=== PATIENT | female | born 1990 | race Caucasian/White ===

== ENCOUNTER 2017-05-08 10:42 | Emergency (ER) | payer BC, SELFPAY ==
[2017-05-08 10:50] VITALS: BP 108/73; PULSE 77; RESP 18; TEMP 36.6; O2SAT 99; BMI 35.3
[2017-05-08 10:58] VITALS: BP 108/73; PULSE 77; RESP 18; TEMP 36.6; O2SAT 99; BMI 35.3
--- NOTE | 2017-05-08 10:59 | XR_ITS ---
XR elbow LT min 3V HISTORY: Posttraumatic pain ITS.REASON: FELL AT HOME ORDERING PHYSICIAN: Jd Mart MD PATIENT AGE: 26 years COMPARISON: None FINDINGS: BONY STRUCTURES: No fracture or dislocation. No lytic or blastic change. Normal mineralization. SOFT TISSUES: Unremarkable. No radio opaque foreign bodies. No displaced fat pad. JOINT SPACE: Well-preserved. No significant arthritic changes evident. IMPRESSION: Negative elbow.
--- NOTE | 2017-05-08 11:06 | HMH.EDUTC ---
[place] Disposition Clinical Impression: Elbow pain Qualifiers: Laterality: left Qualified Code(s): M25.522 - Pain in left elbow Disposition: Home, Self-Care Condition on Discharge: Good Instructions: DI for Chronic Pain -- Adult, DI for Elbow Pain, How To Perform RICE (Rest, Ice, Compress, Elevate) Additional Instructions: *RICE, Rest the extremity, Ice 15-20 minutes 3-4 times daily, Compress- wear the ranjit wrap as discussed as much as possible to help reduce swelling and pain, Elevate the extremity when at rest *Ranjit wrap is for support and help control swelling, use it except in the shower. Be sure that is not to tight but not to loose either *Elevate when resting *Ibuprofen 600-800mg every 6-8 hours as needed for pain an inflammation. If need something more can take Tylenol in between doses of Ibuprofen to help Immediately follow up for new or worsening of symptoms, or no noticeable improvement over the next 3-5 days Prescriptions: Ibuprofen [Ibuprofen 600mg Tab] 600 mg PO Q6H PRN #20 tab PRN Reason: Moderate Pain Referrals: Carmine Richards MD [Staff Physician] - Gustavo Cardenas MD [Staff Physician] - Forms: Work/School Release Time of Disposition: 11:29 Medical Decision Making - Medical Records Medical records reviewed: Yes: I reviewed the patient's medical records. Vital Signs: 05/08/17 10:50 05/08/17 10:58 Temperature 97.8 F 97.8 F Temperature Source Oral Temporal Artery Scan Pulse Rate [Left Radial] 77 77 Respiratory Rate 18 18 Blood Pressure [Right Arm] 108/73 108/73 Blood Pressure Mean [Right Arm] 84 84 Blood Pressure Source [Right Arm] Automatic Cuff Automatic Cuff Blood Pressure Position [Right Arm] Sitting Sitting 02 Sat by Pulse Oximetry 99 99 Oxygen Delivery Method Room Air Room Air Orders (Tests/Meds): ORDERS Category Date Time Status XR elbow LT min 3V Stat Exams 05/08/17 10:59 Taken - Bruce Inquiry Pt receiving controlled substance: No Bruce was queried for this patient: No [place] HPI - General Stated complaint: [id number] left elbow pain/home Mode of Arrival: Ambulatory Source of Information: Patient Limitations: No Limitations Description of Symptoms (Recalled from Triage Doc. by RN): FELL [place], LEFT ELBOW PAIN HEENT Symptoms (Recalled from RN notes): No Resp Symptoms (Recalled from RN notes): No Skin Symptoms (Recalled from RN notes): No MS Symptoms (Recalled from RN notes): Yes Functional Status (Recalled from RN notes): N - History of Present Illness Provider Complaint: Patient fell a couple of days ago and as she tried to catch herself she tightened up her arms and put them straight out States that she feels like she bend her elbow area backwards. State that she has been having pain and swelling in the left elbow ever since - Related Data Previous Rx's Medication Instructions Recorded Ibuprofen [Ibuprofen 600mg Tab] 600 mg PO Q6H PRN #20 tab 05/08/17 Allergies Allergy/AdvReac Type Severity Reaction Status Date / Time No Known Allergies Allergy Verified 05/08/17 11:01 - Worker's Comp Is this a Worker's Comp case?: No [facility] History I have reviewed the patient's past medical history: Yes - *Social History Alcohol Intake: never - Psychiatric History Expresses thoughts of harming self/others: None Suicide Plan Description: No Plan ROS Obtained: Yes All systems reviewed & no additional complaints - Allergic/Immunologic Comments: Left elbow pain Physical Exam - General General appearance: alert, in no apparent distress - ENT ENT exam: Present: normal exam, normal oropharynx, mucous membranes moist, TM's normal bilaterally, normal external ear exam - Respiratory Respiratory exam: Present: normal lung sounds bilaterally. Absent: respiratory distress - Cardiovascular Cardiovascular exam: Present: regular rate, normal rhythm. Absent: JVD - Expanded Upper Extremity Exam Left Elbow exam: Present: tenderness, swel
[2017-05-08 11:45] VITALS: BP 110/82; PULSE 78; RESP 18; TEMP 36.6
== END 2017-05-08 11:48 | disposition home or self-care (01) ==
LOC: ER 10:52 → UTC 10:55
PROVIDERS: Emergency Provider Emergency Medicine; Family Provider Family Medicine
DX: M25.522 Pain in left elbow (principal); W01.0XXA Fall on same level from slipping, tripping and stumbling without subsequent striking against object, initial encounter
CPT/HCPCS: 73080; 99202

== ENCOUNTER 2017-06-13 14:55 | Emergency (ER) | payer BC, SELFPAY ==
[2017-06-13 15:32] VITALS: BP 127/70; PULSE 81; RESP 20; TEMP 36.6; O2SAT 97; BMI 35.3
[2017-06-13 15:57] LABS: UTC Influenza A Antigen Negative (Negative); UTC Influenza B Antigen Negative (Negative); UTC Strep Screen (Rapid) Negative (Negative)
--- NOTE | 2017-06-13 16:07 | HMH.EDUTC ---
[facility] [place] Disposition Clinical Impression: Nasal congestion with rhinorrhea Disposition: Home, Self-Care Condition on Discharge: Good Instructions: DI for Nasal Congestion Additional Instructions: * No sign of bacterial infection. Could be a mild virus/cold, could be allergies. Both are treated the same way * Nasal Saline to remove nasal drainage and help with nasal congestion. Hard to eat, drink, sleep with nasal congestion so important to keep nose cleaned out * Monitor Temp. Follow up if fever develops * Encourage fluids, water, gatorade, powerade, pedialyte if infant/toddler/child * warm salt water gargles * warm fluids * sore throat lozenges * sleep elevated * humidifier/vaporizer * flonase 2 sprays each nostril daily but may take 2-3 days to notice improvement with it. * Claritin 10mg daily * * Per hospital policy, Your throat swab was sent for culture. Those results are typically sent to your primary care. Be sure to follow up in 2-3 days if no improvement so they can review those results and treat if necessary. If you don't have primary care, I recommend you get one but in the mean time, you will have to return to a walk in clinic. Follow up: IMMEDIATELY for new or worsening symptoms OR no noticeable improvement over the next 48-72 hours. 911 for difficulty breathing or swallowing Time of Disposition: 16:15 Medical Decision Making - Bruce Inquiry Pt receiving controlled substance: No Vital Signs: 06/13/17 15:32 Temperature 97.9 F Temperature Source Temporal Artery Scan Pulse Rate [Brachial] 81 Respiratory Rate 20 Blood Pressure [Right Arm] 127/70 Blood Pressure Mean [Right Arm] 89 Blood Pressure Position [Right Arm] Sitting 02 Sat by Pulse Oximetry 97 - Lab Data Lab results reviewed: Yes: I reviewed the patient's lab results. Lab Results 06/13/17 15:38: Influenza Type A Ag Negative, Influenza Type B Ag Negative, Strep Scn Rapid Clinic Negative Orders (Tests/Meds): ORDERS Category Date Time Status Strep Screen Confirmation Stat Micro 06/13/17 15:38 Received [facility] [place] HPI - General Stated complaint: head congestion sore throat Time Seen by Provider: 06/13/17 16:07 Mode of Arrival: Ambulatory Source of Information: Patient Limitations: No Limitations Description of Symptoms (Recalled from Triage Doc. by RN): SORE THROAT AND SINUS CONGESTION SINCE THIS AM HEENT Symptoms (Recalled from RN notes): Yes Resp Symptoms (Recalled from RN notes): No Skin Symptoms (Recalled from RN notes): No MS Symptoms (Recalled from RN notes): No Functional Status (Recalled from RN notes): NA - History of Present Illness Provider Complaint: c/o sore throat and nasal congestion. Started w/ rhinorrhea 2-3 days ago. Sore throat and nasal congestion new today. Dayquil hasn't helped. No fever, aches, chills. No known sick contacts. - Related Data Allergies Allergy/AdvReac Type Severity Reaction Status Date / Time No Known Allergies Allergy Verified 06/12/17 10:12 - Worker's Comp Is this a Worker's Comp case?: No [facility] History I have reviewed the patient's past medical history: Yes (denies PMHx) Medical History: Denies:: Diabetes Mellitus Type 1, Diabetes Mellitus Type 2, Hypertension Laterality Cases: Bilateral: Tonsillectomy (w/ adnoids) Other Surgeries: Yes: Other (ankle (wire/screws)) - Social History Smoking Status: Never smoker Alcohol Intake: never Substance Use Type: denies use - Psychiatric History Expresses thoughts of harming self/others: None Suicide Plan Description: No Plan Family Hx:: No significant family history ROS Obtained: Yes Systems reviewed as appropriate & no additional complaints - Constitutional Constitutional: Reports as per HPI, Denies body ache, Denies chills, Denies fatigue, Denies poor appetite - Eyes Eyes: Reports eye discharge (watery), Denies itchy eyes, Denies eye pain, Denies other (eye redness) - ENT Ears, Nose, Mouth, and Throat: Reports as per HPI, De
--- NOTE | 2017-06-13 16:13 | ED_ITS ---
[facility] [place] Impression: Nasal congestion with rhinorrhea Disposition: Home, Self-Care Condition on Discharge: Good Instructions: DI for Nasal Congestion Additional Instructions: * No sign of bacterial infection. Could be a mild virus/cold, could be allergies. Both are treated the same way * Nasal Saline to remove nasal drainage and help with nasal congestion. Hard to eat, drink, sleep with nasal congestion so important to keep nose cleaned out * Monitor Temp. Follow up if fever develops * Encourage fluids, water, gatorade, powerade, pedialyte if infant/toddler/ child * warm salt water gargles * warm fluids * sore throat lozenges * sleep elevated * humidifier/vaporizer * flonase 2 sprays each nostril daily but may take 2-3 days to notice improvement with it. * Claritin 10mg daily * * Per hospital policy, Your throat swab was sent for culture. Those results are typically sent to your primary care. Be sure to follow up in 2-3 days if no improvement so they can review those results and treat if necessary. If you don' t have primary care, I recommend you get one but in the mean time, you will have to return to a walk in clinic. Follow up: IMMEDIATELY for new or worsening symptoms OR no noticeable improvement over the next 48-72 hours. 911 for difficulty breathing or swallowing Time of Disposition: 16:15 Medical Decision Making - Bruce Inquiry Pt receiving controlled substance: No Vital Signs: 06/13/17 15:32 Temperature 97.9 F Temperature Source Temporal Artery Scan Pulse Rate [Brachial] 81 Respiratory Rate 20 Blood Pressure [Right Arm] 127/70 Blood Pressure Mean [Right Arm] 89 Blood Pressure Position [Right Arm] Sitting 02 Sat by Pulse Oximetry 97 - Lab Data Lab results reviewed: Yes: I reviewed the patient's lab results. Lab Results 06/13/17 15:38: Influenza Type A Ag Negative, Influenza Type B Ag Negative, Strep Scn Rapid Clinic Negative Orders (Tests/Meds): ORDERS Category Date Time Status Strep Screen Confirmation Stat Micro 06/13/17 15:38 Received [facility] [place] - General Stated complaint: head congestion sore throat Time Seen by Provider: 06/13/17 16:07 Mode of Arrival: Ambulatory Source of Information: Patient Limitations: No Limitations Description of Symptoms (Recalled from Triage Doc. by RN): SORE THROAT AND SINUS CONGESTION SINCE THIS AM HEENT Symptoms (Recalled from RN notes): Yes Resp Symptoms (Recalled from RN notes): No Skin Symptoms (Recalled from RN notes): No MS Symptoms (Recalled from RN notes): No Functional Status (Recalled from RN notes): NA - History of Present Illness Provider Complaint: c/o sore throat and nasal congestion. Started w/ rhinorrhea 2-3 days ago. Sore throat and nasal congestion new today. Dayquil hasn't helped. No fever, aches, chills. No known sick contacts. - Related Data Allergies Allergy/AdvReac Type Severity Reaction Status Date / Time No Known Allergies Allergy Verified 06/12/17 10:12 - Worker's Comp Is this a Worker's Comp case?: No [facility] History I have reviewed the patient's past medical history: Yes (denies PMHx) Medical History: Denies:: Diabetes Mellitus Type 1, Diabetes Mellitus Type 2, Hypertension Laterality Cases: Bilateral: Tonsillectomy (w/ adnoids) Other Surgeries: Yes: Other (ankle (wire/screws)) - Social History Smoking Status: Never smoker Alcoho
[2017-06-13 16:20] VITALS: BP 127/70; PULSE 81; RESP 20; TEMP 36.6; O2SAT 97
== END 2017-06-13 16:22 | disposition home or self-care (01) ==
PROVIDERS: Emergency Provider Nurse Practitioner Family; Family Provider Family Medicine
DX: J34.89 Other specified disorders of nose and nasal sinuses (principal); I10 Essential (primary) hypertension
CPT/HCPCS: 87804; 87880; 99202

== ENCOUNTER → 2017-06-20 13:26 | Outpatient (CLI) | payer BC, SELFPAY ==
[2017-06-20 17:46] LABS: Basophils # 0.1 K/mm3 (0-0.2); Basophils % 0.5 % (0.1-2.0); Eosinophils # 0.3 K/mm3 (0.0-0.4); Eosinophils % 2.7 % (0.1-12.0); Hematocrit 46.3 % (37.0-47.0); Hemoglobin 14.6 g/dL (12.2-16.2); Lymphocytes # 2.1 K/mm3 (0.7-4.5); Lymphocytes % 19.3 K/mm3 (10-50); Mean Corpuscular HGB Conc 31.5 g/dL (31.8-35.4); Mean Corpuscular Hemoglobin 27.8 pg (27.0-31.2); Mean Corpuscular Volume 88.2 fl (81-99); Mean Platelet Volume 9.2 fl (7.4-10.4); Monocytes # 0.5 K/mm3 (0.1-1.0); Monocytes % 4.5 % (1.7-9.3); Neutrophils # 8.1 K/mm3 (1.8-7.8); Neutrophils % 73.2 % (37.0-80.0); Platelet Count 308 K/mm3 (142-424); Red Blood Count 5.25 M/mm3 (4.20-5.40); Red Cell Distribution Width 12.9 % (11.5-17.5); White Blood Count 11.1 K/mm3 (4.8-10.8)
[2017-06-20 18:18] LABS: Hemoglobin A1C 4.9 % (0.0-7.0)
[2017-06-20 18:31] LABS: Alanine Aminotransferase 22 U/L (12-78); Albumin Level 3.7 gm/dL (3.4-5.0); Albumin/Globulin Ratio 1.1 (1.1-1.8); Alkaline Phosphatase 104 U/L (46-116); Aspartate Amino Transferase 15 U/L (15-37); Bilirubin,Total 0.4 mg/dL (0.2-1.0); Blood Urea Nitrogen 8 mg/dL (7-18); Calcium 8.7 mg/dL (8.5-10.1); Carbon Dioxide 29 mmol/L (21.0-32.0); Chloride 106 mmol/L (98-107); Chol/HDL Ratio 5.1 (1-3.5); Cholesterol 182 mg/dL (140-200); Creatinine,Serum 0.66 mg/dL (0.55-1.02); Estimated Glomerular Filt Rate 108 ml/min (>60); Free T4 (Free Thyroxine) 0.95 ng/dl (0.76-1.46); GFR (African American) 131 ML/MIN (>60); Globulin 3.5 gm/dl (1.3-3.2); Glucose 73 mg/dL (74-106); HDL Cholesterol 36 mg/dL (29-89); LDL Cholesterol 125 mg/dL (0-130); Sodium 141 mmol/L (136-145); Thyroid Stimulating Hormone 1.31 uIU/ml (0.358-3.740); Total Protein,Serum 7.2 gm/dL (6.4-8.2); Triglycerides 106 mg/dL (30-200); VLDL Cholesterol 21 mg/dL (0-40)
[2017-06-22 18:39] LABS: Vitamin D 25 Hydroxy 15.4 ng/mL (30.0-100.0)
== END ==
PROVIDERS: Visit Provider Nurse Practitioner Family
DX: R53.83 Other fatigue (principal)
CPT/HCPCS: 80053; 80061; 82652; 83036; 84439; 84443; 85025

== ENCOUNTER 2018-08-18 14:44 | Emergency (ER) | payer BC, SELFPAY ==
[2018-08-18 14:55] VITALS: BP 127/82; PULSE 89; RESP 18; TEMP 36.5; O2SAT 100; BMI 37.9
--- NOTE | 2018-08-18 14:55 | XR_ITS ---
XR ankle LT min 3V HISTORY: Previous ankle surgery ITS.REASON: PAIN AND SWELLING ORDERING PHYSICIAN: PATIENT AGE: 27 years Comparison: (03/14/2011 FINDINGS: Again noted are the 2 horizontal threaded screws in the distal tibia which are unchanged in appearance from the previous study with no evidence of loosening. There is obliquely oriented threaded screw entering the talus laterally and extending up to the superior medial border. There is mild diffuse soft tissue swelling both medially and laterally. IMPRESSION: Stable postsurgical changes of a mild diffuse soft tissue swelling lower leg and ankle although another consideration is interval weight gain of the patient since the previous exam
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
[2018-08-18 15:29] VITALS: BP 126/66; PULSE 65; RESP 18; TEMP 36.6; O2SAT 100
== END 2018-08-18 15:39 | disposition home or self-care (01) ==
LOC: UTC 15:34
PROVIDERS: Emergency Provider Nurse Practitioner; PCP Emergency Medicine
DX: M25.572 Pain in left ankle and joints of left foot (principal)
CPT/HCPCS: 73610; 99201

== ENCOUNTER → 2018-11-20 16:56 | Outpatient (CLI) | payer BC, SELFPAY ==
[2018-11-20 17:35] LABS: Basophils # 0.1 K/mm3 (0-0.2); Basophils % 0.5 % (0.1-2.0); Eosinophils # 0.2 K/mm3 (0.0-0.4); Eosinophils % 1.6 % (0.1-12.0); Hematocrit 44.9 % (37.0-47.0); Hemoglobin 14.5 g/dL (12.2-16.2); Lymphocytes # 2.8 K/mm3 (0.7-4.5); Lymphocytes % 28.2 % (10-50); Mean Corpuscular HGB Conc 32.3 g/dL (31.8-35.4); Mean Corpuscular Hemoglobin 28.2 pg (27.0-31.2); Mean Corpuscular Volume 87.3 fl (81-99); Mean Platelet Volume 8.7 fl (7.4-10.4); Monocytes # 0.4 K/mm3 (0.1-1.0); Monocytes % 4.4 % (1.7-9.3); Neutrophils # 6.3 K/mm3 (1.8-7.8); Neutrophils % 65.2 % (37.0-80.0); Platelet Count 341 K/mm3 (142-424); Red Blood Count 5.14 M/mm3 (4.20-5.40); Red Cell Distribution Width 13.5 % (11.5-17.5); White Blood Count 9.7 K/mm3 (4.8-10.8)
[2018-11-20 17:37] LABS: Alanine Aminotransferase 32 U/L (12-78); Albumin Level 3.9 gm/dL (3.4-5.0); Albumin/Globulin Ratio 1.2 (1.1-1.8); Alkaline Phosphatase 90 U/L (46-116); Anion Gap 10.7 mEq/L (5-15); Aspartate Amino Transferase 14 U/L (15-37); Bilirubin,Total 0.6 mg/dL (0.2-1.0); Blood Urea Nitrogen 10 mg/dL (7-18); Calcium 8.9 mg/dL (8.5-10.1); Carbon Dioxide 27 mmol/L (21.0-32.0); Chloride 106 mmol/L (98-107); Chol/HDL Ratio 3.7 (1-3.5); Cholesterol 163 mg/dL (140-200); Creatinine,Serum 0.69 mg/dL (0.55-1.02); Estimated Glomerular Filt Rate 101 ml/min (>60); GFR (African American) 123 ML/MIN (>60); Globulin 3.2 gm/dl (1.3-3.2); Glucose 112 mg/dL (74-106); HDL Cholesterol 44 mg/dL (29-89); LDL Cholesterol 99 mg/dL (0-130); Potassium 3.7 mmoL/L (3.5-5.1); Sodium 140 mmol/L (136-145); Thyroid Stimulating Hormone 3.12 uIU/ml (0.358-3.740); Total Protein,Serum 7.1 gm/dL (6.4-8.2); Triglycerides 100 mg/dL (30-200); VLDL Cholesterol 20 mg/dL (0-40)
[2018-11-21 15:32] LABS: Hemoglobin A1C 5.1 % (0.0-7.0)
[2018-11-22 22:27] LABS: Vitamin B12 477 pg/mL (232-1245); Vitamin D 25 Hydroxy 25.4 ng/mL (30.0-100.0)
== END ==
PROVIDERS: Visit Provider Nurse Practitioner Family
DX: R53.83 Other fatigue (principal); R73.9 Hyperglycemia, unspecified; E55.9 Vitamin D deficiency, unspecified
CPT/HCPCS: 80053; 80061; 82607; 82652; 83036; 84439; 84443; 85025

== ENCOUNTER → 2019-07-07 16:52 | Outpatient (CLI) | payer BC, SELFPAY ==
[2019-07-07 17:26] LABS: Basophils # 0.1 K/mm3 (0-0.2); Basophils % 0.4 % (0.1-2.0); Eosinophils # 0.2 K/mm3 (0.0-0.4); Eosinophils % 1.3 % (0.1-12.0); Hemoglobin 13.6 g/dL (12.2-16.2); Lymphocytes # 3.1 K/mm3 (0.7-4.5); Lymphocytes % 22.4 % (10-50); Mean Corpuscular HGB Conc 32.5 g/dL (31.8-35.4); Mean Corpuscular Hemoglobin 27.7 pg (27.0-31.2); Mean Corpuscular Volume 85.1 fl (81-99); Mean Platelet Volume 8.1 fl (7.4-10.4); Monocytes # 0.5 K/mm3 (0.1-1.0); Monocytes % 3.3 % (1.7-9.3); Neutrophils # 9.9 K/mm3 (1.8-7.8); Neutrophils % 72.6 % (37.0-80.0); Platelet Count 295 K/mm3 (142-424); Red Blood Count 4.93 M/mm3 (4.20-5.40); Red Cell Distribution Width 13.3 % (11.5-17.5); White Blood Count 13.7 K/mm3 (4.8-10.8)
[2019-07-07 19:09] LABS: Chloride 106 mmol/L (98-107); Sodium 136 mmol/L (136-145)
[2019-07-07 19:12] LABS: Alanine Aminotransferase 24 U/L (12-78); Albumin/Globulin Ratio 1.5 (1.1-1.8); Alkaline Phosphatase 69 U/L (38-126); Aspartate Amino Transferase 20 U/L (14-36); Bilirubin,Total 0.3 mg/dl (0.2-1.3); Blood Urea Nitrogen 15 mg/dl (7-17); Calcium 9.2 mg/dl (8.4-10.2); Carbon Dioxide 23 mmol/L (22.0-30.0); Estimated Glomerular Filt Rate 85 ml/min (>60); GFR (African American) 103 ML/MIN (>60); Globulin 2.7 g/dL (1.3-3.2); Glucose 73 mg/dl (74-100); Total Protein,Serum 6.7 g/dl (6.3-8.2)
[2019-07-07 19:44] LABS: Thyroid Stimulating Hormone 2.52 uIU/mL (0.465-4.68)
[2019-07-09 04:44] LABS: Iron 86 ug/dL (27-159); UIBC 245 ug/dL (131-425)
[2019-07-09 07:17] LABS: Vitamin B12 404 pg/mL (232-1245); Vitamin D 25 Hydroxy 22.8 ng/mL (30.0-100.0)
[2019-07-09 07:18] LABS: Iron Saturation 26 % (15-55)
== END ==
PROVIDERS: Visit Provider Nurse Practitioner Psychiatric/Mental Health
DX: Z00.00 Encounter for general adult medical examination without abnormal findings (principal)
CPT/HCPCS: 36415; 80053; 82607; 82652; 83540; 83550; 84443; 85025

== ENCOUNTER → 2019-07-30 12:51 | Outpatient (CLI) | payer BC, SELFPAY ==
--- NOTE | 2019-07-30 12:58 | XR_ITS ---
PROCEDURE: XR FOOT WT BEARING RT 3V CLINICAL INDICATION: pain Right heel pain COMPARISON: No exams were available for comparison FINDINGS: No fracture or dislocation. No lytic or blastic change. There is normal mineralization. The joint spaces are well-preserved. No significant degenerative/arthritic changes. No erosive changes evident. There is a type 2 os navicularis with some osteosclerosis of the ununited ossicle. IMPRESSION: Type 2 os navicularis otherwise negative Dictated by: Brandno Crawley MD 07/30/2019 14:32 Electronically signed by Brandon Crawley MD in [place] 07/30/2019 14:32
--- NOTE | 2019-07-30 12:58 | XR_ITS ---
PROCEDURE: XR FOOT WT BEARING LT 3V CLINICAL INDICATION: foot pain COMPARISON: No exams were available for comparison FINDINGS: No fracture or dislocation. No lytic or blastic change. There is normal mineralization. The joint spaces are well-preserved. No significant degenerative/arthritic changes. No erosive changes evident. There is a type 2 os navicularis Other findings:There are 2 screws within the distal tibia and 1 screw within the talus IMPRESSION: Postsurgical changes of the ankle, no acute finding of the foot Type 2 os navicularis Dictated by: Brandon Crawley MD 07/30/2019 14:31 Electronically signed by Brandon Crawley MD in [place] 07/30/2019 14:31
== END ==
PROVIDERS: PCP Emergency Medicine; Visit Provider Podiatrist
DX: M79.672 Pain in left foot (principal); M79.671 Pain in right foot
CPT/HCPCS: 73630

== ENCOUNTER 2019-10-11 13:51 | Emergency (ER) | payer BC, SELFPAY ==
[2019-10-11 13:52] VITALS: BP 114/79; PULSE 90; RESP 18; TEMP 36.7; O2SAT 98; BMI 44.9
--- NOTE | 2019-10-11 14:08 | HMH.EDGENADL ---
ED Disposition Clinical Impression: Conjunctivitis Qualifiers: Conjunctivitis type: acute Acute conjunctivitis type: unspecified Laterality: left Qualified Code(s): H10.32 - Unspecified acute conjunctivitis, left eye Disposition: Home, Self-Care Condition on Discharge: Good Additional Instructions: use eyedrops as dispensed and f/u optometry for re-eval Referrals: Pio Hutton MD [Primary Care Provider] - - Critical Care Critical Care Time: No Attestation: On 10/11/19, the high probability of a clinically significant, sudden or life threatening deterioration of the following system(s) required my full and direct attention, intervention and personal management. The time I documented below is in addition to time spent performing reported procedures but includes the following listed in this critical care notation. Medical Decision Making - Bruce Inquiry Pt receiving controlled substance: No Orders (Tests/Meds): ED MEDICATIONS Generic Name Dose Route Start Last Admin Trade Name Freq PRN Reason Stop Dose Admin Neomycin/Polymyxin/Dexamethasone 2 ml 10/11/19 14:05 Maxitrol Ophth Susp 5ml Bottle OP 10/11/19 14:06 ONCE ONE Tetracaine HCl 2 ml 10/11/19 14:05 Tetracaine 0.5% Ophth Solution 15ml OP 10/11/19 14:06 ONCE ONE General Adult HPI - General Stated complaint: Inner Layer Scrubber Tender in eye; WC 1350 Time Seen by Provider: 10/11/19 14:00 Mode of Arrival: Ambulatory Source of Information: Patient Limitations: No Limitations - History of Present Illness HPI narrative: This a 28-year-old female that presents from dietary department. 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 Patient reports constant burning to the left eye in its entirety. She denies getting any hot grease in her eye just the school operations manager while she was cleaning. No change in her visual acuity. No other injury or complaint. Onset (ago): minute(s) (20m) Severity scale (1-10): 6 - Related Data Home Medications Medication Instructions Recorded Confirmed etonogestrel 68 mg subdermal SUBDERMAL each 11/17/18 08/04/19 implant Previous Rx's Medication Instructions Recorded diclofenac sodium 1 % topical gel 4 g TOPICAL QID PRN 30 Days #100 g 08/04/19 methylprednisolone 4 mg tablets in See Rx Instructions PO PER PKG DIR 05/12/20 a dose pack #21 tab aripiprazole 10 mg tablet 10 mg PO QHS #30 tab 08/27/19 doxepin 25 mg capsule 25 mg PO .COMPLEX #60 cap 08/27/19 fluoxetine 40 mg capsule 40 mg PO DAILY #30 cap 08/27/19 hydroxyzine pamoate 25 mg capsule 25 mg PO .COMPLEX PRN #60 cap 08/27/19 Allergies Allergy/AdvReac Type Severity Reaction Status Date / Time meloxicam Allergy Severe Rash Verified 08/04/19 13:15 [facility] History - Hepatitis A Screen Attestation statement:: This patient has been screened for Hepatitis A risk factors. I have reviewed the patient's past medical history: Yes Medical History: Reports:: Anxiety, Depression Denies:: Diabetes Mellitus Type 1, Diabetes Mellitus Type 2, Hypertension Laterality Cases: Left: Other, Bilateral: Tonsillectomy Other Surgeries: Yes: , Other Amputation: No Fractures: Yes (LEFT ANKLE, WIRE AND SCREWS) Comment: Left Ankle 2011 3 screws - Social History Smoking Status: Never smoker Alcohol Intake: never Substance Use Type: denies use Occupational Status: employed Housing: house Household Members: family - Psychiatric History Pschychiatric History:: Reports:: Anxiety, Depression Family Hx:: Mental illness, Other Comment: ROS Obtained: Yes All systems reviewed & no additional complaints Physical Exam - General General appearance: alert, in no apparent distress - Head Head exam: atraumatic - Eye Eye exam: Present: normal appearance, PERRL, EOMI, conjunctival redness - Expanded Eye Exam Eyelids: bilateral: normal inspection Pupils: Bilateral: regular, round Sclera/Conjunctival: le
[2019-10-11 14:49] VITALS: BP 114/79; PULSE 90; RESP 18; TEMP 36.7; O2SAT 98
== END 2019-10-11 14:50 | disposition home or self-care (01) ==
PROVIDERS: Emergency Provider Emergency Medicine; PCP Emergency Medicine
DX: H10.212 Acute toxic conjunctivitis, left eye (principal); F41.8 Other specified anxiety disorders; Y99.0 Civilian activity done for income or pay
CPT/HCPCS: 99281

== ENCOUNTER 2019-11-09 15:15 | Emergency (ER) | payer BC, SELFPAY ==
[2019-11-09 15:46] VITALS: BP 132/86; PULSE 94; RESP 16; TEMP 36.7; O2SAT 99; BMI 44.9
--- NOTE | 2019-11-09 15:59 | HMH.EDUTC ---
[facility] [place] Impression: Upper respiratory infection Qualifiers: URI type: unspecified URI Qualified Code(s): J06.9 - Acute upper respiratory infection, unspecified Disposition: Home, Self-Care Condition on Discharge: Good Instructions: DI for Sinusitis, Sinusitis, Sore Throat Additional Instructions: *Monitor Temp, Over the counter Motrin or Tylenol as directed/as needed Tylenol every 4 hours and Motrin every 6 hours (as long as your family doctor has told you that you can take it) for fever or pain. and straight to ER if unable to lower temp less than 101.0 after medication given *Warm salt water gargles may help to soothe the throat *Throat Lozenges *Warm fluids like tea with honey may help to soothe the throat *Sleep elevated *Humidifier/Vaporizer *Flonase 2 sprays in each nostril daily but be aware that it may take 2-3 days before you notice improvement Call back to the [facility] tomorrow to see if your COVID test results are back and the result Your throat swab was sent for culture. Those results are typically sent to your primary care. Be sure to follow up in 2-3 days with your family doctor/primary care physician if no improvement so they can review those result and treat if necessary. If you don?t have a primary care doctor, I recommend you get one but in the mean time, you will have to return to a walk in clinic Follow up IMMEDIATELY for new or worsening symptoms or no Noticeable improvement over the next 48-72 hours. 911 for difficulty breathing or swallowing Prescriptions: Fluticasone Propionate [Flonase 50mcg nasal spray 16gm] 1 - 2 spr NS DAILY #1 bottle Transmission Status: Pending to [facility] methylPREDNISolone [Medrol 4mg tab] 4 mg PO DIRECTED #21 tab Transmission Status: Pending to [facility] Azithromycin [Z-Foreign 250mg Tab] 250 mg PO DIRECTED #6 tab Transmission Status: Pending to [facility] Referrals: Pio Hutton MD [Primary Care Provider] - As needed Time of Disposition: 16:08 Medical Decision Making - Bruce Inquiry Pt receiving controlled substance: No Bruce was queried for this patient: No Vital Signs: 11/09/19 15:46 Temperature 98.1 F Temperature Source Oral Pulse Rate [Right Brachial] 94 H Respiratory Rate 16 Blood Pressure [Right Arm] 132/86 Blood Pressure Mean [Right Arm] 101 Blood Pressure Source [Right Arm] Automatic Cuff Blood Pressure Position [Right Arm] Sitting 02 Sat by Pulse Oximetry 99 Oxygen Delivery Method Room Air - Lab Data Lab results reviewed: Yes: I reviewed the patient's lab results. Orders (Tests/Meds): ORDERS Category Date Time Status Coronavirus 19 Swab (OUTPT) Routine Lab 11/09/19 15:51 Received [facility] [place] - General Stated complaint: Congestion, cough, sob Time Seen by Provider: 11/09/19 15:59 Mode of Arrival: Ambulatory Source of Information: Patient Limitations: No Limitations Description of Symptoms (Recalled from Triage Doc. by RN): PATIENT C/O COUGH, RUNNY NOSE, AND SOB X 3 WEEKS HEENT Symptoms (Recalled from RN notes): Yes Resp Symptoms (Recalled from RN notes): Yes Skin Symptoms (Recalled from RN notes): No MS Symptoms (Recalled from RN notes): No Functional Status (Recalled from RN notes): WNL - History of Present Illness Provider Complaint: Patient states that she has been having sinus congestion, sore irritated throat and cough on and off for about 3 weeks States that when she has a coughing eppisode it makes her feel short of breath States that earlier she started having drainage again and coughing so she come down to get checked - Related Data Home Medications Medication Instructions Recorded Confirmed etonogestrel 68 mg subdermal SUBDERMAL each 11/17/18 11/03/19 implant aripiprazole 5 mg tablet 5 mg PO DAILY 10/13/19 11/03/19 Previous Rx's Medication Instructions Recorded diclofenac sodium 1 % topical gel 4 g TOPICAL QID PRN 30 Days #100 g
[2019-11-09 16:11] VITALS: BP 132/86; PULSE 94; RESP 16; TEMP 36.7; O2SAT 99
== END 2019-11-09 16:16 | disposition home or self-care (01) ==
PROVIDERS: Emergency Provider Nurse Practitioner; PCP Emergency Medicine
DX: J06.9 Acute upper respiratory infection, unspecified (principal); Z20.828 Contact with and (suspected) exposure to other viral communicable diseases; Z79.899 Other long term (current) drug therapy; F41.8 Other specified anxiety disorders
CPT/HCPCS: 99201; U0003

== ENCOUNTER 2020-03-11 14:40 | Emergency (ER) | payer BC, SELFPAY ==
[2020-03-11 14:40] VITALS: BP 147/78; PULSE 105; RESP 20; TEMP 36.4; O2SAT 96; BMI 45.6
--- NOTE | 2020-03-11 14:51 | HMH.EDUTC ---
[facility] [place]: [place]ausea Disposition: Home, Self-Care Condition on Discharge: Good Instructions: DI for Nausea -- Adult Prescriptions: Ondansetron [Zofran 4mg ODT] 4 mg PO TIDP PRN 10 Days #20 tab PRN Reason: Nausea Transmission Status: Pending to [facility] Referrals: Pio Hutton MD [Primary Care Provider] - Time of Disposition: 15:09 Medical Decision Making - Bruce Inquiry Pt receiving controlled substance: No Vital Signs: 03/11/20 14:40 Temperature 97.5 F L Temperature Source Oral Pulse Rate [Right Brachial] 105 H Respiratory Rate 20 Blood Pressure [Right Arm] 147/78 H Blood Pressure Mean [Right Arm] 101 Blood Pressure Source [Right Arm] Automatic Cuff Blood Pressure Position [Right Arm] Sitting 02 Sat by Pulse Oximetry 96 Oxygen Delivery Method Room Air - Lab Data Lab results reviewed: Yes: I reviewed the patient's lab results. Orders (Tests/Meds): ED MEDICATIONS Discontinued Medications Generic Name Dose Route Start Last Admin Trade Name Freq PRN Reason Stop Dose Admin Ondansetron HCl 4 mg 03/11/20 15:07 Ondansetron 4mg Odt SL 03/11/20 15:08 ONCE ONE [facility] [place] - General Stated complaint: Nausea, jittery Time Seen by Provider: 03/11/20 14:51 - History of Present Illness Provider Complaint: Headache, nausea since this am. Seems to be getting a little worse. No fever. No vomiting or diarrhea. Denies ear pain, sore throat, cough. Has eaten and it didnt really seem to make it any better or any worse. Onset (ago): hour(s) (8) Location: head, abdomen Relieving factors: none Exacerbating factors: none Treatments prior to arrival: none - Related Data Home Medications Medication Instructions Recorded Confirmed ARIPiprazole [Aripiprazole 10mg 10 mg PO DAILY 03/11/20 03/11/20 Tablet] Etonogestrel [Nexplanon] 68 mg SQ ONCE 03/11/20 03/11/20 Fluoxetine HCl 40 mg PO DAILY 03/11/20 03/11/20 Mirtazapine [Remeron 15mg tablet] 15 mg PO DAILY 03/11/20 03/11/20 Phentermine HCl 37.5 mg PO DAILY 03/11/20 03/11/20 Previous Rx's Medication Instructions Recorded Ondansetron [Zofran 4mg ODT] 4 mg PO TIDP PRN 10 Days #20 tab 03/11/20 Allergies Allergy/AdvReac Type Severity Reaction Status Date / Time meloxicam Allergy Severe Rash Verified 01/04/20 09:44 [facility] History - Hepatitis A Screen Attestation statement:: This patient has been screened for Hepatitis A risk factors. Medical History: Reports:: Anxiety, Depression Denies:: Diabetes Mellitus Type 1, Diabetes Mellitus Type 2, Hypertension Laterality Cases: Left: Other, Bilateral: Tonsillectomy Other Surgeries: Yes: , Other Amputation: No Fractures: Yes (LEFT ANKLE, WIRE AND SCREWS) Comment: Left Ankle 2011 3 screws - Social History Smoking Status: Never smoker Alcohol Intake: never Substance Use Type: denies use Occupational Status: other Housing: house Household Members: family - Psychiatric History Pschychiatric History:: Reports:: Anxiety, Depression Family Hx:: Mental illness, Other Comment: ROS Obtained: Yes All systems reviewed & no additional complaints - Constitutional Constitutional: Reports headache(s) - Gastrointestinal Gastrointestingal: Reports: nausea Physical Exam - General General appearance: alert, in no apparent distress - Head Head exam: atraumatic, normocephalic, normal inspection - Eye Eye exam: Present: normal appearance, PERRL, EOMI - ENT ENT exam: Present: normal exam, normal oropharynx, mucous membranes moist, TM's normal bilaterally, normal external ear exam - Neck Neck exam: Present: normal inspection, full ROM, trachea midline. Absent: meningismus, lymphadenopathy - Chest Chest inspection: Present: normal inspection, symmetric chest wall rise. Absent: tenderness - Respiratory Respiratory exam: Present: normal lung sounds bilaterally. Absent: respiratory distress - Cardiovasc
[2020-03-11 15:10] VITALS: BP 147/78; PULSE 105; RESP 20; TEMP 36.4; O2SAT 96
[2020-03-11 15:27] LABS: UTC Strep Screen (Rapid) Negative (Negative)
== END 2020-03-11 15:12 | disposition home or self-care (01) ==
PROVIDERS: Emergency Provider Physician Assistant; PCP Emergency Medicine
DX: R11.0 Nausea (principal); F41.8 Other specified anxiety disorders; Z79.899 Other long term (current) drug therapy
CPT/HCPCS: 87880; 99201

== ENCOUNTER 2020-04-22 14:49 | Emergency (ER) | payer BC, SELFPAY ==
[2020-04-22 14:55] VITALS: BP 129/82; PULSE 97; RESP 14; TEMP 36.8; O2SAT 96; BMI 44.9
--- NOTE | 2020-04-22 15:40 | PC.NURSE ---
PATIENT SENT TO ER PER KIRK FULLER APRN FOR FURTHER EVALUATION. REPORT GIVEN TO Yogesh POON RN
--- NOTE | 2020-04-22 15:51 | HMH.EDUTC ---
[facility] [place] Impression: Abdominal pain Qualifiers: Abdominal location: right lower quadrant Qualified Code(s): R10.31 - Right lower quadrant pain Disposition: Still a Patient Condition on Discharge: Fair Referrals: Pio Hutton MD [Primary Care Provider] - Time of Disposition: 15:53 Medical Decision Making - Medical Records Medical records reviewed: No: I reviewed the patient's medical records. - Bruce Inquiry Pt receiving controlled substance: No Vital Signs: 04/22/20 14:55 Temperature 98.3 F Temperature Source Oral Pulse Rate [Right Brachial] 97 H Respiratory Rate 14 Blood Pressure [Right Arm] 129/82 Blood Pressure Mean [Right Arm] 97 Blood Pressure Source [Right Arm] Automatic Cuff Blood Pressure Position [Right Arm] Sitting 02 Sat by Pulse Oximetry 96 Oxygen Delivery Method Room Air - Lab Data Lab results reviewed: Yes: I reviewed the patient's lab results. Orders (Tests/Meds): ORDERS Category Date Time Status Covid-19 Nasal PCR ([facility]) Routine Lab 04/22/20 15:05 Received Medical Decision Narrative: She was transferred to the ER due to her abdominal pain and her right lower quadrant tenderness. [facility] [place] - General Stated complaint: vomiting, diarrhea Time Seen by Provider: 04/22/20 15:25 Mode of Arrival: Ambulatory Source of Information: Patient Limitations: No Limitations Description of Symptoms (Recalled from Triage Doc. by RN): PATIENT C/O VOMITING AND DIARRHEA SINCE THIS MORNING HEENT Symptoms (Recalled from RN notes): No Resp Symptoms (Recalled from RN notes): No Skin Symptoms (Recalled from RN notes): No MS Symptoms (Recalled from RN notes): No Functional Status (Recalled from RN notes): WNL - History of Present Illness Provider Complaint: She c/o n/v since this morning. She last vomited about 2 hours ago. She is not having diarrhea. She denies any fever or chills. - Related Data Home Medications Medication Instructions Recorded Confirmed ARIPiprazole [Aripiprazole 10mg 10 mg PO DAILY 03/11/20 03/11/20 Tablet] Etonogestrel [Nexplanon] 68 mg SQ ONCE 03/11/20 03/11/20 Fluoxetine HCl 40 mg PO DAILY 03/11/20 03/11/20 Mirtazapine [Remeron 15mg tablet] 15 mg PO DAILY 03/11/20 03/11/20 Phentermine HCl 37.5 mg PO DAILY 03/11/20 03/11/20 Previous Rx's Medication Instructions Recorded Ondansetron [Zofran 4mg ODT] 4 mg PO TIDP PRN 10 Days #20 tab 03/11/20 Allergies Allergy/AdvReac Type Severity Reaction Status Date / Time meloxicam Allergy Severe Rash Verified 01/04/20 09:44 - Worker's Comp Is this a Worker's Comp case?: No [facility] History - Hepatitis A Screen Drug use history?: No High risk sexual behaviors?: No History of sexually transmitted infection?: No Currently employed?: No Childcare worker?: No Do you have indoor plumbing?: Yes Do you have electricity?: Yes Attestation statement:: This patient has been screened for Hepatitis A risk factors. I have reviewed the patient's past medical history: Yes Medical History: Reports:: Anxiety, Depression Denies:: Diabetes Mellitus Type 1, Diabetes Mellitus Type 2, Hypertension Laterality Cases: Left: Other, Bilateral: Tonsillectomy Other Surgeries: Yes: , Other Amputation: No Fractures: Yes (LEFT ANKLE, WIRE AND SCREWS) Comment: Left Ankle 2011 3 screws - Social History Smoking Status: Never smoker Alcohol Intake: never Substance Use Type: denies use Occupational Status: other Housing: house Household Members: family - Psychiatric History Pschychiatric History:: Reports:: Anxiety, Depression Family Hx:: Mental illness, Other Comment: ROS Obtained: Yes All systems reviewed & no additional complaints - Constitutional Constitutional: Denies chills, Denies fever(s) - Musculoskeletal Musculoskeletal: Denies back pain - Integumentary/Breasts Skin/Breast: Denies redness, Denies rash, Denies wounds Physical Exam - General General appearance: marianne
[2020-04-22 16:02] LABS: Apearance,Urine Clear (Clear); Bilirubin,Urine Negative (Negative); Blood, Urine Negative (Negative); Color,Urine Yellow (Yellow); Glucose,Urine (UA) Negative (Negative); Ketones,Urine Negative (Negative); PH,Urine 5.5 (5.0-8.5); Protein,Urine Trace (Negative); Specific Gravity, Urine >= 1.030 (1.005-1.030); UTC Leukocyte Esterase,Urine Negative (Negative); UTC Nitrate,Urine Negative (Negative); UTC Pregnancy Test, Urine Negative (Negative); Urobilinogen,Urine 0.2 EU/dl (0.2)
[2020-04-22 16:11] VITALS: BP 123/89; PULSE 89; RESP 19; TEMP 37; O2SAT 100; BMI 45.7
--- NOTE | 2020-04-22 16:21 | HMH.EDGENADL ---
ED Disposition Clinical Impression: Viral syndrome Disposition: Home, Self-Care Condition on Discharge: Good Instructions: DI for Viral Gastroenteritis -- Adult Prescriptions: Ondansetron [Zofran 4mg ODT] 4 mg PO Q6 PRN #10 tab.rapdis PRN Reason: Nausea Transmission Status: Pending to [facility] Referrals: Pio Hutton MD [Primary Care Provider] - 3 days - Critical Care Critical Care Time: No Attestation: On 04/22/20, the high probability of a clinically significant, sudden or life threatening deterioration of the following system(s) required my full and direct attention, intervention and personal management. The time I documented below is in addition to time spent performing reported procedures but includes the following listed in this critical care notation. Medical Decision Making - Medical Records Medical records reviewed: Yes: I reviewed the patient's medical records. - Bruce Inquiry Pt receiving controlled substance: No Vital Signs: 04/22/20 14:55 04/22/20 16:11 Temperature 98.3 F 98.6 F Temperature Source Oral Oral Pulse Rate [Right Brachial] 97 H 89 Respiratory Rate 14 19 Blood Pressure [Right Arm] 129/82 123/89 Blood Pressure Mean [Right Arm] 97 100 Blood Pressure Source [Right Arm] Automatic Cuff Automatic Cuff Blood Pressure Position [Right Arm] Sitting Sitting 02 Sat by Pulse Oximetry 96 100 Oxygen Delivery Method Room Air Room Air - Lab Data Lab results reviewed: Yes: I reviewed the patient's lab results. Lab Results 04/22/20 15:40: Urine Color Yellow, Urine Appearance Clear, Urine pH 6.0, Ur Specific [place] >= 1.030, Urine Protein Negative, Urine Glucose (UA) Negative, Urine Ketones Negative, Urine Blood Negative, Urine Nitrate Negative, Urine Bilirubin Negative, Urine Urobilinogen 0.2, Ur Leukocyte Esterase Negative, Urine RBC None, Urine WBC None, Ur Squamous Epith Cells 20-50, Urine Bacteria 2+ 04/22/20 15:58: Urine Color Yellow, Urine Appearance Clear, Urine pH 5.5, Ur Specific [place] >= 1.030, Urine Protein Trace, Urine Glucose (UA) Negative, Urine Ketones Negative, Urine Blood Negative, Urine Nitrate Negative, Urine Bilirubin Negative, Urine Urobilinogen 0.2, Ur Leukocyte Esterase Negative, Tst Clinic Negative 04/22/20 17:20: WBC 15.3 H, RBC 5.00, Hgb 14.3, Hct 43.6, MCV 87.2, MCH 28.6, MCHC 32.8, RDW 13.9, Plt Count 268, MPV 8.0, Neut % (Auto) 76.6, Lymph % (Auto) 18.3, [place] % (Auto) 3.0, Eos % (Auto) 1.7, Baso % (Auto) 0.4, Neut # (Auto) 11.7 H, Lymph # (Auto) 2.8, [place] # (Auto) 0.5, Eos # (Auto) 0.3, Baso # (Auto) 0.1, Total Counted 100, Neutrophils % (Manual) 85 H, Lymphocytes % (Manual) 13, Monocytes % (Manual) 2, Platelet Estimate Normal, RBC Morphology Normal 04/22/20 17:20: Sodium 139, Potassium 3.7, Chloride 104, Carbon Dioxide 30, Anion Gap 8.7, BUN 13, Creatinine 0.90, Estimated Creat Clear 83, Estimated GFR 74, Est GFR ( Amer) 90, Glucose 109 H, Calcium 9.1, Total Bilirubin 0.3, AST 31, ALT 44, Alkaline Phosphatase 97, Total Protein 7.4, Albumin 4.1, Globulin 3.3 H, Albumin/Globulin Ratio 1.2, Lipase 104 Result diagrams: 04/22/20 17:20 04/22/20 17:20 Orders (Tests/Meds): ED MEDICATIONS Discontinued Medications Generic Name Dose Route Start Last Admin Trade Name Freq PRN Reason Stop Dose Admin Sodium Chloride 1,000 mls @ 999 mls/hr 04/22/20 16:30 04/22/20 16:42 Sod Chlor 0.9% 1000ml Bag IV 04/22/20 17:30 999 mls/hr .Q1H1M FLYNN Administration Ondansetron HCl 4 mg 04/22/20 16:20 04/22/20 16:42 Ondansetron 4mg/2ml Vial IV 04/22/20 16:21 4 mg ONCE ONE Administration ORDERS Category Date Time Status Covid-19 Nasal PCR ([facility]) Routine Lab 04/22/20 15:05 Received Lipase Stat Lab 04/22/20 17:20 Received Urine Culture Stat Micro 04/22/20 15:40 Received Medical Decision Narrative: Patient's labs are reassuring with no signs of biliary obstruction or pancreatitis. She has a nontender abdomen, low s
[2020-04-22 16:43] LABS: Microscopic, Urine URINE MICROSCOPIC (MICROSCOPIC)
[2020-04-22 16:46] LABS: Appearance,Urine CLEAR (Clear); Bilirubin,Urine Negative (Negative); Blood, Urine Negative (Negative); Color,Urine YELLOW (Yellow); Glucose,Urine (UA) Negative (Negative); Ketones,Urine Negative (Negative); Leukocyte Esterase,Urine Negative (Negative); Nitrate,Urine Negative (Negative); Protein,Urine Negative (Negative); Specific Gravity, Urine >= 1.030 (1.005-1.030); Urobilinogen,Urine 0.2 EU/dl (0.2)
[2020-04-22 17:04] LABS: Bacteria,Urine 2+ /lpf; Squamous Epithelial Cell,Urine 20-50 #/hpf (0-5)
[2020-04-22 17:30] LABS: Basophils # 0.1 K/mm3 (0-0.2); Basophils % 0.4 % (0.1-2.0); Eosinophils # 0.3 K/mm3 (0.0-0.4); Eosinophils % 1.7 % (0.1-12.0); Hematocrit 43.6 % (37.0-47.0); Hemoglobin 14.3 g/dL (12.2-16.2); Lymphocytes # 2.8 K/mm3 (0.7-4.5); Lymphocytes % 18.3 % (10-50); Mean Corpuscular HGB Conc 32.8 g/dL (31.8-35.4); Mean Corpuscular Hemoglobin 28.6 pg (27.0-31.2); Mean Corpuscular Volume 87.2 fl (81-99); Monocytes # 0.5 K/mm3 (0.1-1.0); Neutrophils # 11.7 K/mm3 (1.8-7.8); Neutrophils % 76.6 % (37.0-80.0); Platelet Count 268 K/mm3 (142-424); Red Cell Distribution Width 13.9 % (11.5-17.5); White Blood Count 15.3 K/mm3 (4.8-10.8)
[2020-04-22 17:32] LABS: MANUAL DIFFERENTIAL MANUAL DIFFERENTIAL (MANUAL DIFF)
[2020-04-22 17:36] LABS: Chloride 104 mmol/L (98-107); Potassium 3.7 mmoL/L (3.5-5.1); Sodium 139 mmol/L (136-145)
[2020-04-22 17:38] LABS: Alanine Aminotransferase 44 U/L (12-78); Alkaline Phosphatase 97 U/L (38-126); Anion Gap 8.7 mEq/L (5-15); Aspartate Amino Transferase 31 U/L (14-36); Bilirubin,Total 0.3 mg/dl (0.2-1.3); Blood Urea Nitrogen 13 mg/dl (7-17); Carbon Dioxide 30 mmol/L (22.0-30.0); Creatinine Clearance Estimated 83 mL/min (50-200); Estimated Glomerular Filt Rate 74 ml/min (>60); GFR (African American) 90 ML/MIN (>60)
[2020-04-22 17:39] LABS: Albumin Level 4.1 g/dl (3.5-5.0); Albumin/Globulin Ratio 1.2 (1.1-1.8); Calcium 9.1 mg/dl (8.4-10.2); Globulin 3.3 g/dL (1.3-3.2); Glucose 109 mg/dl (74-100); Lipase 104 U/L (23-300); Total Protein,Serum 7.4 g/dl (6.3-8.2)
[2020-04-22 17:44] LABS: Lymphocytes % 13 % (10-50); Monocytes % 2 % (2-9); Neutrophils % 85 % (42-76); Platelet Estimate Normal; RBC Morphology Normal; Total Cells Counted 100
[2020-04-22 17:59] LABS: Lipase 105 U/L (23-300)
[2020-04-22 18:16] VITALS: BP 122/79; PULSE 78; RESP 20; TEMP 37; O2SAT 100
== END 2020-04-22 18:17 | disposition home or self-care (01) ==
LOC: UTC 15:53 → ER 16:01
PROVIDERS: Nurse Practitioner Family; Emergency Provider Emergency Medicine; PCP Emergency Medicine
DX: Z20.822 Contact with and (suspected) exposure to COVID-19 (principal); R10.31 Right lower quadrant pain; R19.7 Diarrhea, unspecified; F41.8 Other specified anxiety disorders; Z79.899 Other long term (current) drug therapy
CPT/HCPCS: 80053; 81001; 81003; 81025; 83690; 85007; 85025; 87086; 96365; 96375; 99282; J2405; U0003

== ENCOUNTER 2020-09-20 15:04 | Emergency (ER) | payer BC, SELFPAY ==
[2020-09-20 15:05] VITALS: BP 120/76; PULSE 103; RESP 20; TEMP 36.9; O2SAT 96; BMI 48.2
--- NOTE | 2020-09-20 15:54 | HMH.EDUTC ---
[facility] [place] Clinical Impression: Sinusitis Qualifiers: Sinusitis location: unspecified location Chronicity: acute Recurrence: non-recurrent Qualified Code(s): J01.90 - Acute sinusitis, unspecified Acute bronchitis Qualifiers: Bronchitis organism: unspecified organism Qualified Code(s): J20.9 - Acute bronchitis, unspecified Disposition: Home, Self-Care Condition on Discharge: Good Instructions: DI for Sinusitis Additional Instructions: Drink plenty of fluids. Take tylenol or ibuprofen for pain or fever. Take the medications as directed. Follow up with your regular doctor. GO TO THE ER FOR ANY WORSENING SYMPTOMS Prescriptions: methylPREDNISolone [Medrol] 4 mg PO DIRECTED 6 Days #21 tab.ds.pk Transmission Status: Received by [facility] Benzonatate [Tessalon Perle 100mg Cap] 100 mg PO TIDP PRN #30 cap PRN Reason: Cough Transmission Status: Received by [facility] Azithromycin [Z-Foreign 250mg Tab*] 250 mg PO UD DOSE PK #6 tab Transmission Status: Received by [facility] Referrals: Pio Hutton MD [Primary Care Provider] - Forms: Work/School Release Time of Disposition: 16:00 Medical Decision Making - Medical Records Medical records reviewed: No: I reviewed the patient's medical records. - Bruce Inquiry Pt receiving controlled substance: No Vital Signs: 09/20/20 15:05 09/20/20 16:10 Temperature 98.5 F 98.5 F Temperature Source Oral Pulse Rate 103 H Pulse Rate [Left Brachial] 103 H Respiratory Rate 20 20 Blood Pressure 120/76 Blood Pressure [Left Arm] 120/76 Blood Pressure Mean [Left Arm] 90 Blood Pressure Source [Left Arm] Automatic Cuff Blood Pressure Position [Left Arm] Sitting 02 Sat by Pulse Oximetry 96 Oxygen Delivery Method Room Air - Lab Data Lab results reviewed: Yes: I reviewed the patient's lab results. Orders (Tests/Meds): ED MEDICATIONS Discontinued Medications Generic Name Dose Route Start Last Admin Trade Name Freq PRN Reason Stop Dose Admin Ceftriaxone Sodium 1 gm 09/20/20 15:58 09/20/20 16:08 Ceftriaxone 1gm Vial IM 09/20/20 15:59 1 gm ONCE ONE Administration Protocol Lidocaine HCl 0 ml 09/20/20 15:58 09/20/20 16:08 Lidocaine 1% 5ml Pf Vial IM 09/20/20 15:59 2.1 ml ONCE ONE Administration Methylprednisolone Sodium Succinate 125 mg 09/20/20 15:58 09/20/20 16:08 Methylprednisolone Sod Succ 125mg Vial IM 09/20/20 15:59 125 mg ONCE ONE Administration [facility] [place] HPI - General Stated complaint: chest congestion,cough Time Seen by Provider: 09/20/20 15:54 Mode of Arrival: Ambulatory Source of Information: Patient Limitations: No Limitations Description of Symptoms (Recalled from Triage Doc. by RN): PATIENT C/O CONGESTION, HEADACHE, DIZZINESS, AND FATIGUE SINCE YESTERDAY HEENT Symptoms (Recalled from RN notes): Yes Resp Symptoms (Recalled from RN notes): No Skin Symptoms (Recalled from RN notes): No MS Symptoms (Recalled from RN notes): No Functional Status (Recalled from RN notes): WNL - History of Present Illness Provider Complaint: She c/o chest and sinus congestion for the past 2 days. She has been vaccinated for covid-19. - Related Data Previous Rx's Medication Instructions Recorded Azithromycin [Z-Foreign 250mg Tab*] 250 mg PO UD DOSE PK #6 tab 09/20/20 Benzonatate [Tessalon Perle 100mg 100 mg PO TIDP PRN #30 cap 09/20/20 Cap] methylPREDNISolone [Medrol] 4 mg PO DIRECTED 6 Days #21 09/20/20 tab.ds.pk Allergies Allergy/AdvReac Type Severity Reaction Status Date / Time meloxicam Allergy Severe Rash Verified 06/15/20 16:44 - Worker's Comp Is this a Worker's Comp case?: No [facility] History - Hepatitis A Screen Drug use history?: No High risk sexual behaviors?: No History of sexually transmitted infection?: No Currently employed?: No Childcare worker?: No Do you have indoor plumbing?: Yes Do you have electricity?: Yes Attestation statem
[2020-09-20 16:10] VITALS: BP 120/76; PULSE 103; RESP 20; TEMP 36.9; O2SAT 96
== END 2020-09-20 16:20 | disposition home or self-care (01) ==
PROVIDERS: Emergency Provider Nurse Practitioner Family; PCP Emergency Medicine
DX: J01.90 Acute sinusitis, unspecified (principal); J20.9 Acute bronchitis, unspecified; F41.8 Other specified anxiety disorders
CPT/HCPCS: 96372; 99202; G0463

== ENCOUNTER 2020-10-04 16:39 | Emergency (ER) | payer BC, SELFPAY ==
[2020-10-04 17:57] VITALS: BP 112/72; PULSE 76; RESP 18; TEMP 36.7; O2SAT 96; BMI 46.5
--- NOTE | 2020-10-04 18:36 | HMH.EDUTC ---
[facility] [place]ression: Cellulitis of left thigh, Abscess of left thigh Disposition: Home, Self-Care Condition on Discharge: Good Instructions: Cellulitis, Boil Additional Instructions: Keep the affected area clean and dry. Follow up with your regular doctor within 72 hours for a wound recheck. Take the antibiotics as directed and apply the topical antibiotics as directed. Apply warm wet compresses to the affected area three or four times per day. GO TO THE ER FOR ANY WORSENING SYMPTOMS Prescriptions: Sulfamethoxazole/Trimethoprim [Bactrim DS tablet] 1 each PO BID 10 Days #20 tab Transmission Status: Received by [id number] Mupirocin [Bactroban 2% Ointment 22gm tube] 1 applicatio TP TID 7 Days #1 tube Transmission Status: Received by [facility] cephALEXin [cephALEXin 500mg capsule] 500 mg PO Q6H 10 Days #40 cap Transmission Status: Received by [id number] Referrals: Pio Hutton MD [Primary Care Provider] - Time of Disposition: 18:41 Medical Decision Making - Medical Records Medical records reviewed: No: I reviewed the patient's medical records. - Bruce Inquiry Pt receiving controlled substance: No Vital Signs: 10/04/20 17:57 10/04/20 18:45 Temperature 98.1 F 98 F Temperature Source Oral Pulse Rate 76 Pulse Rate [Left] 76 Respiratory Rate 18 99 H Blood Pressure 112/72 Blood Pressure [Right Arm] 112/72 Blood Pressure Mean [Right Arm] 85 02 Sat by Pulse Oximetry 96 Medical Decision Narrative: there was no open wound and no drainage to obtain a culture from. The wound was not ready to be I&D'd. [facility] [place] General Stated complaint: possible spider bite Time Seen by Provider: 10/04/20 18:15 Mode of Arrival: Ambulatory Source of Information: Patient Limitations: No Limitations Description of Symptoms (Recalled from Triage Doc. by RN): pt states she thinks she may have a spider bite on her upper thigh. pt states this has been ongoing for three days, she also states she been picking at it causing it to bleed. HEENT Symptoms (Recalled from RN notes): No Resp Symptoms (Recalled from RN notes): No Skin Symptoms (Recalled from RN notes): Yes MS Symptoms (Recalled from RN notes): No Functional Status (Recalled from RN notes): na - History of Present Illness Provider Complaint: She states that she has a sore area on her left upper posterior thigh. It has been present for the past 3 days. She states that it is getting more swollen and painful. Sitting makes her pain worse and walking also makes the pain worse. She has never had an issue like this before. She is not diabetic. - Related Data Previous Rx's Medication Instructions Recorded Azithromycin [Z-Foreign 250mg Tab*] 250 mg PO UD DOSE PK #6 tab 09/20/20 Benzonatate [Tessalon Perle 100mg 100 mg PO TIDP PRN #30 cap 09/20/20 Cap] methylPREDNISolone [Medrol] 4 mg PO DIRECTED 6 Days #21 09/20/20 tab.ds.pk Mupirocin [Bactroban 2% Ointment 1 applicatio TP TID 7 Days #1 tube 10/04/20 22gm tube] Sulfamethoxazole/Trimethoprim 1 each PO BID 10 Days #20 tab 10/04/20 [Bactrim DS tablet] cephALEXin [cephALEXin 500mg 500 mg PO Q6H 10 Days #40 cap 10/04/20 capsule] Allergies Allergy/AdvReac Type Severity Reaction Status Date / Time meloxicam Allergy Severe Rash Verified 10/04/20 18:19 - Worker's Comp Is this a Worker's Comp case?: No [facility] History - Hepatitis A Screen Drug use history?: No High risk sexual behaviors?: No History of sexually transmitted infection?: No Currently employed?: No Childcare worker?: No Do you have indoor plumbing?: Yes Do you have electricity?: Yes Attestation statement:: This patient has been screened for Hepatitis A risk factors. I have reviewed the patient's past medical history: Yes Medical History: Reports:: Anxiety, Depression Denies:: Diabetes Mellitus Type 1, Diabetes Mellitus Type 2, Hypertension Laterality Paramjit
[2020-10-04 18:45] VITALS: BP 112/72; PULSE 76; RESP 99; TEMP 36.6
== END 2020-10-04 18:46 | disposition home or self-care (01) ==
PROVIDERS: Emergency Provider Nurse Practitioner Family; PCP Emergency Medicine
DX: L03.116 Cellulitis of left lower limb (principal); F41.8 Other specified anxiety disorders

== ENCOUNTER 2020-12-16 18:49 | Emergency (ER) | payer BC, SELFPAY ==
[2020-12-16 18:50] VITALS: BP 119/80; PULSE 77; RESP 18; TEMP 36.6; O2SAT 100; BMI 46.6
[2020-12-16 19:21] VITALS: BP 119/80; PULSE 77; RESP 18; TEMP 36.6; O2SAT 100
[2020-12-16 19:26] LABS: UTC Strep Screen (Rapid) Negative (Negative)
--- NOTE | 2020-12-16 19:46 | HMH.EDUTC ---
[facility] [place] Disposition Clinical Impression: Otitis media Qualifiers: Otitis media type: suppurative Chronicity: acute Laterality: bilateral Recurrence: non-recurrent Spontaneous tympanic membrane rupture: without spontaneous rupture Qualified Code(s): H66.003 - Acute suppurative otitis media without spontaneous rupture of ear drum, bilateral Disposition: Home, Self-Care Condition on Discharge: Good Instructions: Middle Ear Infection Additional Instructions: Drink plenty of fluids. Take tylenol or ibuprofen for pain or fever. Take the medications as directed. Follow up with your regular doctor. GO TO THE ER FOR ANY WORSENING SYMPTOMS Don't start the oral steroids until tomorrow, since you had the shot here today. Prescriptions: methylPREDNISolone [Medrol] 4 mg PO DIRECTED 6 Days #21 packet Transmission Status: Received by [id number] Referrals: Pio Hutton MD [Primary Care Provider] - Time of Disposition: 19:57 Medical Decision Making - Medical Records Medical records reviewed: No: I reviewed the patient's medical records. - Bruce Inquiry Pt receiving controlled substance: No Vital Signs: 12/16/20 18:50 12/16/20 19:21 Temperature 97.8 F 97.8 F Temperature Source Oral Pulse Rate 77 Pulse Rate [Right Brachial] 77 Respiratory Rate 18 18 Blood Pressure 119/80 Blood Pressure [Right Arm] 119/80 Blood Pressure Mean [Right Arm] 93 Blood Pressure Source [Right Arm] Automatic Cuff Blood Pressure Position [Right Arm] Sitting 02 Sat by Pulse Oximetry 100 Oxygen Delivery Method Room Air - Lab Data Lab results reviewed: Yes: I reviewed the patient's lab results. Lab Results 12/16/20 19:16: Strep Scn Rapid Clinic Negative Orders (Tests/Meds): ED MEDICATIONS Discontinued Medications Generic Name Dose Route Start Last Admin Trade Name Freq PRN Reason Stop Dose Admin Ceftriaxone Sodium 1 gm 12/16/20 19:16 12/16/20 19:20 Ceftriaxone 1gm Vial IM 12/16/20 19:17 1 gm ONCE ONE Administration Lidocaine HCl 0 ml 12/16/20 19:16 12/16/20 19:20 Lidocaine 1% 5ml Pf Vial IM 12/16/20 19:17 2.1 ml ONCE ONE Administration Methylprednisolone Sodium Succinate 125 mg 12/16/20 19:16 12/16/20 19:20 Methylprednisolone Sod Succ 125mg Vial IM 12/16/20 19:17 125 mg ONCE ONE Administration ORDERS Category Date Time Status Strep Screen Confirmation Routine Micro 12/16/20 19:[address] [facility] [place] HPI - General Stated complaint: swollen/painful in L side of throat Time Seen by Provider: 12/16/20 19:46 Mode of Arrival: Ambulatory Source of Information: Patient Limitations: No Limitations Description of Symptoms (Recalled from Triage Doc. by RN): PATIENT C/O HEADACHE, SORE THROAT AND NECK THAT STARTED YESTERDAY HEENT Symptoms (Recalled from RN notes): Yes Resp Symptoms (Recalled from RN notes): No Skin Symptoms (Recalled from RN notes): No MS Symptoms (Recalled from RN notes): No Functional Status (Recalled from RN notes): WNL - History of Present Illness Provider Complaint: She has been diagnosed with an ear infection. She has not started the antibiotics yet. Today her left ear pain worsened. She is here to have it rechecked. - Related Data Previous Rx's Medication Instructions Recorded Azithromycin [Z-Foreign 250mg Tab*] 250 mg PO UD DOSE PK #6 tab 09/20/20 Benzonatate [Tessalon Perle 100mg 100 mg PO TIDP PRN #30 cap 09/20/20 Cap] methylPREDNISolone [Medrol] 4 mg PO DIRECTED 6 Days #21 09/20/20 tab.ds.pk Mupirocin [Bactroban 2% Ointment 1 applicatio TP TID 7 Days #1 tube 10/04/20 22gm tube] Sulfamethoxazole/Trimethoprim 1 each PO BID 10 Days #20 tab 10/04/20 [Bactrim DS tablet] cephALEXin [cephALEXin 500mg 500 mg PO Q6H 10 Days #40 cap 10/04/20 capsule] methylPREDNISolone [Medrol] 4 mg PO DIRECTED 6 Days #21 12/16/20 packet Allergies Allergy/AdvReac Type Severity Reaction Status Date / Time meloxi
== END 2020-12-16 20:01 | disposition home or self-care (01) ==
PROVIDERS: Emergency Provider Nurse Practitioner Family; PCP Emergency Medicine
DX: H66.003 Acute suppurative otitis media without spontaneous rupture of ear drum, bilateral (principal); J02.9 Acute pharyngitis, unspecified; F41.8 Other specified anxiety disorders
CPT/HCPCS: 87880; 96372; 99202; G0463

== ENCOUNTER → 2020-12-22 08:09 | Outpatient (CLI) | payer BC, SELFPAY ==
[2020-12-22 09:40] LABS: Basophils # 0.1 K/mm3 (0-0.2); Basophils % 0.8 % (0.1-2.0); Eosinophils # 0.2 K/mm3 (0.0-0.4); Eosinophils % 1.5 % (0.1-12.0); Hematocrit 46.6 % (37.0-47.0); Hemoglobin 14.9 g/dL (12.2-16.2); Lymphocytes # 3.3 K/mm3 (0.7-4.5); Lymphocytes % 26.7 % (10-50); Mean Corpuscular HGB Conc 31.9 g/dL (31.8-35.4); Mean Corpuscular Hemoglobin 27.9 pg (27.0-31.2); Mean Corpuscular Volume 87.3 fl (81-99); Mean Platelet Volume 8.9 fl (7.4-10.4); Monocytes # 0.5 K/mm3 (0.1-1.0); Monocytes % 4.4 % (1.7-9.3); Neutrophils # 8.2 K/mm3 (1.8-7.8); Neutrophils % 66.6 % (37.0-80.0); Platelet Count 322 K/mm3 (142-424); Red Blood Count 5.34 M/mm3 (4.20-5.40); Red Cell Distribution Width 13.7 % (11.5-17.5); White Blood Count 12.3 K/mm3 (4.8-10.8)
[2020-12-22 10:16] LABS: Chloride 106 mmol/L (98-107); Potassium 4.2 mmoL/L (3.5-5.1); Sodium 140 mmol/L (136-145)
[2020-12-22 10:18] LABS: Alanine Aminotransferase 38 U/L (12-78); Albumin/Globulin Ratio 1.3 (1.1-1.8); Alkaline Phosphatase 98 U/L (38-126); Anion Gap 12.2 mEq/L (5-15); Aspartate Amino Transferase 28 U/L (14-36); Bilirubin,Total 0.5 mg/dl (0.2-1.3); Blood Urea Nitrogen 6 mg/dl (7-17); Carbon Dioxide 26 mmol/L (22.0-30.0); Estimated Glomerular Filt Rate 117 ml/min (>60); GFR (African American) 142 ML/MIN (>60)
[2020-12-22 10:19] LABS: Cholesterol 215 mg/dl (140-200); Glucose 94 mg/dl (74-100); HDL Cholesterol 36 mg/dl (40-60); Triglycerides 194 mg/dl (30-150); VLDL Cholesterol 39 mg/dL (0-40)
[2020-12-22 10:31] LABS: Direct LDL Cholesterol 136.56 mg/dL (100-129)
[2020-12-22 10:36] LABS: Free T4 (Free Thyroxine) 1.03 ng/dl (0.78-2.19)
[2020-12-22 10:37] LABS: 25-OH Vitamin D, Total 32.9 ng/mL (30-100)
[2020-12-22 10:50] LABS: Thyroid Stimulating Hormone 2.26 uIU/mL (0.465-4.68)
[2020-12-22 11:03] LABS: Hemoglobin A1C 5.3 % (4.0-6.0)
== END ==
PROVIDERS: Visit Provider Emergency Medicine
DX: E66.01 Morbid (severe) obesity due to excess calories (principal); Z68.41 Body mass index [BMI] 40.0-44.9, adult; E55.9 Vitamin D deficiency, unspecified
CPT/HCPCS: 36415; 80053; 80061; 82306; 83036; 84439; 84443; 85025

== ENCOUNTER → 2021-01-17 15:09 | Outpatient (CLI) | payer BC, SELFPAY ==
[2021-01-17 15:24] LABS: Coronavirus 19, PCR Not Detected (NotDetected); Influenza A, PCR Not Detected (NotDetected); Influenza B, PCR Not Detected (NotDetected)
== END ==
PROVIDERS: PCP Emergency Medicine; Visit Provider Nurse Practitioner
DX: Z20.822 Contact with and (suspected) exposure to COVID-19 (principal)
CPT/HCPCS: C9803; U0003; U0005

== ENCOUNTER 2021-01-19 13:09 | Emergency (ER) | payer BC, SELFPAY ==
[2021-01-19 14:07] VITALS: BP 130/86; PULSE 100; RESP 16; TEMP 36.9; O2SAT 96; BMI 46.0
[2021-01-19 14:20] LABS: Coronavirus 19, PCR Not Detected (NotDetected); Influenza A, PCR Not Detected (NotDetected); Influenza B, PCR Not Detected (NotDetected)
--- NOTE | 2021-01-19 14:27 | HMH.EDUTC ---
[facility] [place] Clinical Impression: Sinusitis Qualifiers: Sinusitis location: unspecified location Chronicity: unspecified Qualified Code(s): J32.9 - Chronic sinusitis, unspecified Otitis media Qualifiers: Otitis media type: unspecified Laterality: bilateral Qualified Code(s): H66.93 - Otitis media, unspecified, bilateral Disposition: Home, Self-Care Condition on Discharge: Good Instructions: Sinusitis, DI for Sinusitis, DI for Muscle Spasm Additional Instructions: ? Start antibiotic today. Be sure to complete entire prescription even if feeling better ? Monitor temp. Tylenol every 4 hours as needed and / or ibuprofen every 6 hours as needed ( As long as your primary care physician has told you that it ok to take both. For fever/aches/pains ER if no less than 101 despite Tylenol or Motrin ? Humidifier/vaporizer or hot steamy shower *Ibuprofen florinda 6 hours with meal as needed for pain/inflammation if you can take may help with pain *Not additional anti-inflammatory like motrin, aleve, advil with the above amount of ibuprofen. You can still take Tylenol every 4 hours as needed if you need something else for pain *Ice 20 minutes every 2 hours for the first 48 hours after the initial injury followed by moist heat every 20 minutes 3-4 times a day to affected area *Muscle relaxer as prescribed as needed for muscle spasms but remember, it WILL cause drowsiness You cannot take it and drive, operate machinery or care for small children. *Keep this area active, no movement leads to more stiffness, However take it easy and avoid heavy lifting pushing or pulling *Follow up with you family doctor if no improvement for further treatment *Start steroid today. Helps with inflammation therefore, cough and wheezing. Follow directions on the package. Reviewed side effects. Patient reports taking them before. Follow up IMMEDIATELY for new or worsening of symptoms OR no noticeable improvement over the next 48-72 hours. 911 immediately for any life threatening symptoms such as chest pain or difficulty breathing May return to work after negative COVID test Prescriptions: Amoxicillin/Potassium Clav [Augmentin 875-125 Tablet] 1 tab PO Q12H 10 Days #20 tab Transmission Status: Received by [facility] predniSONE [Deltasone 20mg tablet] 20 mg PO BID 5 Days #10 tab Transmission Status: Received by [facility] methocarbamoL [Methocarbamol] 750 mg PO BID PRN #15 tab PRN Reason: Muscle Spasm Transmission Status: Received by [facility] Referrals: Pio Hutton MD [Primary Care Provider] - As needed Forms: Work/School Release Time of Disposition: 14:41 Medical Decision Making - Bruce Inquiry Pt receiving controlled substance: No Bruce was queried for this patient: No Vital Signs: 01/19/21 14:07 01/19/21 14:52 Temperature 98.4 F 98.4 F Temperature Source Oral Pulse Rate 100 H Pulse Rate [Left] 100 H Respiratory Rate 16 16 Blood Pressure 130/86 Blood Pressure [Right Arm] 130/86 Blood Pressure Mean [Right Arm] 100 02 Sat by Pulse Oximetry 96 - Lab Data Lab Results 01/19/21 14:04: SARS-CoV-2 (PCR) Not detected, Influenza A Untype (PCR) Not detected, Influenza Type B (PCR) Not detected [facility] [place] - General Stated complaint: muscle pain, H/A Time Seen by Provider: 01/19/21 14:10 Mode of Arrival: Ambulatory Source of Information: Patient Limitations: No Limitations HEENT Symptoms (Recalled from RN notes): Yes ([place]) Resp Symptoms (Recalled from RN notes): No Skin Symptoms (Recalled from RN notes): No MS Symptoms (Recalled from RN notes): No Functional Status (Recalled from RN notes): muscle aches - History of Present Illness Provider Complaint: Patient states that she was recently exposed to COVID States that she was tested a couple days ago and was negative for COVID states that she has been having spasm like pain in between shoulder blade area that is worse with movement, sinus pain and
[2021-01-19 14:52] VITALS: BP 130/86; PULSE 100; RESP 16; TEMP 36.9
== END 2021-01-19 14:53 | disposition home or self-care (01) ==
PROVIDERS: Emergency Provider Nurse Practitioner; PCP Emergency Medicine
DX: H66.93 Otitis media, unspecified, bilateral (principal); J32.9 Chronic sinusitis, unspecified; Z20.822 Contact with and (suspected) exposure to COVID-19; E11.9 Type 2 diabetes mellitus without complications; F41.8 Other specified anxiety disorders
CPT/HCPCS: 99202; C9803; G0463; U0003; U0005

== ENCOUNTER 2021-02-26 23:18 | Emergency (ER) | payer BC, SELFPAY ==
[2021-02-26 23:20] VITALS: BP 134/87; PULSE 104; RESP 17; TEMP 36.7; O2SAT 100; BMI 46.2
--- NOTE | 2021-02-26 23:34 | CT_ITS ---
PROCEDURE INFORMATION: Exam: CT Head Without Contrast Exam date and time: 02/26/2021 11:34 PM Age: 30 years old Clinical indication: Pain; Headache not specified; Additional info: Head ache TECHNIQUE: Imaging protocol: Computed tomography of the head without contrast. Radiation optimization: All CT scans at this facility use at least one of these dose optimization techniques: automated exposure control; mA and/or kV adjustment per patient size (includes targeted exams where dose is matched to clinical indication); or iterative reconstruction. COMPARISON: No relevant prior studies available. FINDINGS: Brain: Normal. No hemorrhage. Unremarkable white matter. No mass effect. Cerebral ventricles: No ventriculomegaly. Paranasal sinuses: Visualized sinuses are unremarkable. No fluid levels. Mastoid air cells: Visualized mastoid air cells are well aerated. Bones/joints: Unremarkable. No acute fracture. Soft tissues: Unremarkable. IMPRESSION: No acute intracranial abnormality.
[2021-02-26 23:41] LABS: Basophils # 0.2 K/mm3 (0-0.2); Eosinophils # 0.4 K/mm3 (0.0-0.4); Eosinophils % 2.8 % (0.1-12.0); Hematocrit 43.9 % (37.0-47.0); Hemoglobin 14.7 g/dL (12.2-16.2); Lymphocytes # 3.7 K/mm3 (0.7-4.5); Lymphocytes % 25.8 % (10-50); Mean Corpuscular HGB Conc 33.4 g/dL (31.8-35.4); Mean Corpuscular Hemoglobin 28.1 pg (27.0-31.2); Mean Corpuscular Volume 83.9 fl (81-99); Mean Platelet Volume 9.1 fl (7.4-10.4); Monocytes # 0.6 K/mm3 (0.1-1.0); Neutrophils # 9.5 K/mm3 (1.8-7.8); Neutrophils % 66.3 % (37.0-80.0); Platelet Count 341 K/mm3 (142-424); Red Blood Count 5.23 M/mm3 (4.20-5.40); Red Cell Distribution Width 13.7 % (11.5-17.5); White Blood Count 14.4 K/mm3 (4.8-10.8)
[2021-02-26 23:51] LABS: HCG Qualitative, Serum Negative (Negative)
[2021-02-26 23:53] LABS: Alanine Aminotransferase 33 U/L (12-78); Albumin Level 4.5 g/dl (3.5-5.0); Albumin/Globulin Ratio 1.4 (1.1-1.8); Alkaline Phosphatase 99 U/L (38-126); Anion Gap 10.2 mEq/L (5-15); Aspartate Amino Transferase 28 U/L (14-36); Bilirubin,Total 0.4 mg/dl (0.2-1.3); Blood Urea Nitrogen 13 mg/dl (7-17); Calcium 9.4 mg/dl (8.4-10.2); Carbon Dioxide 29 mmol/L (22.0-30.0); Chloride 104 mmol/L (98-107); Creatinine Clearance Estimated 106 mL/min (50-200); Estimated Glomerular Filt Rate 98 ml/min (>60); GFR (African American) 119 ML/MIN (>60); Globulin 3.3 g/dL (1.3-3.2); Glucose 78 mg/dl (74-100); Magnesium 1.7 mg/dl (1.6-2.3); Potassium 3.2 mmoL/L (3.5-5.1); Sodium 140 mmol/L (136-145); Total Protein,Serum 7.8 g/dl (6.3-8.2)
[2021-02-26 23:59] LABS: C-Reactive Protein 22.4 mg/L (0-4)
[2021-02-27 00:09] LABS: Erythrocyte Sedimentation Rate 15 mm/hr (0-20)
[2021-02-27 00:10] LABS: T4 (Thyroxine) 10.4 ug/dl (5.53-11.0)
[2021-02-27 00:13] LABS: Procalcitonin 0.049 ng/mL (0.0-2.0)
--- NOTE | 2021-02-27 00:13 | HMH.EDWEAK ---
ED Disposition Clinical Impression: Tingling in extremities Headache Qualifiers: Headache type: unspecified Headache chronicity pattern: acute headache Intractability: not intractable Qualified Code(s): R51.9 - Headache, unspecified Disposition: Home, Self-Care Condition on Discharge: Good Instructions: DI for Muscle Weakness Additional Instructions: call pcp for follow up in am Referrals: Pio Hutton MD [Primary Care Provider] - - Critical Care Critical Care Time: No Attestation: On 02/26/21, the high probability of a clinically significant, sudden or life threatening deterioration of the following system(s) required my full and direct attention, intervention and personal management. The time I documented below is in addition to time spent performing reported procedures but includes the following listed in this critical care notation. Medical Decision Making - Medical Records Medical records reviewed: Yes: I reviewed the patient's medical records. - Bruce Inquiry Pt receiving controlled substance: No Vital Signs: 02/26/21 23:20 Temperature 98.0 F Temperature Source Oral Pulse Rate [Right Radial] 104 H Respiratory Rate 17 Blood Pressure [Right Arm] 134/87 Blood Pressure Mean [Right Arm] 102 Blood Pressure Source [Right Arm] Automatic Cuff Blood Pressure Position [Right Arm] Sitting 02 Sat by Pulse Oximetry 100 Oxygen Delivery Method Room Air - Lab Data Lab results reviewed: Yes: I reviewed the patient's lab results. Lab Results 02/26/21 23:38: WBC 14.4 H, RBC 5.23, Hgb 14.7, Hct 43.9, MCV 83.9, MCH 28.1, MCHC 33.4, RDW 13.7, Plt Count 341, MPV 9.1, Neut % (Auto) 66.3, Lymph % (Auto) 25.8, Brantley % (Auto) 4.0, Eos % (Auto) 2.8, Baso % (Auto) 1.0, Neut # (Auto) 9.5 H, Lymph # (Auto) 3.7, Br[place]ley # (Auto) 0.6, Eos # (Auto) 0.4, Baso # (Auto) 0.2 02/26/21 23:38: Sodium 140, Potassium 3.2 L, Chloride 104, Carbon Dioxide 29, Anion Gap 10.2, BUN 13, Creatinine 0.70, Estimated Creat Clear 106, Estimated GFR 98, Est GFR ( Amer) 119, Glucose 78, Calcium 9.4, Total Bilirubin 0.4, AST 28, ALT 33, Alkaline Phosphatase 99, Total Protein 7.8, Albumin 4.5, Globulin 3.3 H, Albumin/Globulin Ratio 1.4, TSH 2.26, Thyroxine (T4) 10.4 02/26/21 23:38: Serum HCG, Qual Negative 02/26/21 23:38: Magnesium 1.7 02/26/21 23:38: ESR 15 02/26/21 23:38: C-Reactive Protein 22.4 H, Procalcitonin 0.049 02/27/21 00:08: Urine Color Yellow, Urine Appearance Slightly cloudy, Urine pH 6.0, Ur Specific [place] 1.025, Urine Protein Negative, Urine Glucose (UA) Negative, Urine Ketones Negative, Urine Blood Negative, Urine Nitrate Negative, Urine Bilirubin Negative, Urine Urobilinogen 0.2, Ur Leukocyte Esterase 1+ A, Urine WBC 3-5, Ur Squamous Epith Cells 3-5, Amorphous Sediment Trace, Urine Mucus 1+ Result diagrams: 02/26/21 23:38 02/26/21 23:38 Orders (Tests/Meds): ED MEDICATIONS Generic Name Dose Route Start Last Admin Trade Name Freq PRN Reason Stop Dose Admin Lactated Ringer's 1,000 mls @ 999 mls/hr 02/26/21 23:45 Lactated Ringer's 1000 Ml Bag IV 02/27/21 00:45 .[id number] [facility] ORD[facility] Category Date Time Status UDS [Drug Screen,Urine] Stat Lab 02/26/21 23:44 Received Urine Culture Stat Micro 02/27/21 00:08 Received - CT Data CT Scan: Head Time Received: 00:[address] Reviewed: Yes: I have viewed the radiologist's interpretation Preliminary Findings: Normal/NAD Medical Decision Narrative: stable exam but has neg ct - head and labs ok - pseudo tumor cerbri and multiple sclerosis are possible doubt inf or cva - sent lyme Weakness HPI - General Chief complaint: Weakness Stated complaint: Weakness,tingling in both hands Time Seen by Provider: 02/27/21 00:13 Mode of Arrival: Ambulatory Source of Information: Patient, Medical Record Limitations: No Limitations Description of Symptoms (Recalled from ER Triage Doc. by RN): Pt reports hand tingling that started early yesterday. She then went to a concer
[2021-02-27 00:22] LABS: Microscopic, Urine URINE MICROSCOPIC (MICROSCOPIC)
[2021-02-27 00:24] LABS: Thyroid Stimulating Hormone 2.26 uIU/mL (0.465-4.68)
[2021-02-27 00:26] LABS: Bilirubin,Urine Negative (Negative); Blood, Urine Negative (Negative); Color,Urine YELLOW (Yellow); Glucose,Urine (UA) Negative (Negative); Ketones,Urine Negative (Negative); Leukocyte Esterase,Urine 1+ (Negative); Nitrate,Urine Negative (Negative); Protein,Urine Negative (Negative); Specific Gravity, Urine 1.025 (1.005-1.030); Urobilinogen,Urine 0.2 EU/dl (0.2)
[2021-02-27 00:27] LABS: Appearance,Urine Slightly Cloudy (Clear)
[2021-02-27 00:31] LABS: Amorphous Sediment,Urine Trace /lpf; Mucus,Urine 1+ /lpf
[2021-02-27 01:08] VITALS: BP 116/77; PULSE 98; RESP 16; TEMP 36.7; O2SAT 99
[2021-02-27 01:22] LABS: Barbiturates Screen,Urine Negative ng/ml (<200); Benzodiazepines Screen,Urine Negative ng/ml (<200)
[2021-02-27 01:23] LABS: Cannabinoid Screen,Urine Negative ng/ml (<50); Cocaine Screen,Urine Negative ng/ml (<300)
[2021-02-27 01:24] LABS: Methadone Screen,Urine Negative ng/ml (<300)
[2021-02-27 01:25] LABS: Opiate Screen,Urine Negative ng/ml (<300); Phencyclidine Screen,Urine Negative ng/ml (<25)
[2021-02-27 01:39] LABS: Amphetamine/Metha Screen,Urine Negative ng/ml (<1000)
== END 2021-02-27 01:11 | disposition home or self-care (01) ==
PROVIDERS: Emergency Provider Emergency Medicine; PCP Emergency Medicine
DX: R20.2 Paresthesia of skin (principal); R51.9 Headache, unspecified; F41.8 Other specified anxiety disorders
CPT/HCPCS: 70450; 80053; 80305; 81001; 83735; 84145; 84436; 84443; 84703; 85025; 85651; 86140; 86618; 87086; 96365; 99283

== ENCOUNTER → 2021-03-04 08:57 | Outpatient (CLI) | payer BC, SELFPAY ==
--- NOTE | 2021-03-04 08:58 | MR_ITS ---
PROCEDURE INFORMATION: Exam: MR Head Without and With Contrast Exam date and time: 03/04/2021 8:58 AM Age: 30 years old Clinical indication: Pain; Weakness, extremity; Bilateral; Headache; Patient HX: Tingling in extremities/singh TECHNIQUE: Imaging protocol: MR of the head without and with intravenous contrast. Contrast material: PROHANCE; Contrast volume: 25 ml; Contrast route: IV; COMPARISON: CT HEAD/BRAIN WO CON 02/27/2021 12:03 AM FINDINGS: Ventricles demonstrate normal size and configuration. Major vascular flow voids at the skull base are preserved. No extra-axial fluid collection. No hydrocephalus. No midline shift or intracranial mass effect. No cerebral edema. No diffusion restriction. No pathologic intracranial enhancement. Visualized paranasal sinuses and mastoid air cells are clear. IMPRESSION: No acute intracranial abnormality.
== END ==
PROVIDERS: PCP Emergency Medicine; Visit Provider Emergency Medicine
DX: R51.9 Headache, unspecified (principal); R20.2 Paresthesia of skin; R53.1 Weakness
CPT/HCPCS: 70553; A9576

== ENCOUNTER → 2021-03-13 19:17 | Outpatient (CLI) | payer BC, SELFPAY ==
[2021-03-13 19:24] LABS: Coronavirus 19, PCR Not Detected (NotDetected); Influenza A, PCR Not Detected (NotDetected); Influenza B, PCR Not Detected (NotDetected)
== END ==
PROVIDERS: PCP Emergency Medicine; Visit Provider Nurse Practitioner
DX: Z20.822 Contact with and (suspected) exposure to COVID-19 (principal)
CPT/HCPCS: C9803; U0003; U0005

== ENCOUNTER → 2021-03-16 11:21 | Outpatient (CLI) | payer BC, SELFPAY ==
[2021-03-16 11:42] LABS: Basophils # 0.2 K/mm3 (0-0.2); Basophils % 1.3 % (0.1-2.0); Eosinophils # 0.2 K/mm3 (0.0-0.4); Eosinophils % 2.1 % (0.1-12.0); Hematocrit 45.2 % (37.0-47.0); Hemoglobin 14.4 g/dL (12.2-16.2); Lymphocytes # 3.3 K/mm3 (0.7-4.5); Lymphocytes % 28.5 % (10-50); Mean Corpuscular HGB Conc 31.9 g/dL (31.8-35.4); Mean Corpuscular Hemoglobin 27.3 pg (27.0-31.2); Mean Corpuscular Volume 85.4 fl (81-99); Mean Platelet Volume 8.8 fl (7.4-10.4); Monocytes # 0.4 K/mm3 (0.1-1.0); Monocytes % 3.4 % (1.7-9.3); Neutrophils # 7.4 K/mm3 (1.8-7.8); Neutrophils % 64.7 % (37.0-80.0); Platelet Count 342 K/mm3 (142-424); Red Blood Count 5.29 M/mm3 (4.20-5.40); Red Cell Distribution Width 13.8 % (11.5-17.5); White Blood Count 11.4 K/mm3 (4.8-10.8)
[2021-03-16 13:44] LABS: Ferritin 23.9 ng/ml (6.24-137)
[2021-03-16 15:45] LABS: Vitamin B12 469 pg/mL (239-931)
[2021-03-16 16:45] LABS: Folate 5.64 ng/mL
== END ==
PROVIDERS: Visit Provider Specialist
DX: R20.2 Paresthesia of skin (principal); R29.898 Other symptoms and signs involving the musculoskeletal system; D72.829 Elevated white blood cell count, unspecified; E83.10 Disorder of iron metabolism, unspecified
CPT/HCPCS: 36415; 82607; 82728; 82746; 85025

== ENCOUNTER → 2021-03-21 16:35 | Outpatient (CLI) | payer BC, SELFPAY ==
--- NOTE | 2021-03-21 16:35 | MR_ITS ---
PROCEDURE INFORMATION: Exam: MR Cervical Spine Without Contrast Exam date and time: 03/21/2021 4:35 PM Age: 30 years old Clinical indication: Neck pain; Patient HX: Tingling in extremities, numbness in legs, muscle weakness. Symptoms x1 month; Additional info: Tingling, weakness in extremities TECHNIQUE: Imaging protocol: Multiplanar magnetic resonance images of the cervical spine without contrast. COMPARISON: MR HEAD/BRAIN WO/W CON 03/04/2021 9:47 AM FINDINGS: Alignment grossly normal. Signal intensity within the bone marrow normal. Spinal cord normal. Visualized portions of the brain in the posterior fossa is also normal. No marrow edema C2-C3: Central canal and neural foramina are widely patent. C3-C4: Central canal and neural foramina are widely patent. C4-C5: Central canal and neural foramina are widely patent. C5-C6: Central canal and neural foramina are widely patent. C6-C7: Central canal and neural foramina are widely patent. C7-T1: Central canal and neural foramina are widely patent. IMPRESSION: Unremarkable MRI of the cervical spine.
== END ==
PROVIDERS: PCP Emergency Medicine; Visit Provider Specialist
DX: R20.2 Paresthesia of skin (principal); R29.898 Other symptoms and signs involving the musculoskeletal system
CPT/HCPCS: 72141; 76376

== ENCOUNTER → 2021-03-22 09:44 | Outpatient (CLI) | payer BC, SELFPAY ==
[2021-03-22 09:48] LABS: Coronavirus 19, PCR Not Detected (NotDetected); Influenza B, PCR Not Detected (NotDetected)
[2021-03-22 10:46] LABS: Influenza A, PCR Detected (NotDetected)
== END ==
PROVIDERS: Visit Provider Nurse Practitioner
DX: Z20.822 Contact with and (suspected) exposure to COVID-19 (principal); J10.1 Influenza due to other identified influenza virus with other respiratory manifestations
CPT/HCPCS: C9803; U0003; U0005

== ENCOUNTER 2021-03-27 10:27 | Emergency (ER) | payer BC, SELFPAY ==
[2021-03-27 11:55] VITALS: BP 133/87; PULSE 79; RESP 18; TEMP 36.6; O2SAT 95; BMI 45.9
--- NOTE | 2021-03-27 12:38 | HMH.EDUTC ---
[facility] [place] Disposition Clinical Impression: Nausea & vomiting Qualifiers: Vomiting type: unspecified Qualified Code(s): R11.2 - Nausea with vomiting, unspecified Disposition: Home, Self-Care Condition on Discharge: Good Instructions: Nausea and Vomiting-Adult, Oseltamivir Additional Instructions: Tamiflu may cause Nausea and vomiting make sure to eat something before taking it and let your Family Doctor if you continue to have symptoms Return if needed Straight to ER If any life threatening symptoms Make sure to be drinking plenty of fluids Follow up with your Family Doctor if no improvement or any worsening of symptoms Prescriptions: Ondansetron [Zofran 4mg ODT] 4 mg PO TIDP PRN #12 tab PRN Reason: Nausea Transmission Status: Received by [id number] Referrals: Pio Hutton MD [Primary Care Provider] - As needed Forms: Work/School Release Time of Disposition: 13:08 Medical Decision Making - Bruce Inquiry Pt receiving controlled substance: No Bruce was queried for this patient: No Vital Signs: 03/27/21 11:55 Temperature 97.9 F Temperature Source Temporal Artery Scan Pulse Rate [Right Brachial] 79 Respiratory Rate 18 Blood Pressure [Right Arm] 133/87 Blood Pressure Mean [Right Arm] 102 Blood Pressure Source [Right Arm] Automatic Cuff Blood Pressure Position [Right Arm] Sitting 02 Sat by Pulse Oximetry 95 Oxygen Delivery Method Room Air - Lab Data Lab results reviewed: Yes: I reviewed the patient's lab results. Orders (Tests/Meds): ED MEDICATIONS Discontinued Medications Generic Name Dose Route Start Last Admin Trade Name Freq PRN Reason Stop Dose Admin Ondansetron HCl 4 mg 03/27/21 12:44 03/27/21 12:48 Ondansetron 4mg Odt SL 03/27/21 12:45 4 mg ONCE ONE Administration [facility] [place] HPI - General Stated complaint: light headed, vomiting Time Seen by Provider: 03/27/21 12:39 Mode of Arrival: Ambulatory Source of Information: Patient Limitations: No Limitations Description of Symptoms (Recalled from Triage Doc. by RN): nausea, vomiting, lightheaded HEENT Symptoms (Recalled from RN notes): No Resp Symptoms (Recalled from RN notes): No Skin Symptoms (Recalled from RN notes): No MS Symptoms (Recalled from RN notes): No Functional Status (Recalled from RN notes): yes - History of Present Illness Provider Complaint: Patient states that she tested positive for flu last week then she tested positive for Strep throat States that she has been taking her antibiotics and tamiflu and not sure what may be agrivating her stomach but she has been having nausea and vomiting today States that she was working and she vomited x 2 so they sent her down to get her to be seen - Related Data Home Medications Medication Instructions Recorded Confirmed levonorgestrel 20 mcg/24 hours (7 INTRAUTERI 02/21/21 03/16/21 yrs) 52 mg intrauterine device Previous Rx's Medication Instructions Recorded metformin 500 mg tablet 500 mg PO BID #60 tab 12/21/20 diethylpropion 75 mg 75 mg PO DAILY #30 tab 02/22/21 tablet,extended release diazepam 5 mg tablet 5 mg PO ONCE PRN #2 tab 03/16/21 amoxicillin 875 mg-potassium 1 tab PO BID #20 tab 03/23/21 clavulanate 125 mg tablet Ondansetron [Zofran 4mg ODT] 4 mg PO TIDP PRN #12 tab 03/27/21 Allergies Allergy/AdvReac Type Severity Reaction Status Date / Time meloxicam Allergy Severe Rash Verified 03/16/21 09:47 - Worker's Comp Is this a Worker's Comp case?: No Is this an [facility] Worker's Comp?: No Is this a [facility] Worker's Comp?: No [facility] History - Hepatitis A Screen Drug use history?: No High risk sexual behaviors?: No History of sexually transmitted infection?: No Currently employed?: No Childcare worker?: No Do you have indoor plumbing?: Yes Do you have electricity?: Yes Attestation statement:: This patient has been screened for Hepatitis A risk factors. I have reviewed the patient's past medical history: Yes M
[2021-03-27 13:11] VITALS: BP 133/87; PULSE 79; RESP 18; TEMP 36.6; O2SAT 95
== END 2021-03-27 13:22 | disposition home or self-care (01) ==
PROVIDERS: Emergency Provider Nurse Practitioner; PCP Emergency Medicine
DX: R42 Dizziness and giddiness (principal); R11.2 Nausea with vomiting, unspecified; F41.8 Other specified anxiety disorders
CPT/HCPCS: 99202; G0463

== ENCOUNTER 2021-03-28 09:02 | Emergency (ER) | payer BC, SELFPAY ==
[2021-03-28 09:05] VITALS: BP 127/82; PULSE 71; RESP 18; TEMP 36.3; O2SAT 96; BMI 45.9
[2021-03-28 09:32] LABS: Adenovirus,PCR Not Detected (NotDetected); Bordetella Pertussis Not Detected (NotDetected); Chlamydophila Pneumoniae, PCR Not Detected (NotDetected); Coronavirus 19, PCR Not Detected (NotDetected); Coronavirus 229E Not Detected (NotDetected); Coronavirus NL63 Not Detected (NotDetected); Coronavirus OC43 Not Detected (NotDetected); Coronovirus HKU1,PCR Not Detected (NotDetected); Human Metapneumovirus Not Detected (NotDetected); Influenza A, PCR Not Detected (NotDetected); Influenza AH1, 2009 Not Detected (NotDetected); Influenza AH1, PCR Not Detected (NotDetected); Influenza AH3,PCR Not Detected (NotDetected); Influenza B, PCR Not Detected (NotDetected); Mycoplasma Pneumoniae, PCR Not Detected (NotDetected); Parainfluenza 1, PCR Not Detected (NotDetected); Parainfluenza 2, PCR Not Detected (NotDetected); Parainfluenza 3, PCR Not Detected (NotDetected); Parainfluenza 4, PCR Not Detected (NotDetected); Respiratory Syncytial Virus Not Detected (NotDetected); Rhinovirus/Enterovirus Not Detected (NotDetected)
--- NOTE | 2021-03-28 09:43 | HMH.EDUTC ---
[facility] – [place] Disposition Clinical Impression: Viral syndrome Disposition: Home, Self-Care Condition on Discharge: Good Instructions: DI for Vomiting -- Adult, Ondansetron Additional Instructions: Drink extra fluids with and between meals. If you have difficulty drinking, try very small amounts of water or suck on ice chips. ? Avoid fruit juices, as these do not replace minerals and can actually increase diarrhea. ? Children and adults can use sports drinks to replenish electrolytes. Younger children and infants should use products formulated for children, like oral rehydration solutions. ? Eat food in small amounts and let your stomach recover. ? Get lots of rest. You may feel tired or weak. ? No greasy or fried foods for the next 24-48 hours BRAT diet Bananas Rice Apples and Blanding ? Make sure to drink plenty of liquids ? Return if needed ? Straight to ER if any life threatening symptoms ? Zofran as prescribed ? Follow up with family doctor in the next 48-72 hours if no improvement or any worsening of symptoms Referrals: Pio Hutton MD [Primary Care Provider] - As needed Forms: Work/School Release Time of Disposition: 10:04 Medical Decision Making - Bruce Inquiry Pt receiving controlled substance: No Bruce was queried for this patient: No Vital Signs: 03/28/21 09:05 03/28/21 10:06 Temperature 97.3 F L 97.3 F L Temperature Source Oral Pulse Rate 71 Pulse Rate [Right Brachial] 71 Respiratory Rate 18 18 Blood Pressure 127/82 Blood Pressure [Right Arm] 127/82 Blood Pressure Mean [Right Arm] 97 Blood Pressure Source [Right Arm] Automatic Cuff Blood Pressure Position [Right Arm] Sitting 02 Sat by Pulse Oximetry 96 Oxygen Delivery Method Room Air - Lab Data Lab results reviewed: Yes: I reviewed the patient's lab results. Lab Results 03/28/21 09:27: Chlamy pneumoniae PCR Not detected, Adenovirus (PCR) Not detected, B. pertussis DNA (PCR) Not detected, Coronavirus OC43 (PCR) Not detected, Coronavirus HKU1 (PCR) Not detected, Coronavirus 229E (PCR) Not detected, SARS-CoV-2 (PCR) Not detected, Coronavirus NL63 (PCR) Not detected, Human Metapneumovir PCR Not detected, Influenza A (H1) PCR Not detected, Influ A (H1N1/09) PCR Not detected, Influenza A (H3) PCR Not detected, Influenza Type A (PCR) Not detected, Influenza Type B (PCR) Not detected, M. pneumoniae (PCR) Not detected, Parainfluenza 1 (PCR) Not detected, Parainfluenza 2 (PCR) Not detected, Parainfluenza 3 (PCR) Not detected, Parainfluenza 4 (PCR) Not detected, RSV (PCR) Not detected, Entero/Rhino (PCR) Not detected [facility] [place] HPI - General Stated complaint: vomiting Time Seen by Provider: 03/28/21 09:43 Mode of Arrival: Ambulatory Source of Information: Patient Limitations: No Limitations Description of Symptoms (Recalled from Triage Doc. by RN): PATIENT C/O NAUSEA AND VOMITING HEENT Symptoms (Recalled from RN notes): No Resp Symptoms (Recalled from RN notes): No Skin Symptoms (Recalled from RN notes): No MS Symptoms (Recalled from RN notes): No Functional Status (Recalled from RN notes): WNL - History of Present Illness Provider Complaint: Patient state that she was dx with flu last week and this week she started vomiting States that she is not sure if it is another virus or if it was the tamiflu making her vomit States that work wouldnt let her return where she is still vomiting and wanted her to get tested for URP - Related Data Home Medications Medication Instructions Recorded Confirmed levonorgestrel 20 mcg/24 hours (7 INTRAUTERI 02/21/21 03/16/21 yrs) 52 mg intrauterine device Previous Rx's Medication Instructions Recorded metformin 500 mg tablet 500 mg PO BID #60 tab 12/21/20 diethylpropion 75 mg 75 mg PO DAILY #30 tab 02/22/21 tablet,extended release diazepam 5 mg tablet 5 mg PO ONCE PRN #2 tab 03/16/21 amoxicillin 875 mg-potassium 1 tab PO BID #20 tab 03/23/21 clavulanate 125 mg tablet Ondansetron [Zofran 4mg ODT
[2021-03-28 10:06] VITALS: BP 127/82; PULSE 71; RESP 18; TEMP 36.3; O2SAT 96
== END 2021-03-28 10:09 | disposition home or self-care (01) ==
PROVIDERS: Emergency Provider Nurse Practitioner; PCP Emergency Medicine
DX: B34.9 Viral infection, unspecified (principal); F41.8 Other specified anxiety disorders; Z20.822 Contact with and (suspected) exposure to COVID-19
CPT/HCPCS: 87581; 87632; 87798; 99203; C9803; G0463; U0003; U0005

== ENCOUNTER → 2021-04-18 15:06 | Outpatient (CLI) | payer BC, SELFPAY | PROVIDERS: Visit Provider Nurse Practitioner | DX: Z20.822 Contact with and (suspected) exposure to COVID-19 (principal) | CPT/HCPCS: C9803; U0003; U0005 ==

== ENCOUNTER → 2021-05-05 11:45 | Outpatient (CLI) | payer BC, SELFPAY ==
[2021-05-05 12:18] LABS: Basophils # 0.2 K/mm3 (0-0.2); Basophils % 1.1 % (0.1-2.0); Eosinophils # 0.2 K/mm3 (0.0-0.4); Eosinophils % 1.2 % (0.1-12.0); Hematocrit 44.6 % (37.0-47.0); Hemoglobin 14.5 g/dL (12.2-16.2); Lymphocytes # 2.9 K/mm3 (0.7-4.5); Lymphocytes % 20.2 % (10-50); Mean Corpuscular HGB Conc 32.4 g/dL (31.8-35.4); Mean Corpuscular Hemoglobin 27.6 pg (27.0-31.2); Mean Corpuscular Volume 85.3 fl (81-99); Mean Platelet Volume 8.6 fl (7.4-10.4); Monocytes # 0.5 K/mm3 (0.1-1.0); Monocytes % 3.5 % (1.7-9.3); Neutrophils # 10.5 K/mm3 (1.8-7.8); Platelet Count 336 K/mm3 (142-424); Red Blood Count 5.23 M/mm3 (4.20-5.40); Red Cell Distribution Width 13.9 % (11.5-17.5); White Blood Count 14.2 K/mm3 (4.8-10.8)
[2021-05-05 12:55] LABS: Alanine Aminotransferase 21 U/L (12-78); Albumin Level 4.3 g/dl (3.5-5.0); Albumin/Globulin Ratio 1.5 (1.1-1.8); Alkaline Phosphatase 96 U/L (38-126); Anion Gap 11.3 mEq/L (5-15); Aspartate Amino Transferase 25 U/L (14-36); Bilirubin,Total 0.7 mg/dl (0.2-1.3); Blood Urea Nitrogen 13 mg/dl (7-17); Calcium 9.1 mg/dl (8.4-10.2); Carbon Dioxide 25 mmol/L (22.0-30.0); Chloride 105 mmol/L (98-107); Estimated Glomerular Filt Rate 98 ml/min (>60); GFR (African American) 119 ML/MIN (>60); Globulin 2.8 g/dL (1.3-3.2); Glucose 98 mg/dl (74-100); Potassium 4.3 mmoL/L (3.5-5.1); Sodium 137 mmol/L (136-145); Total Protein,Serum 7.1 g/dl (6.3-8.2)
== END ==
PROVIDERS: PCP Emergency Medicine; Visit Provider Emergency Medicine
DX: R53.1 Weakness (principal)
CPT/HCPCS: 36415; 80053; 85025

== ENCOUNTER → 2021-05-31 08:32 | Outpatient (CLI) | payer BC, SELFPAY ==
[2021-05-31 09:59] LABS: Thyroid Stimulating Hormone 2.41 uIU/mL (0.465-4.68)
[2021-05-31 11:03] LABS: Ferritin 28.3 ng/ml (6.24-137)
== END ==
PROVIDERS: Visit Provider Family Medicine
DX: R42 Dizziness and giddiness (principal)
CPT/HCPCS: 36415; 82728; 84443

== ENCOUNTER 2021-06-26 16:30 | Outpatient (RCR) | payer BC, SELFPAY ==
--- NOTE | 2021-06-07 09:15 | HMH.PTOPEV ---
PT Outpatient Evaluation Rehab PT Outpatient Evaluation Start: 06/07/21 08:18 Freq: Status: Active Protocol: Document 06/07/21 08:21 ELIFCHEYANNE (Rec: 06/07/21 09:15 KRISTALNATALIO [id number]) Electronically Signed By Elvis Ruiz PT 06/07/21 08:21 Outpatient Therapy Subjective History Subjective History This is the intial Physical Therapy evaluation for Lola Garza. Pt is a 30 y/o female referred to PT for c/o dizziness and motion sensitivity. Pt reports she has always been sensitive to motion in cars and other vehicles, but reports in January she had a spell where she got dizzy, light headed and weak. Pt states she felt like she couldn't move and had to sit down. Pt now states that simple things like looking up and then back to her computer takes a second for her to se like the room isn't moving . Pt c/o fullness in ears and feeling and hearing fluid in her ears when she turns her head or lies down. Chief Complaint Other Symptom Type Other Symptoms Relieved By Nothing Symptoms Aggravated By Bending/Stooping,Physical Activity Prior Functional Limitations Balance Current Functional Limitations Balance Symptom Description Intermittent Balance Eval Chief Complaint vertigo No Did you feel dizzy, unsteady or faint? Yes Activity at onset movement Prior Functional Limitations Prior Functional Watts Level Fully I Hx of Falls Hx Falls No Gait/Posture Asssessment General Gait Observation Wide Based Gait Assistive Devices None / NA Level of Transfer Assist Independent Nystagmus Nystagmus Presence None Oculomotor Gaze Oculomotor Gaze Nml: Vergence Smooth Pursuit Saccades VOR Cancellation Cover/Uncover Cross Cover Outpatient Therapy Assessment Impairments Problems/Impairmments Impaired Recreational
== END 2021-06-26 16:35 | disposition home or self-care (01) ==
LOC: PT 16:30
PROVIDERS: PCP Emergency Medicine; Visit Provider Family Medicine
DX: R42 Dizziness and giddiness (principal)
CPT/HCPCS: 97110; 97112; 97140; 97163

== ENCOUNTER → 2021-07-12 11:11 | Outpatient (CLI) | payer BC, SELFPAY ==
[2021-07-16 21:07] LABS: 1,25 Dihydroxy Vitamin D 39 pg/mL (.); 1,25-Dihydroxy, Vitamin D-2 <10 pg/mL (.); 1,25-Dihydroxy, Vitamin D-3 39 pg/mL (.)
== END ==
PROVIDERS: Visit Provider Otolaryngology
DX: R42 Dizziness and giddiness (principal)
CPT/HCPCS: 36415; 82652

== ENCOUNTER → 2021-08-15 14:50 | Outpatient (CLI) | payer BC, SELFPAY ==
--- NOTE | 2021-08-15 14:51 | US_ITS ---
FINAL REPORT CLINICAL HISTORY: L Neck/Jaw pain LAST WEEK X 5 DAYS-- BETTER THIS WEEK FINDINGS: Sonographic images of the bilateral neck were obtained. There are several benign-appearing but mildly prominent left cervical lymph nodes. Largest node measures up to 1.4 cm. Imaging of the contralateral side shows similar mildly prominent but benign-appearing lymph nodes. No fluid collection is identified. IMPRESSION: Benign appearing but mildly prominent bilateral cervical lymph nodes, favor reactive. Reviewed, Interpreted and Dictated by Glo Lucas MD Transcribed by Lilliana Che Authenticated by Glo Lucas MD on 08/15/2021 04:33:26 PM [facility]
== END ==
PROVIDERS: PCP Family Medicine; Visit Provider Nurse Practitioner Family
DX: M54.2 Cervicalgia (principal)
CPT/HCPCS: 76536

== ENCOUNTER → 2021-08-18 11:09 | Outpatient (CLI) | payer BC, SELFPAY ==
[2021-08-18 11:25] LABS: Basophils # 0.2 K/mm3 (0-0.2); Basophils % 1.4 % (0.1-2.0); Eosinophils # 0.2 K/mm3 (0.0-0.4); Eosinophils % 1.4 % (0.1-12.0); Hematocrit 45.6 % (37.0-47.0); Hemoglobin 15.1 g/dL (12.2-16.2); Lymphocytes # 2.8 K/mm3 (0.7-4.5); Mean Corpuscular Hemoglobin 28.4 pg (27.0-31.2); Mean Corpuscular Volume 86.2 fl (81-99); Mean Platelet Volume 8.5 fl (7.4-10.4); Monocytes # 0.4 K/mm3 (0.1-1.0); Monocytes % 3.6 % (1.7-9.3); Neutrophils # 8.6 K/mm3 (1.8-7.8); Neutrophils % 70.6 % (37.0-80.0); Platelet Count 333 K/mm3 (142-424); White Blood Count 12.2 K/mm3 (4.8-10.8)
[2021-08-18 11:31] LABS: Chloride 104 mmol/L (98-107); Sodium 140 mmol/L (136-145)
[2021-08-18 11:34] LABS: Alanine Aminotransferase 24 U/L (12-78); Albumin Level 4.5 g/dl (3.5-5.0); Albumin/Globulin Ratio 1.3 (1.1-1.8); Alkaline Phosphatase 97 U/L (38-126); Aspartate Amino Transferase 24 U/L (14-36); Bilirubin,Total 0.7 mg/dl (0.2-1.3); Blood Urea Nitrogen 12 mg/dl (7-17); Calcium 9.4 mg/dl (8.4-10.2); Carbon Dioxide 29 mmol/L (22.0-30.0); Estimated Glomerular Filt Rate 84 ml/min (>60); GFR (African American) 102 ML/MIN (>60); Globulin 3.4 g/dL (1.3-3.2); Glucose 78 mg/dl (74-100); Total Protein,Serum 7.9 g/dl (6.3-8.2)
== END ==
PROVIDERS: Visit Provider Nurse Practitioner Family
DX: R53.83 Other fatigue (principal)
CPT/HCPCS: 36415; 80053; 85025

== ENCOUNTER → 2021-09-01 11:28 | Outpatient (CLI) | payer BC, SELFPAY ==
--- NOTE | 2021-09-01 13:26 | CT_ITS ---
FINAL REPORT TECHNIQUE: Thin section axial CT images with coronal and sagittal reformats were performed through the neck. This study was performed with techniques to keep radiation doses as low as reasonably achievable (ALARA). Individualized dose reduction techniques using automated exposure control or adjustment of mA and/or kV according to the patient''s size were employed. CLINICAL HISTORY: Enlarged Lymphnodes lt side FINDINGS: There are multiple mildly enlarged left internal jugular nodes, largest measuring 13 mm. These are nonspecific but favor reactive. There is no other mass or fluid collection seen. Salivary glands are normal. Larynx is unremarkable. Thyroid gland is unremarkable. IMPRESSION: Multiple mildly enlarged left internal jugular nodes, favor reactive. Reviewed, Interpreted and Dictated by Dio Klein III, MD Transcribed by Michelle Strauss Authenticated and [facility]
== END ==
PROVIDERS: PCP Family Medicine; Visit Provider Nurse Practitioner Family
DX: M54.2 Cervicalgia (principal); R59.0 Localized enlarged lymph nodes
CPT/HCPCS: 70490

== ENCOUNTER 2021-09-08 09:51 | Emergency (ER) | payer BC, SELFPAY ==
[2021-09-08 10:16] VITALS: BP 135/87; PULSE 68; RESP 18; TEMP 36.5; O2SAT 97; BMI 45.9
[2021-09-08 10:31] LABS: Strep Scrn Group A (Rapid) Negative (Negative)
[2021-09-08 10:44] LABS: UTC Influenza A Antigen Negative (Negative); UTC Influenza B Antigen Negative (Negative)
--- NOTE | 2021-09-08 10:45 | HMH.EDUTC ---
[facility] – [place] Disposition Clinical Impression: Vertigo Otitis media Qualifiers: Otitis media type: suppurative Chronicity: acute Laterality: bilateral Recurrence: non-recurrent Spontaneous tympanic membrane rupture: without spontaneous rupture Qualified Code(s): H66.003 - Acute suppurative otitis media without spontaneous rupture of ear drum, bilateral Disposition: Home, Self-Care Condition on Discharge: Good Instructions: Middle Ear Infection Additional Instructions: Drink plenty of fluids. Take tylenol or ibuprofen for pain or fever. Take the medications as directed. Follow up with your regular doctor. GO TO THE ER FOR ANY WORSENING SYMPTOMS Prescriptions: Amoxicillin [Amoxicillin 500mg Tab] 500 mg PO TID 10 Days #30 tab Transmission Status: Received by [id number] methylPREDNISolone [Medrol] 4 mg PO DIRECTED 6 Days #21 packet Transmission Status: Received by [id number] Referrals: Hal Marcus MD [Primary Care Provider] - Forms: Work/School Release Time of Disposition: 10:46 Medical Decision Making - Medical Records Medical records reviewed: No: I reviewed the patient's medical records. - Bruce Inquiry Pt receiving controlled substance: No Vital Signs: 09/08/21 10:16 09/08/21 11:00 Temperature 97.7 F 97.7 F Temperature Source Oral Pulse Rate 68 Pulse Rate [Left Radial] 68 Respiratory Rate 18 18 Blood Pressure 135/87 Blood Pressure [Right Arm] 135/87 Blood Pressure Mean [Right Arm] 103 02 Sat by Pulse Oximetry 97 - Lab Data Lab results reviewed: Yes: I reviewed the patient's lab results. Lab Results 09/08/21 10:15: Group A Strep Rapid Negative 09/08/21 10:15: Influenza Type A Ag Negative, Influenza Type B Ag Negative 09/08/21 10:48: Chlamy pneumoniae PCR Not detected, Adenovirus (PCR) Not detected, B. pertussis DNA (PCR) Not detected, Coronavirus OC43 (PCR) Not detected, Coronavirus HKU1 (PCR) Not detected, Coronavirus 229E (PCR) Not detected, SARS-CoV-2 (PCR) Not detected, Coronavirus NL63 (PCR) Not detected, Human Metapneumovir PCR Not detected, Influenza A (H1) PCR Not detected, Influ A (H1N1/09) PCR Not detected, Influenza A (H3) PCR Not detected, Influenza Type A (PCR) Not detected, Influenza Type B (PCR) Not detected, M. pneumoniae (PCR) Not detected, Parainfluenza 1 (PCR) Not detected, Parainfluenza 2 (PCR) Not detected, Parainfluenza 3 (PCR) Not detected, Parainfluenza 4 (PCR) Not detected, RSV (PCR) Not detected, Entero/Rhino (PCR) Not detected [facility] [place] HPI - General Stated complaint: dizzyness, headache Time Seen by Provider: 09/08/21 10:20 Description of Symptoms (Recalled from Triage Doc. by RN): patient comes in today with complaints of dizziness, headaches, fatigue. patient states that she has been having these symptoms since january of last year. patient has been to PCP and has not had any relief. symptoms began to get worse 3 days ago HEENT Symptoms (Recalled from RN notes): Yes Resp Symptoms (Recalled from RN notes): No Skin Symptoms (Recalled from RN notes): No MS Symptoms (Recalled from RN notes): No Functional Status (Recalled from RN notes): wnl - History of Present Illness Provider Complaint: she has been having periods of vertigo intermittently for the past 2 to 3 months. Her dizziness returned and has been worse than normal over the past 2 days is why she came in today. - Related Data Home Medications Medication Instructions Recorded Confirmed levonorgestrel 20 mcg/24 hours (7 INTRAUTERI 02/21/21 08/08/21 yrs) 52 mg intrauterine device rimegepant 75 mg disintegrating 75 mg PO Q OTHER DAY PRN 04/18/21 08/08/21 tablet ferrous sulfate 142 mg (45 mg 142 mg PO DAILY 05/30/21 08/08/21 iron) tablet,extended release meclizine 25 mg tablet 25 mg PO DAILY tab 07/06/21 08/08/21 Previous Rx's Medication Instructions Recorded Amoxicillin [Amoxicillin 500mg Tab] 500 mg PO TID 10 Days #30 tab 09/08/21 methylPREDNISol
[2021-09-08 10:56] LABS: Adenovirus,PCR Not Detected (NotDetected); Bordetella Pertussis Not Detected (NotDetected); Chlamydophila Pneumoniae, PCR Not Detected (NotDetected); Coronavirus 19, PCR Not Detected (NotDetected); Coronavirus 229E Not Detected (NotDetected); Coronavirus NL63 Not Detected (NotDetected); Coronavirus OC43 Not Detected (NotDetected); Coronovirus HKU1,PCR Not Detected (NotDetected); Human Metapneumovirus Not Detected (NotDetected); Influenza A, PCR Not Detected (NotDetected); Influenza AH1, 2009 Not Detected (NotDetected); Influenza AH1, PCR Not Detected (NotDetected); Influenza AH3,PCR Not Detected (NotDetected); Influenza B, PCR Not Detected (NotDetected); Mycoplasma Pneumoniae, PCR Not Detected (NotDetected); Parainfluenza 1, PCR Not Detected (NotDetected); Parainfluenza 2, PCR Not Detected (NotDetected); Parainfluenza 3, PCR Not Detected (NotDetected); Parainfluenza 4, PCR Not Detected (NotDetected); Respiratory Syncytial Virus Not Detected (NotDetected); Rhinovirus/Enterovirus Not Detected (NotDetected)
[2021-09-08 11:00] VITALS: BP 135/87; PULSE 68; RESP 18; TEMP 36.5
== END 2021-09-08 11:10 | disposition home or self-care (01) ==
PROVIDERS: Emergency Provider Nurse Practitioner Family; PCP Family Medicine
DX: H66.003 Acute suppurative otitis media without spontaneous rupture of ear drum, bilateral (principal); R07.9 Chest pain, unspecified; R42 Dizziness and giddiness; R51.9 Headache, unspecified; R53.82 Chronic fatigue, unspecified; Z20.822 Contact with and (suspected) exposure to COVID-19; F32.A Depression, unspecified; F41.9 Anxiety disorder, unspecified; Z79.52 Long term (current) use of systemic steroids; Z79.899 Other long term (current) drug therapy; Z88.8 Allergy status to other drugs, medicaments and biological substances; Z80.9 Family history of malignant neoplasm, unspecified; Z81.8 Family history of other mental and behavioral disorders
CPT/HCPCS: 87430; 87581; 87632; 87798; 87804; 99213; C9803; G0463; U0003; U0005

== ENCOUNTER → 2021-09-29 10:56 | Outpatient (CLI) | payer BC, SELFPAY ==
[2021-09-29 11:50] LABS: Chloride 103 mmol/L (98-107); Potassium 3.7 mmoL/L (3.5-5.1); Sodium 138 mmol/L (136-145)
[2021-09-29 11:53] LABS: Anion Gap 11.7 mEq/L (5-15); Blood Urea Nitrogen 10 mg/dl (7-17); Carbon Dioxide 27 mmol/L (22.0-30.0); Estimated Glomerular Filt Rate 84 ml/min (>60); GFR (African American) 102 ML/MIN (>60)
[2021-09-29 11:54] LABS: Calcium 9.4 mg/dl (8.4-10.2); Glucose 116 mg/dl (74-100)
== END ==
PROVIDERS: PCP Family Medicine; Visit Provider Family Medicine
DX: E87.6 Hypokalemia (principal)
CPT/HCPCS: 36415; 80048

== ENCOUNTER 2021-10-02 12:45 | Emergency (ER) | payer BC, SELFPAY ==
[2021-10-02 12:58] VITALS: BP 121/82; PULSE 78; RESP 17; TEMP 36.7; O2SAT 98; BMI 33.3
--- NOTE | 2021-10-02 13:13 | HMH.EDUTC ---
[facility] [place] Disposition Clinical Impression: Otitis media Qualifiers: Otitis media type: unspecified Laterality: bilateral Qualified Code(s): H66.93 - Otitis media, unspecified, bilateral Disposition: Home, Self-Care Condition on Discharge: Good Instructions: Nausea and Vomiting-Adult, Cefdinir, DI for COVID-19 (Suspected or Confirmed ) Additional Instructions: *Monitor Temp, Over the counter Motrin or Tylenol as directed/as needed Tylenol every 4 hours and Motrin every 6 hours (as long as your family doctor has told you that you can take it) for fever or pain. and straight to ER if unable to lower temp less than 101.0 after medication given *Warm salt water gargles may help to soothe the throat *Throat Lozenges *Warm fluids like tea with honey may help to soothe the throat *Sleep elevated *Humidifier/Vaporizer *Flonase 2 sprays in each nostril daily but be aware that it may take 2-3 days before you notice improvement *Bromfed may cause drowsiness. Know how it effects you (your child) before driving, caring for small child, or sending your child to school. Not other antihistamines/allergy medications while taking bromfed Your throat swab was sent for culture. Those results are typically sent to your primary care. Be sure to follow up in 2-3 days with your family doctor/primary care physician if no improvement so they can review those result and treat if necessary. If you don?t have a primary care doctor, I recommend you get one but in the mean time, you will have to return to a walk in clinic Follow up IMMEDIATELY for new or worsening symptoms or no Noticeable improvement over the next 48-72 hours. 911 for difficulty breathing or swallowing You were tested for today for COVID19 your test result should be back in the next 24-48 hours, you may check your results on the [facility] My Health Portal for your results Make sure to take your Vitamins Vit. C Vit D and Zinc if you can take them Prescriptions: Cefdinir [Omnicef 300mg Capsule] 300 mg PO BID 7 Days #14 cap Transmission Status: Received by [id number] Ondansetron [Zofran 4mg ODT] 4 mg PO TIDP PRN #12 tab PRN Reason: Vomiting Transmission Status: Received by [id number] Referrals: Hal Marcus MD [Primary Care Provider] - As needed Forms: Work/School Release Medical Decision Making - Bruce Inquiry Pt receiving controlled substance: No Bruce was queried for this patient: No Vital Signs: 10/02/21 12:58 10/02/21 13:47 Temperature 98.0 F 98.0 F Temperature Source Oral Pulse Rate 78 Pulse Rate [Left] 78 Respiratory Rate 17 17 Blood Pressure 121/82 Blood Pressure [Right Arm] 121/82 Blood Pressure Mean [Right Arm] 95 02 Sat by Pulse Oximetry 98 - Lab Data Lab results reviewed: Yes: I reviewed the patient's lab results. Lab Results 10/02/21 13:36: Urine Color Yellow, Urine Appearance Clear, Urine pH 7.5, Ur Specific [place] 1.025, Urine Protein Trace, Urine Glucose (UA) Negative, Urine Ketones Negative, Urine Blood Trace, Urine Nitrate Negative, Urine Bilirubin Negative, Urine Urobilinogen 0.2, Ur Leukocyte Esterase Negative [facility] [place] HPI - General Stated complaint: KAPLAN, fever, cough Time Seen by Provider: 10/02/21 13:13 Description of Symptoms (Recalled from Triage Doc. by RN): patient comes in for covid test and HEENT Symptoms (Recalled from RN notes): Yes Resp Symptoms (Recalled from RN notes): Yes Skin Symptoms (Recalled from RN notes): No MS Symptoms (Recalled from RN notes): No Functional Status (Recalled from RN notes): n/a - History of Present Illness Provider Complaint: Patient states that she was around someone about a week ago that is positive for COVID States that she has been having bodyaches, chills, headache low back pain and pain in both ears States that earlier today she started with Vomiting and feeling like she may be getting diarrhea but no loose stool - Related Data Home Medications Medication Instructions
[2021-10-02 13:47] VITALS: BP 121/82; PULSE 78; RESP 17; TEMP 36.7
[2021-10-02 14:10] LABS: Apearance,Urine Clear (Clear); Bilirubin,Urine Negative (Negative); Blood, Urine Trace (Negative); Color,Urine Yellow (Yellow); Glucose,Urine (UA) Negative (Negative); Ketones,Urine Negative (Negative); PH,Urine 7.5 (5.0-8.5); Protein,Urine Trace (Negative); Specific Gravity, Urine 1.025 (1.005-1.030); UTC Leukocyte Esterase,Urine Negative (Negative); UTC Nitrate,Urine Negative (Negative); Urobilinogen,Urine 0.2 EU/dl (0.2)
== END 2021-10-02 13:49 | disposition home or self-care (01) ==
PROVIDERS: Emergency Provider Nurse Practitioner; PCP Family Medicine
DX: H66.93 Otitis media, unspecified, bilateral (principal); U07.1 COVID-19
CPT/HCPCS: 81003; 99212; C9803; G0463; U0003; U0005

== ENCOUNTER → 2021-10-02 12:47 | Outpatient (CLI) | payer BC, SELFPAY | PROVIDERS: PCP Family Medicine; Visit Provider Emergency Medicine | DX: U07.1 COVID-19 (principal) ==

== ENCOUNTER → 2021-10-25 10:30 | Outpatient (CLI) | payer BC, SELFPAY ==
[2021-10-25 18:11] LABS: Ferritin 36.7 ng/ml (6.24-137)
== END ==
PROVIDERS: PCP Family Medicine; Visit Provider Specialist
DX: E83.10 Disorder of iron metabolism, unspecified (principal)
CPT/HCPCS: 82728

== ENCOUNTER 2021-11-28 14:30 | Outpatient (RCR) | payer BC, SELFPAY ==
--- NOTE | 2021-11-28 15:33 | HMH.PTOPEV ---
PT Outpatient Evaluation Rehab PT Outpatient Evaluation Start: 11/28/21 14:35 Freq: Status: Active Protocol: Document 11/28/21 15:13 PHORNE (Rec: 11/28/21 15:33 PHORNE [id number]) E-signed By Juan F Bruno, PT Outpatient Therapy Subjective History Subjective History Pt is 31 yowf who presents with c/o atypical vertigo which is nonpositional and lasts for 1-2 mins ea episode. She reports, I don't really feel like the room is spinning , but I feel like things are coming at me, its not like how they usually describe vertigo . These symptoms have been happening for ~ 1 ry now. Pt currently reports increased pressure in her sinuses today, which she feels increases her symptoms. She also reports chronic neck pain for > 5 yrs. She reports he symptoms are non-positional, but do happen more when she is walking. She had CT of neck performed ~ 3 mos ago which showed mildly enlarged L side lymph nodes. She also had COVID infection ~ 2 mos ago which she reports significantly increased her symptoms while she recuperated . She reports hx of tonsilectomy x 1 and adenoidectomy x 2 and she had 1 severe ear infection as a child. She reports significant mold growth in her apartment which is worsiome for allergic reaction causing her sinus symptoms. This date she has no nystagmus with tomas-halpike testing or horizontal roll testing. Chief Complaint Other Symptoms Relieved By Nothing Prior Functional Limitations None Current Functional Limitations Walking Symptom Description Intermittent Level of pain today (0-10) 0 Pain scale - at its worst (0-10) 0 Balance Eval Nystagmus Nystagmus Presence None Oculomotor Gaze Oculomotor Gaze Nml: Vergence
== END 2021-11-28 14:35 | disposition home or self-care (01) ==
LOC: PT 14:30
PROVIDERS: PCP Family Medicine; Visit Provider Otolaryngology
DX: R42 Dizziness and giddiness (principal)
CPT/HCPCS: 97163

== ENCOUNTER → 2022-01-24 11:47 | Outpatient (CLI) | payer BC, SELFPAY ==
[2022-01-24 12:03] LABS: Coronavirus 19, PCR Not Detected (NotDetected); Influenza A, PCR Not Detected (NotDetected); Influenza B, PCR Not Detected (NotDetected)
== END ==
PROVIDERS: PCP Family Medicine; Visit Provider Family Medicine
DX: Z20.822 Contact with and (suspected) exposure to COVID-19 (principal); R52 Pain, unspecified
CPT/HCPCS: C9803; U0003; U0005

== ENCOUNTER → 2022-02-09 09:43 | Outpatient (CLI) | payer BC, SELFPAY ==
[2022-02-09 14:38] LABS: Basophils # 0.1 K/mm3 (0-0.2); Eosinophils # 0.1 K/mm3 (0.0-0.4); Eosinophils % 1.4 % (0.1-12.0); Hemoglobin 14.1 g/dL (12.2-16.2); Lymphocytes # 3.2 K/mm3 (0.7-4.5); Lymphocytes % 31.4 % (10-50); Mean Corpuscular HGB Conc 32.8 g/dL (31.8-35.4); Mean Corpuscular Hemoglobin 27.9 pg (27.0-31.2); Mean Corpuscular Volume 85.2 fl (81-99); Mean Platelet Volume 9.8 fl (7.4-10.4); Monocytes # 0.4 K/mm3 (0.1-1.0); Monocytes % 3.5 % (1.7-9.3); Neutrophils # 6.4 K/mm3 (1.8-7.8); Neutrophils % 62.8 % (37.0-80.0); Platelet Count 330 K/mm3 (142-424); Red Blood Count 5.04 M/mm3 (4.20-5.40); Red Cell Distribution Width 13.7 % (11.5-17.5); White Blood Count 10.2 K/mm3 (4.8-10.8)
== END ==
LOC: LAB 16:11 → LAB.DROPOF 02-13 08:41
PROVIDERS: PCP Family Medicine; Visit Provider Student in an Organized Health Care Education/Training Program
DX: R51.9 Headache, unspecified (principal); J02.9 Acute pharyngitis, unspecified
CPT/HCPCS: 36415; 85025; 87070

== ENCOUNTER 2022-08-21 09:51 | Emergency (ER) | payer BC, SELFPAY ==
[2022-08-21] VITALS (7 sets, daily range): BP systolic 109–146; BP diastolic 72–101; PULSE 65–101; RESP 16–18; TEMP 36.3–36.8; O2SAT 96–100; BMI 42.0
--- NOTE | 2022-08-21 10:08 | EXP.UTC ---
Discharge Plan Disposition Patient Disposition: Still a Patient Condition: Fair Prescriptions Prescriptions: No Action Mirena 20 mcg/24 hours (7 yrs) 52 mg intrauterine device INTRAUTERI Nurtec ODT 75 mg tablet,disintegrating 75 mg PO Q OTHER DAY PRN fluoxetine [Prozac] 40 mg capsule 40 mg PO DAILY Qty: 30 1RF Slow Fe 142 mg (45 mg iron) tablet extended release 142 mg PO DAILY meclizine 25 mg tablet 25 mg PO DAILY triamterene-hydrochlorothiazid 37.5-25 mg capsule 1 cap PO DAILY Qty: 30 2RF ondansetron 4 MG tablet,disintegrating 4 mg PO TIDP PRN (Reason: Vomiting) Qty: 12 0RF Referrals Follow up/Referrals: Hal Marcus MD [Primary Care Provider] - See instructions Clinical Impressions Clinical Impression: Abdominal pain Discharge ED Provider: Matti Troy [facility] [place] General Stated complaint: stomache pain, diarrhea, vomiting Mode of Arrival: Ambulatory Source of Information: Patient Limitations: No Limitations Time Seen by Provider: 08/21/22 10:03 Description of Symptoms (Recalled from Triage Doc. by RN): pt presents to [facility] c/o stomach ache and diarrhea. pt states initially symptoms started on Saturday and on that date she did vomit. pt denies cough, congestion or fever. HEENT Symptoms (Recalled from RN notes): No Resp Symptoms (Recalled from RN notes): No Skin Symptoms (Recalled from RN notes): No MS Symptoms (Recalled from RN notes): No Functional Status (Recalled from RN notes): na History of Present Illness Provider Complaint: She states that she has had abdominal pain for the past 2 days. The last time she had similar symptoms was caused by pancreatitis and she is concerned that may have returned. She denies any fever/chills. She has had diarrhea and n/v also. Related Data Home Medications Medication Instructions Recorded Confirmed levonorgestrel 21 mcg/24 hours (8 intrauterine 02/21/21 08/20/22 yrs) 52 mg intrauterine device (Mirena) rimegepant 75 mg disintegrating 75 mg PO Q OTHER DAY PRN 04/18/21 08/20/22 tablet (Nurtec ODT) ferrous sulfate 142 mg (45 mg 142 mg PO DAILY 05/30/21 08/20/22 iron) tablet,extended release (Slow Fe) meclizine 25 mg tablet 25 mg PO DAILY 07/06/21 08/20/22 Previous Rx's Medication Instructions Recorded triamterene 37.5 1 cap PO DAILY #30 caps 09/12/21 mg-hydrochlorothiazide 25 mg capsule ondansetron 4 mg disintegrating 4 mg PO TIDP PRN Vomiting #12 tabs 10/02/21 tablet fluoxetine 40 mg capsule (Prozac) 40 mg PO DAILY #30 caps 08/02/22 Allergies Allergy/AdvReac Type Severity Reaction Status Date / Time meloxicam Allergy Severe Rash Verified 06/12/22 09:27 Worker's Comp Is this a Worker's Comp case?: No Is this an [facility] Worker's Comp?: No Is this a [facility] Worker's Comp?: No [facility] Disclaimer: The information contained in this section may have been updated after the patient was seen, as this information can be updated by other users. Medical History (Updated 08/21/22 @ 10:20 by Gustavo Villarreal APRN) Anxiety Depression Generalized anxiety disorder History of fracture of left ankle Major depressive disorder Surgical History History of ankle surgery History of delivery History of tonsillectomy Family History Other Cancer FHx: mental illness Social History Smoking Status: Never smoker second hand exposure: No alcohol intake: never substance use type: denies use current occupational status: employed Travel in the last 8 weeks: None household members: children housing: apartment number of children: 2 ROS Obtained: Yes All systems reviewed & no additional complaints except as documented Constitutional Constitutional: Denies chills, Denies fever(s) and Reports poor appetite ENT Ears, Nose, Mouth, a
--- NOTE | 2022-08-21 10:21 | CT_ITS ---
FINAL REPORT TECHNIQUE: Postcontrast axial images through the abdomen and pelvis were performed. This study was performed with techniques to keep radiation doses as low as reasonably achievable, (ALARA). Individualized dose reduction techniques using automated exposure control or adjustment of mA and/or kV according to the patient's size were employed. CLINICAL HISTORY: abd pain FINDINGS: Abdomen: The lung bases are clear. The liver is normal in size and attenuation. The gallbladder is present. The spleen is unremarkable. The adrenals are normal. The pancreas is unremarkable. The kidneys enhance appropriately. The aorta is normal in caliber. No free fluid or adenopathy is identified. No findings for mechanical bowel obstruction are identified. There is a minimal fat containing umbilical hernia. Pelvis: There are fluid-filled nondilated small bowel loops. The appendix is normal. The urinary bladder is unremarkable. No free fluid, free air, abscess or adenopathy is identified. The uterus is anteverted. An IUD is seen within the endometrium. IMPRESSION: No acute process identified. Reviewed, Interpreted and Dictated by Francisco Davey MD Transcribed by Markus Velazquez Authenticated and [facility]
--- NOTE | 2022-08-21 10:24 | HMH.EDGENADL ---
Discharge Plan Disposition Patient Disposition: Home, Self-Care Condition: Good Prescriptions Prescriptions: New promethazine 25 mg tablet 25 mg PO Q6H PRN (Reason: nausea and vomiting) Qty: 10 0RF dicyclomine 20 mg tablet 20 mg PO QID PRN (Reason: abdominal pain) Qty: 20 0RF No Action Mirena 20 mcg/24 hours (7 yrs) 52 mg intrauterine device INTRAUTERI Nurtec ODT 75 mg tablet,disintegrating 75 mg PO Q OTHER DAY PRN fluoxetine [Prozac] 40 mg capsule 40 mg PO DAILY Qty: 30 1RF Slow Fe 142 mg (45 mg iron) tablet extended release 142 mg PO DAILY meclizine 25 mg tablet 25 mg PO DAILY triamterene-hydrochlorothiazid 37.5-25 mg capsule 1 cap PO DAILY Qty: 30 2RF ondansetron 4 MG tablet,disintegrating 4 mg PO TIDP PRN (Reason: Vomiting) Qty: 12 0RF Referrals Follow up/Referrals: Hal Marcus MD [Primary Care Provider] - See instructions Activity Restrictions/Add. Instructions Additional Instructions/Restrictions: Return for worsening persistent abdominal pain or other concerns. Take a stool specimen to primary care provider or return to the hospital lab for analysis and consideration of Clostridium colitis. Clear liquid diet to include an oral rehydration solution and advance to a bland diet. Avoid fried greasy spicy foods, avoid dairy products, avoid caffeine. Clinical Impressions Clinical Impression: Abdominal pain, Gastroenteritis Stand Alone Forms Stand Alone Forms: Work/School Release Instructions Patient Instructions: DI for Diarrhea and Traveler's Diarrhea -- Adult, DI for Diarrhea and Traveler's Diarrhea -- Child, DI for Nausea -- Adult, DI for Nausea -- Child Discharge ED Provider: Matti Troy General Adult HPI General Chief complaint: Nausea/Vomiting/Diarrhea Stated complaint: stomache pain, diarrhea, vomiting Time Seen by Provider: 08/21/22 10:03 Mode of Arrival: Ambulatory Source of Information: Patient Limitations: No Limitations Description of Symptoms (Recalled from ER Triage Doc. by RN): pt presents to [facility] c/o stomach ache and diarrhea. pt states initially symptoms started on Saturday and on that date she did vomit. pt denies cough, congestion or fever. History of Present Illness HPI narrative: Patient presents complaint of abdominal pain nausea vomiting and diarrhea that began Saturday. She denies fever. 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 Related Data Home Medications Medication Instructions Recorded Confirmed levonorgestrel 21 mcg/24 hours (8 intrauterine 02/21/21 08/20/22 yrs) 52 mg intrauterine device (Mirena) rimegepant 75 mg disintegrating 75 mg PO Q OTHER DAY PRN 04/18/21 08/20/22 tablet (Nurtec ODT) ferrous sulfate 142 mg (45 mg 142 mg PO DAILY 05/30/21 08/20/22 iron) tablet,extended release (Slow Fe) meclizine 25 mg tablet 25 mg PO DAILY 07/06/21 08/20/22 Previous Rx's Medication Instructions Recorded triamterene 37.5 1 cap PO DAILY #30 caps 09/12/21 mg-hydrochlorothiazide 25 mg capsule ondansetron 4 mg disintegrating 4 mg PO TIDP PRN Vomiting #12 tabs 10/02/21 tablet fluoxetine 40 mg capsule (Prozac) 40 mg PO DAILY #30 caps 08/02/22 dicyclomine 20 mg tablet 20 mg PO QID PRN abdominal pain 08/21/22 #20 tabs promethazine 25 mg tablet 25 mg PO Q6H PRN nausea and 08/21/22 vomiting #10 tabs Allergies Allergy/AdvReac Type Severity Reaction Status Date / Time meloxicam Allergy Severe Rash Verified 06/12/22 09:27 [facility] Disclaimer: The information contained in this section may have been updated after the patient was seen, as this information can be updated by other users. Medical History (Updated 08/21/22 @ 12:33 by Matti Troy MD) Anxiety Depression Generalized anxiety disorder History of fracture of left ankle Major depressive disorder Surgical History History of
--- NOTE | 2022-08-21 10:36 | PC.NURSE ---
After speaking with pt ER stated not to give Ketorlac
[2022-08-21 10:41] LABS: Basophils % 0.2 % (0.1-2.0); Eosinophils # 0.2 K/mm3 (0.0-0.4); Eosinophils % 1.6 % (0.1-12.0); Hematocrit 48.5 % (37.0-47.0); Hemoglobin 15.8 g/dL (12.2-16.2); Lymphocytes # 1.9 K/mm3 (0.7-4.5); Lymphocytes % 17.4 % (10-50); Mean Corpuscular HGB Conc 32.6 g/dL (31.8-35.4); Mean Corpuscular Hemoglobin 27.6 pg (27.0-31.2); Mean Corpuscular Volume 84.8 fl (81-99); Mean Platelet Volume 8.6 fl (7.4-10.4); Monocytes # 0.7 K/mm3 (0.1-1.0); Monocytes % 6.5 % (1.7-9.3); Neutrophils % 74.3 % (37.0-80.0); Platelet Count 296 K/mm3 (142-424); Red Blood Count 5.71 M/mm3 (4.20-5.40); Red Cell Distribution Width 13.7 % (11.5-17.5); White Blood Count 10.8 K/mm3 (4.8-10.8)
[2022-08-21 10:47] LABS: Alanine Aminotransferase 28 U/L (12-78); Albumin Level 4.3 g/dl (3.5-5.0); Albumin/Globulin Ratio 1.3 (1.1-1.8); Alkaline Phosphatase 108 U/L (38-126); Aspartate Amino Transferase 30 U/L (14-36); Bilirubin,Total 0.8 mg/dl (0.2-1.3); Blood Urea Nitrogen 12 mg/dl (7-17); Calcium 8.8 mg/dl (8.4-10.2); Carbon Dioxide 19 mmol/L (22.0-30.0); Chloride 106 mmol/L (98-107); Creatinine Clearance Estimated 105 mL/min (50-200); Estimated Glomerular Filt Rate 98 ml/min (>60); GFR (African American) 118 ML/MIN (>60); Globulin 3.2 g/dL (1.3-3.2); Glucose 97 mg/dl (74-100); Lipase 97 U/L (23-300); Sodium 138 mmol/L (136-145); Total Protein,Serum 7.5 g/dl (6.3-8.2)
--- NOTE | 2022-08-21 10:47 | PC.NURSE ---
CHECKED IN NOTHING NEEDED AT THIS TIME
[2022-08-21 10:51] LABS: HCG Qualitative, Serum Negative (Negative)
--- NOTE | 2022-08-21 11:05 | PC.NURSE ---
patient assisted to bathroom
--- NOTE | 2022-08-21 11:09 | PC.NURSE ---
UA collected and sent to lab, patient to CT
[2022-08-21 11:12] LABS: Microscopic, Urine URINE MICROSCOPIC (MICROSCOPIC)
[2022-08-21 11:32] LABS: Appearance,Urine CLEAR (Clear); Blood, Urine Negative (Negative); Color,Urine YELLOW (Yellow); Glucose,Urine (UA) Negative (Negative); Ketones,Urine TRACE (Negative); Leukocyte Esterase,Urine TRACE (Negative); Nitrate,Urine Negative (Negative); PH,Urine 5.5 (5.0-8.5); Protein,Urine Negative (Negative); Specific Gravity, Urine >= 1.030 (1.005-1.030); Urobilinogen,Urine 0.2 EU/dl (0.2)
[2022-08-21 11:33] LABS: Bilirubin,Urine Negative (Negative); RBC,Urine Occasional #/hpf (0-3)
== END 2022-08-21 13:26 | disposition home or self-care (01) ==
LOC: UTC 09:53 → ER 10:08
PROVIDERS: Emergency Provider Emergency Medicine; PCP Family Medicine
DX: K52.9 Noninfective gastroenteritis and colitis, unspecified (principal)
CPT/HCPCS: 74177; 80053; 81001; 83690; 84703; 85025; 96361; 96374; 96375; 96376; 99284; 99285; J2405; Q9967

== ENCOUNTER → 2022-08-23 16:54 | Outpatient (CLI) | payer BC, SELFPAY ==
[2022-08-26 16:10] LABS: H. pylori Breath Test Negative (Negative)
== END ==
PROVIDERS: PCP Nurse Practitioner Family; Visit Provider Nurse Practitioner Family
DX: R10.9 Unspecified abdominal pain (principal); R11.2 Nausea with vomiting, unspecified; R14.2 Eructation
CPT/HCPCS: 83013

== ENCOUNTER → 2022-09-20 13:54 | Outpatient (CLI) | payer BC, SELFPAY ==
[2022-09-20 14:58] VITALS: BMI 43.7
== END ==
PROVIDERS: PCP Nurse Practitioner Family; Visit Provider Nurse Practitioner Family
DX: Z71.3 Dietary counseling and surveillance (principal); E66.01 Morbid (severe) obesity due to excess calories; Z68.41 Body mass index [BMI] 40.0-44.9, adult
CPT/HCPCS: 97802

== ENCOUNTER → 2022-10-17 12:04 | Outpatient (CLI) | payer BC, SELFPAY ==
[2022-10-17 11:28] LABS: Adenovirus,PCR Not Detected (NotDetected); Bordetella Pertussis Not Detected (NotDetected); Chlamydophila Pneumoniae, PCR Not Detected (NotDetected); Coronavirus 19, PCR Not Detected (NotDetected); Coronavirus 229E Not Detected (NotDetected); Coronavirus NL63 Not Detected (NotDetected); Coronavirus OC43 Not Detected (NotDetected); Coronovirus HKU1,PCR Not Detected (NotDetected); Human Metapneumovirus Not Detected (NotDetected); Influenza A, PCR Not Detected (NotDetected); Influenza AH1, 2009 Not Detected (NotDetected); Influenza AH1, PCR Not Detected (NotDetected); Influenza AH3,PCR Not Detected (NotDetected); Influenza B, PCR Not Detected (NotDetected); Mycoplasma Pneumoniae, PCR Not Detected (NotDetected); Parainfluenza 1, PCR Not Detected (NotDetected); Parainfluenza 2, PCR Not Detected (NotDetected); Parainfluenza 3, PCR Not Detected (NotDetected); Parainfluenza 4, PCR Not Detected (NotDetected); Respiratory Syncytial Virus Not Detected (NotDetected)
[2022-10-17 14:52] LABS: Rhinovirus/Enterovirus Detected (NotDetected)
== END ==
PROVIDERS: PCP Nurse Practitioner Family; Visit Provider Nurse Practitioner Family
DX: J02.9 Acute pharyngitis, unspecified (principal); J98.8 Other specified respiratory disorders; B97.89 Other viral agents as the cause of diseases classified elsewhere
CPT/HCPCS: 87070; 87581; 87632; 87798

== ENCOUNTER 2022-10-24 21:45 | Emergency (ER) | payer BC, SELFPAY ==
[2022-10-24 21:47] VITALS: BP 117/77; PULSE 96; RESP 18; TEMP 36.5; O2SAT 99; BMI 45.3
--- NOTE | 2022-10-24 22:02 | HMH.EDGENADL ---
Discharge Plan Disposition Patient Disposition: Still a Patient Condition: Good Prescriptions Prescriptions: New methocarbamol 750 mg tablet 750 mg PO Q8H PRN (Reason: pain) Qty: 20 0RF naproxen 500 mg tablet 500 mg PO BID PRN (Reason: pain) Qty: 20 0RF lidocaine [Lidoderm] 5 % adhesive patch,medicated 1 patch topical DAILY Qty: 15 0RF Rx Instructions: leave on most painful area for up to 12 hrs diazepam [Valium] 10 mg tablet 10 mg PO ONCE Qty: 1 0RF Rx Instructions: Do not drive or operate heavy machinery after taking this, as it is sedating. No Action semaglutide 0.25 mg or 0.5 mg (2 mg/3 mL) pen injector 0.25 mg SQ WEEKLY Qty: 3 0RF Rx Instructions: for 4 weeks meclizine 25 mg tablet 25 mg PO DAILY PRN fluoxetine [Prozac] 40 mg capsule 40 mg PO DAILY Qty: 30 1RF snnpfsuheynkezx-gdknzwycp-NW [Bromfed DM] 2-30-10 mg/5 mL syrup 2.5 ml PO Q4-6H PRN (Reason: cold symptoms) Qty: 200 0RF norgestimate-ethinyl estradiol [Sprintec (28)] 0.25-35 mg-mcg tablet 1 tab PO DAILY Qty: 28 11RF dicyclomine 20 mg tablet 20 mg PO QID PRN (Reason: abdominal pain) Qty: 20 0RF Referrals Follow up/Referrals: Jazmyn Weeks APRN [Primary Care Provider] - See instructions Activity Restrictions/Add. Instructions Additional Instructions/Restrictions: You were evaluated in the emergency department today for neck pain. At this time, we feel that this is musculoskeletal. Please follow-up closely with your primary care provider. 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 You may also take Tylenol in addition to these. I provided you with a one-time dose of Valium, which is a very strong musule relaxer. It will make you very sleepy, so do not drive or operate heavy machinery while taking this medication. Return to the emergency department for any new or worsening symptoms. Clinical Impressions Clinical Impression: TMJ (temporomandibular joint disorder), Musculoskeletal neck pain Instructions Patient Instructions: DI for Neck Pain Discharge ED Provider: Alma Brown General Adult HPI General Chief complaint: Neck Pain/Injury Stated complaint: neck pain 4 days Time Seen by Provider: 10/24/22 21:57 History of Present Illness HPI narrative: This patient is a 31-year-old female with a history of anxiety presenting to the emergency department for evaluation with concern for right-sided neck pain radiating into her right shoulder. She reports that she was diagnosed with TMJ issues several days ago because she was having issues with moving her jaw and feeling like her jaw was locking. She has been able to close her jaw on Saturday, but now she is having pain radiating down her neck and into her right shoulder. No numbness, tingling, or other concerns. No recent fevers, chills, rashes, redness, or swelling. She has taken Tylenol at home without good improvement. She also tried a hot shower. She denies any known traumatic injuries. She denies any new medications to suggest any potential dystonic reaction. Related Data Home Medications Medication Instructions Recorded Confirmed meclizine 25 mg tablet 25 mg PO DAILY PRN 09/13/22 10/17/22 Previous Rx's Medication Instructions Recorded dicyclomine 20 mg tablet 20 mg PO QID PRN abdominal pain 08/21/22 #20 tabs semaglutide 0.25 mg or 0.5 mg (2 0.25 mg (0.368 mL) SQ WEEKLY #3 mL 09/13/22 mg/3 mL) subcutaneous pen injector fluoxetine 40 mg capsule (Prozac) 40 mg PO DAILY #30 caps 09/18/22 norgestimate 0.25 mg-ethinyl 1 tab PO DAILY #28 tabs 10/03/22 estradiol 35 mcg tablet (Sprintec (28)) nibhobiyjzonagi-bzfjxvpqveksowh-IY 2.5 ml PO Q4-6H PRN cold symptoms 10/17/22 2 mg-30 mg-10 mg/5 mL oral syrup #200 mL (Bromfed DM) diazepam 10 mg tablet (Valium) 10 mg PO ONCE muscle spasm #1 tab 10/24/22 lidocaine 5 % topical patch 1 patch topical DAILY #15 ea 10/24/22 (Lidoderm)
[2022-10-24 22:31] VITALS: BP 100/62; PULSE 69; O2SAT 98
[2022-10-24 23:00] VITALS: BP 105/63; PULSE 76; O2SAT 95
[2022-10-24 23:30] VITALS: BP 102/48; PULSE 64; RESP 20; O2SAT 98
[2022-10-24 23:46] VITALS: BP 107/58; PULSE 68; RESP 18; TEMP 36.5; O2SAT 98
== END 2022-10-24 23:47 | disposition home or self-care (01) ==
PROVIDERS: Emergency Provider Emergency Medicine; PCP Nurse Practitioner Family
DX: M54.2 Cervicalgia (principal); M26.609 Unspecified temporomandibular joint disorder, unspecified side; M25.511 Pain in right shoulder; F41.1 Generalized anxiety disorder; F32.9 Major depressive disorder, single episode, unspecified
CPT/HCPCS: 96372; 99283

== ENCOUNTER → 2022-11-15 13:49 | Outpatient (CLI) | payer BC, SELFPAY ==
[2022-11-15 14:30] LABS: HCG,Quantitative < 2 mIU/ml (0-5.42)
== END ==
PROVIDERS: PCP Nurse Practitioner Family; Visit Provider Nurse Practitioner Obstetrics & Gynecology
DX: N92.6 Irregular menstruation, unspecified (principal)
CPT/HCPCS: 36415; 84702

== ENCOUNTER → 2022-11-30 10:14 | Outpatient (CLI) | payer BC, SELFPAY ==
--- NOTE | 2022-11-30 10:19 | XR_ITS ---
FINAL REPORT CLINICAL HISTORY: left ankle pain COMPARISON: 08/18/2018 FINDINGS: LEFT ANKLE: Three views of the left ankle were obtained. There is no acute fracture or dislocation. Postoperative changes in the distal tibia and the talus are again noted, stable since the prior films of 2019. The joint spaces and mortise are intact. There is no soft tissue abnormality. IMPRESSION: No acute bony abnormality. Reviewed, Interpreted and Dictated by Dio Klein III, MD Transcribed by Madhuri Barnes Authenticated and [facility]
== END ==
PROVIDERS: PCP Nurse Practitioner Family; Visit Provider Orthopaedic Surgery
DX: M25.572 Pain in left ankle and joints of left foot (principal)
CPT/HCPCS: 73610

== ENCOUNTER → 2022-12-28 11:09 | Outpatient (CLI) | payer BC, SELFPAY ==
--- NOTE | 2022-12-28 11:09 | MR_ITS ---
FINAL REPORT CLINICAL HISTORY: left ankle pain prior sx lateral ankle pain and swelling COMPARISON: None FINDINGS: Multiplanar MR imaging of the left ankle was performed without contrast. There are postoperative changes in the distal tibia and talus causing artifact obscuring detail in these regions. There is motion artifact on many of the images decreasing sensitivity of this exam. The bony structures are intact without evidence of fracture, bone bruise or marrow edema. No osteochondral lesion is identified. The anterior talofibular and calcaneofibular ligaments are obscured and can not be accurately evaluated. The flexor and extensor tendons are intact. The posterior plantar aponeurosis is intact. No significant joint effusion is seen. The musculature is intact. There is no evidence of soft tissue mass or cyst. IMPRESSION: Postoperative changes without acute process. Reviewed, Interpreted and Dictated by Dio Klein III, MD Transcribed by Michelle Strauss Authenticated and [facility]
[2023-01-01 08:59] LABS: Antinuclear Antibodies (ANA) Negative
== END ==
PROVIDERS: Internal Medicine; PCP Nurse Practitioner Family; Visit Provider Orthopaedic Surgery
DX: M25.572 Pain in left ankle and joints of left foot (principal); L98.9 Disorder of the skin and subcutaneous tissue, unspecified
CPT/HCPCS: 36415; 73721; 86038

== ENCOUNTER → 2022-12-28 16:21 | Outpatient (CLI) | payer BC, SELFPAY | PROVIDERS: PCP Internal Medicine; Visit Provider Internal Medicine | DX: L98.9 Disorder of the skin and subcutaneous tissue, unspecified (principal) ==

== ENCOUNTER → 2023-02-21 09:42 | Outpatient (CLI) | payer BC, SELFPAY ==
--- NOTE | 2023-02-21 09:43 | ECG_ITS ---
APPROVED REPORT Exam: Resting ECG HR:79 bpm ECG Measurements Heart Rate 79 AXES WV 110 P 66 QRSd 89 QRS 95 QT 374 T 17 QTc 408 Conclusion SINUS RHYTHM WITH SHORT WV INTERVAL BORDERLINE RIGHT AXIS DEVIATION [QRS AXIS > 90] BORDERLINE ECG UNCONFIRMED REPORT Electronically signed by : Justin Fung MD 02/22/2023 16:31:30
[2023-02-21 11:02] LABS: Basophils # 0.1 K/mm3 (0-0.2); Basophils % 0.6 % (0.1-2.0); Eosinophils # 0.3 K/mm3 (0.0-0.4); Eosinophils % 2.7 % (0.1-12.0); Hemoglobin 14.1 g/dL (12.2-16.2); Lymphocytes # 2.7 K/mm3 (0.7-4.5); Lymphocytes % 24.5 % (10-50); Mean Corpuscular HGB Conc 32.7 g/dL (31.8-35.4); Mean Corpuscular Hemoglobin 28.6 pg (27.0-31.2); Mean Corpuscular Volume 87.3 fl (81-99); Mean Platelet Volume 8.5 fl (7.4-10.4); Monocytes # 0.5 K/mm3 (0.1-1.0); Monocytes % 4.1 % (1.7-9.3); Neutrophils # 7.6 K/mm3 (1.8-7.8); Neutrophils % 68.1 % (37.0-80.0); Platelet Count 289 K/mm3 (142-424); Red Blood Count 4.92 M/mm3 (4.20-5.40); Red Cell Distribution Width 13.7 % (11.5-17.5); White Blood Count 11.1 K/mm3 (4.8-10.8)
[2023-02-21 12:08] LABS: Alanine Aminotransferase 25 U/L (12-78); Albumin Level 4.1 g/dl (3.5-5.0); Albumin/Globulin Ratio 1.4 (1.1-1.8); Alkaline Phosphatase 78 U/L (38-126); Anion Gap 12.1 mEq/L (5-15); Aspartate Amino Transferase 25 U/L (14-36); Bilirubin,Total 0.5 mg/dl (0.2-1.3); Blood Urea Nitrogen 13 mg/dl (7-17); Calcium 8.7 mg/dl (8.4-10.2); Carbon Dioxide 25 mmol/L (22.0-30.0); Chloride 103 mmol/L (98-107); Estimated Glomerular Filt Rate 97 ml/min (>60); GFR (African American) 117 ML/MIN (>60); Glucose 89 mg/dl (74-100); Potassium 4.1 mmoL/L (3.5-5.1); Sodium 136 mmol/L (136-145); Total Protein,Serum 7.1 g/dl (6.3-8.2)
[2023-02-21 15:20] LABS: HCG Qualitative, Serum Negative (Negative)
[2023-02-21 15:56] LABS: Erythrocyte Sedimentation Rate 14 mm/hr (0-20)
== END ==
PROVIDERS: PCP Internal Medicine; Visit Provider Podiatrist
DX: Z01.818 Encounter for other preprocedural examination (principal); M79.672 Pain in left foot; M19.172 Post-traumatic osteoarthritis, left ankle and foot; D72.829 Elevated white blood cell count, unspecified; Z96.9 Presence of functional implant, unspecified
CPT/HCPCS: 36415; 80053; 84703; 85025; 85651; 86140; 93005

== ENCOUNTER → 2023-02-22 15:29 | Outpatient (CLI) | payer BC, SELFPAY ==
[2023-02-22 16:59] LABS: Uric Acid 5.7 mg/dl (2.5-6.2)
[2023-02-22 17:58] LABS: Erythrocyte Sedimentation Rate 14 mm/hr (0-20)
[2023-02-22 19:35] LABS: Coronavirus 19, PCR Not Detected (NotDetected); Influenza A, PCR Not Detected (NotDetected); Influenza B, PCR Not Detected (NotDetected)
[2023-02-25 09:20] LABS: Insulin Level Total 60.5 uIU/mL (2.6-24.9)
[2023-02-25 16:18] LABS: Antinuclear Antibodies, IFA Negative (.)
== END ==
PROVIDERS: PCP Nurse Practitioner Family; Visit Provider Nurse Practitioner Family
DX: R05.1 Acute cough (principal); R53.83 Other fatigue; M25.60 Stiffness of unspecified joint, not elsewhere classified; R22.0 Localized swelling, mass and lump, head
CPT/HCPCS: 36415; 83525; 84550; 85651; 86038; 86431; 87636

== ENCOUNTER → 2023-02-25 09:43 | Outpatient (CLI) | payer BC, SELFPAY | PROVIDERS: PCP Internal Medicine; Visit Provider Nurse Practitioner Family | DX: D72.829 Elevated white blood cell count, unspecified (principal); R53.83 Other fatigue | CPT/HCPCS: 36415; 82533 ==

== ENCOUNTER 2023-02-25 17:00 | Outpatient (RCR) | payer BC, SELFPAY ==
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
== END 2023-02-25 18:20 | disposition home or self-care (01) ==
LOC: PT 17:00
PROVIDERS: PCP Internal Medicine; Visit Provider Orthopaedic Surgery
DX: M25.572 Pain in left ankle and joints of left foot (principal)
CPT/HCPCS: 97014; 97016; 97035; 97110; 97112; 97163; G0283

== ENCOUNTER → 2023-02-26 07:56 | Outpatient (CLI) | payer BC, SELFPAY ==
[2023-02-27 12:27] LABS: Insulin Level Total 13.2 uIU/mL (2.6-24.9)
== END ==
PROVIDERS: PCP Internal Medicine; Visit Provider Nurse Practitioner Family
DX: R22.0 Localized swelling, mass and lump, head (principal); R53.83 Other fatigue
CPT/HCPCS: 83525

== ENCOUNTER 2023-02-28 10:35 | Day surgery (SDC) | payer BC, SELFPAY ==
[2023-02-28] VITALS (13 sets, daily range): BP systolic 119–136; BP diastolic 55–90; PULSE 73–101; RESP 15–18; TEMP 36.3–43; O2SAT 93–98; BMI 45.3
--- NOTE | 2023-02-28 | XR_ITS ---
FINAL REPORT CLINICAL HISTORY: .Post op left ankle hardware removal. Exam done portable in PACU. COMPARISON: None FINDINGS: LEFT ANKLE: Three views of the left ankle were obtained. Postoperative changes are noted. There is no acute fracture or dislocation. The joint spaces and mortise are intact. There are soft tissue calcifications medially and laterally. Soft tissue swelling is noted. There is soft tissue air. IMPRESSION: Postoperative changes without acute bony abnormality. Reviewed, Interpreted and Dictated by Dio Klein III, MD Transcribed by Michelle Strauss Authenticated and [facility]
[2023-02-28] MEDS: LACTATED RINGERS 1000ML 1,000 ML 25 ML IV (10:55)
--- NOTE | 2023-02-28 11:35 | EXP.ANES.CKL ---
[facility] Disclaimer: The information contained in this section may have been updated after the patient was seen, as this information can be updated by other users. Medical History Abdominal pain Abscess of left thigh Acute bronchitis Anxiety Cellulitis of left thigh Depression Diarrhea Gastroenteritis Generalized anxiety disorder Headache History of fracture of left ankle Left otitis media Major depressive disorder Nausea Nausea & vomiting Otitis media Plantar fasciitis Plantar fasciitis of right foot Sinusitis Upper respiratory infection Vertigo Viral syndrome Surgical History History of ankle surgery History of delivery History of tonsillectomy and adenoidectomy Family History Other Cancer FHx: mental illness Social History Smoking Status: Never smoker second hand exposure: No alcohol intake: current substance use type: denies use current occupational status: employed Travel in the last 8 weeks: None household members: children housing: apartment number of children: 2 [facility] Anesthesia Checklist Patient Identification Patient Identification: Arm Band Structural Data Admitted From: Home Planned Operative Procedure/s: Left Foot Hardware Removal,Nerve Decompression, Peroneal Tendon Debridement Consent for Planned Operative Procedure(s) Verified: Yes Verified Documents: Surgical Consent and History and Physical NPO Status Verified Time NPO: 00:00 Additional verifications Anesthesia Reactions: No Hx Blood Transfusions: No Blood Transfusion Reaction: No Airway Assessment Mallampati Score:: Class II C-Spine Mobility Assessed: Yes TMJ Mobility Assessed: Yes Dentition: Good Dentition Neurological Assessment Level of Consciousness: Awake and Alert Anesthesia Plan Anesthesia Risk discussed: Yes Anesthesia Plan: Verified ASA Class: III Anesthesia Type: General w/block (Popliteal/Adductor Canal. Risks/benefits explained. Pt verbalized understanding)
[2023-02-28] MEDS: CEFAZOLIN SODIUM 2 GM in 0.9 % SODIUM CHLORIDE 100 ML IV (12:37)
--- NOTE | 2023-02-28 13:51 | SUR.OPER ---
pt family updated by pre-op nurse Michelle @ [phone]
--- NOTE | 2023-02-28 14:53 | XR_ITS ---
FINAL REPORT CLINICAL HISTORY: HARDWARE REMOVAL fluoro time 1.1 min 3.07 mGy FINDINGS: Fluoroscopy Fluoroscopy was provided for hardware removal. One spot image was obtained. Fluoroscopy time was 1.1 minutes. 3.07 mGy IMPRESSION: Fluoroscopy as above. Reviewed, Interpreted and Dictated by Dio Klein III, MD Transcribed by Lilliana Che Authenticated and [facility][1]
--- NOTE | 2023-02-28 15:19 | EXP.ANES.I ---
[facility] Anesthesia Record Part I Anesthesia Record I Intake, IV Amount: 1,100 Hydration: Adequate Estimated blood loss (mL): 5 Urine output (mL): 0 Blood Products used (#): none Blood Pressure: 120/77 SaO2: 93 Pulse Rate: 89 Airway Patency: Patent Respiratory Rate: 16 Temperature: 99.5 F Patient is:: Drowsy and Stable Stable to PACU at:: 15:15
--- NOTE | 2023-02-28 15:34 | P.OP_ITS ---
Date of procedure: 02/28/23 Pre-op Diagnosis:: Left painful ankle hardware Left ankle synovitis Left peroneal tendinitis Left neuritis Post-op Diagnosis:: Same Procedure performed:: Left ankle peroneal tenosynovectomy and ankle synovectomy Left ankle deep hardware removal x3 Nerve decompression Left ankle tibia bone biopsy Allograft application Surgeon:: Asha Mckoy DPM SAFETY DIRECTOR:: Albino Feemaciej Anesthesia: GETA and regional (Left regional nerve block) Estimated blood loss (mL): 20 Clinical Note:: 32-year-old female who sustained a left ankle injury in 2010 with ORIF tibia and talus. She has had continued bone and nerve pain since the injury. Conservative care failed as above. Patient was referred as another opinion. We discussed surgery for nerve decompression/release of suspected nerve entrapment, hardware removal, peroneal tendon exploration with possible debridement and repair. All risks and benefits were discussed including but not limited to: damage to blood vessels and nerves, bleeding, infection, wound complications, delayed or non- union of bone, post-traumatic arthritis, need for further surgery, retained implant, prolonged swelling of the extremity, prolonged pain, recurrent pain, fractured hardware, worsening arthritis, talus AVN, collapse of talus, RSD/CRPS, DVT/PE, and anesthetic complications. No guarantees were given. All questions fully answered. The patient verbalized understanding and agreed to proceed with surgery. Consent was obtained. Operative findings:: Left ankle talus screw was stripped. Screw did fracture upon removal but entire screw was removed. The screw did not extend into the ankle joint from the dorsal aspect of the talus. No signs of infection. 2 screws noted to the medial tibia removed in total. No signs of infection. Prodense bone graft was used to backfill screw sites as there is a significant defect, especially in the talus where the 2 screws were next to each other. Fibrotic scar tissue noted to the nerve communicating branches as well as around the peroneal tendons. Peroneal tenosynovitis noted. No peroneal tear appreciated. Ankle synovitis noted. On intraoperative fluoroscopy, graft noted to the tibia and talus screw sites. No graft noted to be intruding in the ankle joint. Operative note:: On this date and time patient was deemed an appropriate surgical candidate. With informed consent signed, the patient was taken to the operating theater after anesthesia did regional nerve block. The patient was positioned supine. LMA anesthesia was induced. Tourniquet was applied to the left mid-calf. IV Ancef infused. Left lower extremity was prepped and draped in normal sterile fashion. Left Ankle Hardware Removal: Limb exsanguinated and tourniquet inflated. Attention was directed to the left distal fibula and talus, where a incision was mapped out over the previous incision site. Dissection was carried thru skin and sub q tissue, with care to maintain surgical hemostasis. Full-thickness dissection then performed to the bone. Bony overgrowth over the talar screw head. The hardware was visualized. Screw head stripped. Instrumentation utilized to remove the screw. Upon removal, the screw did fracture. The fracture piece was then recovered and confirmed with intraoperative fluoroscopy. Attention directed to the medial ankle with previous incision was noted. Full-thickness incision made over the tibial screws. Bony overgrowth noted to the 2 tibial screws. Bone resected to expose the screw heads which were also stripped. Instrumentation utilized to remove the screws in total. No hardware was left within the ankle. Left ankle nerve decompression: Attention was directed to the lateral foot where scar tissue was identified obscuring the nerve. The connecting branch of the sural and intermediate dorsal cutaneous nerve was not well visualized due to the scar tissue. 15 blade forceps used to debride scar tissue decompressing the nerve. Wound was flushed with saline. Left ankle synovectomy, peroneal tenosynovectomy: The soft tissue appeared mostly healthy with no najera and no necrotic tissue noted. The synovitic tissue was sharply debrided. The ankle joint was visualized and synovitic fluid was removed. Peroneal tendons were identified and explored. No peroneal tear is noted. There is some scar tissue around the brevis tendon, it was sharply debrided with a 15 blade. The wound was flushed with copious amounts of normal sterile saline. Left Ankle Bone Biopsy, Allograft application: A piece of the medial tibia was sent as a bone biopsy to path. Bone was hard, color and texture was within normal limits. The was flushed with copious amounts of normal sterile saline. Due to the size of defect left from the screw removal, decision made to pack the defect and screw removal sites with Prodense allograft. It was prepared in accordance with manufacture guidelines and inserted in standard technique. Intraoperative fluoroscopy utilized to check position of the graft within the screw hole and no graft was inserted into the ankle joint. The deep and subcutaneous tissue layer was repaired with Vicryl. Nylon used to remove repair the skin in an interrupted fashion. Skin jenn used to reinforce the skin incision. Tourniquet was deflated and immediate hyperemic response was noted to the digits. The wounds were cleansed. Xeroform, dry sterile dressing was then applied to the left foot. The patient was awoken from anesthesia and transferred to recovery with vital signs stable and neurovascular status intact. She tolerated procedure anesthesia well without complication. Materials: Triptrotting x1 (15cc) Discharge/Plan: D/C home today when ready and vital signs stable. Patient is to maintain dressing clean dry and intact. Ice to the top of the ankle and elevate on two pillows. Non weight bearing to the left lower extremity with crutches. Obtain post op films, left ankle, 3 views. Follow up in one week. Tourniquet time (min): 120 Condition: stable Disposition: same day Specimens:: Left ankle hardware culture Left tibia bone pathology Complications:: None
--- NOTE | 2023-02-28 15:38 | SUR.OPER ---
Spoke to Fabian in lab. Pt's miscellaneous order for left foot hardware culture is in on their side, just not visible on intraop RN's side.
[2023-02-28] MEDS: ONDANSETRON 4MG/2ML VIAL 4 MG IV (15:42)
[2023-02-28] MEDS: ACETAMINOPHEN 325MG TAB 650 MG PO (16:00)
--- NOTE | 2023-02-28 16:30 | SUR.PHASEII ---
L foot with operative dresing C/D/I. Toes p/w/d. Able to feel touch and able to wiggle toes.
--- NOTE | 2023-03-01 13:59 | P.PNANES_ITS ---
[facility] Anesthesia Record Part II Anesthesia Record Part II Discharge Time: 15:55 Destination: Surgical Day Care (OP Surgery) PACU nurse assessment reviewed?: Yes Patient Condition:: Good Anesthesia Complications:: None Swallowing reflex intact?: Yes Airway Patency: Patent Cyanosis?: No Blood Pressure: 126/90 SaO2: 94 Respiratory Rate: 16 Pulse Rate: 93 Temperature: 99 F Mental Status: Alert & Oriented Pain level:: 0 Nausea and/or vomitting:: Nauseated Intake, IV Amount: 0 Hydration: Adequate
[2023-03-01 14:00] VITALS: BP 126/90; PULSE 93; RESP 16; TEMP 37.2; O2SAT 94
== END 2023-02-28 16:31 | disposition home or self-care (01) ==
PROVIDERS: PCP Internal Medicine; Visit Provider Podiatrist
PROC: (CPT 27626; principal; 2023-02-28 12:15)
DX: T84.84XA Pain due to internal orthopedic prosthetic devices, implants and grafts, initial encounter (principal); M19.172 Post-traumatic osteoarthritis, left ankle and foot; M76.72 Peroneal tendinitis, left leg; M25.572 Pain in left ankle and joints of left foot; G57.92 Unspecified mononeuropathy of left lower limb; Z79.899 Other long term (current) drug therapy
CPT/HCPCS: 27626; 64722; 20680; 73600; 73610; 76000; 96374; C1776; J2405

== ENCOUNTER 2023-03-03 08:51 | Emergency (ER) | payer BC, SELFPAY ==
[2023-03-03 09:01] VITALS: BP 123/86; PULSE 91; RESP 20; TEMP 36.8; O2SAT 98; BMI 45.3
--- NOTE | 2023-03-03 09:06 | HMH.EDGENADL ---
Discharge Plan Disposition Patient Disposition: Home, Self-Care Prescriptions Prescriptions: No Action cefdinir 300 mg capsule 300 mg PO BID 7 Days Qty: 14 0RF meclizine 25 mg tablet 25 mg PO DAILY PRN (Reason: Pain) Vraylar 1.5 mg capsule 1.5 mg PO DAILY Qty: 30 2RF fluoxetine [Prozac] 40 mg capsule 40 mg PO DAILY Qty: 30 1RF gabapentin 100 mg capsule 100 mg PO TID PRN (Reason: nerve pain) 7 Days Qty: 21 0RF ondansetron 4 mg tablet,disintegrating 4 mg PO Q6H PRN (Reason: nausea and vomiting) Qty: 20 0RF hydrocodone-acetaminophen 7.5-325 mg tablet 1 tab PO Q6H PRN (Reason: pain) 7 Days Qty: 28 0RF dicyclomine 20 mg tablet 20 mg PO QID PRN (Reason: abdominal pain) Qty: 20 0RF Referrals Follow up/Referrals: Ernie Slaughter DO [Primary Care Provider] - See instructions Activity Restrictions/Add. Instructions Additional Instructions/Restrictions: At this time it was felt you are safe to be discharged home. If new or worsening symptoms please do not hesitate to return the emergency department. Please follow-up with foot surgery tomorrow as discussed. Clinical Impressions Clinical Impression: Ankle swelling, Change of dressing Discharge ED Provider: David Wu General Adult HPI General Stated complaint: left ankle swelling and bandage wet, post surgery Time Seen by Provider: 03/03/23 08:55 History of Present Illness HPI narrative: Patient is a 32-year-old female with past medical history of previous traumatic left ankle injury status post surgery who had hardware removed this who presents the emergency department for medical evaluation. Patient's dressing became wet last night while she was showering and wishes to have it redressed as well as evaluated for swelling. Patient is toe-touch weightbearing, no other acute complaints at this time. Related Data Home Medications Medication Instructions Recorded Confirmed meclizine 25 mg tablet 25 mg PO DAILY PRN Pain 09/13/22 02/22/23 Previous Rx's Medication Instructions Recorded dicyclomine 20 mg tablet 20 mg PO QID PRN abdominal pain 08/21/22 #20 tabs fluoxetine 40 mg capsule (Prozac) 40 mg PO DAILY #30 caps 01/22/23 cariprazine 1.5 mg capsule 1.5 mg PO DAILY #30 caps 01/30/23 (Vraylar) cefdinir 300 mg capsule 300 mg PO BID 7 days #14 caps 02/22/23 gabapentin 100 mg capsule 100 mg PO TID PRN nerve pain 7 02/27/23 days #21 caps ondansetron 4 mg disintegrating 4 mg PO Q6H PRN nausea and 02/27/23 tablet vomiting #20 tabs hydrocodone 7.5 mg-acetaminophen 1 tab PO Q6H PRN pain 7 days #28 03/01/23 325 mg tablet tabs Allergies Allergy/AdvReac Type Severity Reaction Status Date / Time meloxicam Allergy Severe Rash Verified 02/28/23 10:56 NSAIDS (Non-Steroidal Allergy Mild Hives Verified 02/28/23 10:56 [facility] Disclaimer: The information contained in this section may have been updated after the patient was seen, as this information can be updated by other users. Medical History (Updated 03/03/23 @ 09:09 by David Wu MD) Abdominal pain Abscess of left thigh Acute bronchitis Anxiety Cellulitis of left thigh Depression Diarrhea Gastroenteritis Generalized anxiety disorder Headache History of fracture of left ankle Left otitis media Major depressive disorder Nausea Nausea & vomiting Otitis media Plantar fasciitis Plantar fasciitis of right foot Sinusitis Upper respiratory infection Vertigo Viral syndrome Surgical History History of ankle surgery History of delivery History of tonsillectomy and adenoidectomy Family History Other Cancer FHx: mental illness Social History Smoking Status: Never smoker second hand exposure: No alcohol intake: current substance use type: d
[2023-03-03 09:22] VITALS: BP 128/85; PULSE 84; RESP 20; TEMP 36.8; O2SAT 98
--- NOTE | 2023-03-04 07:42 | PC.NURSE ---
Access pt chart to complete ortho paper
== END 2023-03-03 09:23 | disposition home or self-care (01) ==
PROVIDERS: Emergency Provider Emergency Medicine; PCP Internal Medicine
DX: R22.42 Localized swelling, mass and lump, left lower limb (principal)
CPT/HCPCS: 99282

== ENCOUNTER → 2023-03-19 12:56 | Outpatient (CLI) | payer BC, SELFPAY ==
--- NOTE | 2023-03-19 13:01 | XR_ITS ---
FINAL REPORT CLINICAL HISTORY: post-op left ankle COMPARISON: 02/28/2023 FINDINGS: LEFT ANKLE Three views demonstrate extensive soft tissue swelling about the ankle. There is medial distal tibial osteotomy with methylmethacrylate. Hardware defect in the talus with apparent methylmethacrylate is noted. IMPRESSION: Postop changes of the distal tibia and talus with surrounding soft tissue edema. Reviewed, Interpreted and Dictated by Francisco Davey MD Transcribed by Michelle Strauss Authenticated and [facility]
== END ==
PROVIDERS: PCP Internal Medicine; Visit Provider Podiatrist
DX: Z98.890 Other specified postprocedural states (principal)
CPT/HCPCS: 73610

== ENCOUNTER 2023-03-30 13:32 | Emergency (ER) | payer BC, SELFPAY ==
[2023-03-30] VITALS (7 sets, daily range): BP systolic 105–135; BP diastolic 55–88; PULSE 65–90; RESP 15–18; TEMP 36.7; O2SAT 95–99; BMI 45.8
--- NOTE | 2023-03-30 13:50 | XR_ITS ---
PROCEDURE INFORMATION: Exam: XR Left Ankle Exam date and time: 03/30/2023 1:51 PM Age: 32 years old Clinical indication: Swelling, leg or foot and other: Oozing from incision site; Prior surgery; Surgery date: 6+ months; Surgery type: Hardware removal now swelling and oozing. ; Additional info: Pain, draining from incision site TECHNIQUE: Imaging protocol: Radiologic exam of the left ankle. Views: 3 or more views. COMPARISON: CR XR ANKLE WT BEARING LT MIN 3V 03/19/2023 1:05 PM FINDINGS: Bones/joints: Changes from prior medial distal tibial osteotomy with methylmethacrylate, similar to comparison study. Pin tract within the talus with methylmethacrylate, similar to comparison study. No acute fracture or dislocation. Soft tissues: Diffuse ankle soft tissue swelling, likely edema/cellulitis. Vasculature: Atherosclerotic vascular disease. IMPRESSION: 1. No acute fracture or dislocation. 2. Diffuse ankle soft tissue swelling, likely edema/cellulitis. 3. Surgical changes as described above, similar to comparison study.
--- NOTE | 2023-03-30 13:54 | ED_ITS ---
Discharge Plan Disposition Patient Disposition: Home, Self-Care Condition: Good Prescriptions Prescriptions: New cephalexin 500 mg capsule 500 mg PO BID 10 Days Qty: 20 0RF No Action mupirocin 2 % ointment 1 applic topical BID 21 Days Qty: 22 1RF Rx Instructions: Apply to affected area up to twice daily meclizine 25 mg tablet 25 mg PO DAILY PRN (Reason: Pain) Vraylar 1.5 mg capsule 1.5 mg PO DAILY Qty: 30 2RF hydrocortisone 2.5 % ointment topical gabapentin 100 mg capsule 100 mg PO TID PRN (Reason: nerve pain) 7 Days Qty: 21 0RF hydrocodone-acetaminophen 7.5-325 mg tablet 1 tab PO Q6H PRN (Reason: pain) 7 Days Qty: 28 0RF fluoxetine [Prozac] 40 mg capsule 40 mg PO DAILY Qty: 30 1RF Referrals Follow up/Referrals: Ernie Slaughter, [Primary Care Provider] - See instructions Activity Restrictions/Add. Instructions Additional Instructions/Restrictions: You have been evaluated in the ED for your complaints. You may follow-up with your PCP in the next 3 to 5 days. Please return to ED for any new or worsening symptoms. I have written for prescription for Keflex to treat your infection. Please take this prescribed. Please keep your appointment with podiatry on 04/04/2023. Please continue taking your hydrocodone at home as needed for pain. Clinical Impressions Clinical Impression: Cellulitis of left ankle, Unspecified open wound, left ankle, initial encounter Discharge ED Provider: Marty Brannon Adult HPI General Chief complaint: PAIN Stated complaint: left ankle pain Time Seen by Provider: 03/30/23 13:42 Mode of Arrival: Ambulatory Source of Information: Patient Limitations: No Limitations Description of Symptoms (Recalled from ER Triage Doc. by RN): pt presents to ED with c/o left ankle pain. pt had hardware removal on mar 01. pt reports since then she has had drainage from incisions. small amount of swelling noted, but no redness. no fevers noted. History of Present Illness HPI narrative: 32-year-old female with past medical history significant for ankle injury in the past requiring hardware that was removed on 03/01/2023, presents today for evaluation concerning possible infection over her left ankle where hardware was removed. Patient states that over the past few days she has noticed puslike drainage from her incision site on the lateral aspect of her ankle. Also notes that she is been having mild clear drainage from her incision site medially. Has also had tenderness to palpation and notes swelling. She states that the area has been erythematous since her surgery however the erythema has not i ncreased. Denies having any fevers, chills, chest pain, shortness of breath, nausea, vomiting or any other associated symptoms. States that she has been taking hydrocodone and Tylenol at home with some relief. No other complaints. Related Data Home Medications Medication Instructions Recorded Confirmed meclizine 25 mg tablet 25 mg PO DAILY PRN Pain 09/13/22 03/28/23 hydrocortisone 2.5 % topical topical 03/28/23 03/28/23 ointment Previous Rx's Medication Instructions Recorded fluoxetine 40 mg capsule (Prozac) 40 mg PO DAILY #30 caps 01/22/23 cariprazine 1.5 mg capsule 1.5 mg PO DAILY #30 caps 01/30/23 (Vraylar) mupirocin 2 % topical ointment 1 applic topical BID cellulitis 3 03/21/23 weeks #22 grams gabapentin 100 mg capsule 100 mg PO TID PRN nerve pain 7 03/28/23 days #21 caps hydrocodone 7.5 mg-acetaminophen 1 tab PO Q6H PRN pain 7 days #28 03/28/23 325 mg tablet tabs cephalexin 500 mg capsule 500 mg PO BID 10 days #20 caps 03/30/23 Allergies Allergy/AdvReac Type Severity Reaction Status Date / Time meloxicam Allergy Severe Rash Verified 03/28/23 08:21 NSAIDS (Non-Steroidal Allergy Mild Hives Verified 03/28/23 08:21 Anti-Inflamma [facility] Disclaimer: The information contained in this section may have been updated after the patient was seen, as this information can be updated by other users. Medical History Abdominal pain Abscess of left thigh Acute bronchitis Anxiety Cellulitis of left thigh Depression Diarrhea Gastroenteritis Generalized anxiety disorder Headache History of fracture of left ankle Left otitis media Major depressive disorder Nausea Nausea & vomiting Otitis media Plantar fasciitis Plantar fasciitis of right foot Sinusitis Upper respiratory infection Vertigo Viral syndrome Surgical History History of ankle surgery History of delivery History of tonsillectomy and adenoidectomy Family History Other Cancer FHx: mental illness Social History Smoking Status: Never smoker second hand exposure: No alcohol intake: current substance use type: denies use current occupational status: employed Travel in the last 8 weeks: None household members: children housing: apartment number of children: 2 ROS Obtained: Yes All systems reviewed & no additional complaints except as documented Physical Exam General General appearance: alert and in no apparent distress Head Head exam: atraumatic and normocephalic Eye Eye exam: Present normal appearance, PERRL and EOMI ENT ENT exam: Present normal oropharynx and mucous membranes moist Neck Neck exam: Present full ROM; Absent meningismus Respiratory Respiratory exam: Absent respiratory distress, wheezes, stridor or accessory muscle use Cardiovascular Cardiovascular exam: Present normal rhythm Abdominal Exam Abdominal exam: Present soft; Absent distention, tenderness, guarding, rebound or rigidity Extremities Exam Extremities exam: Present tenderness (Surgical incision sites over the left ankle medially and laterally. I was able to express small amount of purulent discharge from lateral incision site. I was not able to express any drainage from medial incision site. Mild erythema. Mild tenderness to palpation. No significant warmth. Palpabl) Neurological Exam Neurological exam: Present alert, oriented X3 and CN II-XII intact; Absent motor sensory deficit Psychiatric Psychiatric exam: Present normal affect and normal mood Skin Skin exam: Present warm and dry Medical Decision Making Medical Records Medical records reviewed: Yes I reviewed the patient's medical records. Bruce Inquiry Pt receiving controlled substance: No Bruce was queried for this patient: No Vital Signs: 03/30/23 13:33 03/30/23 13:37 03/30/23 14:11 Temperature 98.0 F Temperature Source Oral Pulse Rate 80 90 Pulse Rate [Left Radial] 80 Respiratory Rate 16 18 18 Blood Pressure 135/88 108/78 L Blood Pressure [Right Arm] 135/88 Blood Pressure Mean 95 88 Blood Pressure Mean [Right Arm] 103 02 Sat by Pulse Oximetry 95 96 98 Oxygen Delivery Method Room Air Room Air Room Air 03/30/23 14:31 03/30/23 15:00 Temperature Temperature Source Pulse Rate 83 71 Pulse Rate [Left Radial] Respiratory Rate Blood Pressure 107/55 L 112/73 Blood Pressure [Right Arm] Blood Pressure Mean Blood Pressure Mean [Right Arm] 02 Sat by Pulse Oximetry 97 99 Oxygen Delivery Method Lab Data Lab Results 03/30/23 14:02: WBC 11.6 H, RBC 4.75, Hgb 13.9, Hct 40.9, MCV 86.1, MCH 29.2, MCHC 34.0, RDW 13.5, Plt Count 282, MPV 7.7, Neut % (Auto) 66.6, Lymph % (Auto) 26.3, [place] % (Auto) 4.4, Eos % (Auto) 2.3, Baso % (Auto) 0.4, Neut # (Auto) 7.7, Lymph # (Auto) 3.1, [place] # (Auto) 0.5, Eos # (Auto) 0.3, Baso # (Auto) 0.0, ESR 14, Sodium 140, Potassium 3.7, Chloride 105, Carbon Dioxide 29, Anion Gap 9.7, BUN 12, Creatinine 0.80, Estimated Creat Clear 87, Estimated GFR 83, Est GFR ( Amer) 101, Glucose 82, Calcium 8.6, C-Reactive Protein 5.9 H 03/30/23 14:02 03/30/23 14:02 Orders (Tests/Meds): ED MEDICATIONS Discontinued Medications Generic Name Dose Route Start Last Admin Trade Name Freq PRN Reason Stop Dose Admin Morphine Sulfate 4 mg 03/30/23 13:50 03/30/23 14:06 Morphine 4mg/Ml Syringe IV 03/30/23 13:51 4 mg ONCE ONE Administration Ondansetron HCl 4 mg 03/30/23 13:50 03/30/23 14:06 Ondansetron 4mg/2ml Vial IV 03/30/23 13:51 4 mg ONCE ONE Administration ORDERS Category Date Time Status Ankle XR - Left minimum 3 Views [XR ankle LT min 3V] Exams 03/30/23 13:50 Completed Stat Basic Metabolic Panel Stat Lab 03/30/23 14:02 Completed C-Reactive Protein Stat Lab 03/30/23 14:02 Completed Complete Blood Count Auto Diff Stat Lab 03/30/23 14:02 Completed Erythrocyte Sedimentation Rate Stat Lab 03/30/23 14:02 Completed Medical Decision Narrative: 32-year-old female with past medical history significant for ankle injury in the past requiring hardware that was removed on 03/01/2023, presents today for evaluation concerning possible infection over her left ankle where hardware was removed. Patient states that over the past few days she has noticed puslike drainage from her incision site on the lateral aspect of her ankle. Also notes that she is been having mild clear drainage from her incision site medially. On assessment, the patient is medically stable and in no acute distress. Surgical incision sites over the left ankle medially and laterally. I was able to express small amount of purulent discharge from lateral incision site. I was not able to express any drainage from medial incision site. Mild erythema. Mild tenderness to palpation. No significant warmth. Palpable pulses. Afebrile. Vital signs stable. Other physical exam findings unremarkable. Diff erential diagnoses include not limited to wound infection, osteomyelitis, among others. Patient's lab work today is remarkable for a WBC of 11.6. CRP elevated at 5.9. She was given IV morphine to assist with her discomfort. X-ray imaging with no findings consistent with osteomyelitis. She did have soft tissue edema and cellulitis noted. On reassessment patient remains medically stable and in no acute distress. I discussed ED workup, results and current plan to discharge home with prescription for Keflex to treat infection. She has an appointment with her chemical processor on 04/04/2023 which she will keep. I provided patient with strict return precautions. She verbalized understanding and agreed with plan. She was subsequently discharged home in medically stable and in no acute distress. Critical Care Critical Care Time Critical Care Time: No
[2023-03-30] MEDS: ONDANSETRON 4MG/2ML VIAL 4 MG IV (14:06)
[2023-03-30] MEDS: MORPHINE 4MG/ML SYRINGE 4 MG IV (14:06)
[2023-03-30 14:11] LABS: Basophils % 0.4 % (0.1-2.0); Eosinophils # 0.3 K/mm3 (0.0-0.4); Eosinophils % 2.3 % (0.1-12.0); Hematocrit 40.9 % (37.0-47.0); Hemoglobin 13.9 g/dL (12.2-16.2); Lymphocytes # 3.1 K/mm3 (0.7-4.5); Lymphocytes % 26.3 % (10-50); Mean Corpuscular Hemoglobin 29.2 pg (27.0-31.2); Mean Corpuscular Volume 86.1 fl (81-99); Mean Platelet Volume 7.7 fl (7.4-10.4); Monocytes # 0.5 K/mm3 (0.1-1.0); Monocytes % 4.4 % (1.7-9.3); Neutrophils # 7.7 K/mm3 (1.8-7.8); Neutrophils % 66.6 % (37.0-80.0); Platelet Count 282 K/mm3 (142-424); Red Blood Count 4.75 M/mm3 (4.20-5.40); Red Cell Distribution Width 13.5 % (11.5-17.5); White Blood Count 11.6 K/mm3 (4.8-10.8)
[2023-03-30 14:29] LABS: Chloride 105 mmol/L (98-107); Potassium 3.7 mmoL/L (3.5-5.1); Sodium 140 mmol/L (136-145)
[2023-03-30 14:31] LABS: Blood Urea Nitrogen 12 mg/dl (7-17); Creatinine Clearance Estimated 87 mL/min (50-200); Estimated Glomerular Filt Rate 83 ml/min (>60); GFR (African American) 101 ML/MIN (>60)
[2023-03-30 14:32] LABS: Anion Gap 9.7 mEq/L (5-15); Calcium 8.6 mg/dl (8.4-10.2); Carbon Dioxide 29 mmol/L (22.0-30.0); Glucose 82 mg/dl (74-100)
[2023-03-30 14:37] LABS: C-Reactive Protein 5.9 mg/L (0-4)
[2023-03-30 15:17] LABS: Erythrocyte Sedimentation Rate 14 mm/hr (0-20)
== END 2023-03-30 15:46 | disposition home or self-care (01) ==
PROVIDERS: Emergency Provider Emergency Medicine; PCP Internal Medicine
DX: L03.116 Cellulitis of left lower limb (principal); T81.49XA Infection following a procedure, other surgical site, initial encounter; Y83.8 Other surgical procedures as the cause of abnormal reaction of the patient, or of later complication, without mention of misadventure at the time of the procedure
CPT/HCPCS: 73610; 80048; 85025; 85651; 86140; 96374; 96375; 99285; J2405

== ENCOUNTER 2023-04-04 09:25 | Outpatient (CLI) | payer BC, SELFPAY | END 2023-04-04 23:59 | LOC: LAB.DROPOF 09:26 | PROVIDERS: PCP Podiatrist; Visit Provider Podiatrist | DX: M25.572 Pain in left ankle and joints of left foot (principal); T81.31XA Disruption of external operation (surgical) wound, not elsewhere classified, initial encounter; B95.0 Streptococcus, group A, as the cause of diseases classified elsewhere | CPT/HCPCS: 87070; 87205 ==

== ENCOUNTER 2023-04-15 17:42 | Emergency (ER) | payer BC, SELFPAY ==
[2023-04-15 17:44] VITALS: BP 131/88; PULSE 83; RESP 18; TEMP 36.8; O2SAT 95; BMI 45.3
[2023-04-15 18:26] LABS: Potassium 3.6 mmoL/L (3.5-5.1)
[2023-04-15 18:27] LABS: Basophils # 0.1 K/mm3 (0-0.2); Basophils % 0.7 % (0.1-2.0); Eosinophils # 0.1 K/mm3 (0.0-0.4); Eosinophils % 1.3 % (0.1-12.0); Hematocrit 42.4 % (37.0-47.0); Hemoglobin 14.2 g/dL (12.2-16.2); Lymphocytes # 3.4 K/mm3 (0.7-4.5); Lymphocytes % 31.6 % (10-50); Mean Corpuscular HGB Conc 33.4 g/dL (31.8-35.4); Mean Corpuscular Hemoglobin 28.9 pg (27.0-31.2); Mean Corpuscular Volume 86.3 fl (81-99); Mean Platelet Volume 8.3 fl (7.4-10.4); Monocytes # 0.5 K/mm3 (0.1-1.0); Monocytes % 4.4 % (1.7-9.3); Neutrophils # 6.6 K/mm3 (1.8-7.8); Platelet Count 295 K/mm3 (142-424); Red Blood Count 4.92 M/mm3 (4.20-5.40); Red Cell Distribution Width 13.8 % (11.5-17.5); White Blood Count 10.7 K/mm3 (4.8-10.8)
[2023-04-15 18:29] LABS: Alanine Aminotransferase 20 U/L (12-78); Albumin Level 3.9 g/dl (3.5-5.0); Albumin/Globulin Ratio 1.3 (1.1-1.8); Alkaline Phosphatase 94 U/L (38-126); Anion Gap 8.6 mEq/L (5-15); Aspartate Amino Transferase 23 U/L (14-36); Bilirubin,Total 0.4 mg/dl (0.2-1.3); Blood Urea Nitrogen 10 mg/dl (7-17); Calcium 8.4 mg/dl (8.4-10.2); Carbon Dioxide 29 mmol/L (22.0-30.0); Chloride 106 mmol/L (98-107); Creatinine Clearance Estimated 100 mL/min (50-200); Estimated Glomerular Filt Rate 97 ml/min (>60); GFR (African American) 117 ML/MIN (>60); Globulin 3.1 g/dL (1.3-3.2); Glucose 89 mg/dl (74-100); Sodium 140 mmol/L (136-145)
--- NOTE | 2023-04-15 19:48 | ED_ITS ---
Discharge Plan Disposition Patient Disposition: Home, Self-Care Prescriptions Prescriptions: No Action mupirocin 2 % ointment 1 applic topical BID 21 Days Qty: 22 1RF Rx Instructions: Apply to affected area up to twice daily meclizine 25 mg tablet 25 mg PO DAILY PRN (Reason: Pain) Vraylar 1.5 mg capsule 1.5 mg PO DAILY Qty: 30 2RF hydrocortisone 2.5 % ointment topical gabapentin 100 mg capsule 100 mg PO TID PRN (Reason: nerve pain) 7 Days Qty: 21 0RF fluoxetine [Prozac] 40 mg capsule 40 mg PO DAILY Qty: 30 1RF doxycycline hyclate 100 mg tablet 100 mg PO BID Qty: 20 0RF levofloxacin 750 mg tablet 750 mg PO DAILY 10 Days Qty: 10 0RF Referrals Follow up/Referrals: Ernie Slaughter DO [Primary Care Provider] - See instructions Activity Restrictions/Add. Instructions Additional Instructions/Restrictions: At this time it was felt you are safe to be discharged home. If new or worsening symptoms please do not hesitate to return the emergency department. If symptoms persist please follow-up with your family doctor as you are able. Clinical Impressions Clinical Impression: Dehiscence of operative wound, Cellulitis Discharge ED Provider: David Wu General Adult HPI General Chief complaint: Extremity Problem,Nontraumatic Stated complaint: left ankle staph infection surgery 02/28 Time Seen by Provider: 04/15/23 19:00 Mode of Arrival: Ambulatory Source of Information: Patient Limitations: No Limitations Description of Symptoms (Recalled from ER Triage Doc. by RN): pt presents to ED c/o left ankle pain. per report pt had sx in February per Dr. Mckoy on her ankle. pt states she is currently having drainage to the incision area. pt reports she saw Dr. Mckoy and was prescribed Levaquin and Doxycycline. pt s tates she has a f/u appt on . pt states the drainage is worse. denies any fever. History of Present Illness HPI narrative: Patient is a 32-year-old female with past medical history of traumatic ankle fracture status post surgical fixation, she subsequently had hardware removed over the first week of February and has had delayed wound healing with dehiscence of her medial lateral incisional sites. She was prescribed Levaquin and doxycycline over the last few days for which symptoms have been refractory, and she has noted some oozing from the wound which caused her to present here for continued evaluation. Patient is supposed to wear an ankle boot however it rubs on her wounds and contributes to their opening. No other acute complaints at this time. Related Data Home Medications Medication Instructions Recorded Confirmed meclizine 25 mg tablet 25 mg PO DAILY PRN Pain 09/13/22 04/11/23 hydrocortisone 2.5 % topical topical 03/28/23 04/11/23 ointment Previous Rx's Medication Instructions Recorded fluoxetine 40 mg capsule (Prozac) 40 mg PO DAILY #30 caps 01/22/23 cariprazine 1.5 mg capsule 1.5 mg PO DAILY #30 caps 01/30/23 (Vraylar) mupirocin 2 % topical ointment 1 applic topical BID cellulitis 3 03/21/23 weeks #22 grams gabapentin 100 mg capsule 100 mg PO TID PRN nerve pain 7 03/28/23 days #21 caps doxycycline hyclate 100 mg tablet 100 mg PO BID #20 tabs 04/10/23 levofloxacin 750 mg tablet 750 mg PO DAILY 10 days #10 tabs 04/10/23 Allergies Allergy/AdvReac Type Severity Reaction Status Date / Time meloxicam Allergy Severe Rash Verified 04/04/23 08:10 NSAIDS (Non-Steroidal Allergy Mild Hives Verified 04/04/23 08:10 Anti-Inflamma [facility] Disclaimer: The information contained in this section may have been updated after the patient was seen, as this information can be updated by other users. Medical History Abdominal pain Abscess of left thigh Acute bronchitis Anxiety Cellulitis of left thigh Depression Diarrhea Gastroenteritis Generalized anxiety disorder Headache History of fracture of left ankle Left otitis media Major depressive disorder Nausea Nausea & vomiting Otitis media Plantar fasciitis Plantar fasciitis of right foot Sinusitis Upper respiratory infection Vertigo Viral syndrome Surgical History History of ankle surgery History of delivery History of tonsillectomy and adenoidectomy Family History Other Cancer FHx: mental illness Social History Smoking Status: Never smoker second hand exposure: No alcohol intake: current substance use type: denies use current occupational status: employed Travel in the last 8 weeks: None household members: children housing: apartment number of children: 2 ROS Obtained: Yes Systems reviewed as appropriate & no additional complaints except as documented Physical Exam General General appearance: alert and in no apparent distress Head Head exam: atraumatic and normocephalic Eye Eye exam: Present PERRL and EOMI ENT ENT exam: Present mucous membranes moist Neck Neck exam: Present normal inspection Chest Chest inspection: Present normal inspection and symmetric chest wall rise Respiratory Respiratory exam: Absent respiratory distress Cardiovascular Cardiovascular exam: Present regular rate and normal rhythm Abdominal Exam Abdominal exam: Present soft Extremities Exam Extremities exam: Present other (Dehisced wounds over the lateral medial malleolus that are oozing, no hemorrhage, mild overlying erythema, no tracking erythema. Palpable dorsal pedal pulse on the left) Neurological Exam Neurological exam: Present alert Psychiatric Psychiatric exam: Present normal affect Skin Skin exam: Present warm and dry Medical Decision Making Bruce Inquiry Pt receiving controlled substance: No Vital Signs: 04/15/23 17:44 Temperature 98.2 F Temperature Source Oral Pulse Rate [Right Radial] 83 Respiratory Rate 18 Blood Pressure [Right Arm] 131/88 Blood Pressure Mean [Right Arm] 102 Blood Pressure Source [Right Arm] Automatic Cuff Blood Pressure Position [Right Arm] Sitting 02 Sat by Pulse Oximetry 95 Oxygen Delivery Method Room Air Lab Data Lab Results 04/15/23 18:10: WBC 10.7, RBC 4.92, Hgb 14.2, Hct 42.4, MCV 86.3, MCH 28.9, MCHC 33.4, RDW 13.8, Plt Count 295, MPV 8.3, Neut % (Auto) 62.0, Lymph % (Auto) 31.6, Blaine % (Auto) 4.4, Eos % (Auto) 1.3, Baso % (Auto) 0.7, Neut # (Auto) 6.6, Lymph # (Auto) 3.4, Blaine # (Auto) 0.5, Eos # (Auto) 0.1, Baso # (Auto) 0.1, Sodium 140, Potassium 3.6, Chloride 106, Carbon Dioxide 29, Anion Gap 8.6, BUN 10, Creatinine 0.70, Estimated Creat Clear 100, Estimated GFR 97, Est GFR ( Amer) 117, Glucose 89, Calcium 8.4, Total Bilirubin 0.4, AST 23, ALT 20, Alkaline Phosphatase 94, Total Protein 7.0, Albumin 3.9, Globulin 3.1, Albumin/Globulin Ratio 1.3 04/15/23 18:10 04/15/23 18:10 Orders (Tests/Meds): ED MEDICATIONS Discontinued Medications Generic Name Dose Route Start Last Admin Trade Name Freq PRN Reason Stop Dose Admin Dalbavancin 1,500 mg/ Dextrose 250 mls @ 500 mls/hr 04/15/23 19:47 04/15/23 19:55 IV 04/15/23 19:48 500 mls/hr ONCE ONE Administration ORDERS Category Date Time Status CMP [Comprehensive Metabolic Panel] Stat Lab 04/15/23 18:10 Completed Complete Blood Count Auto Diff Stat Lab 04/15/23 18:10 Completed Medical Decision Narrative: In summary patient is a 32-year-old female with past medical history described above who presents emergency department for evaluation of delayed wound healing and oozing in the setting of previous hardware status post removal 1 month ago. Patient is hemodynamically stable nontoxic-appearing upon arrival, afebrile. Screening for sepsis will be conducted with basic hematologic labs. Patient has no overt fluctuance on exam, mild erythema. Given this workup with imaging was considered but will be deferred at this time. Workup reviewed by me, hematologic labs are nonactionable. 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 Patient was given return precautions. Critical Care Critical Care Time Critical Care Time: No
[2023-04-15] MEDS: DALBAVANCIN HCL 1,500 MG in DEXTROSE 5 % IN WATER 250 ML 500 MG IV (19:55)
[2023-04-15 21:15] VITALS: BP 128/80; PULSE 91; RESP 20; TEMP 36.8
--- NOTE | 2023-04-15 21:18 | PC.NURSE ---
Pt educated to continue her doses of Doxy and Levaquin at home. No other questions at discharge
== END 2023-04-15 21:16 | disposition home or self-care (01) ==
PROVIDERS: Emergency Provider Emergency Medicine; PCP Internal Medicine
DX: T81.31XA Disruption of external operation (surgical) wound, not elsewhere classified, initial encounter (principal); L03.116 Cellulitis of left lower limb; M25.572 Pain in left ankle and joints of left foot; Y83.8 Other surgical procedures as the cause of abnormal reaction of the patient, or of later complication, without mention of misadventure at the time of the procedure
CPT/HCPCS: 80053; 85025; 96374; 99284; J0875

== ENCOUNTER 2023-04-16 12:06 | Outpatient (CLI) | payer BC, SELFPAY ==
--- NOTE | 2023-04-16 12:07 | ECG_ITS ---
APPROVED REPORT Exam: Resting ECG HR:66 bpm ECG Measurements Heart Rate 66 AXES IN 132 P 54 QRSd 86 QRS 42 QT 391 T 41 QTc 404 Conclusion SINUS RHYTHM NORMAL ECG UNCONFIRMED REPORT Electronically signed by : Justin Fung MD 04/19/2023 14:47:42
== END 2023-04-16 23:59 ==
LOC: RT 12:07
PROVIDERS: PCP Internal Medicine; Visit Provider Podiatrist
DX: Z01.810 Encounter for preprocedural cardiovascular examination (principal); T81.31XA Disruption of external operation (surgical) wound, not elsewhere classified, initial encounter; L03.116 Cellulitis of left lower limb
CPT/HCPCS: 93005

== ENCOUNTER 2023-04-18 11:53 | Day surgery (SDC) | payer BC, SELFPAY ==
[2023-04-17 12:44] VITALS: BMI 47.0
[2023-04-18] VITALS (10 sets, daily range): BP systolic 110–141; BP diastolic 60–87; PULSE 71–96; RESP 16–18; TEMP 36.2–43; O2SAT 93–100
[2023-04-18] MEDS: LACTATED RINGERS 1000ML 1,000 ML 25 ML IV (12:09)
[2023-04-18 12:14] LABS: Urine Pregnancy, HCG Qual. Negative (Negative)
--- NOTE | 2023-04-18 12:56 | EXP.ANES.CKL ---
[facility] Disclaimer: The information contained in this section may have been updated after the patient was seen, as this information can be updated by other users. Medical History Abdominal pain Abscess of left thigh Acute bronchitis Anxiety Cellulitis of left thigh Depression Diarrhea Gastroenteritis Generalized anxiety disorder Headache History of fracture of left ankle Left otitis media Major depressive disorder Nausea Nausea & vomiting Otitis media Plantar fasciitis Plantar fasciitis of right foot Sinusitis Upper respiratory infection Vertigo Viral syndrome Surgical History History of ankle surgery History of delivery History of tonsillectomy and adenoidectomy Family History Other Cancer FHx: mental illness Family history of COPD (chronic obstructive pulmonary disease) Social History Smoking Status: Never smoker second hand exposure: No alcohol intake: current substance use type: denies use current occupational status: employed Travel in the last 8 weeks: None household members: children housing: apartment number of children: 2 [facility] Anesthesia Checklist Patient Identification Patient Identification: Arm Band Structural Data Admitted From: Home Planned Operative Procedure/s: I&D Left Foot/Ankle Consent for Planned Operative Procedure(s) Verified: Yes Verified Documents: Surgical Consent and History and Physical NPO Status Verified Time NPO: 00:00 Additional verifications Anesthesia Reactions: No Hx Blood Transfusions: No Blood Transfusion Reaction: No Airway Assessment Mallampati Score:: Class II C-Spine Mobility Assessed: Yes TMJ Mobility Assessed: Yes Dentition: Good Dentition Neurological Assessment Level of Consciousness: Awake and Alert Anesthesia Plan Anesthesia Risk discussed: Yes Anesthesia Plan: Verified ASA Class: III Anesthesia Type: General w/block (Left Popliteal/Adductor Canal. Risks/benefits explained. Pt verbalized understanding)
[2023-04-18] MEDS: CEFEPIME HCL 1 GM in 0.9 % SODIUM CHLORIDE 50 ML IV (13:00)
[2023-04-18] MEDS: VANCOMYCIN HCL 2,000 MG in 0.9 % SODIUM CHLORIDE 250 ML 125 MG IV (13:00)
[2023-04-18] MEDS: GENTAMICIN 80 MG/2 ML VIAL ×2 (13:49→13:50)
--- NOTE | 2023-04-18 14:16 | P.OP_ITS ---
Date of procedure: 04/18/23 Pre-op Diagnosis:: Left ankle cellulitis Left ankle open wound Postop wound dehiscence x3 Post-op Diagnosis:: Same Procedure performed:: Left ankle wound I&D (incision and drainage below fascia) Left foot/ankle wound irrigation and debridement (44419) Delayed primary closure of surgical wound Surgeon:: Asha Mckoy DPM SPECIAL PROCEDURES TECHNOLOGIST:: Albino Smith and Other (John Poe) Anesthesia: GETA and regional (L pop block) Estimated blood loss (mL): 20 Clinical Note:: 32-year-old female who underwent surgery 02/28/2023 for hardware removal. She subsequently developed postop wound dehiscence secondary to suture abscesses and suture reaction. She has had multiple rounds of antibiotics including Keflex, doxycycline, Levaquin, IV Dalvance. Patient still has some redness and tenderness to the incision sites. We discussed conservative versus surgical treatment options. We discussed conservative care including continued oral vs IV antibiotics and local wound care versus surgical incision and drainage. Patient understands that they could have wound healing complications including delayed healing and infection. We discussed that if the wound does not heal, it is possible that they may need further debridement. Patient understands if infec tion spreads into the bone, it may warrant proximal amputation and could result in further loss of digits, loss of partial foot or loss of leg. We discussed the risks and benefits in great detail. Other surgical risks include: prolonged pain and swelling, further infection requiring oral or IV antibiotics, delay in healing of soft tissue or bone, nerve or blood vessel damage, CRPS/RSD, DVT, anesthesia complications, and even . All questions answered. Patient verbalized understanding. Consent obtained. Operative findings:: Left ankle has some lana-incisional edema and erythema. Open wound with some yellowish drainage noted to the medial incision, wound culture taken. 15 blade used to perform I&D through the previous incision about 0.8 cm deep full- thickness from skin into subcutaneous to deep fascia. Incision did not extend to the level of the bone. Next 15 blade and forceps were used to debride skin and excise the medial ulcer full-thickness through skin into subcutaneous tissue. Postdebridement medial ankle was 100% granular and measured 3.1 x 0.4 x 0.8. I&D also performed through the lateral ankle wounds x 2 full-thickness through skin and subcuq, 0.5 cm deep. Post debridement full-thickness sharply excisionally with 15 blade and forceps there were 2 wounds noted to the lateral ankle. The lateral proximal ankle was 100% granular and measured 0.4 x 0.2 x 0.5cm. The left lateral distal ankle wound was 100% granular and measured 2.1 x 0.4 x 0.5 cm. No purulence or drainage noted from the lateral ankle. Operative note:: On this date and time the patient was deemed an appropriate surgical candidate. With informed consent time patient was transferred from the preoperative holding area after regional nerve block by anesthesia to the operating theater placed on table in a normal supine position. Left lower extremity was prepped and draped in normal sterile fashion. No tourniquet utilized. IV vancomycin, cefepime infused. Left ankle incision and drainage: Attention was first directed to the lateral ankle where 2 wounds were noted. 15 blade used to make an incision over the wounds 0.5 cm deep full-thickness. Next 15 blade was used to make an incision over the medial ankle wound full-thickness 0.6 cm deep. A total of 3 separate incisions were made for the incision and drainage. One drop of purulence from medial incision, wound culture taken. Left foot/ankle wound debridement x3: Next 15 blade and forceps used to debride ulcers full-thickness through skin and into subcutaneous tissue. Bleeding noted. Postdebridement wounds x 3 were 100% granular. See operative findings for measurements. Next hemostat used to explore the area. There was no deep tracking or tunneling noted. The area did not probe to the level of the bone medially or laterally. No bone culture or biopsy of the bone was performed. Next gentamicin irrigation was used to flush all incisions. The wound was explored and no drainage or purulence was noted. Delayed primary closure surgical wound x 3: All wounds look healthy, decision made to close the wounds. All of the skin edges were able to be reapproximated. Monocryl used to reinforce deep/subcutaneous tissue in a running fashion. Prolene was used to reinforce the skin on the lateral ankle wound x 2. A suture guard Shant guard was applied over the medial incision centrally at the highest area of tension and secured with 2-0 nylon to prevent wound dehiscence. Prolene used to reapproximate remaining skin incisions. Skin was cleansed. Betadine soaked gauze and a dry sterile dressing was then applied over the left ankle. Patient appeared to tolerate procedure and anesthesia well and was transferred to recovery with vital signs stable neurovascular status intact. Plan: Maintain dressing clean dry and intact to left foot, reinforce as necessary. PWB in fracture boot, walker/crutches. Antibiotics: holding Doxy, Levo for now. Will possible resume them after POV #1. Follow up in 1 week for dressing change, WCx review and skin check. Condition: stable Disposition: same day Specimens:: Left medial ankle wound culture Complications:: None
--- NOTE | 2023-04-18 14:17 | P.PNANES_ITS ---
[facility] Anesthesia Record Part I Anesthesia Record I Intake, IV Amount: 900 Hydration: Adequate Estimated blood loss (mL): 2 Urine output (mL): 0 Blood Products used (#): none Blood Pressure: 124/65 SaO2: 93 Pulse Rate: 84 Airway Patency: Patent Respiratory Rate: 16 Temperature: 97.2 F Patient is:: Drowsy and Stable Stable to PACU at:: 14:08
--- NOTE | 2023-04-19 11:45 | EXP.ANES.II ---
[facility] Anesthesia Record Part II Anesthesia Record Part II Discharge Time: 14:38 Destination: Surgical Day Care (OP Surgery) PACU nurse assessment reviewed?: Yes Patient Condition:: Good Anesthesia Complications:: None Swallowing reflex intact?: Yes Airway Patency: Patent Cyanosis?: No Blood Pressure: 141/87 SaO2: 96 Respiratory Rate: 16 Pulse Rate: 74 Temperature: 98 F Mental Status: Alert & Oriented Pain level:: 0 Nausea and/or vomitting:: None Intake, IV Amount: 0 Hydration: Adequate
[2023-04-19 11:46] VITALS: BP 141/87; PULSE 74; RESP 16; TEMP 36.6; O2SAT 96
== END 2023-04-18 15:10 | disposition home or self-care (01) ==
PROVIDERS: PCP Internal Medicine; Visit Provider Podiatrist
PROC: (CPT 11043; principal; 2023-04-18 13:00)
DX: T81.31XA Disruption of external operation (surgical) wound, not elsewhere classified, initial encounter (principal); T81.41XA Infection following a procedure, superficial incisional surgical site, initial encounter; M19.172 Post-traumatic osteoarthritis, left ankle and foot; E66.01 Morbid (severe) obesity due to excess calories; Z68.42 Body mass index [BMI] 45.0-49.9, adult; Z79.899 Other long term (current) drug therapy
CPT/HCPCS: 11043; 13160; 81025; 87070; 87075; 87205; 96374; J0692; J2405; J3370

== ENCOUNTER 2023-04-24 10:19 | Outpatient (CLI) | payer BC, SELFPAY ==
[2023-04-24 10:34] LABS: Microscopic, Urine URINE MICROSCOPIC (MICROSCOPIC)
[2023-04-24 11:21] LABS: Appearance,Urine CLEAR (Clear); Bilirubin,Urine Negative (Negative); Blood, Urine Negative (Negative); Color,Urine YELLOW (Yellow); Glucose,Urine (UA) Negative (Negative); Ketones,Urine Negative (Negative); Leukocyte Esterase,Urine Negative (Negative); Nitrate,Urine Negative (Negative); PH,Urine 5.5 (5.0-8.5); Protein,Urine Negative (Negative); Specific Gravity, Urine >= 1.030 (1.005-1.030); Urobilinogen,Urine 0.2 EU/dl (0.2)
[2023-04-24 11:37] LABS: Bacteria,Urine 1+ /lpf; Basophils # 0.1 K/mm3 (0-0.2); Eosinophils # 0.2 K/mm3 (0.0-0.4); Eosinophils % 1.4 % (0.1-12.0); Hematocrit 44.5 % (37.0-47.0); Hemoglobin 14.9 g/dL (12.2-16.2); Lymphocytes # 2.9 K/mm3 (0.7-4.5); Lymphocytes % 27.1 % (10-50); Mean Corpuscular HGB Conc 33.5 g/dL (31.8-35.4); Mean Corpuscular Hemoglobin 29.1 pg (27.0-31.2); Mean Corpuscular Volume 86.9 fl (81-99); Mean Platelet Volume 8.5 fl (7.4-10.4); Monocytes # 0.4 K/mm3 (0.1-1.0); Monocytes % 3.9 % (1.7-9.3); Mucus,Urine 1+ /lpf; Neutrophils # 7.1 K/mm3 (1.8-7.8); Neutrophils % 66.6 % (37.0-80.0); Platelet Count 292 K/mm3 (142-424); RBC,Urine Occasional #/hpf (0-3); Red Blood Count 5.13 M/mm3 (4.20-5.40); Red Cell Distribution Width 13.7 % (11.5-17.5); WBC,Urine Occasional #/hpf (0-3); White Blood Count 10.7 K/mm3 (4.8-10.8)
[2023-04-24 12:40] LABS: Chloride 104 mmol/L (98-107); Potassium 4.4 mmoL/L (3.5-5.1); Sodium 137 mmol/L (136-145)
[2023-04-24 12:42] LABS: Alanine Aminotransferase 23 U/L (12-78); Amylase 44 U/L (30-110); Aspartate Amino Transferase 30 U/L (14-36); Blood Urea Nitrogen 13 mg/dl (7-17); Estimated Glomerular Filt Rate 97 ml/min (>60); GFR (African American) 117 ML/MIN (>60)
[2023-04-24 12:43] LABS: Albumin Level 4.6 g/dl (3.5-5.0); Albumin/Globulin Ratio 1.4 (1.1-1.8); Alkaline Phosphatase 108 U/L (38-126); Anion Gap 11.4 mEq/L (5-15); Bilirubin,Total 0.9 mg/dl (0.2-1.3); Calcium 9.4 mg/dl (8.4-10.2); Carbon Dioxide 26 mmol/L (22.0-30.0); Globulin 3.3 g/dL (1.3-3.2); Glucose 93 mg/dl (74-100); Lipase 104 U/L (23-300); Magnesium 1.9 mg/dl (1.6-2.3); Total Protein,Serum 7.9 g/dl (6.3-8.2)
[2023-04-24 13:00] LABS: HCG Qualitative, Serum Negative (Negative)
[2023-04-24 13:13] LABS: Thyroid Stimulating Hormone 1.57 uIU/mL (0.465-4.68)
== END 2023-04-24 23:59 ==
PROVIDERS: PCP Internal Medicine; Visit Provider Nurse Practitioner Family
DX: R11.2 Nausea with vomiting, unspecified (principal); R42 Dizziness and giddiness; Z79.899 Other long term (current) drug therapy
CPT/HCPCS: 36415; 80053; 81001; 82150; 83690; 83735; 84443; 84703; 85025

== ENCOUNTER 2023-04-30 13:53 | Outpatient (CLI) | payer BC, SELFPAY | END 2023-04-30 23:59 | LOC: LAB 13:53 | PROVIDERS: PCP Internal Medicine; Visit Provider Internal Medicine | DX: N39.0 Urinary tract infection, site not specified (principal); B96.29 Other Escherichia coli [E. coli] as the cause of diseases classified elsewhere | CPT/HCPCS: 87086 ==

== ENCOUNTER 2023-05-01 14:22 | Outpatient (CLI) | payer BC, SELFPAY ==
[2023-05-01 14:25] LABS: Microscopic, Urine URINE MICROSCOPIC (MICROSCOPIC)
[2023-05-01 14:46] LABS: Appearance,Urine CLEAR (Clear); Bilirubin,Urine Negative (Negative); Blood, Urine 1+ (Negative); Color,Urine YELLOW (Yellow); Glucose,Urine (UA) Negative (Negative); Ketones,Urine Negative (Negative); Leukocyte Esterase,Urine TRACE (Negative); Nitrate,Urine Negative (Negative); Protein,Urine 1+ (Negative); Specific Gravity, Urine 1.025 (1.005-1.030); Urobilinogen,Urine 0.2 EU/dl (0.2)
[2023-05-01 15:08] LABS: Bacteria,Urine 2+ /lpf; RBC,Urine Occasional #/hpf (0-3)
== END 2023-05-01 23:59 ==
LOC: LAB 14:23
PROVIDERS: PCP Internal Medicine; Visit Provider Internal Medicine
DX: N39.0 Urinary tract infection, site not specified (principal); B96.29 Other Escherichia coli [E. coli] as the cause of diseases classified elsewhere; B96.1 Klebsiella pneumoniae [K. pneumoniae] as the cause of diseases classified elsewhere
CPT/HCPCS: 81001; 87086

== ENCOUNTER 2023-05-03 10:28 | Outpatient (CLI) | payer BC, SELFPAY ==
[2023-05-03 10:44] LABS: Basophils # 0.1 K/mm3 (0-0.2); Basophils % 0.5 % (0.1-2.0); Eosinophils # 0.2 K/mm3 (0.0-0.4); Eosinophils % 1.9 % (0.1-12.0); Hematocrit 43.7 % (37.0-47.0); Hemoglobin 14.6 g/dL (12.2-16.2); Lymphocytes # 2.8 K/mm3 (0.7-4.5); Lymphocytes % 23.8 % (10-50); Mean Corpuscular HGB Conc 33.3 g/dL (31.8-35.4); Mean Corpuscular Hemoglobin 28.8 pg (27.0-31.2); Mean Corpuscular Volume 86.3 fl (81-99); Mean Platelet Volume 8.5 fl (7.4-10.4); Monocytes # 0.5 K/mm3 (0.1-1.0); Monocytes % 4.2 % (1.7-9.3); Neutrophils # 8.2 K/mm3 (1.8-7.8); Neutrophils % 69.5 % (37.0-80.0); Platelet Count 284 K/mm3 (142-424); Red Blood Count 5.06 M/mm3 (4.20-5.40); Red Cell Distribution Width 13.7 % (11.5-17.5); White Blood Count 11.8 K/mm3 (4.8-10.8)
[2023-05-03 10:54] LABS: Chloride 106 mmol/L (98-107); Potassium 4.1 mmoL/L (3.5-5.1); Sodium 138 mmol/L (136-145)
[2023-05-03 10:57] LABS: Blood Urea Nitrogen 12 mg/dl (7-17); Estimated Glomerular Filt Rate 83 ml/min (>60); GFR (African American) 101 ML/MIN (>60)
[2023-05-03 10:58] LABS: Anion Gap 7.1 mEq/L (5-15); Carbon Dioxide 29 mmol/L (22.0-30.0); Glucose 73 mg/dl (74-100)
== END 2023-05-03 23:59 ==
LOC: LAB 10:29
PROVIDERS: PCP Internal Medicine; Visit Provider Internal Medicine
DX: M54.9 Dorsalgia, unspecified (principal)
CPT/HCPCS: 36415; 80048; 85025

== ENCOUNTER 2023-05-03 13:44 | Emergency (ER) | payer BC, SELFPAY ==
[2023-05-03 13:46] VITALS: BP 117/83; PULSE 86; RESP 16; TEMP 36.6; O2SAT 100; BMI 46.3
[2023-05-03 14:14] VITALS: BP 125/79; PULSE 78; RESP 14; O2SAT 97
[2023-05-03 14:25] LABS: Microscopic, Urine URINE MICROSCOPIC (MICROSCOPIC)
[2023-05-03 14:34] LABS: Bilirubin,Urine Negative (Negative); Blood, Urine 2+ (Negative); Glucose,Urine (UA) Negative (Negative); Ketones,Urine Negative (Negative); Leukocyte Esterase,Urine 2+ (Negative); Nitrate,Urine Negative (Negative); Protein,Urine TRACE (Negative); Urobilinogen,Urine 0.2 EU/dl (0.2)
[2023-05-03 14:54] LABS: Appearance,Urine Cloudy (Clear); Color,Urine Straw (Yellow)
[2023-05-03 14:55] LABS: Bacteria,Urine 1+ /lpf; Squamous Epithelial Cell,Urine Occasional #/hpf (0-5)
--- NOTE | 2023-05-03 15:15 | HMH.EDGENADL ---
Discharge Plan Disposition Patient Disposition: Home, Self-Care Prescriptions Prescriptions: New cefdinir 300 mg capsule 300 mg PO BID 10 Days Qty: 20 0RF No Action ondansetron 4 mg tablet,disintegrating 4 mg PO Q8H PRN (Reason: nausea and vomiting) Qty: 30 0RF Vraylar 1.5 mg capsule 1.5 mg PO DAILY Qty: 30 2RF gabapentin 100 mg capsule 100 mg PO TID PRN (Reason: nerve pain) 7 Days Qty: 21 0RF ampicillin 500 mg capsule 500 mg PO Q6H 7 Days Qty: 28 0RF sulfamethoxazole-trimethoprim [Bactrim DS] 800-160 mg tablet 1 tab PO BID 7 Days Qty: 14 0RF fluoxetine [Prozac] 40 mg capsule 40 mg PO DAILY Qty: 30 1RF hydrocodone-acetaminophen 7.5-325 mg tablet 1 tab PO Q4H PRN (Reason: Pain) 7 Days Qty: 42 0RF Referrals Follow up/Referrals: Ernie Slaughter DO [Primary Care Provider] - See instructions Activity Restrictions/Add. Instructions Additional Instructions/Restrictions: Call your family doctor to establish care for this visit to the emergency department and schedule follow-up within 48 hours to ensure improvement. If you have any worsening of your condition or any other concerning signs or symptoms, return to the emergency department or your primary care doctor for further evaluation. Take your cefdinir twice daily for 10 days Clinical Impressions Clinical Impression: Pyelonephritis Discharge ED Provider: Matti Solorzano General Adult HPI General Chief complaint: PAIN Stated complaint: Pain and pressure R side ABD and Pelvic Time Seen by Provider: 05/03/23 14:58 Mode of Arrival: Ambulatory Source of Information: Patient Limitations: No Limitations Description of Symptoms (Recalled from ER Triage Doc. by RN): patient ambulatory to ED with c/o of right lower quad pain. pain 4/10 sharp stabbing, with frequent urination, and passing blood clots in urine. Recent labs and UA obatined within hospital. see results. History of Present Illness HPI narrative: 32-year-old female recent history of left ankle surgery for removal of hardware, this was complicated by infection which required washout and drainage on 04/18/2023, recent UTI diagnosis currently on oral Bactrim presenting with urinary symptoms. Patient states that she has suprapubic and right lower quadrant burning/throbbing pain. Has been going on since about a week prior to this visit. Cramping, burning, associated with frequent urination and hematuria. Was seen by family doctor, started on Bactrim. Patient states that since that time, symptoms of gotten worse. Absent when she is not urinating, present when urinating. Associated with frequency urgency and hematuria. No fevers or chills, nausea or vomiting, flank pain. Last menstrual period was 3 weeks prior to this visit and was totally normal for her. No abnormal vaginal discharge or bleeding. Related Data Previous Rx's Medication Instructions Recorded fluoxetine 40 mg capsule (Prozac) 40 mg PO DAILY #30 caps 01/22/23 cariprazine 1.5 mg capsule 1.5 mg PO DAILY #30 caps 01/30/23 (Vraylar) gabapentin 100 mg capsule 100 mg PO TID PRN nerve pain 7 03/28/23 days #21 caps hydrocodone 7.5 mg-acetaminophen 1 tab PO Q4H PRN Pain 7 days #42 04/18/23 325 mg tablet tabs ondansetron 4 mg disintegrating 4 mg PO Q8H PRN nausea and 04/24/23 tablet vomiting #30 tabs ampicillin 500 mg capsule 500 mg PO Q6H Infection 7 days #28 04/29/23 caps sulfamethoxazole 800 1 tab PO BID 7 days #14 tabs 04/29/23 mg-trimethoprim 160 mg tablet (Bactrim DS) cefdinir 300 mg capsule 300 mg PO BID 10 days #20 caps 05/03/23 Allergies Allergy/AdvReac Type Severity Reaction Status Date / Time meloxicam Allergy Severe Rash Verified 04/29/23 08:48 NSAIDS (Non-Steroidal Allergy Mild Hives Verified 04/29/23 08:48 Anti-Inflamma [facility] Disclaimer: The information contained in this section may have been updated after the patient was seen, as this information can be updated by other users. Medical History Abdominal pain Abscess of left thigh Acute bronchitis Anxiety Cellulitis of left thigh Depression Diarrhea Gastroenteritis Generalized anxiety disorder Headache History of fracture of left ankle Left otitis media Major depressive disorder Nausea Nausea & vomiting Otitis media Plantar fasciitis Plantar fasciitis of right foot Sinusitis Upper respiratory infection Vertigo Viral syndrome Surgical History History of ankle surgery History of delivery History of tonsillectomy and adenoidectomy Family History Other Cancer FHx: mental illness Family history of COPD (chronic obstructive pulmonary disease) Social History Smoking Status: Never smoker second hand exposure: No alcohol intake: current substance use type: denies use current occupational status: employed Travel in the last 8 weeks: None household members: children housing: apartment number of children: 2 ROS Obtained: Yes All systems reviewed & no additional complaints except as documented Physical Exam General General appearance: alert, in distress (Secondary to comfort) and obese Head Head exam: atraumatic and normocephalic Eye Eye exam: Present normal appearance, PERRL and EOMI ENT ENT exam: Present mucous membranes moist Neck Neck exam: Present normal inspection, full ROM and trachea midline Respiratory Respiratory exam: Absent respiratory distress, wheezes, stridor, accessory muscle use or prolonged expiratory phase Cardiovascular Cardiovascular exam: Present normal rhythm Abdominal Exam Abdominal exam: Present soft and tenderness; Absent distention, guarding, rebound or rigidity Abdominal tenderness: Present RLQ, suprapubic and mild Extremities Exam Extremities exam: Absent edema Neurological Exam Neurological exam: Present alert, oriented X3, CN II-XII intact and normal gait; Absent motor sensory deficit Skin Skin exam: Present warm and dry; Absent diaphoresis or erythema Medical Decision Making Medical Records Medical records reviewed: Yes I reviewed the patient's medical records. Bruce Inquiry Pt receiving controlled substance: No Bruce was queried for this patient: No Vital Signs: 05/03/23 13:46 05/03/23 14:14 05/03/23 16:01 Temperature 97.9 F 98.1 F Temperature Source Oral Oral Pulse Rate 78 96 H Pulse Rate [Right] 86 Respiratory Rate 16 14 16 Blood Pressure 125/79 121/86 Blood Pressure [Right Arm] 117/83 Blood Pressure Mean [Right Arm] 94 Blood Pressure Source Automatic Cuff Automatic Cuff Blood Pressure Source [Right Arm] Automatic Cuff Blood Pressure Position Sitting Sitting Blood Pressure Position [Right Arm] Sitting 02 Sat by Pulse Oximetry 100 97 Oxygen Delivery Method Room Air Room Air Room Air Lab Data Lab Results 05/03/23 14:20: Urine Color Straw, Urine Appearance Cloudy, Urine pH 6.0, Ur Specific [place] 1.020, Urine Protein Trace, Urine Glucose (UA) Negative, Urine Ketones Negative, Urine Blood 2+, Urine Nitrate Negative, Urine Bilirubin Negative, Urine Urobilinogen 0.2, Ur Leukocyte Esterase 2+ A, Urine RBC 5-10, Urine WBC 10-20, Ur Squamous Epith Cells Occasional, Urine Bacteria 1+, Urine HCG, Qual Negative Orders (Tests/Meds): ED MEDICATIONS Discontinued Medications Generic Name Dose Route Start Last Admin Trade Name Freq PRN Reason Stop Dose Admin Cefdinir 300 mg 05/03/23 15:16 05/03/23 15:23 Cefdinir 300mg Capsule PO 05/03/23 15:17 300 mg ONCE ONE Administration ORDERS Category Date Time Status UA [Urinalysis and Microscopic] Stat Lab 05/03/23 14:20 Completed Urine , HCG Qual. Stat Lab 05/03/23 14:20 Completed Urine Culture Stat Micro 05/03/23 14:20 Received Medical Decision Narrative: 32-year-old female recent history of left ankle surgery for removal of hardware, this was complicated by infection which required washout and drainage on 04/18/2023, recent UTI diagnosis currently on oral Bactrim presenting with urinary symptoms. Patient states that she has suprapubic and right lower quadrant burning/throbbing pain. Has been going on since about a week prior to this visit. Cramping, burning, associated with frequent urination and hematuria. Was seen by family doctor, started on Bactrim. Patient states that since that time, symptoms of gotten worse. Absent when she is not urinating, present when urinating. Associated with frequency urgency and hematuria. No fevers or chills, nausea or vomiting, flank pain. Last menstrual period was 3 weeks prior to this visit and was totally normal for her. No abnormal vaginal discharge or bleeding. History was obtained via conversation with patient. On arrival, patient hemodynamically stable, alert, oriented x4, appropriate, GCS 15, moving all extremities spontaneously, pupils equal and reactive to light. Full physical exam performed and significant for well-appearing woman who is in mild distress secondary to pain. Trying to get comfortable in bed. Abdomen is soft, mildly tender right lower quadrant and suprapubic areas. No overlying skin changes. No evidence of peritonitis. No flank tenderness. Patient afebrile, normotensive and nontachycardic. Differential includes UTI, pyelonephritis, PUD, gastritis, enteritis, gastroenteritis, pancreatitis, SBO, colitis, diverticulitis, nephrolithiasis, , cholecystitis, appendicitis, hepatitis, among others. Patient was given cefdinir p.o. for symptomatic management and correction of underlying abnormalities, she took oral pain medications just prior to this visit including ibuprofen and narcotic prescribed for left ankle surgery. Workup independently interpreted and significant for UTI with concern for developing pyelonephritis on UA, urine negative. See radiology read for full review of final results. On reevaluation, patient still resting at baseline. Given patient presentation, workup, history, this most likely represents urinary tract infection, likely insensitive to current Bactrim regimen. Because patient also on Bactrim regarding left lower extremity complaints and recent infection, was instructed to continue taking this medication. Patient was also started on cefdinir out of concern for possible lack of strep coverage versus and sensitivity to Bactrim and outpatient regimen. She is agreeable to this plan. Because patient at baseline without signs or symptoms of clinical decompensation, deemed appropriate for discharge. Results were relayed to patient who voiced understanding and were agreeable to outpatient management and follow up. At the time of discharge the patient was hemodynamically stable, tolerating PO, and mobilizing appropriately. Critical Care Critical Care Time Critical Care Time: No
[2023-05-03] MEDS: CEFDINIR 300MG CAPSULE 300 MG PO (15:23)
[2023-05-03 15:55] LABS: Urine Pregnancy, HCG Qual. Negative (Negative)
[2023-05-03 16:01] VITALS: BP 121/86; PULSE 96; RESP 16; TEMP 36.7; O2SAT 100
--- NOTE | 2023-05-06 16:50 | PC.NURSE ---
urine culture discussed with , pt DC with cefdinir, NTD at this time
--- NOTE | 2023-05-08 13:36 | PC.NURSE ---
URINE CULTURE RESULTS DISCUSSED WITH DR SOLER. PT ON APPROPRIATE ABX. NO CHANGES NEEDED
== END 2023-05-03 16:02 | disposition home or self-care (01) ==
PROVIDERS: Emergency Medicine; Emergency Provider Emergency Medicine; PCP Internal Medicine
DX: N12 Tubulo-interstitial nephritis, not specified as acute or chronic (principal); R10.31 Right lower quadrant pain; R35.0 Frequency of micturition; R31.9 Hematuria, unspecified
CPT/HCPCS: 81001; 81025; 87086; 99284

== ENCOUNTER 2023-05-20 10:49 | Outpatient (CLI) | payer BC, SELFPAY ==
[2023-05-20 11:05] LABS: Basophils # 0.1 K/mm3 (0-0.2); Basophils % 0.5 % (0.1-2.0); Eosinophils # 0.1 K/mm3 (0.0-0.4); Eosinophils % 1.3 % (0.1-12.0); Hematocrit 46.6 % (37.0-47.0); Hemoglobin 14.7 g/dL (12.2-16.2); Lymphocytes # 2.4 K/mm3 (0.7-4.5); Lymphocytes % 24.6 % (10-50); Mean Corpuscular HGB Conc 31.5 g/dL (31.8-35.4); Mean Corpuscular Hemoglobin 28.6 pg (27.0-31.2); Mean Corpuscular Volume 90.8 fl (81-99); Mean Platelet Volume 8.5 fl (7.4-10.4); Monocytes # 0.4 K/mm3 (0.1-1.0); Monocytes % 3.9 % (1.7-9.3); Neutrophils # 6.9 K/mm3 (1.8-7.8); Neutrophils % 69.6 % (37.0-80.0); Platelet Count 306 K/mm3 (142-424); Red Blood Count 5.12 M/mm3 (4.20-5.40); Red Cell Distribution Width 13.6 % (11.5-17.5); White Blood Count 9.9 K/mm3 (4.8-10.8)
[2023-05-20 11:24] LABS: Erythrocyte Sedimentation Rate 13 mm/hr (0-20)
[2023-05-20 11:25] LABS: Alanine Aminotransferase 25 U/L (12-78); Albumin Level 4.4 g/dl (3.5-5.0); Albumin/Globulin Ratio 1.3 (1.1-1.8); Alkaline Phosphatase 90 U/L (38-126); Anion Gap 8.1 mEq/L (5-15); Aspartate Amino Transferase 24 U/L (14-36); Bilirubin,Total 0.9 mg/dl (0.2-1.3); Blood Urea Nitrogen 13 mg/dl (7-17); Calcium 9.5 mg/dl (8.4-10.2); Carbon Dioxide 30 mmol/L (22.0-30.0); Chloride 106 mmol/L (98-107); Estimated Glomerular Filt Rate 83 ml/min (>60); GFR (African American) 101 ML/MIN (>60); Globulin 3.3 g/dL (1.3-3.2); Glucose 86 mg/dl (74-100); Potassium 4.1 mmoL/L (3.5-5.1); Sodium 140 mmol/L (136-145); Total Protein,Serum 7.7 g/dl (6.3-8.2)
[2023-05-20 11:31] LABS: C-Reactive Protein 7.4 mg/L (0-4)
== END 2023-05-20 23:59 ==
LOC: LAB 10:50
PROVIDERS: PCP Internal Medicine; Visit Provider Podiatrist
DX: L03.116 Cellulitis of left lower limb (principal); S91.002A Unspecified open wound, left ankle, initial encounter; T81.31XA Disruption of external operation (surgical) wound, not elsewhere classified, initial encounter
CPT/HCPCS: 36415; 80053; 85025; 85651; 86140; 87070; 87205

== ENCOUNTER 2023-05-20 16:59 | Outpatient (CLI) | payer BC, SELFPAY | END 2023-05-20 23:59 | LOC: LAB.DROPOF 16:59 | PROVIDERS: PCP Podiatrist; Visit Provider Podiatrist | DX: L03.116 Cellulitis of left lower limb (principal) ==

== ENCOUNTER 2023-06-27 09:00 | Outpatient (RCR) | payer BC, SELFPAY ==
--- NOTE | 2023-06-05 16:01 | HMH.PTOPWND ---
Rehab Outpt Wound Evaluation Rehab OP Wound Evaluation Start: 06/05/23 15:41 Freq: Status: Active Protocol: Document 06/05/23 15:43 PARDEEP (Rec: 06/05/23 16:00 PARDEEP [id number]) E-signed By Juan F Bruno, PT Subjective/History History History This is the initial PT eval for Lola Garza, 32 yowf who presents with c/o L LE edema after surgery. She had a prior ankle ORIF ~ 12 yrs ago with swelling since that time . However, her edema has been worse since her more recent revision surgery ~3-4 mos. She also has delayed wound healing on her medial L ankle due to post-op infection. She has less edema after propping at night and worse edema with prolonged dependent positioning. Subjective Subjective Pt reports pain 3/10 at this time, 5/10 at worst. No pitting edema currently, but palpable edema throughout L ankle. Minimal blanchable erythema noted. New diagnosis of cancer in past 12 No months? Lymphedema Eval Classification of Lymphedema Secondary Lymphedema Yes Post-Surgical Lymphedema Yes Stemmer's sign Stemmer's Sign no Stage of Lymphedema Lymphedema stages Stage I (Pitting edema, reduces w/ elevation, no fibrosis) Skin Changes Dry Skin Yes Redness Yes Discoloration of Skin Yes Other Changes Yes Pain Scale Pain Scale (0-10) 5 Affected Extremities Areas Affected by Lymphedema/Edema Left Lower Extremity Lower Extremity Measurements Left MTP Measurement (cm) 23.2 Heel Measurement (cm) 33.3 10 cm Proximal to Lateral Malleoli 31.5 Measurement (cm) 20 cm Proximal to Lateral Malleoli 46.5 Measurement (cm) 30 cm Proximal to Lateral Malleoli 50.6 Measurement (cm) 40 cm Proximal to Lateral Malleoli 0 Measurement (cm) 50 cm Proximal to Lateral Malleoli 0 Measurement (cm) 60 cm Proximal to Lateral Malleoli 0 Measurement (cm) Lower Extremity Measurement Total (cm) 185.1 Manual Lymphatic Drainage Treatment Area MLD Treatment Area Left Lower Extremity Wound Problems/Impairments Impairments Problems/Impairmments Impaired Range of Motion, Impaired Walking,Increased Edema,Lymphedema Present,Wound Care Needs,Subjective C/O Pain,Impaired Self Care/Self Management Prognosis Rehab Potential Good Clinical Impression Consistent with Diagnosis Yes Short Term Goals Number of Weeks 2 Decrease Edema Yes: No pitting edema in L LE Decrease Subjective C/O Pain Yes: 3.10 at worst L LE Patient to Understand Lymphedema Yes Treatment and Exercises Decrease Girth Measurments by (cm) Yes: L LE total by 5 cm Corporate Scheduler Goals Number of Weeks 4 Decrease Lymphedema Yes: No fibrotic edema Decrease Subjective C/O Pain Yes: 1/10 at worst L LE Patient to be Ind w/ HEP Yes Patient to be Ind w/ [place] Yes Compression Garments Patient to Adhere Lymphedema Precautions Yes Decrease Girth Measurments by (cm) Yes: L LE total by 15 cm Outpatient Therapy Plan of Care Treatment Plan May Include Therapeutic Exercise Including Home Yes Exercise Program Manual Therapy Techniques Yes Therapeutic Activities to Return to Yes Previous Functional/Work Level ADL/Self Care Education Yes Orthotics/Bracing/Splinting Yes Manual Lymphatic Drainage Yes Wound Care Yes Eval/Re-Eval Yes Frequency Times per week 2 Duration Number of Weeks 4 Addendums This patient is a candidate for social No or vocational rehab? Patient/Guardian verbally acknowledges Yes understanding of treatment program and consents to further treatment? Patient/Guardian verbally acknowledges Yes understanding of diagnosis, prognosis and goals for treatment? Eval Complexity PT Charges 06350 - High Complexity PHYSICIAN CERTIFICATION: I certify the specified therapy services for Lola Garza are required, authorized, and reviewed every 30 days.
== END 2023-06-27 10:05 | disposition home or self-care (01) ==
LOC: PT 09:00
PROVIDERS: Visit Provider Podiatrist
DX: M79.661 Pain in right lower leg (principal); R60.0 Localized edema
CPT/HCPCS: 97110; 97140; 97163

== ENCOUNTER 2023-08-07 17:02 | Outpatient (RCR) | payer BC, SELFPAY ==
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
== END 2023-08-07 17:05 | disposition home or self-care (01) ==
LOC: PT 17:02
PROVIDERS: Visit Provider Podiatrist
DX: R60.0 Localized edema (principal); M25.472 Effusion, left ankle; M19.172 Post-traumatic osteoarthritis, left ankle and foot; Z98.890 Other specified postprocedural states
CPT/HCPCS: 97163

== ENCOUNTER 2023-08-21 13:53 | Outpatient (CLI) | payer BC, SELFPAY ==
[2023-08-21 15:24] LABS: Basophils # 0.1 K/mm3 (0-0.2); Basophils % 0.8 % (0.1-2.0); Eosinophils # 0.2 K/mm3 (0.0-0.4); Eosinophils % 1.3 % (0.1-12.0); Hematocrit 43.8 % (37.0-47.0); Hemoglobin 14.1 g/dL (12.2-16.2); Lymphocytes # 3.1 K/mm3 (0.7-4.5); Lymphocytes % 25.6 % (10-50); Mean Corpuscular HGB Conc 32.3 g/dL (31.8-35.4); Mean Corpuscular Volume 86.8 fl (81-99); Mean Platelet Volume 9.4 fl (7.4-10.4); Monocytes # 0.4 K/mm3 (0.1-1.0); Monocytes % 3.6 % (1.7-9.3); Neutrophils # 8.4 K/mm3 (1.8-7.8); Neutrophils % 68.7 % (37.0-80.0); Platelet Count 278 K/mm3 (142-424); Red Blood Count 5.04 M/mm3 (4.20-5.40); White Blood Count 12.3 K/mm3 (4.8-10.8)
[2023-08-21 15:49] LABS: T4 (Thyroxine) 9.4 ug/dl (5.53-11.0)
[2023-08-21 16:03] LABS: Thyroid Stimulating Hormone 1.42 uIU/mL (0.465-4.68)
[2023-08-21 16:22] LABS: Vitamin B12 568 pg/mL (239-931)
[2023-08-21 16:52] LABS: Alanine Aminotransferase 23 U/L (12-78); Albumin Level 4.2 g/dl (3.5-5.0); Albumin/Globulin Ratio 1.4 (1.1-1.8); Alkaline Phosphatase 114 U/L (38-126); Anion Gap 12.6 mEq/L (5-15); Aspartate Amino Transferase 24 U/L (14-36); Bilirubin,Total 0.6 mg/dl (0.2-1.3); Blood Urea Nitrogen 12 mg/dl (7-17); Calcium 9.1 mg/dl (8.4-10.2); Carbon Dioxide 27 mmol/L (22.0-30.0); Chloride 103 mmol/L (98-107); Estimated Glomerular Filt Rate 97 ml/min (>60); GFR (African American) 117 ML/MIN (>60); Globulin 3.1 g/dL (1.3-3.2); Glucose 87 mg/dl (74-100); Magnesium 1.8 mg/dl (1.6-2.3); Potassium 3.6 mmoL/L (3.5-5.1); Sodium 139 mmol/L (136-145); Total Protein,Serum 7.3 g/dl (6.3-8.2)
[2023-08-21 18:13] LABS: Ferritin 50.4 ng/ml (6.24-137)
[2023-08-21 18:43] LABS: HCG,Quantitative < 2 mIU/ml (0-5.42)
[2023-08-22 08:32] LABS: Testosterone,Total 38 ng/dL (8-60)
[2023-08-22 08:32] LABS: Progesterone 1.1 ng/mL (.); Triiodothyronine (T3) Free 2.9 pg/mL (2.0-4.4)
[2023-08-26 03:10] LABS: Magnesium,RBC 5.4 mg/dL (3.7-7.0)
[2023-08-27 14:22] LABS: Testosterone,Free 1.8 pg/mL (0.0-4.2)
[2023-09-04 08:16] LABS: Triiodothyronine (T3) Reverse 23.3
== END 2023-08-21 23:59 | disposition home or self-care (01) ==
PROVIDERS: PCP Nurse Practitioner Family; Visit Provider Nurse Practitioner Family
DX: R25.2 Cramp and spasm (principal); R63.5 Abnormal weight gain; R42 Dizziness and giddiness; F41.0 Panic disorder [episodic paroxysmal anxiety]; N92.6 Irregular menstruation, unspecified; R39.9 Unspecified symptoms and signs involving the genitourinary system; B96.29 Other Escherichia coli [E. coli] as the cause of diseases classified elsewhere; Z79.899 Other long term (current) drug therapy
CPT/HCPCS: 36415; 80053; 82607; 82670; 82728; 83735; 84144; 84402; 84403; 84436; 84443; 84481; 84482; 84702; 85025; 87086; 87088; 87186

== ENCOUNTER 2023-08-22 21:08 | Emergency (ER) | payer BC, SELFPAY ==
[2023-08-22] VITALS (8 sets, daily range): BP systolic 123–130; BP diastolic 78–92; PULSE 65–89; RESP 16–23; TEMP 36.6; O2SAT 96–100; BMI 48.0
--- NOTE | 2023-08-22 21:10 | ECG_ITS ---
APPROVED REPORT Exam: Resting ECG HR:71 bpm ECG Measurements Heart Rate 71 AXES [place] 122 P 67 QRSd 82 QRS 79 QT 390 T 63 QTc 412 Conclusion SINUS RHYTHM Electronically signed by : KARLIE BAIRD, 08/22/2023 22:47:08
--- NOTE | 2023-08-22 21:13 | ED_ITS ---
Discharge Plan Disposition Patient Disposition: Home, Self-Care Prescriptions Prescriptions: No Action Vraylar 1.5 mg capsule 1.5 mg PO DAILY Qty: 30 2RF fluoxetine [Prozac] 40 mg capsule 40 mg PO DAILY Qty: 30 2RF cyclobenzaprine 10 mg tablet 10 mg PO HS PRN (Reason: muscle spasm) Qty: 30 0RF hydroxyzine HCl 25 mg tablet 25 mg PO Q8H PRN (Reason: anxiety) Qty: 60 0RF Referrals Follow up/Referrals: Ernie Barriga MD [Staff Physician] - See instructions Provider,ReferralMD [Primary Care Provider] - See instructions Activity Restrictions/Add. Instructions Additional Instructions/Restrictions: Please follow-up with your primary care provider. Please return to the emergency department if you develop any new or worsening symptoms or become concerned for your health. Clinical Impressions Clinical Impression: Acute dyspnea, Anxiety Chest pain Qualifiers: Chest pain type: unspecified Qualified Code(s): R07.9 - Chest pain, unspecified Discharge ED Provider: Yousuf Villegas General Adult HPI <CRISTIANE Jordan - Last Filed: 08/22/23 22:51> General Chief complaint: Anxiety Stated complaint: Chest pain Time Seen by Provider: 08/22/23 21:12 History of Present Illness HPI narrative: Patient presents for evaluation of chest pain. Patient presents with intermittent 1 week history of chest tightness and discomfort. Patient does have a history of panic disorder and is following with behavioral health currently. She actually saw them today and her medication regimen was increased however patient has reported no improvement. Patient has tried Vistaril with no relief of her symptoms. Patient states that it feels like it is hard to breathe however her oxygen saturation is 100% on room air and she denies fever chills hemoptysis hematochezia melena nausea vomiting diarrhea. Related Data Previous Rx's Medication Instructions Recorded cariprazine 1.5 mg capsule 1.5 mg PO DAILY #30 caps 07/09/23 (Vraylar) cyclobenzaprine 10 mg tablet 10 mg PO HS PRN muscle spasm #30 08/21/23 tabs hydroxyzine HCl 25 mg tablet 25 mg PO Q8H PRN anxiety #60 tabs 08/21/23 fluoxetine 40 mg capsule (Prozac) 40 mg PO DAILY #30 caps 08/22/23 Allergies Allergy/AdvReac Type Severity Reaction Status Date / Time meloxicam Allergy Severe Rash Verified 08/21/23 13:10 NSAIDS (Non-Steroidal Allergy Mild Hives Verified 08/21/23 13:10 Anti-Inflamma [facility] <CRISTIANE Jordan - Last Filed: 08/22/23 22:51> [facility] Disclaimer: The information contained in this section may have been updated after the patient was seen, as this information can be updated by other users. Medical History Pyelonephritis Hematuria Costovertebral angle pain Lightheadedness Postoperative pain Cellulitis Cellulitis of left ankle Preoperative clearance Acute cough Viral respiratory illness Left otitis media Diarrhea Gastroenteritis Abdominal pain Generalized anxiety disorder Major depressive disorder History of fracture of left ankle Depression Vertigo Nausea & vomiting Headache Otitis media Abscess of left thigh Cellulitis of left thigh Acute bronchitis Sinusitis Viral syndrome Nausea Upper respiratory infection Plantar fasciitis of right foot Plantar fasciitis Anxiety Surgical History History of tonsillectomy and adenoidectomy History of ankle surgery History of delivery Family History Other Cancer FHx: mental illness Family history of COPD (chronic obstructive pulmonary disease) Social History Smoking Status: Never smoker second hand exposure: No alcohol intake: current alcohol intake frequency: holidays/special occasions only substance use type: denies use current occupational status: employed Travel in the last 8 weeks: None household members: children housing: apartment number of children: 2 <CRISTIANE Jordan - Last Filed: 08/22/23 22:51> ROS Obtained: Yes Systems reviewed as appropriate & no additional complaints except as documented Physical Exam <CRISTIANE Jordan - Last Filed: 08/22/23 22:51> General General appearance: alert and anxious Head Head exam: atraumatic and normal inspection Eye Eye exam: Present normal appearance, PERRL and EOMI ENT ENT exam: Present normal exam, normal oropharynx and mucous membranes moist Neck Neck exam: Present normal inspection, full ROM and trachea midline Chest Chest inspection: Present normal inspection and symmetric chest wall rise Respiratory Respiratory exam: Present normal lung sounds bilaterally; Absent respiratory distress, wheezes, stridor or accessory muscle use Cardiovascular Cardiovascular exam: Present regular rate, normal rhythm, normal heart sounds, +S1 and +S2 Abdominal Exam Abdominal exam: Present soft (Obese) and normal bowel sounds; Absent tenderness, guarding or rebound Extremities Exam Extremities exam: Present normal inspection and full ROM Back Exam Back exam: Present normal inspection and full ROM; Absent tenderness Neurological Exam Neurological exam: Present alert, oriented X3 and CN II-XII intact Psychiatric Psychiatric exam: Present anxious Skin Skin exam: Present warm and dry; Absent normal color (Flushed face) Medical Decision Making <CRISTIANE Jordan - Last Filed: 08/22/23 22:51> Medical Records Medical records reviewed: Yes I reviewed the patient's medical records. Bruce Inquiry Pt receiving controlled substance: No Vital Signs: 08/22/23 21:08 08/22/23 21:13 08/22/23 21:31 Temperature 97.8 F Temperature Source Oral Pulse Rate 71 65 Pulse Rate [Left] 88 Respiratory Rate 18 18 23 Blood Pressure 125/86 123/78 Blood Pressure [Right Arm] 125/86 Blood Pressure Mean Blood Pressure Mean [Right Arm] 99 Blood Pressure Source [Right Arm] Automatic Cuff Blood Pressure Position [Right Arm] Sitting 02 Sat by Pulse Oximetry 99 99 100 Oxygen Delivery Method Room Air 08/22/23 21:45 08/22/23 22:01 08/22/23 22:30 Temperature Temperature Source Pulse Rate 89 76 Pulse Rate [Left] Respiratory Rate 16 Blood Pressure 125/79 125/83 125/79 Blood Pressure [Right Arm] Blood Pressure Mean 104 100 Blood Pressure Mean [Right Arm] Blood Pressure Source [Right Arm] Blood Pressure Position [Right Arm] 02 Sat by Pulse Oximetry 100 100 Oxygen Delivery Method 08/22/23 23:01 08/22/23 23:30 08/23/23 00:00 Temperature Temperature Source Pulse Rate 82 65 68 Pulse Rate [Left] Respiratory Rate 17 22 21 Blood Pressure 130/89 128/92 H 127/91 H Blood Pressure [Right Arm] Blood Pressure Mean 97 Blood Pressure Mean [Right Arm] Blood Pressure Source [Right Arm] Blood Pressure Position [Right Arm] 02 Sat by Pulse Oximetry 97 96 95 Oxygen Delivery Method Room Air Room Air 08/23/23 00:30 08/23/23 00:56 Temperature 98.1 F Temperature Source Oral Pulse Rate 65 58 L Pulse Rate [Left] Respiratory Rate 22 19 Blood Pressure 140/92 H 145/95 H Blood Pressure [Right Arm] Blood Pressure Mean Blood Pressure Mean [Right Arm] Blood Pressure Source [Right Arm] Blood Pressure Position [Right Arm] 02 Sat by Pulse Oximetry 95 Oxygen Delivery Method Room Air Lab Data Lab results reviewed: Yes I reviewed the patient's lab results. Lab Results 08/22/23 21:10: WBC 14.7 H, RBC 5.03, Hgb 14.1, Hct 43.9, MCV 87.4, MCH 28.1, MCHC 32.2, RDW 14.1, Plt Count 287, MPV 9.0, Neut % (Auto) 69.5, Lymph % (Auto) 24.7, Trinity % (Auto) 3.4, Eos % (Auto) 1.6, Baso % (Auto) 0.9, Neut # (Auto) 10.2 H, Lymph # (Auto) 3.6, Trinity # (Auto) 0.5, Eos # (Auto) 0.2, Baso # (Auto) 0.1, Sodium 140, Potassium 3.7, Chloride 108 H, Carbon Dioxide 24, Anion Gap 11.7, BUN 11, Creatinine 0.70, Estimated GFR 97, Est GFR ( Amer) 117, Glucose 97, Calcium 9.4, Magnesium 1.8, Troponin I < 0.01, Lipase 138, Serum HCG, Qual Negative 08/23/23 00:25: Troponin I < 0.01 08/22/23 21:10 08/22/23 21:10 Orders (Tests/Meds): ED MEDICATIONS Discontinued Medications Generic Name Dose Route Start Last Admin Trade Name Freq PRN Reason Stop Dose Admin Acetaminophen 1,000 mg 08/22/23 21:22 08/22/23 21:52 Acetaminophen 1,000mg/100ml Vial IV 08/22/23 21:23 1,000 mg ONCE ONE Administration Lorazepam 0.5 mg 08/22/23 21:22 08/22/23 21:48 Lorazepam 2mg/Ml Vial IV 08/22/23 21:23 0.5 mg ONCE ONE Administration Sodium Chloride 10 ml 08/22/23 21:22 08/22/23 21:52 Sodium Chloride 0.9% 10ml Vial IV 09/21/23 21:21 10 ml NEEDED PRN Administration to Dilute Lorazepam inj ORDERS Category Date Time Status Chest XR -- portable [XR chest portable] Stat Exams 08/22/23 22:11 Completed BMP [Basic Metabolic Panel] Stat Lab 08/22/23 21:10 Completed CBC w/Auto Diff [Complete Blood Count Auto Diff] Stat Lab 08/22/23 21:10 Completed HCG Qualitative, Serum Stat Lab 08/22/23 21:10 Completed Lipase Stat Lab 08/22/23 21:10 Completed Magnesium Stat Lab 08/22/23 21:10 Completed Trop I [Troponin I] Stat Lab 08/22/23 21:10 Completed Troponin I Q3H Lab 08/23/23 00:25 Completed Troponin I Q3H Lab 08/23/23 03:30 Ordered Medical Decision Narrative: In summary patient is a 32-year-old female who presents to the emergency department for evaluation of chest pain/dyspnea. Patient is hemodynamically stable upon arrival, afebrile. Physical exam shows that the patient has normal breath sounds normal heart sounds no pain on palpation. EKG shows normal sinus rhythm on the bedside monitor. Patient had lab work done on the that shows an elevated white count and the remainder of her laboratory investigations are normal. Patient has had fairly extensive workup including cortisol level and TSH which have all been normal.. Differential diagnosis includes PE versus ACS versus anxiety disorder versus pneumonia. Initial workup will be conducted with twelve-lead EKG, hematologic labs, chest x-ray, CT PE protocol. Initial interventions include Ativan Tylenol. Initial workup reviewed by me noted that she has a white count with a left shift but her remaining labs are nonactionable and her chest x-ray is still pending at the time of handoff at [address] Bakari Solorzano: EKG independently interpreted and sinus rhythm 71 beats a minute no ST or T wave changes concern for acute ischemia. MT, QRS, QT intervals within normal limits with normal axis. <Matti Solorzano MD - Last Filed: 08/22/23 22:59> Vital Signs: 08/22/23 21:08 08/22/23 21:13 08/22/23 21:31 Temperature 97.8 F Temperature Source Oral Pulse Rate 71 65 Pulse Rate [Left] 88 Respiratory Rate 18 18 23 Blood Pressure 125/86 123/78 Blood Pressure [Right Arm] 125/86 Blood Pressure Mean Blood Pressure Mean [Right Arm] 99 Blood Pressure Source [Right Arm] Automatic Cuff Blood Pressure Position [Right Arm] Sitting 02 Sat by Pulse Oximetry 99 99 100 Oxygen Delivery Method Room Air 08/22/23 21:45 08/22/23 22:01 08/22/23 22:30 Temperature Temperature Source Pulse Rate 89 76 Pulse Rate [Left] Respiratory Rate 16 Blood Pressure 125/79 125/83 125/79 Blood Pressure [Right Arm] Blood Pressure Mean 104 100 Blood Pressure Mean [Right Arm] Blood Pressure Source [Right Arm] Blood Pressure Position [Right Arm] 02 Sat by Pulse Oximetry 100 100 Oxygen Delivery Method 08/22/23 23:01 08/22/23 23:30 08/23/23 00:00 Temperature Temperature Source Pulse Rate 82 65 68 Pulse Rate [Left] Respiratory Rate 17 22 21 Blood Pressure 130/89 128/92 H 127/91 H Blood Pressure [Right Arm] Blood Pressure Mean 97 Blood Pressure Mean [Right Arm] Blood Pressure Source [Right Arm] Blood Pressure Position [Right Arm] 02 Sat by Pulse Oximetry 97 96 95 Oxygen Delivery Method Room Air Room Air 08/23/23 00:30 08/23/23 00:56 Temperature 98.1 F Temperature Source Oral Pulse Rate 65 58 L Pulse Rate [Left] Respiratory Rate 22 19 Blood Pressure 140/92 H 145/95 H Blood Pressure [Right Arm] Blood Pressure Mean Blood Pressure Mean [Right Arm] Blood Pressure Source [Right Arm] Blood Pressure Position [Right Arm] 02 Sat by Pulse Oximetry 95 Oxygen Delivery Method Room Air Lab Data Lab Results 08/22/23 21:10: WBC 14.7 H, RBC 5.03, Hgb 14.1, Hct 43.9, MCV 87.4, MCH 28.1, MCHC 32.2, RDW 14.1, Plt Count 287, MPV 9.0, Neut % (Auto) 69.5, Lymph % (Auto) 24.7, Trinity % (Auto) 3.4, Eos % (Auto) 1.6, Baso % (Auto) 0.9, Neut # (Auto) 10.2 H, Lymph # (Auto) 3.6, Trinity # (Auto) 0.5, Eos # (Auto) 0.2, Baso # (Auto) 0.1, Sodium 140, Potassium 3.7, Chloride 108 H, Carbon Dioxide 24, Anion Gap 11.7, BUN 11, Creatinine 0.70, Estimated GFR 97, Est GFR ( Amer) 117, Glucose 97, Calcium 9.4, Magnesium 1.8, Troponin I < 0.01, Lipase 138, Serum HCG, Qual Negative 08/23/23 00:25: Troponin I < 0.01 Orders (Tests/Meds): ED MEDICATIONS Discontinued Medications Generic Name Dose Route Start Last Admin Trade Name Freq PRN Reason Stop Dose Admin Acetaminophen 1,000 mg 08/22/23 21:22 08/22/23 21:52 Acetaminophen 1,000mg/100ml Vial IV 08/22/23 21:23 1,000 mg ONCE ONE Administration Lorazepam 0.5 mg 08/22/23 21:22 08/22/23 21:48 Lorazepam 2mg/Ml Vial IV 08/22/23 21:23 0.5 mg ONCE ONE Administration Sodium Chloride 10 ml 08/22/23 21:22 08/22/23 21:52 Sodium Chloride 0.9% 10ml Vial IV 09/21/23 21:21 10 ml NEEDED PRN Administration to Dilute Lorazepam inj ORDERS Category Date Time Status Chest XR -- portable [XR chest portable] Stat Exams 08/22/23 22:11 Completed BMP [Basic Metabolic Panel] Stat Lab 08/22/23 21:10 Completed CBC w/Auto Diff [Complete Blood Count Auto Diff] Stat Lab 08/22/23 21:10 Completed HCG Qualitative, Serum Stat Lab 08/22/23 21:10 Completed Lipase Stat Lab 08/22/23 21:10 Completed Magnesium Stat Lab 08/22/23 21:10 Completed Trop I [Troponin I] Stat Lab 08/22/23 21:10 Completed Troponin I Q3H Lab 08/23/23 00:25 Completed Troponin I Q3H Lab 08/23/23 03:30 Ordered Medical Decision Narrative: In summary patient is a 32-year-old female who presents to the emergency department for evaluation of chest pain/dyspnea. Patient is hemodynamically stable upon arrival, afebrile. Physical exam shows that the patient has normal breath sounds normal heart sounds no pain on palpation. EKG shows normal sinus rhythm on the bedside monitor. Patient had lab work done on the that shows an elevated white count and the remainder of her laboratory investigations are normal. Patient has had fairly extensive workup including cortisol level and TSH which have all been normal.. Differential diagnosis includes PE versus ACS versus anxiety disorder versus pneumonia. Initial workup will be conducted with twelve-lead EKG, hematologic labs, chest x-ray, CT PE protocol. Initial interventions include Ativan Tylenol. Initial workup reviewed by me noted that she has a white count with a left shift but her remaining labs are nonactionable and her chest x-ray is still pending at the time of handoff at [address] Bakari Solorzano: EKG independently interpreted and sinus rhythm 71 beats a minute no ST or T wave changes concern for acute ischemia. MT, QRS, QT intervals within normal limits with normal axis. I was consulted by the ZI, and we discussed the complexity of the problems being addressed. I approved the treatment and management plan for this patient?s care in the Emergency Department, thus performing a substantive portion of the medical decision making. Prior to radiology and final disposition, care handed off to Dr. Villegas. Matti Solorzano MD <Yousuf Villegas MD - Last Filed: 08/23/23 01:17> Vital Signs: 08/22/23 21:08 08/22/23 21:13 08/22/23 21:31 Temperature 97.8 F Temperature Source Oral Pulse Rate 71 65 Pulse Rate [Left] 88 Respiratory Rate 18 18 23 Blood Pressure 125/86 123/78 Blood Pressure [Right Arm] 125/86 Blood Pressure Mean Blood Pressure Mean [Right Arm] 99 Blood Pressure Source [Right Arm] Automatic Cuff Blood Pressure Position [Right Arm] Sitting 02 Sat by Pulse Oximetry 99 99 100 Oxygen Delivery Method Room Air 08/22/23 21:45 08/22/23 22:01 08/22/23 22:30 Temperature Temperature Source Pulse Rate 89 76 Pulse Rate [Left] Respiratory Rate 16 Blood Pressure 125/79 125/83 125/79 Blood Pressure [Right Arm] Blood Pressure Mean 104 100 Blood Pressure Mean [Right Arm] Blood Pressure Source [Right Arm] Blood Pressure Position [Right Arm] 02 Sat by Pulse Oximetry 100 100 Oxygen Delivery Method 08/22/23 23:01 08/22/23 23:30 08/23/23 00:00 Temperature Temperature Source Pulse Rate 82 65 68 Pulse Rate [Left] Respiratory Rate 17 22 21 Blood Pressure 130/89 128/92 H 127/91 H Blood Pressure [Right Arm] Blood Pressure Mean 97 Blood Pressure Mean [Right Arm] Blood Pressure Source [Right Arm] Blood Pressure Position [Right Arm] 02 Sat by Pulse Oximetry 97 96 95 Oxygen Delivery Method Room Air Room Air 08/23/23 00:30 08/23/23 00:56 Temperature 98.1 F Temperature Source Oral Pulse Rate 65 58 L Pulse Rate [Left] Respiratory Rate 22 19 Blood Pressure 140/92 H 145/95 H Blood Pressure [Right Arm] Blood Pressure Mean Blood Pressure Mean [Right Arm] Blood Pressure Source [Right Arm] Blood Pressure Position [Right Arm] 02 Sat by Pulse Oximetry 95 Oxygen Delivery Method Room Air Lab Data Lab Results 08/22/23 21:10: WBC 14.7 H, RBC 5.03, Hgb 14.1, Hct 43.9, MCV 87.4, MCH 28.1, MCHC 32.2, RDW 14.1, Plt Count 287, MPV 9.0, Neut % (Auto) 69.5, Lymph % (Auto) 24.7, Trinity % (Auto) 3.4, Eos % (Auto) 1.6, Baso % (Auto) 0.9, Neut # (Auto) 10.2 H, Lymph # (Auto) 3.6, Trinity # (Auto) 0.5, Eos # (Auto) 0.2, Baso # (Auto) 0.1, Sodium 140, Potassium 3.7, Chloride 108 H, Carbon Dioxide 24, Anion Gap 11.7, BUN 11, Creatinine 0.70, Estimated GFR 97, Est GFR ( Amer) 117, Glucose 97, Calcium 9.4, Magnesium 1.8, Troponin I < 0.01, Lipase 138, Serum HCG, Qual Negative 08/23/23 00:25: Troponin I < 0.01 Orders (Tests/Meds): ED MEDICATIONS Discontinued Medications Generic Name Dose Route Start Last Admin Trade Name Freq PRN Reason Stop Dose Admin Acetaminophen 1,000 mg 08/22/23 21:22 08/22/23 21:52 Acetaminophen 1,000mg/100ml Vial IV 08/22/23 21:23 1,000 mg ONCE ONE Administration Lorazepam 0.5 mg 08/22/23 21:22 08/22/23 21:48 Lorazepam 2mg/Ml Vial IV 05/30/24 21:23 0.5 mg ONCE ONE Administration Sodium Chloride 10 ml 08/22/23 21:22 08/22/23 21:52 Sodium Chloride 0.9% 10ml Vial IV 09/21/23 21:21 10 ml NEEDED PRN Administration to Dilute Lorazepam inj ORDERS Category Date Time Status Chest XR -- portable [XR chest portable] Stat Exams 08/22/23 22:11 Completed BMP [Basic Metabolic Panel] Stat Lab 08/22/23 21:10 Completed CBC w/Auto Diff [Complete Blood Count Auto Diff] Stat Lab 08/22/23 21:10 Completed HCG Qualitative, Serum Stat Lab 08/22/23 21:10 Completed Lipase Stat Lab 08/22/23 21:10 Completed Magnesium Stat Lab 08/22/23 21:10 Completed Trop I [Troponin I] Stat Lab 08/22/23 21:10 Completed Troponin I Q3H Lab 08/23/23 00:25 Completed Troponin I Q3H Lab 08/23/23 03:30 Ordered Medical Decision Narrative: In summary patient is a 32-year-old female who presents to the emergency department for evaluation of chest pain/dyspnea. Patient is hemodynamically stable upon arrival, afebrile. Physical exam shows that the patient has normal breath sounds normal heart sounds no pain on palpation. EKG shows normal sinus rhythm on the bedside monitor. Patient had lab work done on the that shows an elevated white count and the remainder of her laboratory investigations are normal. Patient has had fairly extensive workup including cortisol level and TSH which have all been normal.. Differential diagnosis includes PE versus ACS versus anxiety disorder versus pneumonia. Initial workup will be conducted with twelve-lead EKG, hematologic labs, chest x-ray, CT PE protocol. Initial interventions include Ativan Tylenol. Initial workup reviewed by me noted that she has a white count with a left shift but her remaining labs are nonactionable and her chest x-ray is still pending at the time of handoff at [address] Bakari Solorzano: EKG independently interpreted and sinus rhythm 71 beats a minute no ST or T wave changes concern for acute ischemia. MT, QRS, QT intervals within normal limits with normal axis. I was consulted by the ZI, and we discussed the complexity of the problems being addressed. I approved the treatment and management plan for this patient?s care in the Emergency Department, thus performing a substantive portion of the medical decision making. Prior to radiology and final disposition, care handed off to Dr. Villegas. MD Bakari Hare MD: I assumed care of the patient at the time of handoff from the prior provider. On my interpretation of visual supervisor, patient nate in normal sinus rhythm with regular rate. On reassessment, patient reports symptomatic stability. X- ray was independently interpreted by me and shows no evidence of focal opacity rib fracture or pneumothorax etc. Interactive discussion was had with patient regarding presentation. Low concern for emergent pathology at this time. She was discharged in stable condition. Return precautions given. Critical Care <CRISTIANE Jordan - Last Filed: 08/22/23 22:51> Critical Care Time Critical Care Time: No
[2023-08-22 21:29] LABS: Basophils # 0.1 K/mm3 (0-0.2); Basophils % 0.9 % (0.1-2.0); Eosinophils # 0.2 K/mm3 (0.0-0.4); Eosinophils % 1.6 % (0.1-12.0); Hematocrit 43.9 % (37.0-47.0); Hemoglobin 14.1 g/dL (12.2-16.2); Lymphocytes # 3.6 K/mm3 (0.7-4.5); Lymphocytes % 24.7 % (10-50); Mean Corpuscular HGB Conc 32.2 g/dL (31.8-35.4); Mean Corpuscular Hemoglobin 28.1 pg (27.0-31.2); Mean Corpuscular Volume 87.4 fl (81-99); Monocytes # 0.5 K/mm3 (0.1-1.0); Monocytes % 3.4 % (1.7-9.3); Neutrophils # 10.2 K/mm3 (1.8-7.8); Neutrophils % 69.5 % (37.0-80.0); Platelet Count 287 K/mm3 (142-424); Red Blood Count 5.03 M/mm3 (4.20-5.40); Red Cell Distribution Width 14.1 % (11.5-17.5); White Blood Count 14.7 K/mm3 (4.8-10.8)
[2023-08-22 21:30] LABS: Chloride 108 mmol/L (98-107); Potassium 3.7 mmoL/L (3.5-5.1); Sodium 140 mmol/L (136-145)
[2023-08-22 21:33] LABS: Anion Gap 11.7 mEq/L (5-15); Blood Urea Nitrogen 11 mg/dl (7-17); Carbon Dioxide 24 mmol/L (22.0-30.0); Estimated Glomerular Filt Rate 97 ml/min (>60); GFR (African American) 117 ML/MIN (>60); Lipase 138 U/L (23-300)
[2023-08-22 21:34] LABS: Calcium 9.4 mg/dl (8.4-10.2); Glucose 97 mg/dl (74-100); Magnesium 1.8 mg/dl (1.6-2.3)
[2023-08-22 21:46] LABS: Troponin I < 0.01 ng/ml (0.00-0.034)
[2023-08-22] MEDS: LORazepam 2MG/ML VIAL 0.5 MG IV (21:48)
[2023-08-22] MEDS: ACETAMINOPHEN 1,000MG/100ML VIAL 1000 MG IV (21:52)
[2023-08-22] MEDS: SODIUM CHLORIDE 0.9% 10ML VIAL 10 ML IV (21:52)
[2023-08-22 21:54] LABS: HCG Qualitative, Serum Negative (Negative)
--- NOTE | 2023-08-22 22:11 | XR_ITS ---
PROCEDURE INFORMATION: Exam: XR Chest Exam date and time: 08/22/2023 10:57 PM Age: 32 years old Clinical indication: Pain; Chest pressure; Additional info: Dyspnea/chest pain TECHNIQUE: Imaging protocol: Radiologic exam of the chest. Views: 1 view. COMPARISON: CT ABDOMEN PELVIS W CON 08/21/2022 11:11 AM FINDINGS: Lungs: No evidence of acute pulmonary disease or infiltrates Pleural spaces: No large effusion or pneumothorax. Heart/Mediastinum: No evidence of mediastinal widening or cardiac silhouette enlargement; the mediastinum and heart appear within normal limits for contour and size. Bones/joints: No evidence of acute osseous abnormalities within the visualized portions of the thoracic spine and ribs. Osseous structures appear appropriate for patient age. IMPRESSION: No dense parenchymal consolidation, pleural effusion, or pneumothorax.
--- NOTE | 2023-08-22 23:36 | PC.NURSE ---
Patient has been updated on wait time for cxr. No concerns voiced
[2023-08-23] VITALS: BP 127/91; PULSE 68; RESP 21; O2SAT 95
[2023-08-23 00:30] VITALS: BP 140/92; PULSE 65; RESP 22; O2SAT 95
[2023-08-23 00:50] LABS: Troponin I < 0.01 ng/ml (0.00-0.034)
[2023-08-23 00:56] VITALS: BP 145/95; PULSE 58; RESP 19; TEMP 36.7; O2SAT 94
== END 2023-08-23 01:03 | disposition home or self-care (01) ==
PROVIDERS: Physician Assistant; Emergency Provider Emergency Medicine
DX: R07.9 Chest pain, unspecified (principal); R06.02 Shortness of breath; F41.1 Generalized anxiety disorder; F33.9 Major depressive disorder, recurrent, unspecified
CPT/HCPCS: 71045; 80048; 83690; 83735; 84484; 84703; 85025; 93005; 96374; 96375; 99285; J0131

== ENCOUNTER 2023-10-07 12:27 | Emergency (ER) | payer BC, SELFPAY ==
[2023-10-07 12:35] VITALS: BP 126/81; PULSE 89; RESP 19; TEMP 36.8; O2SAT 97; BMI 47.3
--- NOTE | 2023-10-07 12:49 | EXP.UTC ---
Discharge Plan Disposition Patient Disposition: Home, Self-Care Condition: Good Prescriptions Prescriptions: New methylprednisolone [Medrol (Foreign)] 4 mg tablets,dose pack See Rx Instructions .Route .COMPLEX 6 Days Qty: 21 0RF Rx Instructions: taper pack; cefdinir 300 mg capsule 300 mg PO BID Qty: 20 0RF guaifenesin [Mucinex] 600 mg tablet extended release 12hr 1,200 mg PO BID PRN (Reason: cough) Qty: 20 0RF No Action Vraylar 3 mg capsule 3 mg PO DAILY Qty: 30 1RF fluoxetine [Prozac] 40 mg capsule 40 mg PO DAILY Qty: 30 2RF Referrals Follow up/Referrals: Ramila Christensen APRN [Primary Care Provider] - See instructions Activity Restrictions/Add. Instructions Additional Instructions/Restrictions: *Monitor Temp, Over the counter Motrin or Tylenol as directed/as needed Tylenol every 4 hours and Motrin every 6 hours (as long as your family doctor has told you that you can take it) for fever or pain. and straight to ER if unable to lower temp less than 101.0 after medication given *Warm salt water gargles may help to soothe the throat *Throat Lozenges? *Warm fluids like tea with honey may help to soothe the throat? *Sleep elevated *Humidifier/Vaporizer Your throat swab was sent for culture. Those results are typically sent to your primary care. Be sure to follow up in 2-3 days with your family doctor/primary care physician if no improvement so they can review those result and treat if necessary. If you don?t have a primary care doctor, I recommend you get one but in the mean time, you will have to return to a walk in clinic Follow up IMMEDIATELY for new or worsening symptoms or no Noticeable improvement over the next 48-72 hours. 911 for difficulty breathing or swallowing You were tested for today for COVID19 your test result should be back in the next few hours, you may check your results on the [facility] [employer] [facility] Clinical Impressions Clinical Impression: Acute pharyngitis Qualifiers: Pharyngitis/tonsillitis etiology: unspecified etiology Qualified Code(s): J02.9 - Acute pharyngitis, unspecified Instructions Patient Instructions: Sore Throat, DI for Viral Upper Respiratory Infection -- Adult Discharge ED Provider: Lesvia Peter [facility] [place] HPI General Stated complaint: sore throat, congestion, headache Mode of Arrival: Ambulatory Source of Information: Patient Limitations: No Limitations Time Seen by Provider: 10/07/23 12:49 Description of Symptoms (Recalled from Triage Doc. by RN): PATIENT C/O COUGH, CHEST CONGESTION, FATIGUE, HEADACHE AND MUSCLE PAIN X 2 DAYS HEENT Symptoms (Recalled from RN notes): No Resp Symptoms (Recalled from RN notes): Yes Skin Symptoms (Recalled from RN notes): No MS Symptoms (Recalled from RN notes): No Functional Status (Recalled from RN notes): WNL History of Present Illness Provider Complaint: Patient states she hasnt felt well for the last couple of days States that she has been having sore throat, fatigue, body aches, cough and some chest congestion States today she wasnt feeling any better so she came in to get checked out worried she may have strep throat or flu Related Data Previous Rx's Medication Instructions Recorded fluoxetine 40 mg capsule (Prozac) 40 mg PO DAILY #30 caps 08/22/23 cariprazine 3 mg capsule (Vraylar) 3 mg PO DAILY #30 caps 09/06/23 cefdinir 300 mg capsule 300 mg PO BID #20 caps 10/07/23 guaifenesin 600 mg tablet, 1,200 mg (2 x 600 mg) PO BID PRN 10/07/23 extended release 12 hr (Mucinex) cough #20 tabs methylprednisolone 4 mg tablets in See Rx Instructions .Route 10/07/23 a dose pack (Medrol (Foreign)) .COMPLEX 6 days #21 tabs Allergies Allergy/AdvReac Type Severity Reaction Status Date / Time meloxicam Allergy Severe Rash Verified 10/01/23 09:08 NSAIDS (Non-Steroidal Allergy Mild Hives Verified 10/01/23 09:08 Anti-Inflamma Worker's Comp Is this a Worker's Comp case?: No [facility] Disclaimer: The information contained in this section may have been updated after the patient was seen, as this information can be updated by other users. Medical History Pyelonephritis Hematuria Costovertebral angle pain Lightheadedness Postoperative pain Cellulitis Cellulitis of left ankle Preoperative clearance Acute cough Viral respiratory illness Left otitis media Diarrhea Gastroenteritis Abdominal pain Generalized anxiety disorder Major depressive disorder History of fracture of left ankle Depression Vertigo Nausea & vomiting Headache Otitis media Abscess of left thigh Cellulitis of left thigh Acute bronchitis Sinusitis Viral syndrome Nausea Upper respiratory infection Plantar fasciitis of right foot Plantar fasciitis Anxiety Surgical History History of tonsillectomy and adenoidectomy History of ankle surgery History of delivery Family History Other Cancer FHx: mental illness Family history of COPD (chronic obstructive pulmonary disease) Social History Smoking Status: Never smoker second hand exposure: No alcohol intake: current alcohol intake frequency: holidays/special occasions only substance use type: denies use current occupational status: employed Travel in the last 8 weeks: None household members: children housing: apartment number of children: 2 ROS Obtained: Yes All systems reviewed & no additional complaints except as documented and Yes Systems reviewed as appropriate & no additional complaints except as documented Constitutional Constitutional: Reports system reviewed and no additional complaints, except as documented, Reports as per HPI, Reports body ache, Reports fatigue and Reports headache(s) ENT Ears, Nose, Mouth, and Throat: Reports system reviewed and no additional complaints, except as documented, Reports as per HPI, Reports headache(s) and Reports sore throat Cardiovascular Cardiovascular: Reports system reviewed and no additional complaints, except as documented and Reports as per HPI Respiratory Respiratory: Reports system reviewed and no additional complaints, except as documented, Reports as per HPI, Reports chest congestion and Reports cough Gastrointestinal Gastrointestingal: Reports system reviewed and no additional complaints, except as documented and as per HPI Musculoskeletal Musculoskeletal: Reports system reviewed and no additional complaints, except as documented and Reports as per HPI Neurologic Neurologic: Reports headache(s) Endocrine Endocrine: Reports fatigue Physical Exam General General appearance: alert and in no apparent distress ENT ENT exam: Present mucous membranes moist Expanded ENT Exam Nose exam: Absent sinus tenderness Throat exam: Present other (Pharyngeal erythema noted with PND) Respiratory Respiratory exam: Present normal lung sounds bilaterally; Absent respiratory distress or wheezes Cardiovascular Cardiovascular exam: Present regular rate, normal rhythm and normal heart sounds Abdominal Exam Abdominal exam: Present soft and normal bowel sounds; Absent distention or tenderness Neurological Exam Neurological exam: Present alert, oriented X3 and normal gait Medical Decision Making Bruce Inquiry Pt receiving controlled substance: No Bruce was queried for this patient: No Vital Signs: 10/07/23 12:35 Temperature 98.3 F Temperature Source Oral Pulse Rate [Left Brachial] 89 Respiratory Rate 19 Blood Pressure [Left Arm] 126/81 Blood Pressure Mean [Left Arm] 96 Blood Pressure Source [Left Arm] Automatic Cuff Blood Pressure Position [Left Arm] Sitting 02 Sat by Pulse Oximetry 97 Oxygen Delivery Method Room Air Lab Data Lab results reviewed: Yes I reviewed the patient's lab results. Orders (Tests/Meds): ORDERS Category Date Time Status Rapid PCR Covid and Flu A/B Stat Lab 10/07/23 12:45 Ordered
[2023-10-07 12:51] LABS: Coronavirus 19, PCR Not Detected (NotDetected); Influenza A, PCR Not Detected (NotDetected); Influenza B, PCR Not Detected (NotDetected)
[2023-10-07 12:55] LABS: UTC Strep Screen (Rapid) Negative (Negative)
[2023-10-07 13:06] VITALS: BP 126/81; PULSE 89; RESP 19; TEMP 36.8; O2SAT 97
== END 2023-10-07 13:12 | disposition home or self-care (01) ==
PROVIDERS: Emergency Provider Nurse Practitioner; PCP Nurse Practitioner Family
DX: J02.9 Acute pharyngitis, unspecified (principal); R51.9 Headache, unspecified; R05.9 Cough, unspecified; R53.83 Other fatigue
CPT/HCPCS: 87636; 87880; 99212; 99214; G0463

== ENCOUNTER 2023-10-22 14:36 | Outpatient (CLI) | payer BC, SELFPAY ==
--- NOTE | 2023-10-22 14:43 | XR_ITS ---
FINAL REPORT CLINICAL HISTORY: Ankle injury, hardware removed in Feb, twisted ankle last saturday COMPARISON: 03/30/2023 FINDINGS: LEFT ANKLE Three views demonstrate moderate diffuse soft tissue swelling about the ankle. There is an obliquely oriented density of the talus which is probably related to known prior surgery. There is a transverse density of the distal tibial metaphysis. Punctate radiodensities are noted in the soft tissues about the ankle, probably related to prior surgery. There is no acute bony abnormality. IMPRESSION: No acute bony abnormality. Reviewed, Interpreted and Dictated by Francisco Davey MD Transcribed by Michelle Strauss Authenticated and . [facility]
== END 2023-10-22 23:59 | disposition home or self-care (01) ==
LOC: RAD 14:38
PROVIDERS: PCP Nurse Practitioner Family; Visit Provider Podiatrist
DX: M19.172 Post-traumatic osteoarthritis, left ankle and foot (principal); M25.572 Pain in left ankle and joints of left foot; M25.473 Effusion, unspecified ankle
CPT/HCPCS: 73610

== ENCOUNTER 2023-11-04 17:38 | Emergency (ER) | payer BC, SELFPAY ==
[2023-11-04 18:05] VITALS: BP 114/73; PULSE 94; RESP 20; TEMP 37.2; O2SAT 100; BMI 47.7
--- NOTE | 2023-11-04 18:32 | EXP.UTC ---
Discharge Plan Disposition Patient Disposition: Home, Self-Care Condition: Good Prescriptions Prescriptions: New amoxicillin 875 mg tablet 875 mg PO Q12H Qty: 20 0RF fluticasone propionate [Flonase Allergy Relief] 50 mcg/actuation spray,suspension 1 - 2 spray intranasal DAILY Qty: 16 0RF Rx Instructions: administer into each nostril guaifenesin [Mucinex] 600 mg tablet extended release 12hr 1,200 mg PO BID PRN (Reason: cough) Qty: 20 0RF ondansetron 4 mg tablet,disintegrating 4 mg PO Q8H PRN (Reason: nausea and vomiting) Qty: 10 0RF Referrals Follow up/Referrals: Ramila Chrsitensen APRN [Primary Care Provider] - See instructions Activity Restrictions/Add. Instructions Additional Instructions/Restrictions: *Monitor Temp, Over the counter Motrin or Tylenol as directed/as needed Tylenol every 4 hours and Motrin every 6 hours (as long as your family doctor has told you that you can take it) for fever or pain. and straight to ER if unable to lower temp less than 101.0 after medication given *Warm salt water gargles may help to soothe the throat *Throat Lozenges? *Warm fluids like tea with honey may help to soothe the throat? *Sleep elevated *Humidifier/Vaporizer *Flonase 2 sprays in each nostril daily but be aware that it may take 2-3 days before you notice improvement Follow up IMMEDIATELY for new or worsening symptoms or no Noticeable improvement over the next 48-72 hours. 911 for difficulty breathing or swallowing You were tested for today for COVID19 your test result should be back in the next 24hours, you may check your results on the [facility] [employer] [facility] Portal Clinical Impressions Clinical Impression: Otitis media Qualifiers: Otitis media type: unspecified Laterality: bilateral Qualified Code(s): H66.93 - Otitis media, unspecified, bilateral Stand Alone Forms Stand Alone Forms: Work/School Release Instructions Patient Instructions: Middle Ear Infection Print Language Print Language: Polish Discharge ED Provider: Lesvia Peter [facility] [place] H[place] General Stated complaint: covid exposure singh cough runny nose nausea Mode of Arrival: Ambulatory Source of Information: Patient Limitations: No Limitations Time Seen by Provider: 11/04/23 18:32 Description of Symptoms (Recalled from Triage Doc. by RN): PATIENT C/O HEADACHE, COUGH, RUNNY NOSE, FATIGUE, AND VOMITING SINCE YESTERDAY HEENT Symptoms (Recalled from RN notes): Yes Resp Symptoms (Recalled from RN notes): Yes Skin Symptoms (Recalled from RN notes): No MS Symptoms (Recalled from RN notes): No Functional Status (Recalled from RN notes): WNL History of Present Illness Provider Complaint: Patient states that she started feeling bad yesterday States that she is having headache, sinus congestion and pressure, cough, fatigue and nausea States today as the day has went on she is feeling worse so she came in to get checked Related Data Previous Rx's ?Medication ?Instructions ?Recorded amoxicillin 875 mg tablet 875 mg PO Q12H #20 tabs 11/04/23 fluticasone propionate 50 1 - 2 spray intranasal DAILY #16 11/04/23 mcg/actuation nasal grams spray,suspension (Flonase Allergy Relief) guaifenesin 600 mg tablet, 1,200 mg (2 x 600 mg) PO BID PRN 11/04/23 extended release 12 hr (Mucinex) cough #20 tabs ondansetron 4 mg disintegrating 4 mg PO Q8H PRN nausea and 11/04/23 tablet vomiting #10 tabs Allergies Allergy/AdvReac Type Severity Reaction Status Date / Time meloxicam Allergy Severe Rash Verified 10/01/23 09:08 NSAIDS (Non-Steroidal Allergy Mild Hives Verified 10/01/23 09:08 Anti-Inflamma Worker's Comp Is this a Worker's Comp case?: No [facility] Disclaimer: The information contained in this section may have been updated after the patient was seen, as this information can be updated by other users. Medical History Pyelonephritis Hematuria Costovertebral angle pain Lightheadedness Postoperative pain Cellulitis Cellulitis of left ankle Preoperative clearance Acute cough Viral respiratory illness Left otitis media Diarrhea Gastroenteritis Abdominal pain Generalized anxiety disorder Major depressive disorder History of fracture of left ankle Depression Vertigo Nausea & vomiting Headache Otitis media Abscess of left thigh Cellulitis of left thigh Acute bronchitis Sinusitis Viral syndrome Nausea Upper respiratory infection Plantar fasciitis of right foot Plantar fasciitis Anxiety Surgical History History of tonsillectomy and adenoidectomy History of ankle surgery History of delivery Family History Other Cancer FHx: mental illness Family history of COPD (chronic obstructive pulmonary disease) Social History Smoking Status: Never smoker second hand exposure: No alcohol intake: current alcohol intake frequency: holidays/special occasions only substance use type: denies use current occupational status: employed Travel in the last 8 weeks: None household members: children housing: apartment number of children: 2 ROS Obtained: Yes All systems reviewed & no additional complaints except as documented and Yes Systems reviewed as appropriate & no additional complaints except as documented Constitutional Constitutional: Reports system reviewed and no additional complaints, except as documented, Reports as per HPI, Reports body ache, Reports chills, Reports fever(s) and Reports headache(s) ENT Ears, Nose, Mouth, and Throat: Reports system reviewed and no additional complaints, except as documented, Reports as per HPI, Reports otalgia, Reports headache(s), Reports nasal congestion and Reports sinus pressure Cardiovascular Cardiovascular: Reports system reviewed and no additional complaints, except as documented and Reports as per HPI Respiratory Respiratory: Reports system reviewed and no additional complaints, except as documented, Reports as per HPI, Denies shortness of breath and Reports cough Gastrointestinal Gastrointestingal: Reports system reviewed and no additional complaints, except as documented, as per HPI and nausea Neurologic Neurologic: Reports headache(s) Physical Exam General General appearance: alert and in no apparent distress ENT ENT exam: Present mucous membranes moist Expanded ENT Exam TM/Canal exam: Bilateral TM: erythema and bulging Nose exam: Present sinus tenderness Respiratory Respiratory exam: Present normal lung sounds bilaterally; Absent respiratory distress or wheezes Cardiovascular Cardiovascular exam: Present regular rate, normal rhythm and normal heart sounds Abdominal Exam Abdominal exam: Present soft and normal bowel sounds; Absent distention or tenderness Neurological Exam Neurological exam: Present alert, oriented X3 and normal gait Medical Decision Making Bruce Inquiry Pt receiving controlled substance: No Bruce was queried for this patient: No Vital Signs: 11/04/23 18:05 Temperature 99.0 F Temperature Source Oral Pulse Rate [Left Brachial] 94 H Respiratory Rate 20 Blood Pressure [Left Arm] 114/73 Blood Pressure Mean [Left Arm] 86 Blood Pressure Source [Left Arm] Automatic Cuff Blood Pressure Position [Left Arm] Sitting 02 Sat by Pulse Oximetry 100 Oxygen Delivery Method Room Air
[2023-11-04 18:42] VITALS: BP 114/73; PULSE 94; RESP 20; TEMP 37.2; O2SAT 100
[2023-11-04 21:25] LABS: Influenza A, PCR Not Detected (NotDetected); Influenza B, PCR Not Detected (NotDetected)
[2023-11-04 22:52] LABS: Coronavirus 19, PCR Detected (NotDetected)
== END 2023-11-04 18:45 | disposition home or self-care (01) ==
PROVIDERS: Emergency Provider Nurse Practitioner; PCP Nurse Practitioner Family
DX: U07.1 COVID-19 (principal); H66.93 Otitis media, unspecified, bilateral; R51.9 Headache, unspecified; R05.9 Cough, unspecified; R09.81 Nasal congestion; R53.83 Other fatigue
CPT/HCPCS: 87636; 99212; 99214; G0463

== ENCOUNTER 2023-11-08 08:31 | Outpatient (CLI) | payer BC, SELFPAY ==
[2023-11-08 09:08] LABS: Influenza A, PCR Not Detected (NotDetected); Influenza B, PCR Not Detected (NotDetected)
[2023-11-08 09:31] LABS: Coronavirus 19, PCR Detected (NotDetected)
== END 2023-11-08 23:59 | disposition home or self-care (01) ==
PROVIDERS: PCP Nurse Practitioner Family; Visit Provider Nurse Practitioner Family
DX: R05.9 Cough, unspecified (principal)
CPT/HCPCS: 87636

== ENCOUNTER 2023-11-18 08:36 | Outpatient (CLI) | payer BC, SELFPAY ==
[2023-11-18 10:07] LABS: Basophils # 0.1 K/mm3 (0-0.2); Eosinophils # 0.2 K/mm3 (0.0-0.4); Eosinophils % 2.1 % (0.1-12.0); Hematocrit 46.9 % (37.0-47.0); Hemoglobin 14.6 g/dL (12.2-16.2); Lymphocytes # 2.6 K/mm3 (0.7-4.5); Lymphocytes % 27.3 % (10-50); Mean Corpuscular HGB Conc 31.1 g/dL (31.8-35.4); Mean Corpuscular Volume 89.9 fl (81-99); Mean Platelet Volume 8.6 fl (7.4-10.4); Monocytes # 0.5 K/mm3 (0.1-1.0); Monocytes % 5.4 % (1.7-9.3); Neutrophils % 64.1 % (37.0-80.0); Platelet Count 323 K/mm3 (142-424); Red Blood Count 5.22 M/mm3 (4.20-5.40); Red Cell Distribution Width 13.9 % (11.5-17.5); White Blood Count 9.4 K/mm3 (4.8-10.8)
[2023-11-19 15:12] LABS: EBV Ab VCA, IgG >600.0 U/mL (0.0-17.9); EBV Ab VCA, IgM <36.0 U/mL (0.0-35.9); EBV Nuclear Antigen Ab, IgG >600.0 U/mL (0.0-17.9)
[2023-11-21 09:38] LABS: Lyme B. burgdorferi PCR Blood Negative (Negative)
== END 2023-11-18 23:59 | disposition home or self-care (01) ==
LOC: LAB 08:36
PROVIDERS: PCP Nurse Practitioner Family; Visit Provider Nurse Practitioner Family
DX: H53.131 Sudden visual loss, right eye (principal); R42 Dizziness and giddiness
CPT/HCPCS: 36415; 85025; 86664; 86665; 87476

== ENCOUNTER 2023-11-18 15:34 | Emergency (ER) | payer BC, SELFPAY ==
[2023-11-18 15:34] VITALS: BP 145/97; PULSE 83; RESP 18; TEMP 36.6; O2SAT 99; BMI 46.3
--- NOTE | 2023-11-18 15:34 | PC.NURSE ---
Dr. Borwn at BS for pt eval
--- NOTE | 2023-11-18 15:35 | CT_ITS ---
FINAL REPORT TECHNIQUE: Axial CT images were performed through the head. Coronal reformatted images were submitted. This study was performed with techniques to keep radiation doses as low as reasonably achievable (ALARA). Individualized dose reduction techniques using automated exposure control or adjustment of mA and/or kV according to the patient's size were employed. CLINICAL HISTORY: double vision, R eye strain COMPARISON: None FINDINGS: The brain is homogeneous. The ventricles are normal in size. There is no evidence of hemorrhage. There is no mass or edema identified. There is no abnormal extra-axial fluid seen. There is mild mucoperiosteal thickening in the bilateral maxillary sinuses. IMPRESSION: No acute intracranial process. Reviewed, Interpreted and Dictated by Francisco Davey MD Transcribed by Michelle Strauss Authenticated and [facility]
--- NOTE | 2023-11-18 15:35 | CT_ITS ---
FINAL REPORT TECHNIQUE: Thin section axial CT with IV contrast supplemented with multiplanar reconstruction under CT angiogram protocol. This study was performed with techniques to keep radiation doses as low as reasonably achievable (ALARA). Individualized dose reduction techniques using automated exposure control or adjustment of mA and/or kV according to the patient's size were employed. NASCET technique utilized for stenosis evaluation. CLINICAL HISTORY: double vision, R eye strain COMPARISON: None FINDINGS: The carotid bifurcation is widely patent. RIGHT CAROTID: No significant stenosis is seen of the cervical common or internal carotid artery. LEFT CAROTID: No significant stenosis seen of the cervical common or internal carotid artery. VERTEBRALS: The vertebrals are patent. No significant stenosis is present. IMPRESSION: No significant arterial abnormality. Reviewed, Interpreted and Dictated by Francisco Davey MD Transcribed by Michelle Strauss Authenticated and . [facility]
--- NOTE | 2023-11-18 15:35 | CT_ITS ---
FINAL REPORT TECHNIQUE: thin section axial CT with and without IV contrast supplemented with multiplanar 3-D reconstruction of the head. This study was performed with techniques to keep radiation doses as low as reasonably achievable, (ALARA)individualized dose reduction techniques using automated exposure control or adjustment of mA and/or kV according to the patient's size were employed. CLINICAL HISTORY: double vision, R eye strain COMPARISON: None FINDINGS: CTA: The cranial circulation is unremarkable. There is no significant stenosis, aneurysm or occlusion. IMPRESSION: No acute process. Reviewed, Interpreted and Dictated by Francisco Davey MD Transcribed by Michelle Strauss Authenticated and [facility]
--- NOTE | 2023-11-18 15:35 | CT_ITS ---
PROCEDURE INFORMATION: Exam: CT Orbits With Contrast Exam date and time: 11/18/2023 4:11 PM Age: 32 years old Clinical indication: Visual changes or disturbances; Double vision (diplopra); Additional info: Double vision, R eye strain TECHNIQUE: Imaging protocol: Computed tomography of the orbits with contrast. Radiation optimization: All CT scans at this facility use at least one of these dose optimization techniques: automated exposure control; mA and/or kV adjustment per patient size (includes targeted exams where dose is matched to clinical indication); or iterative reconstruction. Contrast material: ISOVUE; Contrast volume: 70 ml; Contrast route: IV; COMPARISON: CT ANGIO HEAD 11/18/2023 4:03 PM FINDINGS: Paranasal sinuses: Normal. No air-fluid levels. Orbital cavities: Globes are symmetric. Orbital rims/earl are intact. Intraconal fat appear unremarkable. Lacrimal glands are unremarkable. Bones/joints: No acute fracture. Soft tissues: No significant facial soft tissue swelling. IMPRESSION: Globes are symmetric. Orbital rims/earl are intact. Intraconal fat appear unremarkable. Lacrimal glands are unremarkable.
--- NOTE | 2023-11-18 15:38 | HMH.EDGENADL ---
Discharge Plan Disposition Patient Disposition: Xfer Short-Term Hosp Condition: Good Prescriptions Prescriptions: No Action losartan-hydrochlorothiazide 50-12.5 mg tablet 1 tab PO DAILY Qty: 30 2RF clonidine HCl 0.1 mg tablet 0.1 mg PO BID PRN (Reason: hypertensive emergency) Qty: 60 0RF amoxicillin 875 mg tablet 875 mg PO Q12H Qty: 20 0RF fluticasone propionate [Flonase Allergy Relief] 50 mcg/actuation spray,suspension 1 - 2 spray intranasal DAILY Qty: 16 0RF Rx Instructions: administer into each nostril guaifenesin [Mucinex] 600 mg tablet extended release 12hr 1,200 mg PO BID PRN (Reason: cough) Qty: 20 0RF ondansetron 4 mg tablet,disintegrating 4 mg PO Q8H PRN (Reason: nausea and vomiting) Qty: 10 0RF Referrals Follow up/Referrals: Provider,Referral, MD [Primary Care Provider] - See instructions Clinical Impressions Clinical Impression: Binocular vision disorder with diplopia Print Language Print Language: Occitan Discharge ED Provider: Alma Brown General Adult HPI General Chief complaint: Neuro Symptoms/Deficit Stated complaint: double vision Time Seen by Provider: 11/18/23 15:35 History of Present Illness HPI narrative: This patient is a 32-year-old female with a history of obesity, TMJ, depression, generalized anxiety disorder, and previous evaluations by PCP and neurology for dizziness and visual disturbance in the past presenting to the emergency department for evaluation with concern for double vision. 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 She states she had been looking down at something, and then she noted her eyes would not focus. She notes that her vision is normal when she closes 1 eye, but with both eyes open she has double vision. She denies experiencing anything this in the past, but she does state that she had some blurred vision on Saturday which prompted her to be seen by an eye doctor. She states that her doctor told her everything was fine. That resolved. She denies any significant headache, numbness, tingling, weakness, chest pain, shortness of breath, abdominal pain, nausea, vomiting, or other concerns. No pain noted with this, but she does state that her right eye feels like it strained. Related Data Previous Rx's ?Medication ?Instructions ?Recorded amoxicillin 875 mg tablet 875 mg PO Q12H #20 tabs 11/04/23 fluticasone propionate 50 1 - 2 spray intranasal DAILY #16 11/04/23 mcg/actuation nasal grams spray,suspension (Flonase Allergy Relief) guaifenesin 600 mg tablet, 1,200 mg (2 x 600 mg) PO BID PRN 11/04/23 extended release 12 hr (Mucinex) cough #20 tabs ondansetron 4 mg disintegrating 4 mg PO Q8H PRN nausea and 11/04/23 tablet vomiting #10 tabs clonidine HCl 0.1 mg tablet 0.1 mg PO BID PRN hypertensive 11/15/23 emergency #60 tabs losartan 50 mg-hydrochlorothiazide 1 tab PO DAILY #30 tabs 11/15/23 12.5 mg tablet Allergies Allergy/AdvReac Type Severity Reaction Status Date / Time meloxicam Allergy Severe Rash Verified 10/01/23 09:08 NSAIDS (Non-Steroidal Allergy Mild Hives Verified 10/01/23 09:08 Anti-Inflamma [facility] Disclaimer: The information contained in this section may have been updated after the patient was seen, as this information can be updated by other users. Medical History Pyelonephritis Hematuria Costovertebral angle pain Lightheadedness Postoperative pain Cellulitis Cellulitis of left ankle Preoperative clearance Acute cough Viral respiratory illness Left otitis media Diarrhea Gastroenteritis Abdominal pain Generalized anxiety disorder Major depressive disorder History of fracture of left ankle Depression Vertigo Nausea & vomiting Headache Otitis media Abscess of left thigh Cellulitis of left thigh Acute bronchitis Sinusitis Viral syndro
--- NOTE | 2023-11-18 15:56 | PC.NURSE ---
Pt gone to RAD via stretcher
[2023-11-18 16:12] LABS: HCG Qualitative, Serum Negative (Negative)
[2023-11-18 16:14] LABS: Basophils # 0.1 K/mm3 (0-0.2); Basophils % 1.2 % (0.1-2.0); Eosinophils # 0.3 K/mm3 (0.0-0.4); Hemoglobin 14.4 g/dL (12.2-16.2); Lymphocytes # 3.3 K/mm3 (0.7-4.5); Lymphocytes % 28.9 % (10-50); Mean Corpuscular Hemoglobin 28.1 pg (27.0-31.2); Mean Platelet Volume 9.1 fl (7.4-10.4); Monocytes # 0.5 K/mm3 (0.1-1.0); Monocytes % 4.3 % (1.7-9.3); Neutrophils # 7.2 K/mm3 (1.8-7.8); Neutrophils % 62.6 % (37.0-80.0); Platelet Count 342 K/mm3 (142-424); Red Blood Count 5.11 M/mm3 (4.20-5.40); Red Cell Distribution Width 13.9 % (11.5-17.5); White Blood Count 11.5 K/mm3 (4.8-10.8)
--- NOTE | 2023-11-18 16:16 | PC.NURSE ---
pt returned from radiology
--- NOTE | 2023-11-18 16:21 | ECG_ITS ---
APPROVED REPORT Exam: Resting ECG HR:74 bpm ECG Measurements Heart Rate 74 AXES CO 137 P 58 QRSd 93 QRS 74 QT 397 T 53 QTc 425 Conclusion SINUS RHYTHM LOW QRS VOLTAGE IN PRECORDIAL LEADS [QRS DEFLECTION < 1.0 mV IN CHEST LEADS] BORDERLINE ECG Electronically signed by : PEYTON MENJIVAR, 11/19/2023 00:18:19
--- NOTE | 2023-11-18 16:21 | PC.NURSE ---
Pt returned to room from RAD
--- NOTE | 2023-11-18 16:28 | PC.NURSE ---
visual acuity: Both 20/40 R 20/50 L 20/50
[2023-11-18 16:35] LABS: Microscopic, Urine URINE MICROSCOPIC (MICROSCOPIC)
[2023-11-18 16:37] LABS: Appearance,Urine CLEAR (Clear); Bilirubin,Urine Negative (Negative); Blood, Urine 1+ (Negative); Color,Urine YELLOW (Yellow); Glucose,Urine (UA) Negative (Negative); Ketones,Urine Negative (Negative); Leukocyte Esterase,Urine Negative (Negative); Nitrate,Urine Negative (Negative); Protein,Urine Negative (Negative); Specific Gravity, Urine 1.015 (1.005-1.030); Urobilinogen,Urine 0.2 EU/dl (0.2)
[2023-11-18 16:50] VITALS: BP 137/84; PULSE 89; RESP 14; O2SAT 100
[2023-11-18 16:50] LABS: Erythrocyte Sedimentation Rate 13 mm/hr (0-20)
[2023-11-18 16:52] LABS: Bacteria,Urine Trace /lpf
--- NOTE | 2023-11-18 16:56 | PC.NURSE ---
CALLED REPORT TO SIMBA GABRIEL AT
[2023-11-18 16:57] VITALS: BP 135/82; PULSE 80; RESP 18; TEMP 36.7; O2SAT 100
--- NOTE | 2023-11-18 17:00 | PC.NURSE ---
Notified [facility] of pt transfer to [facility]
[2023-11-18 17:25] LABS: Albumin Level 4.2 g/dl (3.5-5.0); Chloride 107 mmol/L (98-107); Sodium 138 mmol/L (136-145)
[2023-11-18 17:26] LABS: Potassium 4.2 mmoL/L (3.5-5.1)
[2023-11-18 17:28] LABS: Alanine Aminotransferase 18 U/L (12-78); Anion Gap 7.2 mEq/L (5-15); Aspartate Amino Transferase 28 U/L (14-36); Blood Urea Nitrogen 12 mg/dl (7-17); Carbon Dioxide 28 mmol/L (22.0-30.0); Creatinine Clearance Estimated 87 mL/min (50-200); Estimated Glomerular Filt Rate 83 ml/min (>60); GFR (African American) 101 ML/MIN (>60)
[2023-11-18 17:29] LABS: Albumin/Globulin Ratio 1.4 (1.1-1.8); Alkaline Phosphatase 85 U/L (38-126); Bilirubin,Total 0.5 mg/dl (0.2-1.3); Calcium 8.6 mg/dl (8.4-10.2); Globulin 3.1 g/dL (1.3-3.2); Glucose 97 mg/dl (74-100); Total Protein,Serum 7.3 g/dl (6.3-8.2)
[2023-11-18 17:34] LABS: C-Reactive Protein 6.2 mg/L (0-4)
== END 2023-11-18 17:21 | disposition short-term general hospital (02) ==
PROVIDERS: Emergency Provider Emergency Medicine
DX: H53.2 Diplopia (principal); E66.01 Morbid (severe) obesity due to excess calories; F41.1 Generalized anxiety disorder; F32.A Depression, unspecified; Z68.42 Body mass index [BMI] 45.0-49.9, adult
CPT/HCPCS: 70450; 70481; 70496; 70498; 80053; 81001; 84703; 85025; 85651; 86140; 93005; 99285; Q9967

== ENCOUNTER 2023-12-05 08:52 | Outpatient (CLI) | payer BC, SELFPAY ==
--- NOTE | 2023-12-05 08:59 | MR_ITS ---
FINAL REPORT CLINICAL HISTORY: Dizziness, acute vision loss double vision FINDINGS: Multiplanar MR imaging of the brain was performed without and with contrast. Motion artifact is identified on many of the images. There is no evidence of intracranial hemorrhage or mass. No abnormal extra-axial fluid collection is seen. The ventricular size is within normal limits. There is no evidence of shift of the midline structures. The posterior fossa and brainstem have an unremarkable appearance. No area of abnormal restricted diffusion is identified. No abnormal contrast enhancement is seen. Normal major vessel vascular flow voids are noted. IMPRESSION: No acute intracranial abnormality identified. Reviewed, Interpreted and Dictated by Dio Klein III, MD Transcribed by Lilliana Che Authenticated and [facility]
[2023-12-05] MEDS: SODIUM CHLORIDE 0.9% 10ML SYR (RAD ONLY) 10 ML IV (10:12)
[2023-12-05] MEDS: GADOTERIDOL INJ 10ML SYRINGE 5 ML IV (10:12)
[2023-12-05] MEDS: GADOTERIDOL INJ 20ML SYRINGE 20 ML IV (10:12)
== END 2023-12-05 23:59 | disposition home or self-care (01) ==
LOC: RAD 08:53
PROVIDERS: PCP Nurse Practitioner Family; Visit Provider Nurse Practitioner Family
DX: R42 Dizziness and giddiness (principal); H53.133 Sudden visual loss, bilateral
CPT/HCPCS: 70553; A9576

== ENCOUNTER 2023-12-06 11:59 | Day surgery (SDC) | payer BC, SELFPAY ==
[2023-12-06 12:31] VITALS: BP 121/77; PULSE 77; RESP 16; TEMP 36.4; O2SAT 93; BMI 47.2
[2023-12-06] MEDS: LIDOCAINE 1% 30ML PF VIAL 30 ML (14:03)
[2023-12-06 14:04] VITALS: BP 138/78; PULSE 68; RESP 18; O2SAT 98
[2023-12-06 14:05] VITALS: BP 138/78; PULSE 68; RESP 18; O2SAT 98
[2023-12-06 14:52] LABS: Glucose,CSF 48 mg/dl (40-70)
[2023-12-06 14:57] VITALS: BP 129/82; PULSE 76; RESP 16; O2SAT 98
[2023-12-06 15:30] LABS: Appearance,CSF Clear (Clear); Volume,CSF 16 mL
[2023-12-06 15:31] LABS: Red Blood Cell,CSF 224 cells/uL (0); White Blood Cell,CSF 4 cells/uL (0-5)
--- NOTE | 2023-12-06 15:36 | EXP.PAIN.PRO ---
Procedure Date: 12/06/23 Time: 15:37 Anesthesiologist:: Joseph Bennett MD Complications:: None Pre-procedure Diagnosis:: Pseudotumor cerebri with visual changes and headache Post-procedure Diagnosis:: Same Indications for Procedure:: This patient is a pleasant 33-year-old white female who has some visual changes and headaches with working diagnosis of pseudotumor cerebri. She was sent for diagnostic lumbar puncture to obtain opening and closing pressures and obtain CSF. Procedure Details:: Lumbar puncture under fluoroscopy Informed consent was obtained risk and benefits of the procedure were explained to the patient. The patient was taken to the procedure room she is placed in the left lateral decubitus position. C-arm fluoroscopy was used to be the lumbar spine. The skin and subcutaneous tissues were anesthetized using lidocaine this was after the patient was prepped and draped in sterile condition. A 20-gauge spinal needle was then inserted and advanced under fluoroscopic guidance into the L4-5 interspace. After confirmation of needle placement in the intrathecal space CSF was obtained opening pressures were found to be 22 cm of water. We obtained approximately a total of 25 mL of CSF placed into a total of 4 tubes. Closing pressures were found to be 8 cm of water. The needle was withdrawn and a Band-Aid was placed the patient tolerated the procedure well with no complications. Patient was discharged home neurologically intact with good relief of pain symptoms. She was counseled on the conservative treatments for postdural puncture headache. Plan and Disposition:: Thank you for the referral we will follow-up with this patient as needed. Again opening pressures were 22 cm of water. Closing pressures were 8 cm of water.
[2023-12-06 15:54] LABS: Appearance,CSF Bloody (Clear); Red Blood Cell,CSF 1636 cells/uL (0); Volume,CSF 16 mL; White Blood Cell,CSF 19 cells/uL (0-5)
[2023-12-06 16:47] LABS: Mononuclear WBCs,CSF 68 %; Polynuclear WBCs,CSF 32 %
[2023-12-06 16:55] LABS: Mononuclear WBCs,CSF 88 %; Polynuclear WBCs,CSF 12 %
[2023-12-10 13:35] LABS: CAP Mandated Reflex to Culture Not Indicated (.); Cryptococcus Antigen, CSF Negative (Negative)
== END 2023-12-06 14:57 | disposition home or self-care (01) ==
LOC: SC.PAINP 12:00
PROVIDERS: Specialist; PCP Nurse Practitioner Family; Visit Provider Anesthesiology
DX: G93.2 Benign intracranial hypertension (principal); H53.2 Diplopia; G08 Intracranial and intraspinal phlebitis and thrombophlebitis
CPT/HCPCS: 62329; 82040; 82042; 82784; 82945; 83916; 84155; 86592; 87070; 87102; 87116; 87186; 87205; 87206; 87476; 87529; 87899; 89051

== ENCOUNTER 2023-12-07 13:22 | Emergency (ER) | payer BC, SELFPAY ==
[2023-12-07 13:38] VITALS: BP 129/77; PULSE 93; RESP 20; TEMP 36.7; O2SAT 99; BMI 47.2
--- NOTE | 2023-12-07 14:13 | PC.NURSE ---
Rounded on pt. Warm blanket provided. Pt requesting something for pain. Dr. Wu aware.
[2023-12-07] MEDS: diphenhydrAMINE 50MG/ML VIAL 25 MG IV (14:24)
[2023-12-07] MEDS: ACETAMINOPHEN 1,000MG/100ML VIAL 1000 MG IV (14:24)
[2023-12-07] MEDS: PROCHLORPERAZINE 10MG/2ML VIAL 5 MG IV (14:26)
[2023-12-07 14:30] VITALS: BP 116/74; PULSE 70; O2SAT 100
[2023-12-07] MEDS: LACTATED RINGERS 1000ML 1,000 ML 999 ML IV (14:42)
[2023-12-07 15:01] VITALS: BP 117/73; PULSE 57; O2SAT 100
--- NOTE | 2023-12-07 15:04 | ED_ITS ---
<Statement entered by Oli Hartman MD - 12/07/23 22:31> I was consulted by the ZI, and we discussed the complexity of the problems being addressed. I approved the treatment and management plan for this patient's care in the emergency department, thus performing a substantive portion of the medical decision making. Oli Hartman MD, INÉS, FACEP Discharge Plan Disposition Patient Disposition: Home, Self-Care Condition: Good Prescriptions Prescriptions: No Action fluoxetine 40 mg capsule 40 mg PO DAILY Vraylar 3 mg capsule 3 mg PO DAILY diazepam [Valium] 5 mg tablet 5 mg PO BID MDD 10 mg PRN (Reason: anxiety) Qty: 2 0RF Rx Instructions: 5 mg as needed on-call for MRI may repeat 5 mg during the test if needed for anxiety. Do not drive after taking Valium acetazolamide 250 mg tablet 250 mg PO BID MDD 500 mg Qty: 60 6RF Referrals Follow up/Referrals: Ramila Christensen APRN [Primary Care Provider] - See instructions Activity Restrictions/Add. Instructions Additional Instructions/Restrictions: Please return for worsening/ return of headache, fever vomiting or altered mental status. Follow up with your PCP or Dr. Bennett this week. Clinical Impressions Clinical Impression: Headache Instructions Patient Instructions: DI for Headache Print Language Print Language: Swazi Discharge ED Provider: Oli Hartman General Adult HPI General Chief complaint: Headache Stated complaint: neck pain Time Seen by Provider: 12/07/23 13:27 Mode of Arrival: Wheelchair Source of Information: Patient Limitations: No Limitations Description of Symptoms (Recalled from ER Triage Doc. by RN): pt reports she had a lumbar puncture yesterday by due to intermittant double vision. pt c/o a migraine, photophobia, neck pain, bilateral shoulder pain that radiates distal to her fingers, and tingling in her fingers. pt states her pain is aching in nature and a 9/10. pt reports the migraine slightly improves when lying flat. pt took 2 excederin 20 min [employer]LEPH[employer] KEE[employer]. History of Present Illness HPI narrative: Patient presents with a headache radiating into her shoulders and neck. She reports she had an LP yesterday for a workup for pseudotumor cerebri. She has taken Excedrin, fluids, caffeine without relief. Patient reports headache is better when she lays flat. Denies any fever. She has nausea without vomiting. She denies any current . Onset (ago): day(s) (1) Location: head Radiation: neck Severity: severe Severity scale (1-10): 9 Consistency: constant Relieving factors: other (laying flat ) Exacerbating factors: other (standing ) Associated symptoms: nausea/vomiting Treatments prior to arrival: other (excedrin, caffeine, fluids ) Related Data Home Medications ?Medication ?Instructions ?Recorded ?Confirmed cariprazine 3 mg capsule (Vraylar) 3 mg PO DAILY 12/04/23 12/06/23 fluoxetine 40 mg capsule 40 mg PO DAILY 12/04/23 12/06/23 Previous Rx's ?Medication ?Instructions ?Recorded acetazolamide 250 mg tablet 250 mg PO BID Pseudotumor cerebri 12/04/23 #60 tabs diazepam 5 mg tablet (Valium) 5 mg PO BID PRN anxiety #2 tabs 12/04/23 Allergies Allergy/AdvReac Type Severity Reaction Status Date / Time meloxicam Allergy Severe Rash Verified 12/07/23 13:44 NSAIDS (Non-Steroidal Allergy Mild Hives Verified 12/07/23 13:44 Anti-Inflamma PFSH [facility] Disclaimer: The information contained in this section may have been updated after the patient was seen, as this information can be updated by other users. Medical History (Updated 12/07/23 @ 17:02 by CRISTIANE Watters) Double vision Pyelonephritis Hematuria Costovertebral angle pain Lightheadedness Postoperative pain Cellulitis Cellulitis of left ankle Preoperative clearance Acute cough Viral respiratory illness Left otitis media Diarrhea Gastroenteritis Abdominal pain Generalized anxiety disorder Major depressive disorder History of fracture of left ankle Depression Vertigo Nausea & vomiting Headache Otitis media Abscess of left thigh Cellulitis of left thigh Acute bronchitis Sinusitis Viral syndrome Nausea Upper respiratory infection Plantar fasciitis of right foot Plantar fasciitis Anxiety Surgical History History of tonsillectomy and adenoidectomy History of ankle surgery History of delivery Family History Other Cancer FHx: mental illness Family history of COPD (chronic obstructive pulmonary disease) May-Thurner syndrome Social History Smoking Status: Never smoker second hand exposure: No alcohol intake: current alcohol intake frequency: holidays/special occasions only substance use type: denies use current occupational status: employed Travel in the last 8 weeks: None household members: children housing: apartment marital status: single number of children: 2 ROS Obtained: Yes Systems reviewed as appropriate & no additional complaints except as documented Physical Exam General General appearance: alert and in no apparent distress Head Head exam: atraumatic and normocephalic Eye Eye exam: Present normal appearance and EOMI Neck Neck exam: Present full ROM; Absent meningismus Chest Chest inspection: Present symmetric chest wall rise Respiratory Respiratory exam: Present normal lung sounds bilaterally; Absent wheezes or stridor Cardiovascular Cardiovascular exam: Present regular rate and normal rhythm; Absent systolic murmur Extremities Exam Extremities exam: Present full ROM Neurological Exam Neurological exam: Present alert, oriented X3 and CN II-XII intact; Absent motor sensory deficit Psychiatric Psychiatric exam: Present normal affect and normal mood Skin Skin exam: Present warm, dry and intact Medical Decision Making Bruce Inquiry Pt receiving controlled substance: No Vital Signs: 12/07/23 13:38 12/07/23 14:30 12/07/23 15:01 Temperature 98.1 F Temperature Source Oral Pulse Rate 70 57 L Pulse Rate [Left] 93 H Respiratory Rate 20 Blood Pressure 116/74 117/73 Blood Pressure [Right Arm] 129/77 Blood Pressure Mean [Right Arm] 94 Blood Pressure Source [Right Arm] Automatic Cuff Blood Pressure Position [Right Arm] Sitting 02 Sat by Pulse Oximetry 99 100 100 Oxygen Delivery Method Room Air Room Air Room Air 12/07/23 15:30 12/07/23 17:09 Temperature 98.1 F Temperature Source Pulse Rate 56 L 65 Pulse Rate [Left] Respiratory Rate 16 Blood Pressure 106/76 L 106/66 L Blood Pressure [Right Arm] Blood Pressure Mean [Right Arm] Blood Pressure Source [Right Arm] Blood Pressure Position [Right Arm] 02 Sat by Pulse Oximetry 100 Oxygen Delivery Method Room Air Orders (Tests/Meds): ED MEDICATIONS Discontinued Medications Generic Name Dose Route Start Last Admin Trade Name Freq PRN Reason Stop Dose Admin Acetaminophen 1,000 mg 12/07/23 14:14 12/07/23 14:24 Acetaminophen 1,000mg/100ml Vial IV 12/07/23 14:15 1,000 mg ONCE ONE Administration Diphenhydramine HCl 25 mg 12/07/23 14:14 12/07/23 14:24 Diphenhydramine 50mg/Ml Vial IV 12/07/23 14:15 25 mg ONCE ONE Administration Lactated Ringer's 1,000 mls @ 999 mls/hr 12/07/23 14:14 12/07/23 14:42 Lactated Ringer's 1000 Ml Bag IV 12/07/23 15:14 999 mls/hr .Q1H1M ONE Administration Prochlorperazine Edisylate 5 mg 12/07/23 14:14 12/07/23 14:26 Prochlorperazine 10mg/2ml Vial IV 12/07/23 14:15 5 mg ONCE ONE Administration Medical Decision Narrative: Patient presents with headache following LP. Denies any fevers, reports headache with standing, improved with laying flat. Anesthesia consulted for blood patch. In summary patient is a [33-year-old female ] who presents the emergency department for evaluation of headache. Patient is [hemodynamically stable] upon arrival, afebrile. Unremarkable physical exam. Differential diagnosis includes post lumbar puncture headache, meningitis, migraine. She has not had any fever, no meningeal signs and improves after blood patch, I feel post lumbar puncture headache is the most likely diagnosis. Initial inventions include IV fluids, migraine cocktail. Upon repeat evaluation patient has had an acceptable resolution of symptoms. Given this patient is appropriate for discharge at this time and will be discharged with strict return precautions. Critical Care Critical Care Time Critical Care Time: No
--- NOTE | 2023-12-07 15:05 | PC.NURSE ---
paged Anesthesiologist outside residential sales professional.
--- NOTE | 2023-12-07 15:06 | PC.NURSE ---
PA o/p with Anesthesiologist at this time.
[2023-12-07 15:30] VITALS: BP 106/76; PULSE 56; O2SAT 100
--- NOTE | 2023-12-07 16:07 | EXP.ANES.CKL ---
[facility] Disclaimer: The information contained in this section may have been updated after the patient was seen, as this information can be updated by other users. Medical History Double vision Pyelonephritis Hematuria Costovertebral angle pain Lightheadedness Postoperative pain Cellulitis Cellulitis of left ankle Preoperative clearance Acute cough Viral respiratory illness Left otitis media Diarrhea Gastroenteritis Abdominal pain Generalized anxiety disorder Major depressive disorder History of fracture of left ankle Depression Vertigo Nausea & vomiting Headache Otitis media Abscess of left thigh Cellulitis of left thigh Acute bronchitis Sinusitis Viral syndrome Nausea Upper respiratory infection Plantar fasciitis of right foot Plantar fasciitis Anxiety Surgical History History of tonsillectomy and adenoidectomy History of ankle surgery History of delivery Family History Other Cancer FHx: mental illness Family history of COPD (chronic obstructive pulmonary disease) May-Thurner syndrome Social History Smoking Status: Never smoker second hand exposure: No alcohol intake: current alcohol intake frequency: holidays/special occasions only substance use type: denies use current occupational status: employed Travel in the last 8 weeks: None household members: children housing: apartment marital status: single number of children: 2 [facility] Anesthesia Checklist Patient Identification Patient Identification: Arm Band and Verbal (Name & ) Structural Data Admitted From: Emergency Dept ([facility]) Planned Operative Procedure/s: Epidural blood patch Consent for Planned Operative Procedure(s) Verified: Yes Verified Documents: Surgical Consent and History and Physical NPO Status Verified Time NPO: 12:00 Chart Verification Results Verified: CBC, BMP, ECG and Chest Xray Additional verifications Patient : No Anesthesia Reactions: No Hx Blood Transfusions: No Blood Transfusion Reaction: No Cardiovascular Assessment Heart Sounds: S1 & S2 Pulse Rhythm: Irregular Peripheral Edema: No Airway Assessment Mallampati Score:: Class II C-Spine Mobility Assessed: Yes (Limited flexion d/t pain from spinal headcache) TMJ Mobility Assessed: Yes Dentition: Good Dentition (Nothing loose per pt.) Neurological Assessment Level of Consciousness: Awake, Alert, Appropriate and Follows Commands Hx Seizures: No Numbness or tingling in extremities: Yes (chronic MELINA UE) Anesthesia Plan Anesthesia Risk discussed: Yes Anesthesia Plan: Verified ASA Class: III Anesthesia Type: Epidural (Epidural blood patch)
--- NOTE | 2023-12-07 16:12 | HMH.PROCNOTE ---
[facility] Procedure Note Date: 12/07/23 Time: 15:45 Procedure Note:: Anesthesia Procedure Note Vasquez at 15:03 for epidural blood patch. Arrived 15:25. Had t retrieve supplies from OB & OR departments. Interviewed patient. Discussed R/B/A including but not limited to: only 25% chance of improvement of PDP headache, worsening of dural defect with worsening headache, bleeding, infection, and damage to skin & surrounding tissues. Patient verbalized understanding and consented to epidural blood patch. Epidural Blood patch Position: Sitting Site: L3-4 Prep: Betadine x3 Local to skin: Lido 1% x 3mL Needle: 17g Touhy Attempts: 1 SOHAIL to air @: 9cm CSF: NEG; Heme: NEG; Parasthesia: NEG Blood Patch: 20mL whole blood taken from patient's right inner wrist w/AST. Injected steriley into epidural pace over 90sec. Pt. denied any increase in Headache, parasthesia, or blurred vision. Patient instructed tolie flat for 15mins. Will follow as needed.
[2023-12-07 17:09] VITALS: BP 106/66; PULSE 65; RESP 16; TEMP 36.7; O2SAT 99
== END 2023-12-07 17:19 | disposition home or self-care (01) ==
PROVIDERS: Emergency Provider Student in an Organized Health Care Education/Training Program; PCP Nurse Practitioner Family
DX: R51.9 Headache, unspecified (principal)
CPT/HCPCS: 96361; 96374; 96375; 99284; J0131; J0780; J1200; J7120

== ENCOUNTER 2023-12-09 14:51 | Emergency (ER) | payer BC, SELFPAY ==
[2023-12-09 14:51] VITALS: BP 119/85; PULSE 69; RESP 16; TEMP 36.8; O2SAT 98; BMI 47.2
--- NOTE | 2023-12-09 14:54 | ECG_ITS ---
APPROVED REPORT Exam: Resting ECG HR:81 bpm ECG Measurements Heart Rate 81 AXES ME 125 P 71 QRSd 87 QRS 79 QT 380 T 46 QTc 417 Conclusion SINUS RHYTHM NORMAL ECG Electronically signed by : LOLY ALANIS, 12/09/2023 17:59:46
[2023-12-09 15:03] VITALS: BP 119/85; PULSE 64; O2SAT 97
[2023-12-09 15:09] LABS: Basophils # 0.1 K/mm3 (0-0.2); Basophils % 0.9 % (0.1-2.0); Eosinophils # 0.3 K/mm3 (0.0-0.4); Hematocrit 44.2 % (37.0-47.0); Lymphocytes # 2.9 K/mm3 (0.7-4.5); Mean Corpuscular HGB Conc 31.7 g/dL (31.8-35.4); Mean Corpuscular Hemoglobin 28.2 pg (27.0-31.2); Mean Platelet Volume 8.9 fl (7.4-10.4); Monocytes # 0.4 K/mm3 (0.1-1.0); Neutrophils # 8.5 K/mm3 (1.8-7.8); Platelet Count 326 K/mm3 (142-424); Red Blood Count 4.97 M/mm3 (4.20-5.40); Red Cell Distribution Width 14.4 % (11.5-17.5); White Blood Count 12.2 K/mm3 (4.8-10.8)
[2023-12-09 15:14] LABS: Albumin Level 4.3 g/dl (3.5-5.0); Chloride 111 mmol/L (98-107); Potassium 3.9 mmoL/L (3.5-5.1); Sodium 140 mmol/L (136-145)
--- NOTE | 2023-12-09 15:14 | XR_ITS ---
FINAL REPORT CLINICAL HISTORY: Nonspecific chest pain COMPARISON: 08/22/2023 FINDINGS: PA and lateral views of the chest were obtained. The cardiac and mediastinal silhouettes are within normal limits. The lungs are clear. There is no pleural effusion or pneumothorax. No acute osseous abnormality is identified. IMPRESSION: No radiographic evidence of acute cardiac or pulmonary disease. Reviewed, Interpreted and Dictated by Glo Lucas MD Transcribed by Elsa Turpin Authenticated and [facility]
[2023-12-09 15:17] LABS: Alanine Aminotransferase 22 U/L (12-78); Albumin/Globulin Ratio 1.3 (1.1-1.8); Alkaline Phosphatase 73 U/L (38-126); Anion Gap 8.9 mEq/L (5-15); Aspartate Amino Transferase 31 U/L (14-36); Bilirubin,Total 0.5 mg/dl (0.2-1.3); Blood Urea Nitrogen 11 mg/dl (7-17); Calcium 9.1 mg/dl (8.4-10.2); Carbon Dioxide 24 mmol/L (22.0-30.0); Creatinine Clearance Estimated 77 mL/min (50-200); Estimated Glomerular Filt Rate 72 ml/min (>60); GFR (African American) 87 ML/MIN (>60); Globulin 3.3 g/dL (1.3-3.2); Glucose 93 mg/dl (74-100); Total Protein,Serum 7.6 g/dl (6.3-8.2)
--- NOTE | 2023-12-09 15:22 | ED_ITS ---
Discharge Plan Disposition Patient Disposition: Home, Self-Care Prescriptions Prescriptions: No Action fluoxetine 40 mg capsule 40 mg PO DAILY Vraylar 3 mg capsule 3 mg PO DAILY diazepam [Valium] 5 mg tablet 5 mg PO BID MDD 10 mg PRN (Reason: anxiety) Qty: 2 0RF Rx Instructions: 5 mg as needed on-call for MRI may repeat 5 mg during the test if needed for anxiety. Do not drive after taking Valium acetazolamide 250 mg tablet 250 mg PO BID MDD 500 mg Qty: 60 6RF Referrals Follow up/Referrals: Provider,Referral, MD [Referring] - See instructions Activity Restrictions/Add. Instructions Additional Instructions/Restrictions: At this time it was felt you are safe to be discharged home. If new or worsening symptoms please do not hesitate to return the emergency department. Please continue to follow-up with the prescriber of acetazolamide for long-term management of your IIH. Clinical Impressions Clinical Impression: Adverse effects of medication, Chest tightness Print Language Print Language: Khmer Discharge ED Provider: David Wu General Chief Complaint: Chest Pain Stated Complaint: chest pain Time Seen by Provider: 12/09/23 15:05 Mode of Arrival: Ambulatory Source of Information: Patient Limitations: No Limitations Description of Symptoms (Recalled from ER Triage Doc. by RN): pt to the ER with intense chest pressure that started today along with bilateral hand tingling and a numbness sensation around her mouth. pt reports she had a lumbar puncture and blood patch over the weekend and was placed on Acetazolamide for increased CFS pressure. pt reports she has taken excedrin migraine twice today with her current medication and reliazed she wasnt supposed to take apirin with it. pt was briefly seen at her PCP Ramila [facility] and sent to the ER History of Present Illness HPI narrative: Patient is a 33-year-old female with past medical history of recent lumbar puncture with elevated pressure concerning for IIH, subsequent post LP headache status post blood patch, anxiety who presents emergency department for evaluation of tingling and chest tightness. Onset was acute, few hours prior to arrival. She has had tingling in her extremities before however this is different, this is involving her hands and her feet bilaterally. Chest tightness is anterior, not reported to radiate through to the back. No true chest pain just tightness. No trauma. No other acute complaints at this time. Symptoms are refractory to aspirin at home. Related Data Home Medications ?Medication ?Instructions ?Recorded ?Confirmed cariprazine 3 mg capsule (Vraylar) 3 mg PO DAILY 12/04/23 12/06/23 fluoxetine 40 mg capsule 40 mg PO DAILY 12/04/23 12/06/23 Previous Rx's ?Medication ?Instructions ?Recorded acetazolamide 250 mg tablet 250 mg PO BID Pseudotumor cerebri 12/04/23 #60 tabs diazepam 5 mg tablet (Valium) 5 mg PO BID PRN anxiety #2 tabs 12/04/23 Allergies Allergy/AdvReac Type Severity Reaction Status Date / Time meloxicam Allergy Severe Rash Verified 12/07/23 13:44 NSAIDS (Non-Steroidal Allergy Mild Hives Verified 12/07/23 13:44 Anti-Inflamma PFSH [facility] Disclaimer: The information contained in this section may have been updated after the patient was seen, as this information can be updated by other users. Medical History (Updated 12/09/23 @ 16:29 by David Wu MD) Double vision Pyelonephritis Hematuria Costovertebral angle pain Lightheadedness Postoperative pain Cellulitis Cellulitis of left ankle Preoperative clearance Acute cough Viral respiratory illness Left otitis media Diarrhea Gastroenteritis Abdominal pain Generalized anxiety disorder Major depressive disorder History of fracture of left ankle Depression Vertigo Nausea & vomiting Headache Otitis media Abscess of left thigh Cellulitis of left thigh Acute bronchitis Sinusitis Viral syndrome Nausea Upper respiratory infection Plantar fasciitis of right foot Plantar fasciitis Anxiety Surgical History History of tonsillectomy and adenoidectomy History of ankle surgery History of delivery Family History Other Cancer FHx: mental illness Family history of COPD (chronic obstructive pulmonary disease) May-Thurner syndrome Social History Smoking Status: Never smoker second hand exposure: No alcohol intake: current alcohol intake frequency: holidays/special occasions only substance use type: denies use current occupational status: employed Travel in the last 8 weeks: None household members: children housing: apartment marital status: single number of children: 2 ROS Obtained: Yes Systems reviewed as appropriate & no additional complaints except as documented Physical Exam General General appearance: alert and in no apparent distress Head Head exam: atraumatic and normocephalic Eye Eye exam: Present PERRL and EOMI ENT ENT exam: Present mucous membranes moist Neck Neck exam: Present normal inspection Chest Chest inspection: Present normal inspection and symmetric chest wall rise Respiratory Respiratory exam: Present normal lung sounds bilaterally; Absent respiratory distress Cardiovascular Cardiovascular exam: Present regular rate and normal rhythm Abdominal Exam Abdominal exam: Present soft; Absent tenderness Extremities Exam Extremities exam: Present normal inspection Neurological Exam Neurological exam: Present alert, oriented X3 and CN II-XII intact; Absent motor sensory deficit Psychiatric Psychiatric exam: Present normal affect Skin Skin exam: Present warm and dry HEART Score HEART Score HEART Score assessment performed?: Yes History (anamnesis): Slightly suspicious ECG: Normal Age: <45 years Risk factors: No known risk factors Troponin: </= normal limit HEART Score: 0 Critical Care Critical Care Time Critical Care Time: No Medical Decision Making Bruce Inquiry Pt receiving controlled substance: No Vital Signs Vital Signs: 12/09/23 14:51 12/09/23 15:03 12/09/23 15:24 Temperature 98.2 F Temperature Source Oral Pulse Rate 64 65 Pulse Rate [Left Radial] 69 Respiratory Rate 16 Blood Pressure 119/85 131/76 Blood Pressure [Right Arm] 119/85 Blood Pressure Mean 90 Blood Pressure Mean [Right Arm] 96 02 Sat by Pulse Oximetry 98 97 100 Oxygen Delivery Method Room Air Room Air 12/09/23 15:31 12/09/23 16:01 Temperature Temperature Source Pulse Rate 61 67 Pulse Rate [Left Radial] Respiratory Rate Blood Pressure 132/90 111/68 Blood Pressure [Right Arm] Blood Pressure Mean 104 87 Blood Pressure Mean [Right Arm] 02 Sat by Pulse Oximetry 100 100 Oxygen Delivery Method Room Air Room Air Lab Data Labs: Lab Results 12/09/23 14:58: WBC 12.2 H, RBC 4.97, Hgb 14.0, Hct 44.2, MCV 89.0, MCH 28.2, M CHC 31.7 L, RDW 14.4, Plt Count 326, MPV 8.9, Neut % (Auto) 70.0, Lymph % (Auto) 24.0, [place] % (Auto) 3.0, Eos % (Auto) 2.0, Baso % (Auto) 0.9, Neut # (Auto) 8.5 H, Lymph # (Auto) 2.9, [place] # (Auto) 0.4, Eos # (Auto) 0.3, Baso # (Auto) 0.1, Sodium 140, Potassium 3.9, Chloride 111 H, Carbon Dioxide 24, Anion Gap 8.9, BUN 11, Creatinine 0.90, Estimated Creat Clear 77, Estimated GFR 72, Est GFR ( Amer) 87, Glucose 93, Calcium 9.1, Magnesium 1.6, Total Bilirubin 0.5, AST 31, ALT 22, Alkaline Phosphatase 73, Troponin I < 0.01, Total Protein 7.6, Albumin 4.3, Globulin 3.3 H, Albumin/Globulin Ratio 1.3, Serum HCG, Qual Negative 12/09/23 14:58 12/09/23 14:58 Response Orders (Tests/Meds): ED MEDICATIONS Generic Name Dose Route Start Last Admin Trade Name Freq PRN Reason Stop Dose Admin Sodium Chloride 10 ml 12/09/23 15:04 Sodium Chloride 0.9% 10ml Flush Syringe IV 01/08/24 15:03 NEEDED PRN Maintain IV Site Discontinued Medications Generic Name Dose Route Start Last Admin Trade Name Freq PRN Reason Stop Dose Admin Hydroxyzine Pamoate 50 mg 12/09/23 15:17 Hydroxyzine Pamoate 25mg Capsule PO 12/09/23 15:18 ONCE ONE ORDERS Category Date Time Status CXR 2 view (NOT portable) [XR chest 2V] Stat Exams 12/09/23 15:14 Taken Complete Blood Count Auto Diff Stat Lab 12/09/23 14:58 Completed Comprehensive Metabolic Panel Stat Lab 12/09/23 14:58 Completed HCG Qualitative, Serum Stat Lab 12/09/23 14:58 Completed MG [Magnesium] Stat Lab 12/09/23 14:58 Completed Troponin I Q3H Lab 12/09/23 18:15 Ordered Troponin I Q3H Lab 12/09/23 21:15 Ordered Troponin I Stat Lab 12/09/23 14:58 Completed ECG Data Tracing #1: ECG Narrative: Independently inter by me rate is 81, rhythm is regular, axis is normal, no ST elevation in anatomical contiguous leads, QTc 417. MDM Narrative Medical Decision Narrative: In summary patient is a 33-year-old female past medical history described above who presents emergency department for evaluation of chest tightness and tingling. Patient is hemodynamically stable nontoxic-appearing upon arrival, afebrile. Differential diagnosis includes ACS, noncardiac chest pain, medication side effect, among others. Given the patient has taken aspirin recently could alter the pharmacokinetics of acetazolamide which may become supratherapeutic can cause paresthesias which is well-established. 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 PERC negative. Limited workup we conducted with hematologic labs, chest x-ray, EKG, troponin. Initial inventions include hydroxyzine. Work reviewed by me, hematologic labs are nonactionable, chest x-ray informally interpreted by me, no acute lobar opacities or large pneumothorax. Upon repeat evaluation patient continued to be well-appearing, ambulatory bedside is appropriate for outpatient management at this time.
[2023-12-09 15:24] VITALS: BP 131/76; PULSE 65; O2SAT 100
[2023-12-09 15:28] LABS: HCG Qualitative, Serum Negative (Negative)
[2023-12-09 15:29] LABS: Magnesium 1.6 mg/dl (1.6-2.3)
[2023-12-09 15:31] VITALS: BP 132/90; PULSE 61; O2SAT 100
[2023-12-09 15:42] LABS: Troponin I < 0.01 ng/ml (0.00-0.034)
[2023-12-09 16:01] VITALS: BP 111/68; PULSE 67; O2SAT 100
[2023-12-09 16:41] VITALS: BP 117/71; PULSE 76; RESP 16; TEMP 36.8; O2SAT 100
== END 2023-12-09 16:48 | disposition home or self-care (01) ==
PROVIDERS: Emergency Provider Emergency Medicine; PCP Nurse Practitioner Family
DX: R07.9 Chest pain, unspecified (principal); T50.2X5A Adverse effect of carbonic-anhydrase inhibitors, benzothiadiazides and other diuretics, initial encounter
CPT/HCPCS: 71046; 80053; 83735; 84484; 84703; 85025; 93005; 99284

== ENCOUNTER 2024-01-06 09:28 | Outpatient (CLI) | payer BC, SELFPAY ==
--- NOTE | 2024-01-06 09:46 | XR_ITS ---
FINAL REPORT CLINICAL HISTORY: ankle pain and swelling COMPARISON: 03/30/2023 FINDINGS: LEFT ANKLE 3 views of the left ankle were obtained. There are hardware defects seen transversely in the distal tibia and obliquely in the talus. There is no acute fracture or dislocation. There is moderate narrowing of the mortise. Visualized joint spaces are normally aligned. There is diffuse soft tissue edema with punctate densities seen throughout the soft tissues. IMPRESSION: Soft tissue edema without acute bony abnormality. Reviewed, Interpreted and Dictated by Francisco Davey MD Transcribed by Elsa Turpin Authenticated and [facility]
== END 2024-01-06 23:59 | disposition home or self-care (01) ==
LOC: RAD 09:29
PROVIDERS: PCP Nurse Practitioner Family; Visit Provider Podiatrist
DX: M25.572 Pain in left ankle and joints of left foot (principal); M25.472 Effusion, left ankle
CPT/HCPCS: 73610

== ENCOUNTER 2024-01-09 08:41 | Outpatient (CLI) | payer BC, SELFPAY ==
[2024-01-09 10:04] LABS: Thyroid Stimulating Hormone 1.75 uIU/mL (0.465-4.68)
[2024-01-10 11:15] LABS: Estradiol 38.7 pg/mL (.); FSH 7.8 mIU/mL (.); LH 4.3 mIU/mL (.); Progesterone 0.3 ng/mL (.)
[2024-01-17 11:15] LABS: Free Testosterone (Direct) 2.5 pg/mL (0.0-4.2); Testosterone, Total, LC/MS 33.6 ng/dL (10.0-55.0)
== END 2024-01-09 23:59 | disposition home or self-care (01) ==
LOC: LAB 15:15
PROVIDERS: PCP Nurse Practitioner Family; Visit Provider Nurse Practitioner Family
DX: E34.9 Endocrine disorder, unspecified (principal); Z13.1 Encounter for screening for diabetes mellitus; R63.6 Underweight; Z68.42 Body mass index [BMI] 45.0-49.9, adult
CPT/HCPCS: 36415; 82533; 82670; 83001; 83002; 83036; 84144; 84443

== ENCOUNTER 2024-02-13 12:40 | Outpatient (CLI) | payer BC, SELFPAY ==
[2024-02-13 15:32] VITALS: BMI 48.4
== END 2024-02-13 23:59 | disposition home or self-care (01) ==
LOC: DIETICIAN 12:40
PROVIDERS: PCP Nurse Practitioner Family; Visit Provider Nurse Practitioner Family
DX: G93.2 Benign intracranial hypertension (principal); R63.5 Abnormal weight gain
CPT/HCPCS: 97802

== ENCOUNTER 2024-02-28 16:00 | Outpatient (RCR) | payer BC, SELFPAY ==
--- NOTE | 2024-01-20 11:48 | HMH.PTOPWND ---
Rehab Outpt Wound Evaluation Rehab OP Wound Evaluation Start: 01/20/24 11:34 Freq: Status: Active Protocol: Document 01/20/24 11:34 PARDEEP (Rec: 01/20/24 11:47 PHOLUIS [id number]) E-signed By Juan F Bruno, PT Subjective/History History History This is the initial PT eval for Lola Garza, 33 yowf who presents with c/o L ankle edema increased for 1-2 yrs overall, but worse x ~ 3-4 wks this episode. She reports prior hx of L ankle ORIF with hardware removal performed ~ 1 yr ago. She has been suffering from increased edema and pain since that time. She reports the edema is not decreased with elevation of the L LE > 4 wks, not decreased with daily exercise, and not decreased with consistent wear of compression garments x > 4 wks. She also presents with mild redness in the L LE, increased scar tissue noted on the distal end of her lateral ankle incision . Subjective Subjective Pain currently 0/10, at worst 8/10 in the L ankle. Mild dryness of the skin noted around L ankle. 2/4 TTP to distal scar on lateral L ankle . New diagnosis of cancer in past 12 No months? Lymphedema Eval Classification of Lymphedema Secondary Lymphedema Yes Post-Surgical Lymphedema Yes Stemmer's sign Stemmer's Sign no Stage of Lymphedema Lymphedema stages Stage II (Pitting edema, increased fibrosis w/ decreased pitting) Skin Changes Dry Skin Yes Skin Folds Yes Redness Yes Other Changes Yes Pain Scale Pain Scale (0-10) 8 Affected Extremities Areas Affected by Lymphedema/Edema Left Lower Extremity Lower Extremity Measurements Left MTP Measurement (cm) 22.7 Heel Measurement (cm) 32.6 10 cm Proximal to Lateral Malleoli 30.5 Measurement (cm) 20 cm Proximal to Lateral Malleoli 42.0 Measurement (cm) 30 cm Proximal to Lateral Malleoli 49.7 Measurement (cm) 40 cm Proximal to Lateral Malleoli 50.9 Measurement (cm) 50 cm Proximal to Lateral Malleoli 0 Measurement (cm) 60 cm Proximal to Lateral Malleoli 0 Measurement (cm) Lower Extremity Measurement Total (cm) 228.4 Manual Lymphatic Drainage Treatment Area MLD Treatment Area Left Lower Extremity Wound Problems/Impairments Impairments Problems/Impairmments Palpation Tenderness,Impaired Walking,Impaired Recreational Activities,Increased Edema, Lymphedema Present,Subjective C/O Pain,Impaired Self Care/ Self Management Prognosis Rehab Potential Good Comment Skilled therapy is indicated to reduce overall edema burden and return pt to PLOF. 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 Goals Number of Weeks 4 Decreased Palpation Tenderness Yes: 0/4 L lateral ankle Decrease Lymphedema Yes: No fibrotic edema L LE Decrease Subjective C/O Pain Yes: 4/10 at worst L LE Patient to be Ind w/ HEP Yes Patient to be Ind w/ [place] Yes Compression Garments Patient to Adhere Lymphedema Precautions Yes Decrease Girth Measurments by (cm) Yes: L LE total by 15 cm Outpatient Therapy Plan of Care Treatment Plan May Include Therapeutic Exercise Including Home Yes Exercise Program Manual Therapy Techniques Yes Neuromuscular Re-education Yes Therapeutic Activities to Return to Yes Previous Functional/Work Level ADL/Self Care Education Yes Orthotics/Bracing/Splinting Yes Manual Lymphatic Drainage Yes Eval/Re-Eval Yes Frequency Times per week 2 Duration Number of Weeks 4 Addendums This patient is a candidate for social No or vocational rehab? Patient/Guardian verbally acknowledges Yes understanding of treatment program and consents to further treatment? Patient/Guardian verbally acknowledges Yes understanding of diagnosis, prognosis and goals for treatment? Eval Complexity PT Charges 53179 - High Complexity PHYSICIAN CERTIFICATION: I certify the specified therapy services for Lola Garza are required, authorized, and reviewed every 30 days.
== END 2024-02-28 23:59 | disposition home or self-care (01) ==
LOC: PT 16:00
PROVIDERS: PCP Nurse Practitioner Family; Visit Provider Podiatrist
DX: I89.0 Lymphedema, not elsewhere classified (principal)
CPT/HCPCS: 97140; 97163

== ENCOUNTER 2024-04-10 15:42 | Outpatient (CLI) | payer MEDICAID, SELFPAY ==
[2024-04-10 15:50] LABS: Basophils # 0.1 K/mm3 (0-0.2); Basophils % 0.4 % (0.1-2.0); Eosinophils # 0.1 K/mm3 (0.0-0.4); Eosinophils % 0.7 % (0.1-12.0); Hematocrit 41.9 % (37.0-47.0); Hemoglobin 13.5 g/dL (12.2-16.2); Lymphocytes % 22.6 % (10-50); Mean Corpuscular HGB Conc 32.2 g/dL (31.8-35.4); Mean Corpuscular Hemoglobin 27.8 pg (27.0-31.2); Mean Corpuscular Volume 86.2 fl (81-99); Monocytes # 0.7 K/mm3 (0.1-1.0); Monocytes % 5.2 % (1.7-9.3); Neutrophils # 9.5 K/mm3 (1.8-7.8); Neutrophils % 70.8 % (37.0-80.0); Platelet Count 278 K/mm3 (142-424); Red Blood Count 4.86 M/mm3 (4.20-5.40); Red Cell Distribution Width 13.7 % (11.5-17.5); White Blood Count 13.4 K/mm3 (4.8-10.8)
[2024-04-10 16:01] LABS: Chloride 104 mmol/L (98-107); Sodium 136 mmol/L (136-145)
[2024-04-10 16:02] LABS: Potassium 3.8 mmoL/L (3.5-5.1)
[2024-04-10 16:03] LABS: HCG Qualitative, Serum Negative (Negative)
[2024-04-10 16:04] LABS: Alanine Aminotransferase 22 U/L (12-78); Albumin/Globulin Ratio 1.6 (1.1-1.8); Alkaline Phosphatase 82 U/L (38-126); Amylase 52 U/L (30-110); Anion Gap 10.8 mEq/L (5-15); Aspartate Amino Transferase 21 U/L (14-36); Bilirubin,Total 0.4 mg/dl (0.2-1.3); Blood Urea Nitrogen 10 mg/dl (7-17); Calcium 9.1 mg/dl (8.4-10.2); Carbon Dioxide 25 mmol/L (22.0-30.0); Estimated Glomerular Filt Rate 115 ml/min (>60); GFR (African American) 139 ML/MIN (>60); Globulin 2.5 g/dL (1.3-3.2); Glucose 97 mg/dl (74-100); Total Protein,Serum 6.5 g/dl (6.3-8.2)
[2024-04-10 16:05] LABS: Lipase 142 U/L (23-300); Magnesium 1.9 mg/dl (1.6-2.3)
[2024-04-10 16:36] LABS: Thyroid Stimulating Hormone 2.45 uIU/mL (0.465-4.68)
[2024-04-10 16:39] LABS: Ferritin 20.4 ng/ml (6.24-137)
== END 2024-04-10 23:59 | disposition home or self-care (01) ==
PROVIDERS: PCP Nurse Practitioner Family; Visit Provider Nurse Practitioner Family
DX: R10.9 Unspecified abdominal pain (principal); R42 Dizziness and giddiness; R39.89 Other symptoms and signs involving the genitourinary system
CPT/HCPCS: 36415; 80053; 82150; 82728; 83690; 83735; 84443; 84703; 85025; 87086

== ENCOUNTER 2024-04-15 10:25 | Emergency (ER) | payer MEDICAID, SELFPAY ==
[2024-04-15 10:33] VITALS: BP 138/91; PULSE 94; RESP 16; TEMP 36.5; O2SAT 98; BMI 47.3
--- NOTE | 2024-04-15 11:35 | CT_ITS ---
FINAL REPORT TECHNIQUE: After the administration of oral and intravenous contrast, axial images were obtained through the abdomen and pelvis by computed tomography. The study was performed with techniques to keep radiation dose as low as reasonably achievable, (ALARA). Individual dose reduction techniques using automated exposure control or adjustment of mA and/or kV according to the patient's size were employed. CLINICAL HISTORY: RLQ pain/n/v COMPARISON: 08/21/2022 FINDINGS: Abdomen: The lung bases are clear. The liver parenchyma is homogeneous. The gallbladder is present. The spleen, pancreas, adrenals and kidneys appear unremarkable. The aorta is normal in caliber. There is no free fluid or adenopathy. Pelvis: The appendix is not identified. The uterus is anteverted. There are small cysts/follicles in the ovaries bilaterally. The urinary bladder is decompressed. There is no free fluid or adenopathy. IMPRESSION: No acute intra-abdominal process. Reviewed, Interpreted and Dictated by Francisco Davey MD Transcribed by Madhuri Barnes Authenticated and [facility]
[2024-04-15 11:43] LABS: Basophils % 0.3 % (0.1-2.0); Eosinophils % 0.3 % (0.1-12.0); Hematocrit 43.1 % (37.0-47.0); Lymphocytes # 1.7 K/mm3 (0.7-4.5); Lymphocytes % 13.7 % (10-50); Mean Corpuscular HGB Conc 32.5 g/dL (31.8-35.4); Mean Corpuscular Hemoglobin 27.3 pg (27.0-31.2); Mean Platelet Volume 11.5 fl (7.4-10.4); Monocytes # 0.6 K/mm3 (0.1-1.0); Monocytes % 4.6 % (1.7-9.3); Neutrophils # 10.1 K/mm3 (1.8-7.8); Neutrophils % 80.7 % (37.0-80.0); Platelet Count 309 K/mm3 (142-424); Red Blood Count 5.13 M/mm3 (4.20-5.40); Red Cell Distribution Width 13.2 % (11.5-17.5); White Blood Count 12.6 K/mm3 (4.8-10.8)
[2024-04-15] MEDS: ACETAMINOPHEN 1,000MG/100ML VIAL 1000 MG IV (11:54)
[2024-04-15] MEDS: ONDANSETRON 4MG/2ML VIAL 4 MG IV (11:54)
[2024-04-15] MEDS: DICYCLOMINE 10MG CAPSULE 20 MG PO (11:54)
[2024-04-15] MEDS: LACTATED RINGERS 1000ML 1,000 ML 999 ML IV (11:54)
[2024-04-15 11:58] LABS: Alanine Aminotransferase 21 U/L (12-78); Albumin Level 4.2 g/dl (3.5-5.0); Albumin/Globulin Ratio 1.4 (1.1-1.8); Alkaline Phosphatase 105 U/L (38-126); Anion Gap 12.9 mEq/L (5-15); Aspartate Amino Transferase 27 U/L (14-36); Blood Urea Nitrogen 10 mg/dl (7-17); Calcium 9.2 mg/dl (8.4-10.2); Carbon Dioxide 23 mmol/L (22.0-30.0); Chloride 106 mmol/L (98-107); Creatinine Clearance Estimated 115 mL/min (50-200); Estimated Glomerular Filt Rate 115 ml/min (>60); GFR (African American) 139 ML/MIN (>60); Glucose 93 mg/dl (74-100); Lipase 85 U/L (23-300); Potassium 3.9 mmoL/L (3.5-5.1); Sodium 138 mmol/L (136-145); Total Protein,Serum 7.2 g/dl (6.3-8.2)
--- NOTE | 2024-04-15 11:58 | ED_ITS ---
Discharge Plan Disposition Patient Disposition: Home, Self-Care Condition: Good Prescriptions Prescriptions: New ondansetron 4 mg tablet,disintegrating 4 mg PO Q8H PRN (Reason: nausea and vomiting) 4 Days Qty: 12 0RF No Action Caplyta 42 mg capsule 42 mg PO DAILY Qty: 30 1RF cephalexin 500 mg capsule 500 mg PO Q8H 7 Days Qty: 21 0RF Referrals Follow up/Referrals: Ramila Christensen APRN [Primary Care Provider] - See instructions Activity Restrictions/Add. Instructions Additional Instructions/Restrictions: You were evaluated in the emergency department today. Please pickle solution maker your prescription and take as needed for symptoms. Take Tylenol every 4-6 hours at home as needed for pain. Use heating pad as needed for pain as well. Follow-up closely with gynecology for reassessment over the next 48 to 72 hours. Return to the emergency department for new or worsening symptoms. Clinical Impressions Clinical Impression: Bulky or enlarged uterus, Right lower quadrant abdominal pain, Ovarian cyst Stand Alone Forms Stand Alone Forms: Work/School Release Instructions Patient Instructions: DI for Ovarian Cyst, DI for Acute Abdominal Pain Print Language Print Language: Georgian Discharge ED Provider: Alma Brown General Adult HPI General Chief complaint: Abdominal Pain Stated complaint: abd pain, vomiting, dizziness Time Seen by Provider: 04/15/24 11:13 Mode of Arrival: Ambulatory Source of Information: Patient Limitations: No Limitations Description of Symptoms (Recalled from ER Triage Doc. by RN): Patient reports right sided lower abdomen pain that has been going on for 1 week. States she did she her PCP and they ordered blood work that all came back fine. States this morning the pain was more severe and she became dizzy and vomitted. History of Present Illness HPI narrative: This patient is a 33-year-old female with a history of obesity, idiopathic intracranial hypertension, prior C-sections presenting to the emergency department for evaluation with concern for right lower quadrant abdominal pain, nausea, and vomiting. Patient states that she had had pain for about a week, but the vomiting started today. She states that she saw her PCP and they ordered blood work that came back fine, but today the pain is more severe. Given the new vomiting as well, she decided to be evaluated in the ED. Pain is intermittent, nothing seems to make it better or worse. She is still able to eat. No changes in bowel movement such as constipation or diarrhea. No blood in stools or dark tarry stools. No abnormal vaginal discharge, bleeding, dysuria, hematuria, or other concerns Related Data Previous Rx's ?Medication ?Instructions ?Recorded lumateperone 42 mg capsule 42 mg PO DAILY #30 caps 04/02/24 (Caplyta) cephalexin 500 mg capsule 500 mg PO Q8H 7 days #21 caps 04/10/24 ondansetron 4 mg disintegrating 4 mg PO Q8H PRN nausea and 04/15/24 tablet vomiting 4 days #12 tabs Allergies Allergy/AdvReac Type Severity Reaction Status Date / Time meloxicam Allergy Severe Rash Verified 04/10/24 13:55 NSAIDS (Non-Steroidal Allergy Mild Hives Verified 04/10/24 13:55 [facility] Disclaimer: The information contained in this section may have been updated after the patient was seen, as this information can be updated by other users. Medical History Abdominal pain Double vision Pyelonephritis Hematuria Costovertebral angle pain Lightheadedness Postoperative pain Cellulitis Cellulitis of left ankle Preoperative clearance Acute cough Viral respiratory illness Left otitis media Diarrhea Gastroenteritis Generalized anxiety disorder Major depressive disorder History of fracture of left ankle Depression Vertigo Nausea & vomiting Headache Otitis media Abscess of left thigh Cellulitis of left thigh Acute bronchitis Sinusitis Viral syndrome Nausea Upper respiratory infection Plantar fasciitis of right foot Plantar fasciitis Anxiety Surgical History History of tonsillectomy and adenoidectomy History of ankle surgery History of delivery Family History Other Cancer FHx: mental illness Family history of COPD (chronic obstructive pulmonary disease) May-Thurner syndrome Social History Smoking Status: Never smoker second hand exposure: No alcohol intake: current alcohol intake frequency: holidays/special occasions only substance use type: denies use current occupational status: employed Travel in the last 8 weeks: None household members: children housing: apartment marital status: single number of children: 2 Other Medical History Have you received the Flu Vaccine for this season: No Have you received the Pneumonia Vaccine: No ROS Obtained: Yes All systems reviewed & no additional complaints except as documented Physical Exam General General appearance: alert and in no apparent distress Head Head exam: atraumatic and normocephalic Eye Eye exam: Present normal appearance, PERRL and EOMI ENT ENT exam: Present normal exam, normal oropharynx, mucous membranes moist and normal external ear exam Neck Neck exam: Present normal inspection, full ROM and trachea midline; Absent tenderness Chest Chest inspection: Present normal inspection and symmetric chest wall rise; Absent tenderness Respiratory Respiratory exam: Present normal lung sounds bilaterally; Absent respiratory distress, wheezes, stridor or accessory muscle use Cardiovascular Cardiovascular exam: Present regular rate and normal rhythm Abdominal Exam Abdominal exam: Present soft and tenderness (Right lower quadrant); Absent distention, guarding, rebound or rigidity Extremities Exam Extremities exam: Present normal inspection, full ROM and normal capillary refill; Absent tenderness or edema Back Exam Back exam: Present normal inspection and full ROM; Absent tenderness Neurological Exam Neurological exam: Present alert, oriented X3, CN II-XII intact and normal gait; Absent motor sensory deficit Psychiatric Psychiatric exam: Present normal affect and normal mood Skin Skin exam: Present warm and dry Medical Decision Making Medical Records Medical records reviewed: Yes I reviewed the patient's medical records. Screening: Per USPSTF and CDC recommendations, given the prevalence of disease in our region, it is our hospital?s policy to screen for HIV and viral Hepatitis for all patients aged 18 and over and those with ongoing risk factors. Bruce Inquiry Pt receiving controlled substance: No Vital Signs: 04/15/24 10:33 04/15/24 15:37 Temperature 97.7 F 98.0 F Temperature Source Oral Pulse Rate 87 Pulse Rate [Radial] 94 H Respiratory Rate 16 13 Blood Pressure 130/78 Blood Pressure [Right Arm] 138/91 H Blood Pressure Mean [Right Arm] 106 Blood Pressure Source [Right Arm] Automatic Cuff Blood Pressure Position [Right Arm] Sitting 02 Sat by Pulse Oximetry 98 Oxygen Delivery Method Room Air Lab Data Lab results reviewed: Yes I reviewed the patient's lab results. Lab Results 04/15/24 10:37: WBC 12.6 H, RBC 5.13, Hgb 14.0, Hct 43.1, MCV 84.0, MCH 27.3, MCHC 32.5, RDW 13.2, Plt Count 309, MPV 11.5 H, Neut % (Auto) 80.7 H, Lymph % (Auto) 13.7, [place] % (Auto) 4.6, Eos % (Auto) 0.3, Baso % (Auto) 0.3, Neut # (Auto) 10.1 H, Lymph # (Auto) 1.7, [place] # (Auto) 0.6, Eos # (Auto) 0.0, Baso # (Auto) 0.0, Sodium 138, Potassium 3.9, Chloride 106, Carbon Dioxide 23, Anion Gap 12.9, BUN 10, Creatinine 0.60, Estimated Creat Clear 115, Estimated GFR 115, Est GFR ( Amer) 139, Glucose 93, Calcium 9.2, Total Bilirubin 1.0, AST 27, ALT 21, Alkaline Phosphatase 105, Total Protein 7.2, Albumin 4.2, Globulin 3.0, Albumin/Globulin Ratio 1.4, Lipase 85, Serum HCG, Qual Negative, HCV Ab [place] w/Rflx PCR Qn Negative, HIV Ag/Ab Combo Qual Negative 04/15/24 13:14: Urine Color Yellow, Urine Appearance Clear, Urine pH 6.0, Ur Specific [place] 1.010, Urine Protein Negative, Urine Glucose (UA) Negative, Urine Ketones 1+, Urine Blood Negative, Urine Nitrate Negative, Urine Bilirubin Negative, Urine Urobilinogen 0.2, Ur Leukocyte Esterase Trace, Urine RBC None, Urine WBC Occasional, Ur Squamous Epith Cells 5-10, Urine Bacteria Trace, C. trachomatis (IRAIDA) Negative, N. gonorrhoeae (IRAIDA) Negative 04/15/24 10:37 04/15/24 10:37 Orders (Tests/Meds): ED MEDICATIONS Discontinued Medications Generic Name Dose Route Start Last Admin Trade Name Jayq PRN Reason Stop Dose Admin Acetaminophen 1,000 mg 04/15/24 11:35 04/15/24 11:54 Acetaminophen 1,000mg/100ml Vial IV 04/15/24 11:36 1,000 mg ONCE ONE Administration Dicyclomine HCl 20 mg 04/15/24 11:35 04/15/24 11:54 Dicyclomine 10mg Capsule PO 04/15/24 11:36 20 mg ONCE ONE Administration Lactated Ringer's 1,000 mls @ 999 mls/hr 04/15/24 11:35 04/15/24 11:54 Lactated Ringer's 1000 Ml Bag IV 04/15/24 12:35 999 mls/hr .Q1H1M ONE Administration Iopamidol 75 ml 04/15/24 13:29 04/15/24 13:31 Iopamidol-370 (76%);100ml Bottle IV 04/15/24 13:30 75 ml ONCE ONE Administration Morphine Sulfate 4 mg 04/15/24 14:21 04/15/24 14:25 Morphine 4mg/Ml Syringe IV 04/15/24 14:22 4 mg ONCE ONE Administration Ondansetron HCl 4 mg 04/15/24 11:35 04/15/24 11:54 Ondansetron 4mg/2ml Vial IV 04/15/24 11:36 4 mg ONCE ONE Administration Sodium Chloride 10 ml 04/15/24 13:29 04/15/24 13:30 Sodium Chloride 0.9% 10ml Syr (Rad Only) IV 04/15/24 13:30 10 ml ONCE ONE Administration ORDERS Category Date Time Status CT abdomen pelvis w con Stat Cat Scan 04/15/24 11:35 Completed US transvaginal Stat Exams 04/15/24 13:37 Completed Complete Blood Count Auto Diff Stat Lab 04/15/24 10:37 Completed Comprehensive Metabolic Panel Stat Lab 04/15/24 10:37 Completed HIV Combo Stat Lab 04/15/24 10:37 Completed Hepatitis C Ab Qual. W/ RFX Stat Lab 04/15/24 10:37 Completed Lipase Stat Lab 04/15/24 10:37 Completed Serum [HCG Qualitative, Serum] Stat Lab 04/15/24 10:37 Completed UA [Urinalysis and Microscopic] Stat Lab 04/15/24 13:14 Completed Medical Decision Narrative: In summary, this patient is a 33-year-old female presenting to the Emergency Department for evaluation of right lower quadrant abdominal pain, nausea, and vomiting. Differential diagnoses considered include but are not limited to appendicitis, ovarian cyst, ovarian torsion, cystitis, pyelonephritis, ureterolithiasis, colitis, gastroenteritis. Ruling out the most morbid conditions drove assessment. It should be noted patient's history includes obesity, idiopathic intracranial hypertension which may or may not be at goal therapy. This complicates all aspects of care by increasing patient's risk for morbidity. I reviewed patient's past medical records and noted previous ED evaluations for various complaints as well as prior OB evaluation for irregular menstruation. On exam, the patient is sitting upright in no acute distress with reassuring vital signs and cardiac telemetry. She does have tenderness to palpation of the right lower quadrant but no rebound or guarding. Workup included CBC, CMP, lipase, test, urinalysis, urine gonorrhea and chlamydia, CT abdomen and pelvis with IV contrast. She is given a bolus of IV fluids as well as IV acetaminophen, Zofran, oral Bentyl for symptomatic improvement. I independently interpreted CT scan prior to the radiologist read and noted uterus and concerns for an ovarian cyst. Please see their read for final interpretation. Given this, I ordered a transvaginal ultrasound. This was concerning for bulky uterus with intrauterine cyst but no concerns for ovarian torsion. Labs were obtained that demonstrated mild leukocytosis which is nonspecific and could be leukemoid reaction from vomiting, urinalysis not overtly concerning for infection but is contaminated with squamous cells, chemistry reassuring. On reassessment, patient had minimal improvement after administration of interventions above and felt more pain after a transvaginal ultrasound. I then gave her IV morphine. After this, she was feeling a lot better. I had an interactive discussion with Dr. Gonzalez with gynecology who recommended close outpatient follow-up. Patient was given instructions for this as well as strict return precautions. She was discharged after all questions were answered. Critical Care Critical Care Time Critical Care Time: No
[2024-04-15 13:04] LABS: HIV Combo NEGATIVE (Negative)
[2024-04-15 13:10] LABS: Hepatitis C Ab Qual. W/ RFX NEGATIVE (Negative)
[2024-04-15 13:12] LABS: HCG Qualitative, Serum Negative (Negative)
[2024-04-15 13:18] LABS: Microscopic, Urine URINE MICROSCOPIC (MICROSCOPIC)
[2024-04-15] MEDS: SODIUM CHLORIDE 0.9% 10ML SYR (RAD ONLY) 10 ML IV (13:30)
[2024-04-15] MEDS: IOPAMIDOL-370 (76%);100ML BOTTLE 75 ML IV (13:31)
[2024-04-15 13:33] LABS: Appearance,Urine CLEAR (Clear); Bilirubin,Urine Negative (Negative); Blood, Urine Negative (Negative); Color,Urine YELLOW (Yellow); Glucose,Urine (UA) Negative (Negative); Ketones,Urine 1+ (Negative); Leukocyte Esterase,Urine TRACE (Negative); Nitrate,Urine Negative (Negative); Protein,Urine Negative (Negative); Urobilinogen,Urine 0.2 EU/dl (0.2)
--- NOTE | 2024-04-15 13:37 | US_ITS ---
PROCEDURE INFORMATION: Exam: US Pelvis Transabdominal, Complete, and US Pelvis Transvaginal, Non-obstetric Exam date and time: 04/15/2024 1:51 PM Age: 33 years old Clinical indication: Pelvic pain; Prior surgery; Surgery date: 6+ months; Surgery type: x 2; Additional info: Rlq pain TECHNIQUE: Imaging protocol: Real-time complete transabdominal and transvaginal pelvic ultrasound (non-obstetric) with image documentation. Transvaginal imaging was used for better evaluation of the endometrium, adnexa, and/or cervix. COMPARISON: CT ABDOMEN PELVIS W CON 04/15/2024 1:26 PM FINDINGS: Uterus: Slightly enlarged uterus at 10.1 cm in length. Two areas of fluid are seen within the upper uterine myometrium. Right ovary/adnexa: Right ovarian follicles with positive right ovarian flow. Left ovary/adnexa: The left ovary is unremarkable with flow. Intraperitoneal space: There is no free fluid. Urinary bladder: Normal. IMPRESSION: Two lucencies are noted within the upper uterine myometrium of a slightly enlarged uterus..
--- NOTE | 2024-04-15 13:43 | PC.NURSE ---
Patient to radiology
[2024-04-15 13:45] LABS: Bacteria,Urine Trace /lpf; WBC,Urine Occasional #/hpf (0-3)
--- NOTE | 2024-04-15 14:19 | PC.NURSE ---
Back From radiology
[2024-04-15] MEDS: MORPHINE 4MG/ML SYRINGE 4 MG IV (14:25)
[2024-04-15 15:37] VITALS: BP 130/78; PULSE 87; RESP 13; TEMP 36.7
[2024-04-17 05:08] LABS: Neisseria gonorrhoeae, NAA Negative (Negative)
== END 2024-04-15 15:38 | disposition home or self-care (01) ==
PROVIDERS: Emergency Provider Emergency Medicine; PCP Nurse Practitioner Family
DX: N85.2 Hypertrophy of uterus (principal); N83.209 Unspecified ovarian cyst, unspecified side; R10.31 Right lower quadrant pain; R11.2 Nausea with vomiting, unspecified; R42 Dizziness and giddiness
CPT/HCPCS: 74177; 76830; 80053; 81001; 83690; 84703; 85025; 86803; 87389; 87491; 87591; 96361; 96374; 96375; 99285; J0131; J2270; J2405; J7120; Q9967

== ENCOUNTER 2024-04-20 09:00 | Outpatient (CLI) | payer MEDICAID, SELFPAY | END 2024-04-20 23:59 | disposition home or self-care (01) | LOC: LAB.DROPOF 04-21 10:06 | PROVIDERS: PCP Nurse Practitioner Obstetrics & Gynecology; Visit Provider Nurse Practitioner Obstetrics & Gynecology | DX: N39.0 Urinary tract infection, site not specified (principal) | CPT/HCPCS: 87086 ==

== ENCOUNTER 2024-06-16 18:26 | Outpatient (CLI) | payer MEDICAID, SELFPAY ==
[2024-06-16 19:54] LABS: Coronavirus 19, PCR Not Detected (NotDetected); Influenza A, PCR Not Detected (NotDetected); Influenza B, PCR Not Detected (NotDetected); Respiratory Syncytial Virus Not Detected (NotDetected)
[2024-06-17 06:30] LABS: Human Rhinovirus Detected (NotDetected)
== END 2024-06-16 23:59 | disposition home or self-care (01) ==
LOC: LAB.DROPOF 06-17 13:38
PROVIDERS: PCP Nurse Practitioner; Visit Provider Nurse Practitioner
DX: R50.9 Fever, unspecified (principal)
CPT/HCPCS: 87631

== ENCOUNTER 2024-07-09 08:33 | Outpatient (CLI) | payer MEDICAID, SELFPAY ==
[2024-07-09 09:20] LABS: Activated Partial Thrombo Time 28.5 seconds (22.8-30.6); INR 0.97 (0.9-1.1); Prothrombin Time 10.9 seconds (10.1-12.5)
[2024-07-09 09:28] LABS: 25-OH Vitamin D, Total 34.1 ng/mL (30-100)
[2024-07-09 09:48] LABS: Alanine Aminotransferase 14 U/L (12-78); Albumin Level 3.9 g/dl (3.5-5.0); Albumin/Globulin Ratio 1.3 (1.1-1.8); Alkaline Phosphatase 86 U/L (38-126); Anion Gap 16.5 mEq/L (5-15); Aspartate Amino Transferase 20 U/L (14-36); Bilirubin,Total 0.8 mg/dl (0.2-1.3); Blood Urea Nitrogen 13 mg/dl (7-17); Calcium 8.8 mg/dl (8.4-10.2); Carbon Dioxide 18 mmol/L (22.0-30.0); Chloride 110 mmol/L (98-107); Estimated Glomerular Filt Rate 96 ml/min (>60); GFR (African American) 117 ML/MIN (>60); Glucose 82 mg/dl (74-100); Potassium 4.5 mmoL/L (3.5-5.1); Sodium 140 mmol/L (136-145); Total Protein,Serum 6.9 g/dl (6.3-8.2)
[2024-07-09 10:20] LABS: Thyroid Stimulating Hormone 1.67 uIU/mL (0.465-4.68)
[2024-07-09 10:36] LABS: Ferritin 30.2 ng/ml (6.24-137)
[2024-07-09 10:55] LABS: Vitamin B12 472 pg/mL (239-931)
[2024-07-09 11:26] LABS: C-Reactive Protein 7.6 mg/L (0-4)
[2024-07-10 13:21] LABS: Cortisol,AM 7.6 ug/dL (6.2-19.4)
== END 2024-07-09 23:59 | disposition home or self-care (01) ==
LOC: LAB 08:34
PROVIDERS: PCP Nurse Practitioner Family; Visit Provider Nurse Practitioner Family
DX: R79.1 Abnormal coagulation profile (principal); R79.89 Other specified abnormal findings of blood chemistry; L65.9 Nonscarring hair loss, unspecified
CPT/HCPCS: 36415; 80053; 82306; 82533; 82607; 82728; 84443; 85597; 85598; 85610; 85613; 85670; 85730; 86140; 86146; 86147

== ENCOUNTER 2024-07-10 08:38 | Outpatient (CLI) | payer MEDICAID, SELFPAY ==
[2024-07-11 15:42] LABS: Adrenocorticotropic Hormone 25.2 pg/mL (7.2-63.3)
[2024-07-15 14:37] LABS: Zinc 79 ug/dL (44-115)
[2024-07-16 07:10] LABS: Vitamin C 1.3 mg/dL (0.4-2.0)
[2024-07-16 12:12] LABS: Renin Activity, Plasma 0.607 ng/mL/hr (0.167-5.380)
[2024-07-16 14:11] LABS: Dopamine, Plasma < 10.0 pg/mL (0.0-36.7); Epinephrine, Plasma 18.7 pg/mL (0.0-55.4); Norepinephrine, Plasma 288 pg/mL (115-524)
== END 2024-07-10 23:59 | disposition home or self-care (01) ==
LOC: LAB 08:38
PROVIDERS: PCP Nurse Practitioner Family; Visit Provider Nurse Practitioner Family
DX: R79.1 Abnormal coagulation profile (principal); R79.89 Other specified abnormal findings of blood chemistry; L65.9 Nonscarring hair loss, unspecified
CPT/HCPCS: 36415; 82024; 82088; 82180; 82384; 82525; 84244; 84630

== ENCOUNTER 2024-07-24 08:19 | Outpatient (CLI) | payer MEDICAID, SELFPAY ==
[2024-07-30 18:10] LABS: Dexamethasone 383 ng/dL (.)
== END 2024-07-24 23:59 | disposition home or self-care (01) ==
LOC: LAB 08:21
PROVIDERS: PCP Nurse Practitioner Family; Visit Provider Student in an Organized Health Care Education/Training Program
DX: R63.5 Abnormal weight gain (principal); R53.83 Other fatigue; Z68.42 Body mass index [BMI] 45.0-49.9, adult
CPT/HCPCS: 36415; 80299; 82533

== ENCOUNTER 2024-08-04 12:38 | Outpatient (CLI) | payer MEDICAID, SELFPAY ==
[2024-08-04 17:44] LABS: Basophils # 0.1 K/mm3 (0-0.2); Basophils % 0.4 % (0.1-2.0); Eosinophils # 0.2 Kmm3 (0.0-0.4); Eosinophils % 1.6 % (0.1-12.0); Hematocrit 43.5 % (37.0-47.0); Hemoglobin 14.1 g/dL (12.2-16.2); Immature Granulocytes # 0.04 10^3uL; Immature Granulocytes % 0.3 %; Lymphocytes # 3.2 K/mm3 (0.7-4.5); Lymphocytes % 27.6 % (10-50); Mean Corpuscular HGB Conc 32.4 g/dL (31.8-35.4); Mean Corpuscular Hemoglobin 27.9 pg (27.0-31.2); Mean Corpuscular Volume 86.1 fl (81-99); Mean Platelet Volume 11.8 fl (7.4-10.4); Monocytes # 0.6 K/mm3 (0.1-1.0); Neutrophils # 7.5 K/mm3 (1.8-7.8); Neutrophils % 65.1 % (37.0-80.0); Nucleated Red Blood Cells # 0 10^3/uL; Nucleated Red Blood Cells % 0 %; Platelet Count 316 K/mm3 (142-424); Red Blood Count 5.05 M/mm3 (4.20-5.40); Red Cell Distribution Width 13.6 % (11.5-17.5); Red Cell Distribution Width-SD 42.3 fL; White Blood Count 11.5 K/mm3 (4.8-10.8)
[2024-08-06 14:58] LABS: EBV Ab VCA, IgG >600.0 U/mL (0.0-17.9); EBV Ab VCA, IgM <36.0 U/mL (0.0-35.9); EBV Nuclear Antigen Ab, IgG >600.0 U/mL (0.0-17.9)
== END 2024-08-04 23:59 | disposition home or self-care (01) ==
LOC: LAB.DROPOF 08-06 12:39
PROVIDERS: PCP Nurse Practitioner Family; Visit Provider Nurse Practitioner Family
DX: R59.9 Enlarged lymph nodes, unspecified (principal)
CPT/HCPCS: 85025; 86664; 86665

== ENCOUNTER 2024-08-05 13:15 | Outpatient (CLI) | payer MEDICAID, SELFPAY ==
--- NOTE | 2024-08-05 13:30 | CT_ITS ---
FINAL REPORT TECHNIQUE: Postcontrast axial imaging of the neck soft tissues was obtained. Reformatted images were also obtained and reviewed. This study was performed with techniques to keep radiation doses as low as reasonably achievable (ALARA). Individualized dose reduction techniques using automated exposure control or adjustment of mA and/or kV according to the patient's size were employed. CLINICAL HISTORY: enlarged lymph nodes right side FINDINGS: There is no adenopathy or mass lesion present. The thyroid is unremarkable. Limited images of the lung apices are unremarkable. No acute osseous abnormality is identified. Paranasal sinuses are well aerated. There are few scattered cervical lymph nodes bilaterally in the submandibular glands which are symmetric. IMPRESSION: Scattered, symmetric cervical lymph nodes. No dominant node identified. Reviewed, Interpreted and Dictated by Francisco Davey MD Transcribed by Ellen Briones Authenticated and [facility]
[2024-08-05] MEDS: IOPAMIDOL-370 (76%);100ML BOTTLE 75 ML IV (14:01)
[2024-08-05] MEDS: SODIUM CHLORIDE 0.9% 10ML SYR (RAD ONLY) 10 ML IV (14:01)
== END 2024-08-05 23:59 | disposition home or self-care (01) ==
LOC: RAD 13:15
PROVIDERS: PCP Nurse Practitioner Family; Visit Provider Nurse Practitioner Family
DX: R59.0 Localized enlarged lymph nodes (principal)
CPT/HCPCS: 70492; Q9967

== ENCOUNTER 2024-08-09 10:47 | Emergency (ER) | payer MEDICAID, SELFPAY ==
[2024-08-09] VITALS (8 sets, daily range): BP systolic 118–134; BP diastolic 73–92; PULSE 75–87; RESP 11–22; TEMP 36.6–37.1; O2SAT 93–100; BMI 46.3
--- NOTE | 2024-08-09 10:57 | ECG_ITS ---
APPROVED REPORT Exam: Resting ECG HR:81 bpm ECG Measurements Heart Rate 81 AXES NV 128 P 72 QRSd 86 QRS 87 QT 369 T 55 QTc 407 Conclusion SINUS RHYTHM NORMAL ECG UNCONFIRMED REPORT Electronically signed by : Gustavo Hartman, 08/09/2024 16:04:35
--- NOTE | 2024-08-09 11:19 | XR_ITS ---
PROCEDURE INFORMATION: Exam: XR Chest Exam date and time: 08/09/2024 12:14 PM Age: 33 years old Clinical indication: Shortness of breath; Additional info: SOA TECHNIQUE: Imaging protocol: Radiologic exam of the chest. Views: 1 view. COMPARISON: CR XR CHEST 2V 12/09/2023 3:36 PM FINDINGS: Lungs: Unremarkable. No consolidation. Pleural spaces: Unremarkable. No pleural effusion. No pneumothorax. Heart/Mediastinum: Unremarkable. No cardiomegaly. Bones/joints: Unremarkable. IMPRESSION: No acute findings.
[2024-08-09 11:30] LABS: Lactate Venous 1.8 mmol/L (0.4-2.0); VBG Base Excess -1.3 mmol/L (-2.4-2.3); VBG HCO3 22.4 mmol/L (23-30); VBG Oxygen Saturation 98.6 % (50-70); VBG PCO2 31.7 mmol/L (35-51); VBG PH 7.47 mmol/L (7.31-7.41); VBG PO2 107.9 mmol/L (28-40); VBG Total CO2 23.4 mmol/L (23-27)
[2024-08-09 11:48] LABS: Basophils # 0.1 K/mm3 (0-0.2); Basophils % 0.4 % (0.1-2.0); Eosinophils # 0.1 Kmm3 (0.0-0.4); Eosinophils % 0.6 % (0.1-12.0); Hematocrit 43.8 % (37.0-47.0); Hemoglobin 14.3 g/dL (12.2-16.2); Immature Granulocytes # 0.06 10^3uL; Immature Granulocytes % 0.5 %; Lymphocytes # 3.8 K/mm3 (0.7-4.5); Lymphocytes % 28.8 % (10-50); Mean Corpuscular HGB Conc 32.6 g/dL (31.8-35.4); Mean Corpuscular Hemoglobin 27.7 pg (27.0-31.2); Mean Corpuscular Volume 84.7 fl (81-99); Mean Platelet Volume 11.4 fl (7.4-10.4); Monocytes # 0.6 K/mm3 (0.1-1.0); Monocytes % 4.9 % (1.7-9.3); Neutrophils # 8.4 K/mm3 (1.8-7.8); Neutrophils % 64.8 % (37.0-80.0); Nucleated Red Blood Cells # 0 10^3/uL; Nucleated Red Blood Cells % 0 %; Platelet Count 312 K/mm3 (142-424); Red Blood Count 5.17 M/mm3 (4.20-5.40); Red Cell Distribution Width 13.4 % (11.5-17.5); Red Cell Distribution Width-SD 41.6 fL
[2024-08-09 11:57] LABS: Monoscreen (Rapid) Negative (Negative)
[2024-08-09 12:05] LABS: Alanine Aminotransferase 16 U/L (12-78); Albumin Level 4.4 g/dl (3.5-5.0); Albumin/Globulin Ratio 1.6 (1.1-1.8); Alkaline Phosphatase 80 U/L (38-126); Anion Gap 11.7 mEq/L (5-15); Aspartate Amino Transferase 20 U/L (14-36); Bilirubin,Total 0.7 mg/dl (0.2-1.3); Blood Urea Nitrogen 12 mg/dl (7-17); Calcium 9.1 mg/dl (8.4-10.2); Carbon Dioxide 23 mmol/L (22.0-30.0); Chloride 108 mmol/L (98-107); Creatinine Clearance Estimated 99 mL/min (50-200); Estimated Glomerular Filt Rate 96 ml/min (>60); GFR (African American) 117 ML/MIN (>60); Globulin 2.8 g/dL (1.3-3.2); Glucose 89 mg/dl (74-100); Potassium 3.7 mmoL/L (3.5-5.1); Sodium 139 mmol/L (136-145); Total Protein,Serum 7.2 g/dl (6.3-8.2)
[2024-08-09 12:06] LABS: HCG Qualitative, Serum Negative (Negative)
[2024-08-09 12:09] LABS: D-Dimer 0.63 ug/mL (0.0-0.5)
[2024-08-09 12:19] LABS: Troponin I < 0.01 ng/ml (0.00-0.034)
[2024-08-09 12:22] LABS: NT Pro Brain Natriuretic Pep. 42.9 pg/mL (0-125)
--- NOTE | 2024-08-09 12:35 | CT_ITS ---
PROCEDURE INFORMATION: Exam: CTA Chest With Contrast Exam date and time: 08/09/2024 12:51 PM Age: 33 years old Clinical indication: Cough and shortness of breath TECHNIQUE: Imaging protocol: Computed tomographic angiography of the chest with contrast. Exam focused on the arteries. 3D rendering (Not supervised by radiologist): MIP and/or 3D reconstructed images were created by the technologist. Radiation optimization: All CT scans at this facility use at least one of these dose optimization techniques: automated exposure control; mA and/or kV adjustment per patient size (includes targeted exams where dose is matched to clinical indication); or iterative reconstruction. Contrast material: ISOVUE 370; Contrast volume: 70 ml; Contrast route: INTRAVENOUS (IV); COMPARISON: CR XR CHEST PORTABLE 08/09/2024 12:14 PM FINDINGS: Pulmonary arteries: Negative for acute pulmonary embolism. Aorta: Unremarkable. No aortic aneurysm. No aortic dissection. Lungs: Unremarkable. No consolidation. No masses. Pleural spaces: Unremarkable. No pneumothorax. No pleural effusion. Heart: Unremarkable. No cardiomegaly. No pericardial effusion. Lymph nodes: Unremarkable. No enlarged lymph nodes. Bones/joints: Unremarkable. No acute fracture. Soft tissues: Unremarkable. Other findings: Previous granulomatous exposure. IMPRESSION: Negative for acute pulmonary embolism.
[2024-08-09] MEDS: IPRATROPIUM/ALBUTEROL 3 ML NEB 9 ML IH (12:47)
[2024-08-09] MEDS: DEXAMETHASONE 4MG/ML 1ML VIAL 8 MG IV (12:48)
[2024-08-09 12:51] LABS: Activated Partial Thrombo Time 26.1 seconds (22.8-30.6); INR 1.03 (0.9-1.1); Prothrombin Time 11.4 seconds (10.1-12.5)
[2024-08-09] MEDS: SODIUM CHLORIDE 0.9% 10ML SYR (RAD ONLY) 10 ML IV (12:52)
[2024-08-09] MEDS: IOPAMIDOL-370 (76%);100ML BOTTLE 70 ML IV (12:52)
[2024-08-09] MEDS: 0.9 % SODIUM CHLORIDE 50 ML VIAL IV (12:52)
[2024-08-09 12:54] LABS: Lipase 108 U/L (23-300)
[2024-08-09 13:10] LABS: Coronavirus 19, PCR Not Detected (NotDetected); Human Rhinovirus Not Detected (NotDetected); Influenza A, PCR Not Detected (NotDetected); Influenza B, PCR Not Detected (NotDetected); Respiratory Syncytial Virus Not Detected (NotDetected)
[2024-08-09 13:11] LABS: Troponin I < 0.01 ng/ml (0.00-0.034)
--- NOTE | 2024-08-09 13:11 | ED_ITS ---
<Statement entered by Oli Hartman MD - 08/09/24 16:02> I was consulted by the ZI, and we discussed the complexity of the problems being addressed. I approved the treatment and management plan for this patient's care in the emergency department, thus performing a substantive portion of the medical decision making. Oli Hartman MD, INÉS, FACEP Discharge Plan Disposition Chief Complaint: Shortness of Breath/Dyspnea Prescriptions Prescriptions: No Action Nexplanon 68 mg implant subdermal prednisone 20 mg tablet 20 mg PO DAILY 5 Days Qty: 5 0RF amoxicillin-pot clavulanate 875-125 mg tablet 1 tab PO BID 10 Days Qty: 20 0RF Referrals Follow up/Referrals: Ramila Christensen APRN [Primary Care Provider] - See instructions Print Language Print Language: Monegasque Discharge ED Provider: Oli Hartman General Adult HPI General Chief complaint: Shortness of Breath/Dyspnea Stated complaint: SOA Time Seen by Provider: 08/09/24 12:01 Mode of Arrival: Ambulatory Source of Information: Patient Description of Symptoms (Recalled from ER Triage Doc. by RN): SHORTNESS OF BREATH SINCE SATURDAY. getting worked up for autoimmune disorders. had a ct of her neck this week. History of Present Illness HPI narrative: This is a 33-year-old female who presents to the ED today with 3 days of shortness of breath. She says this feels like asthma that she has never had asthma. She says she is unable to get a deep breath in. She says it feels like inflammation. She has had swollen lymph nodes on the right side of her neck since last Saturday. She went to her PCP and had a CT with contrast that showed scattered swollen lymph nodes. She has had an increase to EBV back in October. She says this last time when she had a CBC she had an elevated EBV as well. She thinks that this may be recurrent. She has also had an elevated PTT. She had this drawn because she had a neck on her leg from a razor blade. She says she bled for a while from this so her PCP did a PTT and it was abnormal. They were thinking maybe an autoimmune disease such as possibly lupus. She has been referred to a three knife trimmer. She has been on prednisone and feels like it is working. She feels like the breathing gets worse at night. Related Data Home Medications ?Medication ?Instructions ?Recorded ?Confirmed etonogestrel 68 mg subdermal subdermal 08/04/24 08/04/24 implant (Nexplanon) Previous Rx's ?Medication ?Instructions ?Recorded amoxicillin 875 mg-potassium 1 tab PO BID 10 days #20 tabs 08/04/24 clavulanate 125 mg tablet prednisone 20 mg tablet 20 mg PO DAILY 5 days #5 tabs 08/04/24 Allergies Allergy/AdvReac Type Severity Reaction Status Date / Time meloxicam Allergy Severe Rash Verified 08/04/24 15:55 NSAIDS (Non-Steroidal Allergy Mild Hives Verified 08/04/24 15:55 Anti-Inflamma PFSH PFS Disclaimer: The information contained in this section may have been updated after the patient was seen, as this information can be updated by other users. Medical History Abdominal pain Abscess of left thigh Acute bronchitis Acute cough Anxiety Cellulitis Cellulitis of left ankle Cellulitis of left thigh Costovertebral angle pain Depression Diarrhea Double vision Gastroenteritis Generalized anxiety disorder Headache Hematuria History of fracture of left ankle Left otitis media Lightheadedness Major depressive disorder Nausea Nausea & vomiting Otitis media Plantar fasciitis Plantar fasciitis of right foot Postoperative pain Preoperative clearance Pyelonephritis Sinusitis Upper respiratory infection Vertigo Viral respiratory illness Viral syndrome Viral syndrome Surgical History History of ankle surgery History of delivery History of tonsillectomy and adenoidectomy Family History Other Cancer FHx: mental illness Family history of COPD (chronic obstructive pulmonary disease) May-Thurner syndrome Social History Smoking Status: Never smoker second hand exposure: No alcohol intake: current alcohol intake frequency: holidays/special occasions only substance use type: denies use current occupational status: employed Travel in the last 8 weeks?: None household members: children housing: apartment marital status: single number of children: 2 Have you lived/traveled outside [place] in past 30 days?: No Contact w/someone who lives/traveled outside [place] past 30 days?: No Exposure to someone with infectious disease in past 14 days?: No Do you have a fever (greater than 100.4 F or 38 C)?: No Have you tested positive for COVID-19?: No Exposed to someone with COVID-19 in past 14 days?: No Do you have a sore throat?: No Do you have a cough?: No Do you have any weakness?: No Do you have any diarrhea?: No Are you experiencing any unusual bleeding?: No Do you have any muscle aches/pain?: No Do you have any abdominal pain?: No Are you experiencing loss of taste or smell?: No Other Medical History Have you received the Flu Vaccine for this season: No Have you received the Pneumonia Vaccine: No ROS Obtained: Yes Systems reviewed as appropriate & no additional complaints except as documented Constitutional Constitutional: Reports as per HPI Physical Exam General General appearance: alert Head Head exam: atraumatic and normocephalic Eye Eye exam: Present normal appearance, PERRL and EOMI ENT ENT exam: Present normal exam, normal oropharynx and mucous membranes moist Neck Neck exam: Present normal inspection, full ROM and trachea midline Respiratory Respiratory exam: Present wheezes Cardiovascular Cardiovascular exam: Present regular rate, normal rhythm, normal heart sounds, +S1 and +S2 Abdominal Exam Abdominal exam: Present soft and normal bowel sounds Extremities Exam Extremities exam: Present normal inspection, full ROM and normal capillary refill Neurological Exam Neurological exam: Present alert, oriented X3 and normal gait Skin Skin exam: Present warm, dry and intact Medical Decision Making Medical Records Screening: Per USPSTF and CDC recommendations, given the prevalence of disease in our region, it is our hospital?s policy to screen for HIV and viral Hepatitis for all patients aged 18 and over and those with ongoing risk factors. Bruce Inquiry Pt receiving controlled substance: No Bruce was queried for this patient: No Vital Signs: 08/09/24 11:01 08/09/24 11:11 08/09/24 11:53 Temperature 97.8 F Temperature Source Oral Pulse Rate 85 Pulse Rate [Right] 75 Respiratory Rate 16 22 18 Blood Pressure 121/81 132/82 Blood Pressure [Right Arm] 129/91 H Blood Pressure Mean [Right Arm] 103 02 Sat by Pulse Oximetry 99 99 100 Oxygen Delivery Method Room Air Room Air Room Air 08/09/24 12:01 08/09/24 12:30 08/09/24 13:00 Temperature Temperature Source Pulse Rate 78 82 76 Pulse Rate [Right] Respiratory Rate 14 14 16 Blood Pressure 118/77 127/92 H 134/89 Blood Pressure [Right Arm] Blood Pressure Mean [Right Arm] 02 Sat by Pulse Oximetry 100 100 100 Oxygen Delivery Method Room Air Room Air Room Air 08/09/24 13:30 Temperature Temperature Source Pulse Rate 87 Pulse Rate [Right] Respiratory Rate 11 L Blood Pressure 118/73 Blood Pressure [Right Arm] Blood Pressure Mean [Right Arm] 02 Sat by Pulse Oximetry 93 L Oxygen Delivery Method Lab Data Lab Results 08/09/24 11:10: WBC 13.0 H, RBC 5.17, Hgb 14.3, Hct 43.8, MCV 84.7, MCH 27.7, MCHC 32.6, RDW 13.4, Plt Count 312, MPV 11.4 H, Neut % (Auto) 64.8, Lymph % (Auto) 28.8, Gregg % (Auto) 4.9, Eos % (Auto) 0.6, Baso % (Auto) 0.4, Neut # (Auto) 8.4 H, Lymph # (Auto) 3.8, Gregg # (Auto) 0.6, Eos # (Auto) 0.1, Baso # (Auto) 0.1, VBG pH 7.47 H, VBG pCO2 31.7 L, VBG pO2 107.9 H, VBG HCO3 22.4 L, VBG Total CO2 23.4, VBG O2 Saturation 98.6 H, VBG Base Excess -1.3, VBG Lactic Acid 1.8, NT-Pro-B Natriuret Pep 42.9, Serum HCG, Qual Negative, Monoscreen Negative 08/09/24 11:45: PT 11.4, INR 1.03, APTT 26.1, D-Dimer 0.63 H, Sodium 139, Potassium 3.7, Chloride 108 H, Carbon Dioxide 23, Anion Gap 11.7, BUN 12, Creatinine 0.70, Estimated Creat Clear 99, Estimated GFR 96, Est GFR ( Amer) 117, Glucose 89, Calcium 9.1, Magnesium 2.0, Total Bilirubin 0.7, AST 20, ALT 16, Alkaline Phosphatase 80, Troponin I < 0.01 08/09/24 11:45: Troponin I < 0.01, Total Protein 7.2, Albumin 4.4, Globulin 2.8, Albumin/Globulin Ratio 1.6, Lipase 108 08/09/24 13:00: Group A Strep Rapid Negative 08/09/24 11:10 08/09/24 11:45 Orders (Tests/Meds): ED MEDICATIONS Discontinued Medications Generic Name Dose Route Start Last Admin Trade Name Freq PRN Reason Stop Dose Admin Albuterol/Ipratropium 9 ml 08/09/24 12:35 08/09/24 12:47 Ipratropium/Albuterol 3 Ml Neb IH 08/09/24 12:36 9 ml ONCE ONE Administration Dexamethasone Sodium Phosphate 8 mg 08/09/24 12:35 08/09/24 12:48 Dexamethasone 4mg/Ml 1ml Vial IV 08/09/24 12:36 8 mg ONCE ONE Administration Iopamidol 70 ml 08/09/24 12:51 08/09/24 12:52 Iopamidol-370 (76%);100ml Bottle IV 08/09/24 12:52 70 ml ONCE ONE Administration Sodium Chloride 10 ml 08/09/24 12:51 08/09/24 12:52 Sodium Chloride 0.9% 10ml Syr (Rad Only) IV 08/09/24 12:52 10 ml ONCE ONE Administration Sodium Chloride 50 ml 08/09/24 12:51 08/09/24 12:52 0.9 % Sodium Chloride 50 Ml Vial IV 08/09/24 12:52 50 ml ONCE ONE Administration ORDERS Category Date Time Status CTA Chest [CT angio chest PE protocol] Stat Cat Scan 08/09/24 12:35 Completed Chest XR -- portable [XR chest portable] Stat Exams 08/09/24 11:19 Completed BNP [NT Pro Brain Natriuretic Pep.] Stat Lab 08/09/24 11:10 Completed Complete Blood Count Auto Diff Stat Lab 08/09/24 11:10 Completed Comprehensive Metabolic Panel Stat Lab 08/09/24 11:45 Completed D-Dimer Stat Lab 08/09/24 11:45 Completed EBV Acute Infection Antibodies Stat Lab 08/09/24 11:45 Received Lipase Stat Lab 08/09/24 11:45 Completed Magnesium Stat Lab 08/09/24 11:45 Completed Mini Respiratory Panel Stat Lab 08/09/24 13:00 Received Monoscreen (Rapid) Stat Lab 08/09/24 11:10 Completed PT INR [Prothrombin Time INR] Stat Lab 08/09/24 11:45 Completed PTT [Activated Partial Thrombo Time] Stat Lab 08/09/24 11:45 Completed Rapid Strep Scrn Group A [Strep Scrn Group A (Rapid)] Lab 08/09/24 13:00 Completed Stat Serum [HCG Qualitative, Serum] Stat Lab 08/09/24 11:10 Completed Trop I [Troponin I] Stat Lab 08/09/24 11:45 Completed Troponin I Q3H Lab 08/09/24 15:45 Ordered Troponin I Q3H Lab 08/09/24 18:45 Ordered Troponin I Stat Lab 08/09/24 11:45 Completed Strep Screen Confirmation Stat Micro 08/09/24 13:00 Received VBG [Venous Blood Gas] Stat RT 08/09/24 11:10 Completed Medical Decision Narrative: Insert review patient is a 33-year-old female presenting to the emergency department for evaluation of shortness of breath for 3 days and inflammation in the right neck. Patient is hemodynamically stable and nontoxic-appearing upon arrival, afebrile. Differential diagnosis includes PE, asthma, bronchitis, another viral illness, anxiety among others. Workup will be conducted with CTA, normal labs, EBV, PTT, and troponin. Initial inventions include dexamethasone, DuoNeb for wheezing. Initial workup reviewed by me patient does have elevated white count at 13 but she has been taking prednisone for the past 3 days and antibiotics from her primary care physician for her swollen lymph nodes that she has in her right neck. Initial chest x-ray read by my self was negative for anything acute. Formal imaging read remarkable please see formal radiology report. Upon repeat evaluation patient is improved after the DuoNeb however it did make her little shaky. She and I discussed that the results were all pretty normal. She will be discharged home with follow-up with her primary care provider. Critical Care Critical Care Time Critical Care Time: No
[2024-08-09 13:26] LABS: Strep Scrn Group A (Rapid) Negative (Negative)
[2024-08-10 16:51] LABS: EBV Ab VCA, IgG >600.0 U/mL (0.0-17.9); EBV Ab VCA, IgM <36.0 U/mL (0.0-35.9); EBV Nuclear Antigen Ab, IgG >600.0 U/mL (0.0-17.9)
== END 2024-08-09 14:05 | disposition home or self-care (01) ==
PROVIDERS: Nurse Practitioner; Emergency Provider Student in an Organized Health Care Education/Training Program; PCP Nurse Practitioner Family
DX: R06.02 Shortness of breath (principal); R06.2 Wheezing; R59.0 Localized enlarged lymph nodes; B27.90 Infectious mononucleosis, unspecified without complication
CPT/HCPCS: 36415; 71045; 71275; 80053; 82803; 83690; 83735; 83880; 84484; 84703; 85025; 85378; 85610; 85730; 86318; 86664; 86665; 87430; 87631; 93005; 96374; 99285; J1100; Q9967

== ENCOUNTER 2024-08-12 12:17 | Outpatient (CLI) | payer MEDICAID, SELFPAY ==
[2024-08-13 08:21] LABS: Homocyst(e)ine 11.7 umol/L (0.0-14.5)
[2024-08-17 08:21] LABS: M001-IgE Penicillium chrysogen <0.10 kU/L (Class 0); M002-IgE Cladosporium herbarum <0.10 kU/L (Class 0); M003-IgE Aspergillus fumigatus <0.10 kU/L (Class 0); M006-IgE Alternaria alternata <0.10 kU/L (Class 0)
[2024-08-18 14:41] LABS: Histamine, Plasma 0.46 ng/mL (<1.00)
== END 2024-08-12 23:59 | disposition home or self-care (01) ==
LOC: LAB 12:17
PROVIDERS: PCP Nurse Practitioner Family; Visit Provider Nurse Practitioner Family
DX: R79.89 Other specified abnormal findings of blood chemistry (principal); Z77.120 Contact with and (suspected) exposure to mold (toxic)
CPT/HCPCS: 36415; 83088; 83090; 86003

== ENCOUNTER 2024-08-13 07:55 | Outpatient (CLI) | payer MEDICAID, SELFPAY ==
[2024-08-13] MEDS: ALBUTEROL 0.083% 2.5 MG/3 ML NEB IH (08:37)
--- NOTE | 2024-08-13 15:30 | US_ITS ---
FINAL REPORT TECHNIQUE: Ultrasound images of the kidneys and bladder were obtained. CLINICAL HISTORY: decreased urine output -- acidic urine FINDINGS: The right kidney measures 11.5 cm in length. It is normal in echogenicity. There is no hydronephrosis. The left kidney measures 11.6 cm in length. It is normal in echogenicity. There is no hydronephrosis. IMPRESSION: Unremarkable renal ultrasound. Reviewed, Interpreted and Dictated by Adin Crow MD Transcribed by Lilliana Che Authenticated and [facility]
== END 2024-08-13 23:59 | disposition home or self-care (01) ==
LOC: RT 07:55
PROVIDERS: PCP Nurse Practitioner Family; Visit Provider Nurse Practitioner Family
DX: R34 Anuria and oliguria (principal); R06.02 Shortness of breath
CPT/HCPCS: 76770; 94060

== ENCOUNTER 2024-11-17 16:32 | Outpatient (CLI) | payer MEDICAID, SELFPAY ==
--- OUTSIDE RECORDS SUMMARY | 2024-09-22 09:30 | XMS_ITS | Encounter Summary ---
Author Organization [facility] Address [address] [place] [address] Care Team Providers Care Assurance Associate Name Role Phone Ramila Christensen APRN Primary Care Provider [phone] Reason for Referral * Consultation (Routine) - Closed Specialty Diagnoses / Procedures Referred By Karen galeana Referred To Contact Sleep Medicine Diagnoses Other fatigue Tori Davis PA [address] [address] Phone: tel: fax: [facility] [address] [facility] [place] [address] Phone: tel: fax: Referral ID Status Reason Start Date Expiration Date V isits Requested Visits Authorized [id number] Closed Specialty Services Required 09/22/2024 03/24/2026 1 1 * Consultation (Routine) - Authorized Specialty Diagnoses / Procedures Referred By Karen galeana Referred To Contact Physical Therapy Diagnoses Neck pain Tori Davis PA [address] [address] Phone: tel: fax: Referral ID Status Reason Start Date Expiration Date Visits Requested Visits Authorized [id number] Authorized Consult and Treat 09/22/2024 03/24/2026 1 1 Scheduling Instructions Dry needling for trapezius tightening Reason for Visit * Reason Comments Consult * Consultation (Routine) - Closed Specialty Diagnoses / Procedures Referred By Karen galeana Referred To Contact Rheumatology Diagnoses Abnormal coagulation profile Positive dilute Riley's viper venom time test (DRVVT) Ramila Christensen L, JUNIOR LOAN PROCESSOR [address] [place] [address] Phone: tel: fax: Referral ID Status Reason Start Date Expiration Date V isits Requested Visits Authorized [id number] Closed Specialty Services Required 08/06/2024 02/05/2026 1 1 Encounter Details Date Type Department Care Team (Late st Contact Info) Description 09/22/2024 9:30 AM EDT Consult [facility] Medicine Specialties [address] [place] [address] Moises Valladares R, JUNIOR LOAN PROCESSOR [address] [place] [address] Neck pain (Primary Dx); Polyarthralgia; Positive dilute Riley viper venom time test; Other fatigue; Double vision Social History Tobacco Use Types Packs/Day Years Used Date Smoking Tobacco: Never Smokeless Tobacco: Never Tobacco Cessation:Counseling Given: Not Answered Alcohol Use Standard Drinks/Week Comments Not Currently 0 (1 standard drink = 0.6 oz pur e alcohol) Alcohol makes vertigo worse PHQ-2 Answer Date Recorded Patient Health Questionnaire-2 Score 0 09/22/2024 PHQ-9 Answer Date Recorded Patient Health Questionnaire-9 Score 0 09/22/2024 CAGE ASSESSMENT Answer Date Recorded Cage unable to access Not on file 11/18/2023 Maximum number of drinks you had on a given occasion in the last month? 0 drinks 11/18/2023 How many alcoholic Beverages do you typically drink in a week? 0 - 7 per week 11/18/2023 Have you ever felt you should CUT down on your d rinking? 0 11/18/2023 Have you been ANNOYED by peo ple criticizing your drinking? 0 11/18/2023 Have you felt GUILTY about your drinking? 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 0 11/18/2023 CAGE Questionnaire Score 0 024 Comments Yes Sex and Gender Information Value Date Recorded Sex Assigned at Not on file Legal Sex Female 8:08 PM EDT Gender Identity Not on file Sexual Orientation Not on file documented as of this encounter Last Filed Vital Signs Vital Sign Reading Time Taken Comments Blood Pressure 108/75 09/22/2024 9:31 AM EDT Pulse 73 09/22/2024 9:31 AM EDT Temperature 36.6 C (97.8 F) 09/22/2024 9:31 AM EDT Respiratory Rate 16 09/22/2024 9:31 AM EDT Oxygen Saturation 98% 09/22/2024 9:31 AM EDT Inhaled Oxygen Concentration - - Weight 121 kg (266 lb 12.1 oz) 09/22/2024 9:31 A M EDT Height 165.1 cm (5' 5 ) 09/22/2024 9:31 AM EDT Body Mass Index 44.39 09/22/2024 9:31 AM EDT documented in this encounter Functional Status * Over the past 2 weeks, how often have you been bothered by any of the following problems? Question Answer Date of Assessment Author Little interest or pleasure in doing things Not at all 09/22/2024 9:33 AM EDT Kevyn Reddy Feeling down, depressed, or hopeless Not at all 09/22/2024 9:33 AM EDT Kevyn Reddy Patient Health Questionnaire -2 Score 0 09/22/2024 9:33 AM EDT Kevyn Reddy * Question Answer Date of Assessment Author Trouble falling or staying a sleep, or sleeping too much Not at all 09/22/2024 9:33 AM MAXT Kevyn Reddy Feeling tired or having becky le energy Not at all 09/22/2024 9:33 AM EDT Kevyn Reddy Poor appetite or overeating Not at all 09/22/2024 9: 33 AM EDT Kevyn Reddy Feeling bad about yourself - or that you are a failure or have let yourself or your family down Not at all 09/22/2024 9:33 AM EDT Kevyn Rdedy Trouble concentrating on thi ngs, such as reading the newspaper or watching television Not at all 09/22/2024 9:33 AM EDT Kevyn Reddy Moving or speaking so slowly that other people could have noticed? Or the opposite - being so fidgety or restless that you have been moving around a lot more than usual. Not at all 09/22/2024 9:33 AM EDT Kevyn Lindsey Thoughts that you would be b anabel off or hurting yourself in some way Not at all 09/22/2024 9:33 AM EDT Kevyn Reddy Patient Health Questionnaire -9 Score 0 09/22/2024 9:33 AM EDT Kevyn Reddy * If you checked off any problems on this questionnaire so far, Question Answer Date of Assessment Author How difficult have these problems made it for you to do your work, take care of things at home, or get along with other people? Not difficult at all 09/22/2024 9:33 AM EDT Kevyn Reddy documented as of this encounter Miscellaneous Notes * Addendum Note - Moises Valladares APRN - 09/22/2024 9:30 AM EDTAddended by: MOISES VALLADARES on: 09/22/2024 11:47 AM Modules accepted: Level of Service * Progress Notes - Moises Valladares APRN - 09/22/2024 9:30 AM EDT Images from the original note were not included. Rheumatology Office Visit - New Patient I saw and evaluated the patient with the ZI. I discussed the case with the ZI and agree with the findings and plan as documented. HPI: Lola Garza is a 33 y.o. female who was referred to rheumatology by Ramila Christensen APRNfor evaluation of arthralgia, hair loss, and fatigue. . Referral note and labs reviewed : +DRRVT, negative cardiolipin Antibody IgG, IgM, beta -2 glycoprotein Ab IgG, IgM, IgA CRP elevated at 7.6 Normal Vitamin D Low Cortisol Consult (09/22/2024): She describes being referred for a +DRRVT and had an elevated D-dimer from a recent ER visit in July. She had been to the ER for shortness of breath, rescuer inhaler given. She had a normal CXR and EKG. A pulmonary embolism was ruled out. She endorses easy bleeding and easy bruising with varicose veins. Since 2019, she describes vertigo and double vision. She has been worked up by neurology in [place] for MS in the past. She has had Mar maneuvers and eustachian tubes looked at. She is seeing optho-neuro in 11/2024 at . She describes significant fatigue, hair loss, and all over joint pain. She describes swelling in her fingers in the morning in the whole finger, not one, single joint. She describes swelling in her ankles. She had left ankle surgery in 2010, hardware removed in 2022. Ittook a long time to heal, and she developed staph infection in her left ankle. Describes morning stiffness lasts 4 hours. She is allergic to NSAIDs. Describes getting hives from Meloxicam in the past .She describes that tylenol doesn't help. Movement doesn't make difference in her pain. Describes upper back pain in her neck that goes into her trapezius muscles. She has tried cupping and chiropractor that helped her pain. Describes snoring and non-restorative sleep. Adenoid surgical history. Taking melatonin prn. Rheumatological ROS positives for: diffuse hair loss (2 month ago) , past history of muscle weakness (1 year ago, saw Neuro) , potential seizure history , difficulty staying asleep, difficulty falling asleep, non-restorative sleep, fatigue, tight clothes are uncomfortable, intermittent brain fog, anxiety, depression. Rest of the rheumatological ROS negative for: significant daily dry eyes, significant daily dry mouth, painless recurrent oral ulcers or nasal ulcers, alopecia, recurring serositis (pericarditis, pleurisy, peritonitis), psoriasis or severe nail pitting, recurring rash, Photosensitivity (rashes, fever, fatigue, joint pain with <30 min exposure to sun), Raynaud's symptoms, digit ulcerations, renal disease, gross hematuria, recurrent fevers with flares, dysphagia, recurrent sinusitis (2 or moreper month), unexplained hearing loss, psychosis or delirium, Crohn's, ulcerative colitis, uveitis, MS or other demyelinating disease, blood clots, or miscarriages. Rheum Medication History: Past medical history: Low cortisol history Vertigo Anxiety Family History: FH of autoimmune diseases? Grandmother - RA Social History: Exposure to HCV, HBV, HIV or TB. No hx IV drug use. None hx of tobacco use. None, second hand hx of alcohol abuse. 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 Negative for chills and fever. HENT: Negative for mouth sores. Eyes: Positive for visual disturbance (double vision). Respiratory: Negative for shortness of breath. Cardiovascular: Negative for chest pain. Musculoskeletal: Positive for arthralgias, joint swelling, neck pain and neck stiffness. Skin: Negative for rash. Neurological: Positive for headaches. Negative for numbness. PMx: Past Medical History[1] Psx: Surgical History[2] FMx: Family History[3] Sx: Social History Tobacco Use Smoking status: Never Smokeless tobacco: Never Substance Use Topics Alcohol use: Not Currently Comment: Alcohol makes vertigo worse Allergies: Allergies[4] Medications: Current Outpatient Medications Medication Instructions cetirizine (ZYRTEC) 10 mg, Daily etonogestrel-eluting contraceptive device (Nexplanon) 68 MG implant Objective Physical Exam Constitutional: Appearance: Normal appearance. Cardiovascular: Rate and Rhythm: Normal rate and regular rhythm. Pulmonary: Effort: Pulmonary effort is normal. Breath sounds: Normal breath sounds. Musculoskeletal: General: Swelling present. No tenderness. Normal range of motion. Cervical back: Rigidity present. Comments: No synovitis, warmth or erythema. Swelling of left lateral malleolus, past surgical history. Not warm to touch. 5/5 muscle strength of upper extremity. Mild crepitus of bilateral knees. Skin: General: Skin is warm. Findings: No rash. Neurological: General: No focal deficit present. Mental Status: She is alert and oriented to person, place, and time. Psychiatric: Mood and Affect: Mood normal. Behavior: Behavior normal. The above medical information was reviewed for this encounter and updated as appropriate: Current Medications[5] Patient global assessment: 310 Rapid 3 score: 4.7/30 Swollen Joint Count: Swollen: 1 Tender Joint Count: Tender: 1 Imaging Studies: Labs: ASSESSMENT & PLAN: Plan of care developed with Lola Garza on (09/22/24): 1. Neck pain (Primary) Describes neck stiffness that has caused tightness in her trapezius muscle. Tenderness on palpationin her trapezius muscle. Describes having cupping and a chiropractor before that helped her pain. -Ordered XR today and placed an outgoing referral for PT to do dry needling - XR Cervical Spine Complete 4 To 5 Views; Future - Physical Therapy; Future 2. Polyarthralgia Describes all over arthralgias in her hands, neck, and ankles. Significant surgical history of leftankle. Swelling noted on the left ankle, not erythematous or warm on exam. She describes no particular joint in her hand swelling but entire finger will swell. Denies psoriasis or uveitis history. Mor estelle stiffness for 4 hours, movement doesn't make pain better or worse. Normal physical exam, besides swollen left ankle. -labs and XR today, rule out RA - Sedimentation Rate, Automated; Future - C-Reactive Protein, Plasma; Future - CBC and Differential; Future - Comprehensive Metabolic Panel, Plasma; Future - XR Hand and Wrist Bilateral 2 Views; Future - Rheumatoid Factor, Plasma; Future - Cyclic Citrul Peptide Antibody IgG; Future 3. Positive dilute Riley viper venom time test +DRRVT at PCP. No blood clot history or miscarriage history -Checking APLS labs today - Beta-2 Glycoprotein 1 Antibody, IgA; Future - Anti-Beta 2 Glycoprotein, IgG and IgM; Future - Cardiolipin antibody, IgA; Future - Anticardiolipin IgG and IgM; Future - Lupus Anticoagulant Profile; Future 4. Other fatigue Describes non-restorative sleep. -checking thyroid levels today -referral for sleep medicine today - Ambulatory referral to Adult Sleep Medicine; Future - Thyroid Peroxidase Antibody; Future - Thyroid Stimulating Hormone, Plasma; Future 5. Double vision Endorses double vision since 2019. She had a MS workup in [place] that was normal. She is being seen by optho-neuro in 11/[address] Feng - ANCA Vasculitis Profile; Future - ANTI NUCLEAR AB; Future #Health Maintenance Immunization History Administered Date(s) Administered Moderna COVID-19 Vaccine (Medical Record Clerk) 12+ years 03/24/2020, 04/25/2020 Follow Up: Next scheduled follow up: Follow up if symptoms worsen or fail to improve. Patient is agreeable to the above treatment plan and had no further questions. Thanks for the opportunity to participate in the care of this patient! If there are any questions or concerns, please reach out to me personally. Thanks! CRISTIANE Tena Parts of this note were dictated using navabi Direct voice recognition software. As a result, errors may occur. When identified, these sharepoint solutions architect errors are corrected, but while every attempt is made to prevent/correct these, errors may still exist. Time Spent: I personally spent a total of 81 minutes on this encounter. This time includes face to face with patient, counseling and discussion and/or coordination of care. minutes on the encounter. The patient was counseled about diagnostic results, instruction for management, risk factors reduction, prognosis, compliance with visits and treatment, risks and benefits of treatments options. Priornotes (by external physicians) and results were reviewed by me with independent interpretation of labs and imaging. My note will be sent to PCP and other consulting physicians. [1] Past Medical History: Diagnosis Date Complication of the puerperium, unspecified Complication of obstetrical surgical wounds, condition or complication Maternal care for unspecified type scar from previous delivery Uterine scar from previous delivery, antepartum condition or complication Supervision of other high risk pregnancies, unspecified trimester High risk multigravida, antepartum [2] Past Surgical History: Procedure Laterality Date ANKLE SURGERY Left OTHER SURGICAL HISTORY N/A History of foot surgery from [facility] OTHER SURGICAL HISTORY N/A History of section from [facility] OTHER SURGICAL HISTORY N/A History of tonsillectomy from [facility] TONSILLECTOMY W/ ADENOIDECTOMY [3] Family History Problem Relation Name Age of Onset Hypertension Mother Other (May-Thurner Syndrome) Mother Cancer Maternal Grandmother [4] Allergies Allergen Reactions Meloxicam Rash Nsaids Hives [5] Current Outpatient Medications Medication Sig Dispense Refill cetirizine (ZyrTEC) 10 MG tablet Take 1 tablet by mouth daily. etonogestrel-eluting contraceptive device (Nexplanon) 68 MG implant No current facility-administered medications for this visit. documented in this encounter Plan of Treatment Upcoming Encounters Date Type Department Care Team (Late st Contact Info) Description 12/08/2024 11:15 AM EDT Office Visit [facility] [address] [place] [address] Carole Feng MD [address] [place] [address] Scheduled Referrals Name Type Priority Associated Diagnoses Order Schedule Physical Therapy Outpatient Referral Routine Neck pain 1 Occurrences starting 09/22/2024 until 03/26/2026 Ambulatory referral to Adult Sleep Medicine Outpatient Referral Routine Other fatigue Expected: 09/22/2024 (Approximate), Expires: 03/26/2026 documented as of this encounter Results * XR Hand and Wrist Bilateral 2 Views (09/22/2024 11:26 AM EDT) Anatomical Region Laterality Modality Hand, Wrist Bilateral Digital Radiogra phy Impressions 09/22/2024 12:53 PM EDT No acute osseous findings. CRITICAL RESULT: No. COMMUNICATION: Per this written report. Drafted by Elvis Rodas MD on 09/22/2024 12:42 PM Final report signed by Elvis Rodas MD on 09/22/2024 12:53 PM Narrative 09/22/2024 12:53 PM EDT CLINICAL INDICATION: neck pain TECHNIQUE: XR CERVICAL SPINE 2 OR 3 VIEWS, XR HAND WRIST BILATERAL 2 VIEWS COMPARISON: None. FINDINGS: Cervical spine Straightening of the cervical spine alignment Grade 1 anterolisthesis C2 on C3. No significant disc space narrowing. Mild multilevel degenerative changes. No bone erosions. Hands: No acute fractures or dislocations. The joint spaces are preserved. No bone erosions. Borderline negative ulnar variance bilaterally. Procedure Note Elvis Torres MD - 09/22/2024 CLINICAL INDICATION: neck pain TECHNIQUE: XR CERVICAL SPINE 2 OR 3 VIEWS, XR HAND WRIST BILATERAL 2 VIEWS COMPARISON: None. FINDINGS: Cervical spine Straightening of the cervical spine alignment Grade 1 anterolisthesis C2 on C3. No significant disc space narrowing. Mild multilevel degenerative changes. No bone erosions. Hands: No acute fractures or dislocations. The joint spaces are preserved. No bone erosions. Borderline negative ulnar variance bilaterally. IMPRESSION: No acute osseous findings. CRITICAL RESULT: No. COMMUNICATION: Per this written report. Drafted by Elvis Rodas MD on 09/22/2024 12:42 PM Final report signed by Elvis Rodas MD on 2:53 PM Tori SAUER IMG XR PROCEDURES Final R esult * ANTI NUCLEAR AB (09/22/2024 10:59 AM EDT) JAMI INTERPRETIVE COMMENT See Note 10/03/2024 10:49 AM EDT [facility] ([place]) Anti Nuc Ab Screen <1:80 <1:80 10/03/2024 10:49 AM EDT [facility] ([place]) Blood Venous blood specimen / Unknown Venipuncture / Unknown 09/22/2024 10:59 AM EDT 09/22/2024 11:00 AM EDT Narrative [facility] ([place]) - 10/03/2024 10:49 AM EDT Antinuclear antibodies by IFA negative for homogeneous, speckled, nucleolar, centromere, and nuclear dots patterns. Cytoplasmic antibodies by IFA negative for reticular/AMA, discrete/GW body-like, polar/golgi-like, rods and rings, and cytoplasmic speckled patterns. INTERPRETIVE INFORMATION: JAMI Interpretive Comment Presence of antinuclear antibodies (JAMI) is a hallmark feature of systemic autoimmune rheumatic diseases (SARD). However, JAMI lacks diagnostic specificity and is associated with a variety of diseases (cancers, autoimmune, infectious, and inflammatory conditions) and may also occur in healthy individuals in varying prevalence. The lack of diagnostic specificity requires confirmation of positive JAMI by more specific serologic tests. JAMI (nuclear reactivity) positive patterns reported include centromere, homogeneous, nuclear dots, nucleolar, or speckled. JAMI (cytoplasmic reactivity) positive patterns reported include reticular/AMA, discrete/GW body-like, polar/golgi-like, cytoplasmic speckled or rods and rings. All positive patterns are reported to endpoint titers (1:2560). Reported patterns may help guide differential diagnosis, although they may not be specific for individual antibodies or diseases. Mitotic staining patterns not reported. Negative results do not necessarily rule out SARD. Performed By: [facility] [address] [place] [address] Pick Out Hand: Imer Walker MD, PhD CLIA Number: [id number] Tori SAUER LAB BLOOD ORDERABLES Damaris l Result [facility] ([place]) [address] [place] [address] * ANCA Vasculitis Profile (09/22/2024 10:59 AM EDT) Myeloperoxidase (MPO) Ab, IgG 0 0 - 19 AU/mL 09/24/2024 1:27 PM EDT [facility] ([place]) Serine Proteinase 3 (PR3) Ab, IgG 11 0 - 19 AU/mL 09/24/2024 1:27 PM EDT [facility] ([place]) ANCA IFA Titer <1:20 <1:20 09/24/2024 1:27 PM EDT [facility] ([place]) ANCA IFA Pattern None Detected None Detected 09/24/2024 1:27 PM EDT [facility] Blood Venous blood specimen / Unknown Venipuncture / Unknown 09/22/2024 10:59 AM EDT 09/22/2024 11:00 AM EDT Narrative [facility] ([place]) - 09/24/2024 1:27 PM EDT INTERPRETIVE INFORMATION: Myeloperoxidase Abs, IgG 19 AU/mL or Less ......... Negative 20-25 AU/mL .............. Equivocal 26 AU/mL or Greater ...... Positive Approximately 90% of patients with a P-ANCA pattern by IFA have antibodies specific for MPO. INTERPRETIVE INFORMATION: Serine Proteinase 3, IgG 19 AU/mL or Less ........ Negative 20-25 AU/mL ............. Equivocal 26 AU/mL or Greater ..... Positive Approximately 85% of patients with a C-ANCA pattern by IFA have antibodies specific for PR3. INTERPRETIVE INFORMATION: ANCA IFA Pattern Neutrophil Cytoplasmic Antibodies (C-ANCA = granular cytoplasmic staining, P-ANCA = perinuclear staining) are found in the serum of over 90 percent of patients with certain necrotizing systemic vasculitides, and usually in less than 5 percent of patients with collagen vascular disease or arthritis. Performed By: [facility] [address] [place] [address] Pick Out Hand: Imer Walker MD, PhD CLIA Number: [id number] Tori SAUER LAB BLOOD ORDERABLES Damaris l Result Performing Organization Address City/[facility]/ZIP Co de Phone Number [facility] ([facility]) [address] [place] [address] * Thyroid Stimulating Hormone, Plasma (09/22/2024 10:59 AM EDT) Thyroid Stimulating Hormone, Plasma 1.98 0.40 - 4.20 uIU/mL 09/22/2024 12:52 PM EDT [facility] Blood Venous blood specimen / Unknown Venipuncture / Unknown 09/22/2024 10:59 AM EDT 09/22/2024 11:00 AM EDT Narrative [facility] - 09/22/2024 12:52 PM EDT Trimester Specific Ranges TSH ( IU/mL) 1st Trimester 0.1 - 3.0 2nd Trimester 0.19 - 4.06 3rd Trimester 0.3 - 3.7 Tori SAUER LAB BLOOD ORDERABLES Damaris l Result [facility] [address] [place] [address] * Thyroid Peroxidase Antibody (09/22/2024 10:59 AM EDT) Thyroid Peroxidase Antibody <5 <=8 IU/mL 09/22/2024 1:30 PM EDT [facility] Blood Venous blood specimen / Unknown Venipuncture / Unknown 09/22/2024 10:59 AM EDT 09/22/2024 11:00 AM EDT Tori SAUER LAB BLOOD ORDERABLES Damaris l Result Performing Organization Address City/[facility]/ZIP Co de Phone Number [facility] [address] [place] [address] * Cyclic Citrul Peptide Antibody IgG (09/22/2024 10:59 AM EDT) [facility] Cyclic Citrul Peptide Antibody IgG <5.0 <=5.0 U/mL 09/22/2024 1:54 PM EDT [facility] Blood Venous blood specimen / Unknown Venipuncture / Unknown 09/22/2024 10:59 AM EDT 09/22/2024 11:00 AM EDT Tori SAUER LAB BLOOD ORDERABLES Damaris l Result Performing Organization Address City/[facility] Co de Phone Number [facility] [address] [place] [address] * Rheumatoid Factor, Plasma (09/22/2024 10:59 AM EDT) [facility] Rheumatoid Factor, Plasma <10 <14 IU/mL 09/22/2024 12:52 PM EDT [facility] Blood Venous blood specimen / Unknown Venipuncture / Unknown 09/22/2024 10:59 AM EDT 09/22/2024 11:00 AM EDT Tori SAUER LAB BLOOD ORDERABLES Damaris l Result Performing Organization Address City/[facility]/ZIP Co de Phone Number [facility] [address] [place] [address] * Lupus Anticoagulant Profile (09/22/2024 10:59 AM EDT) [facility] Lupus Anticoagulant Result Lupus anticoagulant (LA) not detected by either LA-sensitive aPTT or dRVVT assays. If clinical suspicion for antiphospholipid syndrome is high, consider testing for antibodies against cardiolipin and [id number] n I. 09/25/2024 9:34 AM EDT [facility] aPTT Lupus Anticoagulant Sensitive 35.0 <=41.0 sec LAB COAGULATION METHOD 09/25/2024 9:34 AM EDT [facility] DRVVT Screen 38.1 sec LAB COAGULATION METHOD 09/25/2024 9:34 AM EDT [facility] DRVVT Screen Ratio 0.97 <1.20 LAB COAGULATION METHOD 09/25/2024 9:34 AM EDT [facility] Blood Venous blood specimen / Unknown Venipuncture / Unknown 09/22/2024 10:59 AM EDT 09/22/2024 11:00 AM EDT Tori SAUER LAB BLOOD ORDERABLES Damaris l Result [facility] [address] [place] [address] * Anticardiolipin IgG and IgM (09/22/2024 10:59 AM EDT) IgG Anticardiolipin <1.60 <20.00 GPL Units/mL 09/22/2024 1:30 PM EDT [facility] Anticardiolipin IgG Interpretation Negative Negative 09/22/2024 1:30 PM EDT [facility] IgM Anticardiolipin 1.70 <20.00 MPL Units/mL 09/22/2024 1:30 PM EDT [facility] Anticardiolipin IgM Interpretation Negative Negative 09/22/2024 1:30 PM EDT [facility] Blood Venous blood specimen / Unknown Venipuncture / Unknown 09/22/2024 10:59 AM EDT 09/22/2024 11:00 AM EDT Tori SAUER LAB BLOOD ORDERABLES Damaris l Result [facility] [address] [place] [address] * Cardiolipin antibody, IgA (09/22/2024 10:59 AM EDT) Cardiolipin Antibody IgA <10 <=11 APL 10/01/2024 10:31 AM EDT [facility] ([facility]) Blood Venous blood specimen / Unknown Venipuncture / Unknown 09/22/2024 10:59 AM EDT 09/22/2024 11:00 AM EDT Narrative [facility]) - 10/01/2024 10:31 AM EDT INTERPRETIVE INFORMATION: Cardiolipin Antibodies, IgA <=11 APL: Negative 12-19 APL: Indeterminate 20-80 APL: Low to Moderately Positive 81 APL or above: High Positive Performed By: [facility] [address] [place] [address] Pick Out Hand: Imer Walker MD, PhD CLIA Number: [id number] Tori SAUER LAB BLOOD ORDERABLES Damaris l Result [facility]) [address] [place] [address] * Anti-Beta 2 Glycoprotein, IgG and IgM (09/22/2024 10:59 AM EDT) Anti-Beta 2 Glycoprotein 1, IgG <1.4 <20.0 U/mL 09/22/2024 1:30 PM EDT [facility] Anti-Beta 2 Glycoprotein IgG Interpretation Negative Negative 09/22/2024 1:30 PM EDT [facility] Anti-Beta 2 Glycoprotein 1, IgM 1.6 <20.0 U/mL 09/22/2024 1:30 PM EDT [facility] Anti-Beta 2 Glycoprotein IgM Interpretation Negative Negative 09/22/2024 1:30 PM EDT [facility] Blood Venous blood specimen / Unknown Venipuncture / Unknown 09/22/2024 10:59 AM EDT 09/22/2024 11:00 AM EDT Tori SAUER LAB BLOOD ORDERABLES Damaris l Result [facility] [address] [place] [address] * Beta-2 Glycoprotein 1 Antibody, IgA (09/22/2024 10:59 AM EDT) [id number] 1, IgA Antibody <10 <=20 DARCIE 09/24/2024 1:53 AM EDT [facility] ([facility]) Serum 09/22/2024 10:5 9 AM EDT 09/22/2024 11:00 AM EDT Narrative [facility] ([facility]) - 09/24/2024 1:53 AM EDT Performed By: [facility] [address] [place] [address] Pick Out Hand: Imer Walker MD, PhD CLIA Number: [id number] Tori SAUER LAB BLOOD ORDERABLES Damaris l Result [facility] ([place]) [address] [place] [address] * Comprehensive Metabolic Panel, Plasma (09/22/2024 10:59 AM EDT) Glucose, Plasma 87 74 - 99 mg/dL 09/22/2024 12:52 PM EDT [facility] BUN, Plasma 10 7 - 21 mg/dL 09/22/2024 12:52 PM EDT [facility] Creatinine, Plasma 0.63 0.60 - 1.10 mg/dL 09/22/2024 12:52 PM EDT [facility] BUN/Creatinine Ratio 16 09/22/2024 12:52 PM EDT [facility] Sodium, Plasma 140 136 - 145 mmol/L 09/22/2024 12:52 PM EDT [facility] Potassium, Plasma 4.4 3.6 - 4.9 mmol/L 09/22/2024 12:52 PM EDT [facility] Chloride, Plasma 106 97 - 107 mmol/L 09/22/2024 12:52 PM EDT [facility] CO2, Plasma 24 22 - 29 mmol/L 09/22/2024 12:52 PM EDT [facility] Anion Gap 10 6 - 16 mmol/L 09/22/2024 12:52 PM EDT [facility] Total Calcium, Plasma 9.3 8.9 - 10.2 mg/dL 09/22/2024 12:52 PM EDT [facility] Total Protein 7.6 6.3 - 7.9 g/dL 09/22/2024 12:52 PM EDT [facility] Albumin, Plasma 4.3 3.5 - 5.2 g/dL 09/22/2024 12:52 PM EDT [facility] AST, Plasma 19 10 - 35 U/L 09/22/2024 12:52 PM EDT [facility] ALT, Plasma 18 10 - 35 U/L 09/22/2024 12:52 PM EDT [facility] Alkaline Phosphatase, Plasma 103 35 - 104 U/L 09/22/2024 12:52 PM EDT [facility] Total Bilirubin, Plasma 0.7 0.2 - 1.1 mg/dL 09/22/2024 12:52 PM EDT [facility] eGFRcr 120.3 mL/min/1.7 3m*2 09/22/2024 12:52 PM EDT [facility] Comment:Reported eGFRcr in m L/min/1.73m2 is based the CKD-EPI 2020 equation that does not use a race coefficient. Blood Venous blood specimen / Unknown Venipuncture / Unknown 09/22/2024 10:59 AM EDT 09/22/2024 11:00 AM EDT us Tori SAUER LAB BLOOD ORDERABLES Damaris oliver Result [facility] [address] [place] [address] * (ABNORMAL) CBC and Differential (09/22/2024 10:59 AM EDT) WBC Count 9.55 3.70 - 10.30 10*3/uL LAB HEMATOLOGY METHOD 09/22/2024 12:35 PM EDT [facility] RBC Count 5.24(H) 3.90 - 5.20 10*6/uL LAB HEMATOLOGY METHOD 09/22/2024 12:35 PM EDT [facility] HGB 14.5 11.2 - 15.7 g/dL LAB HEMATOLOGY METHOD 09/22/2024 12:35 PM EDT [facility] HCT 45.1(H) 34.0 - 45.0 % LAB HEMATOLOGY METHOD 09/22/2024 12:35 PM EDT [facility] Platelet Count 319 155 - 369 10*3/uL LAB HEMATOLOGY METHOD 09/22/2024 12:35 PM EDT [facility] MCV 86 79 - 98 fL LAB HEMATOLOGY METHOD 09/22/2024 12:35 PM EDT [facility] MCH 27.7 26.0 - 32.0 pg LAB HEMATOLOGY METHOD 09/22/2024 12:35 PM EDT [facility] MCHC 32.2 30.7 - 35.5 g/dL LAB HEMATOLOGY METHOD 09/22/2024 12:35 PM EDT [facility] RDW 13.5 11.5 - 14.5 % LAB HEMATOLOGY METHOD 09/22/2024 12:35 PM EDT [facility] MPV 11.8 8.8 - 12.5 fL LAB HEMATOLOGY METHOD 09/22/2024 12:35 PM EDT [facility] nRBC 0.0 <=0.0 per 100 WBCs LAB HEMATOLOGY METHOD 09/22/2024 12:35 PM EDT [facility] Differential Type Automated LAB HEMATOLOGY METHOD 09/22/2024 12:35 PM EDT [facility] Neutrophils % 65 % LAB HEMATOLOGY METHOD 09/22/2024 12:35 PM EDT [facility] Lymphocytes % 26 % LAB HEMATOLOGY METHOD 09/22/2024 12:35 PM EDT [facility] Monocytes % 6 % LAB HEMATOLOGY METHOD 09/22/2024 12:35 PM EDT [facility] Eosinophils % 2 % LAB HEMATOLOGY METHOD 09/22/2024 12:35 PM EDT [facility] Basophils % 1 % LAB HEMATOLOGY METHOD 09/22/2024 12:35 PM EDT [facility] Immature Granulocytes % 0 % LAB HEMATOLOGY METHOD 09/22/2024 12:35 PM EDT [facility] Neutrophils Absolute 6.27(H) 1.60 - 6.10 10*3/uL LAB HEMATOLOGY METHOD 09/22/2024 12:35 PM EDT [facility] Lymphocytes Absolute 2.50 1.20 - 3.90 10*3/uL LAB HEMATOLOGY METHOD 09/22/2024 12:35 PM EDT [facility] Monocytes Absolute 0.53 0.30 - 0.90 10*3/uL LAB HEMATOLOGY METHOD 09/22/2024 12:35 PM EDT [facility] Eosinophils Absolute 0.15 0.00 - 0.50 10*3/uL LAB HEMATOLOGY METHOD 09/22/2024 12:35 PM EDT [facility] Basophils Absolute 0.06 0.00 - 0.10 10*3/uL LAB HEMATOLOGY METHOD 09/22/2024 12:35 PM EDT [facility] Immature Granulocytes Absolute 0.04 0.00 - 0.06 10*3/uL LAB HEMATOLOGY METHOD 09/22/2024 12:35 PM EDT [facility] Blood Venous blood specimen / Unknown Venipuncture / Unknown 09/22/2024 10:59 AM EDT 09/22/2024 11:00 AM EDT Narrative [facility] - 09/22/2024 12:35 PM EDT Therapeutic decision making should be based on absolute values, rather than percentages. Tori SAUER LAB BLOOD ORDERABLES Damaris l Result Performing Organization Address City/[facility] Co de Phone Number [facility] [address] [place] [address] * C-Reactive Protein, Plasma (09/22/2024 10:59 AM EDT) CRP, Plasma 4.0 <=8.0 mg/L 09/22/2024 12:52 PM EDT [facility] Blood Venous blood specimen / Unknown Venipuncture / Unknown 09/22/2024 10:59 AM EDT 09/22/2024 11:00 AM EDT Narrative [facility] - 09/22/2024 12:52 PM EDT This CRP test is appropriate for assessment of infection, systemic inflammation and/or tissue injury. To assess cardiovascular disease risk order high sensitivity CRP (CRPH). Tori SAUER LAB BLOOD ORDERABLES Damaris l Result [facility] [address] [place] [address] * (ABNORMAL) Sedimentation Rate, Automated (09/22/2024 10:59 AM EDT) Sedimentation Rate 33(H) <20 mm/hr 2024 1:07 PM EDT [facility] Blood Venous blood specimen / Unknown Venipuncture / Unknown 09/22/2024 10:59 AM EDT 09/22/2024 11:00 AM EDT us Tori SAUER LAB BLOOD ORDERABLES Damaris l Result [facility] [address] [place] [address] documented in this encounter Visit Diagnoses Diagnosis Neck pain- Primary Cervicalgia Polyarthralgia Pain in joint, multiple sites Positive dilute Riley viper venom time test Other fatigue Double vision Diplopia Polyarthralgia Pain in joint, multiple sites Neck pain Cervicalgia documented in this encounter Additional Health Concerns Assessment Noted Time PHQ-9 Depression Total Score: 0 09/23/19 25 9:33 AM EDT A fall risk assessment has been complete d for the patient 09/22/2024 9:33 AM EDT A Body Mass Index follow-up plan has been documented for the patient 09/22/2024 10:45 AM EDT documented as of this encounter Care Teams Assurance Associate Relationship Specialty Start Date End Date Ramila Christensen APRN [address] [id number] PCP - General 11/18/23 documented as of this encounter
--- OUTSIDE RECORDS SUMMARY | 2024-09-22 10:45 | XMS_ITS | Encounter Summary ---
Author Organization Healthcare Address [address] [place] [address] Care Team Providers Care Inspector Scales Name Role Phone Ramila Christensen APRN Primary Care Provider [phone]- [phone] Encounter Details Date Type Department Care Team (Latest Contact Info) Description 09/22/2024 10:45 AM EDT - 09/22/2024 11:59 PM EDT Hospital En[facility] [address] [place] [address] Polyarthralgia; Neck pain Discharge Disposition: Home or Self Care Social History Tobacco Use Types Packs/Day Years Used Date Smoking Tobacco: Never Smokeless Tobacco: Never Alcohol Use Standard Drinks/Week Comments Not Currently [...] drink first t 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 0 11/18/2023 CAGE Questionnaire Score 0 024 Comments Yes Sex and Gender Information Value Date Recorded Sex Assigned at Not on file Legal Sex Female 8:08 PM EDT Gender Identity Not on file Sexual Orientation Not on file documented as of this encounter Functional Status * Over the [...] Questionnaire -2 Score 0 09/22/2024 9:33 AM EDKevyn Calderon * Question Answer Date of Assessment Author Trouble falling or staying a sleep, or sleeping too much Not at all 09/22/2024 9:33 AM Kevyn Dan Feeling tired or having becky le energy Not at all 09/22/2024 9:33 AM EDKevyn Calderon Poor appetite or overeating Not at all 09/22/2024 9: 33 AM Kevyn Dan Feeling bad about yourself - or that you are a failure or have let yourself or your family down Not at all 09/22/2024 9:33 AM Kevyn Dan Trouble concentrating on thi ngs, such as reading the newspaper or watching television Not at all 09/22/2024 9:33 AM Kevyn Dan Moving or speaking so slowly that other people could have noticed? Or the opposite - being so fidgety or restless that you have been moving around a lot more than usual. Not at all 09/22/2024 9:33 AM Kevyn Aguayo Thoughts that you would be b anabel off or hurting yourself in some way Not at all 09/22/2024 9:33 AM Kevyn Dan Patient Health Questionnaire -9 Score 0 09/22/2024 9:33 AM EDKevyn Calderon * If you checked off any problems on this questionnaire so far, Question Answer Date of Assessment Author How difficult have these problems made it for you to do your work, take care of things at home, or get along with other people? Not difficult at all 09/22/2024 9:33 AM EDT Kveyn Reddy documented as of this encounter Medications at Time of Discharge cetirizine (ZyrTEC) 10 MG tablet Take 1 tablet by mouth daily. etonogestrel-elutin g contraceptive device (Nexplanon) 68 MG implant 10/02/2017 documented as of this encounter Plan of Treatment Upcoming Encounters Date Type Department Care Team (Late st Contact Info) Description 12/08/2024 11:15 AM EDT Office Visit [facility] [address] [place] [address] Carole Feng MD [address] [facility] [address] [place] [address] documented as of this encounter Procedures Procedure Name Priority Date/Time Associated Diagnosis Comments XR HAND WRIST BILATERAL 2 VIEWS Routine 09/22/2024 11:26 AM EDT Polyarthralgia XR CERVICAL SPINE 2 OR 3 VIEWS Routine 09/22/2024 11:26 AM EDT Neck pain documented in this encounter Results * XR Cervical Spine 2 or 3 Views (09/22/2024 11:26 AM EDT) Anatomical Region Laterality Modality Spine, C-spine Digital Radiogra phy Impressions 09/22/2024 12:53 PM [...] IMG XR PROCEDURES Final R esult * XR Hand and Wrist Bilateral 2 [...] Elvis Rodas MD on 2:53 PM Tori Davis PA IMG XR PROCEDURES Final R esult documented in this encounter Visit Diagnoses Diagnosis Polyarthralgia Pain in joint, multiple sites Neck [...] documented as of this encounter Care Teams Inspector Scales Relationship Specialty Start Date End Date Ramila Christensen APRN [address] [place] [address] PCP - General 11/18/23 documented as of this encounter
--- OUTSIDE RECORDS SUMMARY | 2024-10-15 11:00 | XMS_ITS | Encounter Summary ---
Author Organization Healthcare Address [address] [place] [address] Care Team Providers Care Street Roller Engineer Name Role Phone Ramila Christensen APRN Primary Care Provider +1- [phone] Reason for Referral * Other Medical (Routine) - Authorized Specialty Diagnoses / Procedures Referred By Karen galeana Referred To Contact Sleep Medicine Diagnoses Snoring Excessive daytime sleepiness Severe obesity (BMI >= 40) (CMS/FORMERLY [facility]) Procedures Unattended Polysomnography (Home sleep test) Aleida Manley APRN [address] [place] [address] Phone: tel: fax: Referral ID Status Reason Start Date Expiration Date Visits Requested Visits Authorized [id number] Authorized Specialty Services Required 10/15/2024 04/16/2026 1 1 Reason for Visit * Reason Comments Snoring Fatigue Excessive Daytime Sleepiness Restless Sleep * Consultation (Routine) - Closed Specialty Diagnoses / Procedures Referred By Karen galeana Referred To Contact Sleep Medicine Diagnoses Other fatigue Tori Davis PA [address] [place] [address] Phone: tel: fax: [facility] [address] [place] [address] Phone: tel: fax: Referral ID Status Reason Start Date Expiration Date V isits Requested Visits Authorized [id number] Closed Specialty Services Required 09/22/2024 03/24/2026 1 1 Encounter Details Date Type Department Care Team (Late st Contact Info) Description 10/15/2024 11:00 AM EDT Office Visit [facility] 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 -Home sleep study to be scheduled at our next available, but convenient appointment for you. Results can take anywhere from 7-10 days. -We will reach out for discussion of the results and treatment recommendations. -Call our clinic with any questions or concerns or you can send messages through [employer]. * Progress Notes - Aleida Manley APRN - 10/15/2024 11:00 AM EDT Subjective Dear Ramila Virk, LUIS FERNANDO, I had the pleasure of seeing Lola Garza at the [facility] with/for Snoring, Fatigue, Excessive Daytime Sleepiness, and Restless Sleep. Visit Type: Consult HPI Lola Garza is a 33 y.o. female BMI 44.39 who presents to the clinic today for consultation. Referred by CRISTIANE Grier, Rheumatology for fatigue. Patient reports snoring and non-restorative sleep. Adenoid surgical history. Taking melatonin prn. Positive for snoring and waking up gasping/choking from sleep.. Denies witnessed apneic episodes. ESS of 11 (<10 normal). Denies former PSG Pertinent medical history includes seasonal allergies, vertigo Reports anxiety. Denies depression and SI. Denies any recent surgeries, hospitalizations, or major illnesses Reports family history of sleep apnea- mother Reports abnormal leg sensations and bruxism. Denies hallucinations, reoccurring nightmares, or sleep walking/talking, . Endorses dry mouth and morning headaches. Reports occasional drowsy driving. Denies car wrecks related to sleepiness. Patient goes to bed at 9 pm to 10 pm and then falls asleep at varied times. It can take a long timeto fall asleep, while waiting to fall asleep will lay there. Wakes throughout the night 3-4x. Then wakes up in the morning 630 am working days and 8 am non-working days. 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 Allergies[5] Immunization History Administered Date(s) Administered Moderna COVID-19 Vaccine (Landscape Supervisor) 12+ years 03/24/2020, 04/25/2020 The following portions of the chart were reviewed this encounter and updated as appropriate: Tobacco Allergies Meds Problems Med Hx Surg Hx Fam Hx ROS Constitutional: No loss of energy or appetite, weight gain/loss, Reports drowsy driving Eyes: No redness, discharge from eye, itching, or pain ENT: No earache, loss of hearing, runny nose, congestion, sinus fullness, or sore throat Cardiovascular: No chest pain, palpitations or swelling in legs Respiratory: No abnormal cough or shortness of breath Gastrointestinal: No abdominal pain, heartburn, vomiting, diarrhea, or constipation Genitourinary: No pain with urination, frequency, or urgency Musculoskeletal: No joint pain, swelling, deformity, muscle aches Integumentary: No rash, skin growths or changes of skin color Neurological: No weakness, difficulty walking, or slurred speech. Reports morning headache. Psychiatric: See HPI Allergy: Reports seasonal allergies Objective Visit Vitals BP 118/71 Pulse 82 Height and Weight Height: 165.1 cm (5' 5 ) Weight: 121 kg (266 lb 12.1 oz) BSA (Calculated - sq m): 2.36 sq meters BMI (Calculated): 44.39 Weight in (lb) to have BMI = 25: 149.9 Oxygen Therapy SpO2: 96 % Physical Exam Constitutional: no acute distress, well appearing and well nourished. BMI 44.39 Head and Face: normal symmetrical Eyes: sclera clear, no redness or discharge noted ENT and mouth: External inspection of ears and nose were normal, hearing was normal, nasal mucosa, septum, and turbinate's were normal. Lips, teeth, and gums were normal with good dentition. Own teeth with no overbite. Oropharynx without erythema, edema, exudate, or lesions. Uvula centered with Mallampati score of 3 Neck: supple, symmetric, trachea midline Pulmonary: no increased work of breathing or signs of respiratory distress. Lungs were clear to auscultation Cardiovascular: Normal PMI, no murmurs. Normal rate and rhythm, normal S1 and S2, no carotid bruits. Peripheral vascular exam was normal, no edema or varicosities noted Musculoskeletal: gait and station were normal, moves all four extremities well Skin: no rashes or significant lesions noted Neurologic: alert and oriented to person, place, and time. Judgement and insight normal. Memory intact. Psychiatric: Mood and affect appropriate. Assessment/Plan Problem List Items Addressed This Visit None Visit Diagnoses Snoring - Primary Relevant Orders Unattended Polysomnography (Home sleep test) Excessive daytime sleepiness Relevant Orders Unattended Polysomnography (Home sleep test) Severe obesity (BMI >= 40) (CMS/HCC) Relevant Orders Unattended Polysomnography (Home sleep test) Discussion Summary: Snoring Excessive daytime sleepiness Obesity, BMI 44.39 -Ms. Lola Garza raises clinical suspicion of sleep apnea with moderate to high index (BMI-44.39, loud snoring, ESS-11, witnessed apneas, family hx sleep apnea, frequent night time arousals,non restorative sleep, Mallampati 3). -Recommend a home sleep study for further evaluation. We discussed the potential for home sleep studies to underestimate severity of sleep apnea and the possibility for a formal polysomnography. -I have discussed the physical changes and prognosis of untreated obstructive sleep apnea, including cardiovascular disease such as high blood pressure, risk of stroke, heart attack, irregular heartbeats, or in severe cases even . -Advantages and disadvantages of treatment with CPAP, oral appliance, or positional therapy if indicated have been discussed with patient. They are agreeable to starting CPAP therapy if the study is positive for RICK. Patient would or would not be a good candidate for AutoPAP. -Schedule follow up to discuss results and treatment recommendations further once results are available. Telephone call/telehealth would be appropriate. -Call with any questions or concerns. Counseling Documentation: The patient was counseled regarding risks and benefit of treatment options, risk factor reductions,and impressions including effects of untreated sleep apnea: these risks include but are not limitedto: cognitive dysfunction, dementia, mood disorder, heart failure, heart arrhythmias, non-restorative sleep, daytime sleepiness, heart attacks, strokes, and even in some cases. Discussed treatment options for sleep apnea including CPAP. Education provided was verbal counseling such as how to test for sleep apnea and what to expect the night of testing. Additional time was spent in care coordination including medical record review. The total time of encounter was 40 minutes. [1] Past Medical History: Diagnosis Date Complication [...] HISTORY N/A History of foot surgery from [facility] OTHER SURGICAL HISTORY N/A History of section from [facility] OTHER SURGICAL HISTORY N/A History of tonsillectomy from [facility] TONSILLECTOMY W/ ADENOIDECTOMY [3] Family History Problem Relation Name Age of Onset Hypertension Mother Other (May-Thurner Syndrome) Mother Cancer Maternal Grandmother [4] Current Outpatient Medications Medication Sig Dispense Refill cetirizine (ZyrTEC) 10 MG tablet Take 1 tablet by mouth daily. etonogestrel-eluting contraceptive device (Nexplanon) 68 MG implant No current facility-administered medications for this visit. [5] Allergies Allergen Reactions Meloxicam Rash Nsaids Hives documented in this encounter Plan of Treatment Upcoming Encounters Date Type Department Care Team (Late st Contact Info) Description 12/08/2024 11:15 AM EDT Office Visit [facility] [address] [place] [address] Carole Feng MD [address] [place] [id number] Scheduled Orders Name Type Priority Associated Diagnoses Order Schedule Unattended Polysomnography (Home sleep test) Sleep Center Routine Snoring Excessive daytime sleepiness Severe obesity (BMI >= 40) (CMS/HCC) 1 Occurrences starting 10/15/2024 until 04/18/2026 documented as of this encounter Visit Diagnoses Diagnosis Snoring- Primary Other dyspnea and respiratory abnormality Excessive daytime sleepiness Severe obesity (BMI >= 40) (CMS/HCC) documented in this encounter Additional Health Concerns Assessment Noted Time PHQ-9 Depression Total Score: 0 09/23/19 9:33 AM EDT A fall risk assessment has been complete d for the patient 10/15/2024 11:16 AM EDT A Body Mass Index follow-up plan has been documented for the patient 10/15/2024 4:12 PM EDT documented as of this encounter Care Teams Street Roller Engineer Relationship Specialty Start Date End Date Ramila Christensen APRN [address] [place] [address] PCP - General 11/18/23 documented as of this encounter
--- OUTSIDE RECORDS SUMMARY | 2024-11-17 16:34 | XMS_ITS | Encounter Summary ---
Author Organization Healthcare Address [address] 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 0 11/18/2023 CAGE Questionnaire Score 0 024 Comments Yes Sex and Gender Information Value Date Recorded Sex Assigned at Not on file Legal Sex Female 8:08 PM EDT Gender Identity Not on file Sexual Orientation Not on file documented as of this encounter Plan of Treatment Upcoming Encounters Date Type Department Care Team (Late st Contact Info) Description 12/08/2024 11:15 AM EDT Office Visit [facility] [address] [place] [address] Carole Feng MD [address] [facility] [address] [place] [address] documented as of this encounter Visit Diagnoses Not on filedocumented in this encounter Additional Health Concerns Assessment Noted Time PHQ-9 Depression Total Score: 0 09/23/19 25 9:33 AM EDT A fall risk assessment has been complete d for the patient 09/22/2024 9:33 AM EDT A Body Mass Index follow-up plan has been documented for the patient 09/22/2024 10:45 AM EDT documented as of this encounter Care Teams Quarry Plug And Feather Driller Relationship Specialty Start Date End Date Ramila Christensen APRN [address] [place] [address] PCP - General 11/18/23 documented as of this encounter
--- OUTSIDE RECORDS SUMMARY | 2024-11-17 16:34 | XMS_ITS | Encounter Summary ---
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) to steady your nerves or to get [...] things Not at all 09/22/2024 9:33 AM Kevyn Dan Feeling down, depressed, or hopeless Not at all 09/22/2024 9:33 AM Kevyn Dan Patient Health Questionnaire -2 Score 0 09/22/2024 9:33 AM Kevyn Dan * Question Answer Date of Assessment Author Trouble falling or staying a sleep, or sleeping too much Not at all 09/22/2024 9:33 AM Kevyn Dan Feeling tired or having becky le energy Not at all 09/22/2024 9:33 AM Kevyn Dan Poor appetite or overeating Not at all [...] Questionnaire -9 Score 0 09/22/2024 9:33 AM Kevyn Dan * If you checked off any problems on this questionnaire so far, Question Answer Date of Assessment Author How difficult have these problems made it for you to do your work, take care of things at home, or get along with other people? Not difficult at all 09/22/2024 9:33 AM Kevyn Dan documented as of this encounter Plan of Treatment Upcoming Encounters Date Type Department Care Team (Late st Contact Info) Description 12/08/2024 11:15 AM EDT Office Visit [facility] [address] [place] [address] Carole Feng MD [address] [place] [address] documented as of this encounter [...] documented as of this encounter Care Teams Dental Front Office Assistant Relationship Specialty Start Date End Date Ramila Christensen APRN [address] [place] [address] PCP - General 11/18/23 documented as of this encounter
--- OUTSIDE RECORDS SUMMARY | 2024-11-17 16:35 | XMS_ITS | Encounter Summary ---
Author Organization Healthcare Address [address] [place] [address] Care Team Providers Care Pipe Finishing Supervisor Name Role Phone Ramila Christensen APRN Primary Care Provider +1- [phone] Encounter Details Date Type Department Care Team ([facility] Contact Info) Description 07/27/2024 Results Follow-Up [facility] [address] [facility] [place] [address] [place] [address] Randi Livingston, DO [address] [facility] [address] [place] [address] Social History Tobacco Use Types Packs/Day Years [...] drink first t chucky in the morning (EYE-SHIRT SEWER) to steady your nerves or to get [...] much Not at all 09/22/2024 9:33 AM EDT Kevyn Reddy Feeling tired or having becky [...] way Not at all 09/22/2024 9:33 AM EDKevyn Calderon Patient Health Questionnaire -9 Score 0 09/22/2024 [...] Kevyn Reddy documented as of this encounter Plan of Treatment Upcoming Encounters Date Type Department Care Team (Late st Contact Info) Description 12/08/2024 11:15 AM EDT Office Visit [facility] [address] [place] [address] Carole Feng MD [address] [place] [address] documented as of this encounter Visit Diagnoses Not on filedocumented in this encounter Additional Health Concerns Assessment Noted Time A fall risk assessment has been complete d for the patient 07/06/2024 1:05 PM EDT A Body Mass Index follow-up plan has been documented for the patient 07/06/2024 2:21 PM EDT documented as of this encounter Care Teams Pipe Finishing Supervisor Relationship Specialty Start Date End Date Ramila Christensen APRN [address] [place] [address] PCP - General 11/18/23 documented as of this encounter
--- OUTSIDE RECORDS SUMMARY | 2024-11-17 16:35 | XMS_ITS | Encounter Summary ---
Author Organization Healthcare Address [address] [place] [address] Care Team Providers Care Production Technician Name Role Phone Ramila Christensen APRN Primary Care Provider +1- [phone] Encounter Details Date Type Department Care Team (Late st Contact Info) Description 11/18/2023 Ophth Exam [facility] [address] [place] [address] Cherrie Alford MD [address] [place], [place] [id number] Social History Tobacco Use Types Packs/Day Years Used Date Smoking Tobacco: Every Day Alcohol Use Standard Drinks/Week Comments Yes 0 (1 standard drink = 0.6 oz pur e alcohol) CAGE ASSESSMENT Answer Date Recorded Cage unable [...] drink first t chucky in the morning (EYE-URBAN ANTHROPOLOGIST) to steady your nerves or to get rid of a hangover? 0 11/18/2023 CAGE Questionnaire Score 0 024 Comments Unknown Sex and Gender Information Value Date Recorded Sex Assigned at Not on file Legal Sex Female 8:08 PM EDT Gender Identity Not on file Sexual Orientation Not on file documented as of this encounter Functional Status * Calculated C-SSRS Risk Score (Lifetime/Recent) Answer Date of Assessment Author No Risk Indicated 11/18/2023 7:24 PM EDT Hemal Lopez RN * Question Answer Date of Assessment Author 1. Wish to be (Past 1 Month) No 024 7:24 PM EDT Hemal Pires RN 2. Non-Specific Active Suici mehnaz Thoughts (Past 1 Month) No 11/18/2023 7:24 PM EDT Neri Pires RN 6. Suicidal Behavior (Lifetime) No 7:24 PM EDT Hemal Pires RN documented as of this encounter Plan of Treatment Upcoming Encounters Date Type Department Care Team (Late st Contact Info) Description 12/08/2024 11:15 AM EDT Office Visit [facility] [address] [place] [address] Carole Feng MD [address] [place] [phone] documented as of this encounter Visit Diagnoses Not on filedocumented in this encounter Care Teams Production Technician Relationship Specialty Start Date End Date Ramila Christensen APRN [address] [place], [place] [id number] PCP - General 11/18/23 documented as of this encounter
--- OUTSIDE RECORDS SUMMARY | 2024-11-17 16:35 | XMS_ITS | Encounter Summary ---
Author Organization Healthcare Address [address] [place] [address] Care Team Providers Care Emergency Care Tech Name Role Phone Ramila Christensen APRN Primary Care Provider +1- [phone] Encounter Details Date Type Department Care Team (Latest Contact Info) Description 10/15/2024 Travel Social History Tobacco Use Types Packs/Day [...] drink first t chucky in the morning (EYE-PATROLLER) to steady your nerves or to get [...] Description 12/08/2024 11:15 AM EDT Office Visit [facility] [address] [place] [address] Carole Feng MD [address] [place] [address] documented as of this encounter [...] documented as of this encounter Care Teams Emergency Care Tech Relationship Specialty Start Date End Date Ramila Christensen APRN [address] [place] [address] PCP - General 11/18/23 documented as of this encounter
--- OUTSIDE RECORDS SUMMARY | 2024-11-17 16:35 | XMS_ITS | Clinical Summary ---
Author Organization Healthcare Address [address] [place] [address] Care Team Providers Care Case Assistant Name Role Phone ChristensenRamila ha Amy GOULD Primary Care Provider [phone] Allergies Active Allergy Reactions Criticality Noted Date Comments Meloxicam Rash High 10/01/2023 Nsaids Hives Medium 10/01/2023 Medications etonogestrel-eluti ng contraceptive device (Nexplanon) 68 MG implant 8 Active cetirizine (ZyrTEC) 10 MG tablet Take 1 tablet by mouth daily. Active Active Problems Comments Yes No known active problems Encounters Date Type Department Care Team Description 10/15/2024 11:00 AM EDT Office Visit [facility] [address] [place] [phone] Aleida Manley APRN Snoring (Primary Dx); Excessive daytime sleepiness; Severe obesity (BMI >= 40) (CMS/HCC) 10/15/2024 Travel 10/02/2024 Results Follow-Up [facility] Medicine Specialties [address] [place] [address] Tori Davis PA 09/22/2024 10:45 AM EDT - 09/22/2024 11:59 PM EDT Hospital Encounter [facility] Radiology [address], [address] [place] [address] Polyarthralgia; Neck pain Discharge Disposition: Home or Self Care 09/22/2024 9:30 AM EDT Consult [facility] [address] [place] [address] Jacquelyn, March R, IT SENIOR ANALYST Neck pain (Primary Dx); Polyarthralgia; Positive dilute Riley viper venom time test; Other fatigue; Double vision 09/22/2024 Travel from Last 3 Months Family History Medical History Relation Name Comments Cancer Maternal Grandmother Hypertension Mother May-Thurner Syndrome Mother Relation Name Status Comments Maternal Grandmother Mother Social History Tobacco Use Types Packs/Day Years [...] drink first t chucky in the morning (EYE-ADMINISTRATION CLERK) to steady your nerves or to get rid of a hangover? 0 11/18/2023 CAGE Questionnaire Score 0 024 Comments Yes Sex and Gender Information Value Date Recorded Sex Assigned at Not on file Legal Sex Female 8:08 PM EDT Gender Identity Not on file Sexual Orientation Not on file Last Filed Vital Signs Vital Sign Reading Time Taken Comments Blood Pressure 118/71 10/15/2024 11:06 AM EDT Pulse 82 10/15/2024 11:06 AM EDT Temperature 36.6 C (97.8 F) 09/22/2024 9:31 AM EDT Respiratory Rate 16 09/22/2024 9:31 AM EDT Oxygen Saturation 96% 10/15/2024 11:06 AM EDT Inhaled Oxygen Concentration - - Weight 121 kg (266 lb 12.1 oz) 10/15/2024 11:06 AM EDT Height 165.1 cm (5' 5 ) 10/15/2024 11:06 AM EDT Body Mass Index 44.39 10/15/2024 11:06 AM EDT Plan of Treatment Upcoming Encounters Date Type Department Care Team (Late st Contact Info) Description 12/08/2024 11:15 AM EDT Office Visit [facility] [address] [place] [address] Carole Feng MD [address] [place] [address] Health Maintenance Due Date Last Done Comments [facility]-HIV Screening 1990 [facility]-Hepatitis C Screening 1990 [facility]-/Child/Adol SDOH Screenings 1990 [facility]-Varicella Vaccines (1 of 2 - 13+ 2-dose series) 11/21/2003 [facility]- SDOH Screenings 2008 [facility]-Adult SDOH Screenings 2008 [facility]-DTaP,Tdap,and Td Vaccines (1 - Tdap) 2009 [facility]-Hepatitis B Vaccines (1 of 3 - 19+ 3-dose series) 2009 [facility]-Pap Smear 11/21/2011 HPV Vaccines (1 - 3-dose SCDM series) 2017 [facility]-Cervical Cancer Screening 2020 [facility]-HPV/Cotest 2020 TRY-DABZX-29 Vaccine (3 - season) 2023 04/25/2020, 03/24/2020 [facility]-Influenza Vaccine (#1) 2024 [facility]-Depression Screening 09/22/2025 09/22/2024, 07/0 03/2024 [facility]-Zoster Vaccines (1 of 2) 2040 [facility]-RSV Vaccine: 60+ Years or (1 - 1-dose 75+ series) 2065 [facility]-Obesity Intervention Completed 025, 09/22/2024, 07/06/2024, Additional history exists [facility]-HIB Vaccines Aged Out No longer e ligible based on patient's age to complete this topic [facility]-Hepatitis A Vaccines Aged Out No longer eligible based on patient's age to complete this topic [facility]-IPV Vaccines Aged Out No longer e ligible based on patient's age to complete this topic [facility]-Pneumococcal Vaccine: Pediatrics (0 to 5 Years) and At-Risk Patients (6 to 49 Years) Aged Out No longer eligible based on patient's age to complete this topic [facility]-Rotavirus Vaccines Aged Out No lo nger eligible based on patient's age to complete this topic Procedures Procedure Name Priority Date/Time Associated Diagnosis Comments XR CERVICAL SPINE 2 OR 3 VIEWS Routine 09/22/2024 11:26 AM EDT Neck pain XR HAND WRIST BILATERAL 2 VIEWS Routine 09/22/2024 11:26 AM EDT Polyarthralgia CORTISOL Routine 09/22/2024 10:59 AM EDT Abnormal weight gain Other fatigue DEXAMETHASONE, SERUM OR PLASMA (SO) Routine 09/22/2024 10:59 AM EDT Abnormal weight gain Other fatigue SEDIMENTATION RATE, AUTOMATED Routine 09/22/2024 10:59 AM EDT Polyarthralgia C-REACTIVE PROTEIN, PLASMA Routine 09/22/2024 10:59 AM EDT Polyarthralgia CBC WITH AUTO DIFFERENTIAL Routine 09/22/2024 10:59 AM EDT Polyarthralgia COMPREHENSIVE METABOLIC PANEL, PLASMA Routine 09/22/2024 10:59 AM EDT Polyarthralgia BETA-2 GLYCOPROTEIN 1 ANTIBODY, IGA (SO) Routine 09/22/2024 10:59 AM EDT Positive dilute Riley viper venom time test ANTI-BETA 2 GLYCOPROTEIN, IGG AND IGM Routine 09/22/2024 10:59 AM EDT Positive dilute Riley viper venom time test CARDIOLIPIN ANTIBODY, IGA (SO) Routine 09/22/2024 10:59 AM EDT Positive dilute Riley viper venom time test ANTICARDIOLIPIN Routine 09/22/2024 10:59 AM EDT Positive dilute Riley viper venom time test LUPUS ANTICOAGULANT PROFILE Routine 09/22/2024 10:59 AM EDT Positive dilute Riley viper venom time test RHEUMATOID FACTOR, PLASMA Routine 09/22/2024 10:59 AM EDT Polyarthralgia CYCLIC CITRUL PEPTIDE ANTIBODY IGG Routine 09/22/2024 10:59 AM EDT Polyarthralgia THYROID PEROXIDASE ANTIBODY Routine 09/22/2024 10:59 AM EDT Other fatigue TSH Routine 09/22/2024 10:59 AM EDT Other fatigue ANCA VASCULITIS PROFILE (SO) Routine 09/22/2024 10:59 AM EDT Double vision ANTINUCLEAR ANTIBODY (JAMI) WITH HEP-2 SUBSTRATE, IGG BY IFA (SO) Routine 09/22/2024 10:59 AM EDT Double vision from Last 3 Months Results * XR Hand and Wrist Bilateral [...] Borderline negative ulnar variance bilaterally. Procedure Note Isauro Rodas, Elvis Espinoza MD - 09/22/2024 CLINICAL INDICATION: neck pain [...] XR PROCEDURES Final R esult * XR Cervical Spine 2 or 3 [...] report signed by Elvis Rodas MD on 512:53 PM Tori SAUER IMG XR PROCEDURES Final R esult * ANCA Vasculitis Profile (09/22/2024 10:59 AM EDT) Myeloperoxidase (MPO) Ab, IgG 0 0 - 19 AU/mL 09/24/2024 1:27 PM EDT [facility] ([facility]) Serine Proteinase 3 (PR3) Ab, IgG 11 0 - 19 AU/mL 09/24/2024 1:27 PM EDT [facility] ([facility]) ANCA IFA Titer <1:20 <1:20 09/24/2024 1:27 PM EDT [facility] ([facility]) ANCA IFA Pattern None Detected None Detected 09/24/2024 1:27 PM EDT [facility] ([facility]) Blood Venous blood specimen / Unknown Venipuncture / Unknown 09/22/2024 10:59 AM EDT 09/22/2024 11:00 AM EDT Narrative [facility] ([facility]) - 09/24/2024 1:27 PM EDT INTERPRETIVE INFORMATION: [...] collagen vascular disease or arthritis. Performed By: [facility] [address] [place] [address] Publications Writer: Imer Walker MD, PhD CLIA Number: [id number] Tori SAUER LAB BLOOD ORDERABLES Damaris l Result [facility] ([place]) [address] [place], [place] [id number] * Anti-Beta 2 Glycoprotein, IgG and IgM (09/22/2024 10:59 AM EDT) Pathologist [facility] Anti-Beta 2 Glycoprotein 1, IgG <1.4 <20.0 U/mL 09/22/2024 1:30 PM EDT [facility] Anti-Beta 2 Glycoprotein IgG Interpretation Negative Negative 09/22/2024 1:30 PM EDT [facility] Anti-Beta 2 Glycoprotein 1, IgM 1.6 <20.0 U/mL 09/22/2024 1:30 PM EDT [facility] Anti-Beta 2 Glycoprotein IgM Interpretation Negative Negative 09/22/2024 1:30 PM EDT [facility] Blood Venous blood specimen / Unknown Venipuncture / Unknown 09/22/2024 10:59 AM EDT 09/22/2024 11:00 AM EDT Tori SAUER LAB BLOOD ORDERABLES Damaris l Result [facility] [address] [place] [address] * Beta-2 Glycoprotein 1 Antibody, IgA (09/22/2024 10:59 AM EDT) [id number] 1, IgA Antibody <10 <=20 DARCIE 09/24/2024 1:53 AM EDT [facility] ([facility]) Serum 09/22/2024 10:5 9 AM EDT 09/22/2024 11:00 AM EDT [email or web address]) - 09/24/2024 1:53 AM EDT Performed By: [facility] [address] [place] [address] Publications Writer: Imer Walker MD, PhD CLIA Number: [id number] Tori SAUER LAB BLOOD ORDERABLES Damaris l Result [facility]) [address] [place] [address] * Dexamethasone Level Test (09/22/2024 10:59 AM EDT) Dexamethasone <50.0 ng/dL 09/29/2024 11:00 AM EDT [facility]) Blood Venous blood specimen / Unknown Venipuncture / Unknown 09/22/2024 10:59 AM EDT 09/22/2024 11:00 AM EDT Narrative [facility] [employer]) - 09/29/2024 11:00 AM EDT INTERPRETIVE INFORMATION: Dexamethasone, Serum or Plasma by LC-MS/MS Adults baseline: Less than 50 ng/dL 8:00 AM draw following 1 mg dexamethasone between 11:00 pm and 12:00 am the previous evenin - 295 ng/dL 8:00 AM draw following 8 mg dexamethasone (4 x 2 mg doses) between 11:00 pm and 12:00 am the previous evenin - 2850 ng/dL This test was developed and its performance characteristics determined by [facility]. It has not been cleared or approved by the [place] Food and Drug Administration. This test was performed in a CLIA certified laboratory and is intended for clinical purposes. Performed By: [facility] [address] [place] [address] Publications Writer: Imer Walker MD, PhD CLIA Number: [id number] Randi Livingston DO LAB BLOOD ORDERABLES Final Result [facility] ([place]) [address] [place] [address] * Anticardiolipin IgG and IgM (09/22/2024 10:59 AM EDT) IgG Anticardiolipin <1.60 <20.00 GPL Units/mL 09/22/2024 1:30 PM EDT [facility] Anticardiolipin IgG Interpretation Negative Negative 09/22/2024 1:30 PM EDT [facility] IgM Anticardiolipin 1.70 <20.00 MPL Units/mL 09/22/2024 1:30 PM EDT [facility] Anticardiolipin IgM Interpretation Negative Negative 09/22/2024 1:30 PM EDT [facility] Blood Venous blood specimen / Unknown Venipuncture / Unknown 09/22/2024 10:59 AM EDT 09/22/2024 11:00 AM EDT Tori SAUER LAB BLOOD ORDERABLES Damaris l Result [facility] [address] [place] [address] * Thyroid Peroxidase Antibody (09/22/2024 10:59 AM EDT) Thyroid Peroxidase Antibody <5 <=8 IU/mL 09/22/2024 1:30 PM EDT [facility] Blood Venous blood specimen / Unknown Venipuncture / Unknown 09/22/2024 10:59 AM EDT 09/22/2024 11:00 AM EDT Tori SAUER LAB BLOOD ORDERABLES Damaris l Result [address] [address] * Cyclic Citrul Peptide Antibody IgG (09/22/2024 10:59 AM EDT) Cyclic Citrul Peptide Antibody IgG <5.0 <=5.0 U/mL 09/22/2024 1:54 PM EDT [facility] Blood Venous blood specimen / Unknown Venipuncture / Unknown 09/22/2024 10:59 AM EDT 09/22/2024 11:00 AM EDT Tori SAUER LAB BLOOD ORDERABLES Damaris l Result Performing Organization Address [facility] [place] [place] [address] * Cardiolipin antibody, IgA (09/22/2024 10:59 AM EDT) Cardiolipin Antibody IgA <10 <=11 APL 10/01/2024 10:31 AM EDT [email or web address] ([facility]) Blood Venous blood specimen / Unknown Venipuncture / Unknown 09/22/2024 10:59 AM EDT 09/22/2024 11:00 AM EDT Narrative [facility] ([place]) - 10/01/2024 10:31 AM EDT INTERPRETIVE INFORMATION: Cardiolipin Antibodies, IgA <=11 APL: Negative 12-19 APL: Indeterminate 20-80 APL: Low to Moderately Positive 81 APL or above: High Positive Performed By: [facility] [address] [place] [address] Publications Writer: Imer Walker MD, PhD CLIA Number: [id number] Tori SAUER LAB BLOOD ORDERABLES Damaris l Result Performing Organization Address City/[facility]/ZIP Co de Phone Number [facility] ([place]) [address] [place] [address] * Lupus Anticoagulant Profile (09/22/2024 10:59 AM EDT) Lupus Anticoagulant Result Lupus anticoagulant (LA) not detected by either LA-sensitive aPTT or dRVVT assays. If clinical suspicion for antiphospholipid syndrome is high, consider testing for antibodies against cardiolipin and [id number] n I. 09/25/2024 9:34 AM EDT [facility] aPTT Lupus Anticoagulant Sensitive 35.0 <=41.0 sec LAB COAGULATION METHOD 09/25/2024 9:34 AM EDT [facility] DRVVT Screen 38.1 sec LAB COAGULATION METHOD 09/25/2024 9:34 AM EDT [facility] DRVVT Screen Ratio 0.97 <1.20 LAB COAGULATION METHOD 09/25/2024 9:34 AM EDT [facility] Blood Venous blood specimen / Unknown Venipuncture / Unknown 09/22/2024 10:59 AM EDT 09/22/2024 11:00 AM EDT Tori SAUER LAB BLOOD ORDERABLES Damaris l Result [facility] [address] [place] [address] * (ABNORMAL) Sedimentation Rate, Automated (09/22/2024 10:59 AM EDT) [facility] Sedimentation Rate 33(H) <20 mm/hr 2024 1:07 PM EDT [facility] Blood Venous blood specimen / Unknown Venipuncture / Unknown 09/22/2024 10:59 AM EDT 09/22/2024 11:00 AM EDT Tori SAUER LAB BLOOD ORDERABLES Damaris l Result [facility] [address] [place] [address] * (ABNORMAL) CBC and Differential (09/22/2024 10:59 AM EDT) [facility] WBC Count 9.55 3.70 - 10.30 10*3/uL LAB HEMATOLOGY METHOD 09/22/2024 12:35 PM EDT [facility] RBC Count 5.24(H) 3.90 - 5.20 10*6/uL LAB HEMATOLOGY METHOD 09/22/2024 12:35 PM EDT [facility] HGB 14.5 11.2 - 15.7 g/dL LAB HEMATOLOGY METHOD 09/22/2024 12:35 PM EDT [facility] HCT 45.1(H) 34.0 - 45.0 % LAB HEMATOLOGY METHOD 09/22/2024 12:35 PM EDT [facility] Platelet Count 319 155 - 369 10*3/uL LAB HEMATOLOGY METHOD 09/22/2024 12:35 PM EDT [facility] MCV 86 79 - 98 fL LAB HEMATOLOGY METHOD 09/22/2024 12:35 PM EDT [facility] MCH 27.7 26.0 - 32.0 pg LAB HEMATOLOGY METHOD 09/22/2024 12:35 PM EDT [facility] MCHC 32.2 30.7 - 35.5 g/dL LAB HEMATOLOGY METHOD 09/22/2024 12:35 PM EDT [facility] RDW 13.5 11.5 - 14.5 % LAB HEMATOLOGY METHOD 09/22/2024 12:35 PM EDT [facility] MPV 11.8 8.8 - 12.5 fL LAB HEMATOLOGY METHOD 09/22/2024 12:35 PM EDT [facility] nRBC 0.0 <=0.0 per 100 WBCs LAB HEMATOLOGY METHOD 09/22/2024 12:35 PM EDT [facility] Differential Type Automated LAB HEMATOLOGY METHOD 09/22/2024 12:35 PM EDT [facility] Neutrophils % 65 % LAB HEMATOLOGY METHOD 09/22/2024 12:35 PM EDT [facility] Lymphocytes % 26 % LAB HEMATOLOGY METHOD 09/22/2024 12:35 PM EDT [facility] Monocytes % 6 % LAB HEMATOLOGY METHOD 09/22/2024 12:35 PM EDT [facility] Eosinophils % 2 % LAB HEMATOLOGY METHOD 09/22/2024 12:35 PM EDT [facility] Basophils % 1 % LAB HEMATOLOGY METHOD 09/22/2024 12:35 PM EDT [facility] Immature Granulocytes % 0 % LAB HEMATOLOGY METHOD 09/22/2024 12:35 PM EDT [facility] Neutrophils Absolute 6.27(H) 1.60 - 6.10 10*3/uL LAB HEMATOLOGY METHOD 09/22/2024 12:35 PM EDT [facility] Lymphocytes Absolute 2.50 1.20 - 3.90 10*3/uL LAB HEMATOLOGY METHOD 09/22/2024 12:35 PM EDT [facility] Monocytes Absolute 0.53 0.30 - 0.90 10*3/uL LAB HEMATOLOGY METHOD 09/22/2024 12:35 PM EDT [facility] Eosinophils Absolute 0.15 0.00 - 0.50 10*3/uL LAB HEMATOLOGY METHOD 09/22/2024 12:35 PM EDT [facility] Basophils Absolute 0.06 0.00 - 0.10 10*3/uL LAB HEMATOLOGY METHOD 09/22/2024 12:35 PM EDT [facility] Immature Granulocytes Absolute 0.04 0.00 - 0.06 10*3/uL LAB HEMATOLOGY METHOD 09/22/2024 12:35 PM EDT [facility] Blood Venous blood specimen / Unknown Venipuncture / Unknown 09/22/2024 10:59 AM EDT 09/22/2024 11:00 AM EDT Narrative [facility] - 09/22/2024 12:35 PM EDT Therapeutic decision making should be based on absolute values, rather than percentages. Tori SAUER LAB BLOOD ORDERABLES Damaris l Result [facility] [address] [place] [address] * Rheumatoid Factor, Plasma (09/22/2024 10:59 AM EDT) Rheumatoid Factor, Plasma <10 <14 IU/mL 09/22/2024 12:52 PM EDT [facility] Blood Venous blood specimen / Unknown Venipuncture / Unknown 09/22/2024 10:59 AM EDT 09/22/2024 11:00 AM EDT Tori SAUER LAB BLOOD ORDERABLES Damaris l Result Performing Organization Address [facility]/ZIP Co de Phone Number [facility] [address] [place] [address] * C-Reactive Protein, Plasma (09/22/2024 10:59 AM EDT) CRP, Plasma 4.0 <=8.0 mg/L 09/22/2024 12:52 PM EDT [facility] Blood Venous blood specimen / Unknown Venipuncture / Unknown 09/22/2024 10:59 AM EDT 09/22/2024 11:00 AM EDT Narrative [facility] - 09/22/2024 12:52 PM EDT This CRP test is appropriate for assessment of infection, systemic inflammation and/or tissue injury. To assess cardiovascular disease risk order high sensitivity CRP (CRPH). Tori SAUER LAB BLOOD ORDERABLES Damaris l Result Performing Organization Address [facility] Co de Phone Number [facility] [address] [place] [address] * ANTI NUCLEAR AB (09/22/2024 10:59 AM EDT) JAMI INTERPRETIVE COMMENT See Note 10/03/2024 10:49 AM EDT [facility] ([facility]) Anti Nuc Ab Screen <1:80 <1:80 10/03/2024 10:49 AM EDT [facility] ([facility]) Blood Venous blood specimen / Unknown Venipuncture / Unknown 09/22/2024 10:59 AM EDT 09/22/2024 11:00 AM EDT Narrative [facility] ([facility]) - 10/03/2024 10:49 AM EDT Antinuclear antibodies [...] not necessarily rule out SARD. Performed By: [facility] [address] [place] [id number] Publications Writer: Imer Walker MD, PhD CLIA Number: [id number] Tori SAUER LAB BLOOD ORDERABLES Damaris l Result Performing Organization Address City/[facility]/ZIP Co de Phone Number [facility] ([place]) [address] [place] [address] * Thyroid Stimulating Hormone, Plasma (09/22/2024 10:59 AM EDT) Thyroid Stimulating Hormone, Plasma 1.98 0.40 - 4.20 uIU/mL 09/22/2024 12:52 PM EDT [facility] Blood Venous blood specimen / Unknown Venipuncture / Unknown 09/22/2024 10:59 AM EDT 09/22/2024 11:00 AM EDT Narrative [facility] - 09/22/2024 12:52 PM EDT Trimester Specific Ranges TSH ( IU/mL) 1st Trimester 0.1 - 3.0 2nd Trimester 0.19 - 4.06 3rd Trimester 0.3 - 3.7 Tori SAUER LAB BLOOD ORDERABLES Damaris l Result [facility] [address] [place] [address] * Cortisol (09/22/2024 10:59 AM EDT) Cortisol 5.10 Before 10am: 3.7 - 19.4. After 5pm: 2.9 - 17.3 ug/dL 09/22/2024 1:08 PM EDT [facility] Comment:Testing performed on [employer] Auto [employer], standardized against SNF Reference Standard concentration values assigned by LC-MS/MS and verified by BCR 192 and BCR 193 certified reference materials. Blood Venous blood specimen / Unknown Venipuncture / Unknown 09/22/2024 10:59 AM EDT 09/22/2024 11:00 AM EDT us Randi Livingston DO LAB REF LAB BLOOD AND FLUID ORD Final Result [facility] [address] [place] [address] * Comprehensive Metabolic Panel, Plasma (09/22/2024 10:59 AM EDT) Glucose, Plasma 87 74 - 99 mg/dL 09/22/2024 12:52 PM EDT [facility] BUN, Plasma 10 7 - 21 mg/dL 09/22/2024 12:52 PM EDT [facility] Creatinine, Plasma 0.63 0.60 - 1.10 mg/dL 09/22/2024 12:52 PM EDT [facility] BUN/Creatinine Ratio 16 09/22/2024 12:52 PM EDT [facility] Sodium, Plasma 140 136 - 145 mmol/L 09/22/2024 12:52 PM EDT [facility] Potassium, Plasma 4.4 3.6 - 4.9 mmol/L 09/22/2024 12:52 PM EDT [facility] Chloride, Plasma 106 97 - 107 mmol/L 09/22/2024 12:52 PM EDT [facility] CO2, Plasma 24 22 - 29 mmol/L 09/22/2024 12:52 PM EDT [facility] Anion Gap 10 6 - 16 mmol/L 09/22/2024 12:52 PM EDT [facility] Total Calcium, Plasma 9.3 8.9 - 10.2 mg/dL 09/22/2024 12:52 PM EDT [facility] Total Protein 7.6 6.3 - 7.9 g/dL 09/22/2024 12:52 PM EDT [facility] Albumin, Plasma 4.3 3.5 - 5.2 g/dL 09/22/2024 12:52 PM EDT [facility] AST, Plasma 19 10 - 35 U/L 09/22/2024 12:52 PM EDT [facility] ALT, Plasma 18 10 - 35 U/L 09/22/2024 12:52 PM EDT [facility] Alkaline Phosphatase, Plasma 103 35 - 104 U/L 09/22/2024 12:52 PM EDT [facility] Total Bilirubin, Plasma 0.7 0.2 - 1.1 mg/dL 09/22/2024 12:52 PM EDT [facility] eGFRcr 120.3 mL/min/1.7 3m*2 09/22/2024 12:52 PM EDT [facility] Comment:Reported eGFRcr in m L/min/1.73m2 is based the CKD-EPI 2020 equation that does not use a race coefficient. Blood Venous blood specimen / Unknown Venipuncture / Unknown 09/22/2024 10:59 AM EDT 09/22/2024 11:00 AM EDT Tori SAUER LAB BLOOD ORDERABLES Damaris oliver Result Performing Organization Address City/State/[facility] Co de Phone Number [facility] [address] [place] [address] from Last 3 Months Insurance [employer] [place] Care Teams Case Assistant Relationship Specialty Start Date End Date Ramila Christensen APRN [address] [phone] PCP - General 11/18/23
--- OUTSIDE RECORDS SUMMARY | 2024-11-17 16:35 | XMS_ITS | Encounter Summary ---
Author Organization Healthcare Address [address] [place] [address] Care Team Providers Care Cooker Casing Name Role Phone Ramila Christensen APRN Primary Care Provider +1- [phone] Encounter Details Date Type Department Care Team ([facility] Contact Info) Description 07/20/2024 Results Follow-Up [facility] [address] [facility], [address] [place] [address] Randi Livingston, DO [address] [facility] [address] [place] [address] Social History Tobacco Use Types Packs/Day Years Used Date Smoking Tobacco: Never Smokeless Tobacco: Never Alcohol Use Standard Drinks/Week Comments Not Currently 0 (1 standard drink = 0.6 oz pur e alcohol) Alcohol makes vertigo worse PHQ-2 Answer Date Recorded Patient Health Questionnaire-2 Score 0 03/06/2024 CAGE ASSESSMENT Answer Date Recorded Cage unable [...] drink first t chucky in the morning (EYE-CARBIDE GRINDER) to steady your nerves or to get rid of a hangover? 0 11/18/2023 CAGE Questionnaire Score 0 024 Comments Unknown Sex and Gender Information Value Date Recorded Sex Assigned at Not on file Legal Sex Female 8:08 PM EDT Gender Identity Not on file Sexual Orientation Not on file documented as of this encounter Miscellaneous Notes * Telephone Encounter - Randi Livingston DO - 07/22/2024 11:30 AM EDT Please let her know I have sent in Dexamethasone which she should take at 10-11 PM at night and then get labs completed next morning at 8 AM. Please fax lab orders to where she has listed above. Thanks! documented in this encounter Plan of Treatment Upcoming Encounters Date Type Department Care Team (Late st Contact Info) Description 12/08/2024 11:15 AM EDT Office Visit [facility] [address] [place] [address] Carole Feng MD [address] [place] [address] documented as of this encounter Visit Diagnoses Not on filedocumented in this encounter Additional Health Concerns Assessment Noted Time A fall risk assessment has been complete d for the patient 07/06/2024 1:05 PM EDT A Body Mass Index follow-up plan has been documented for the patient 07/06/2024 2:21 PM EDT documented as of this encounter Care Teams Cooker Casing Relationship Specialty Start Date End Date Ramila Christensen APRN [address] [place] [address] PCP - General 11/18/23 documented as of this encounter
[2024-11-17 17:16] LABS: Coronavirus 19, PCR Not Detected (NotDetected); Influenza A, PCR Not Detected (NotDetected); Influenza B, PCR Not Detected (NotDetected)
[2024-11-17 17:35] LABS: Hematocrit 42.7 % (37.0-47.0); Hemoglobin 13.6 g/dL (12.2-16.2); Immature Granulocytes % 0.4 %; Mean Corpuscular HGB Conc 31.9 g/dL (31.8-35.4); Mean Corpuscular Hemoglobin 27.0 pg (27.0-31.2); Mean Corpuscular Volume 84.7 fl (81-99); Nucleated Red Blood Cells % 0 %; Platelet Count 287 K/mm3 (142-424); Red Blood Count 5.04 M/mm3 (4.20-5.40); Red Cell Distribution Width-SD 41.7 fL; White Blood Count 13.2 K/mm3 (4.8-10.8)
[2024-11-17 19:16] LABS: Ferritin 28.7 ng/ml (6.24-137)
[2024-11-17 19:31] LABS: Vitamin B12 574 pg/mL (239-931)
== END 2024-11-17 23:59 | disposition home or self-care (01) ==
LOC: LAB 16:33
PROVIDERS: PCP Nurse Practitioner Family; Visit Provider Nurse Practitioner Family
DX: R23.3 Spontaneous ecchymoses (principal); R69 Illness, unspecified
CPT/HCPCS: 36415; 82180; 82607; 82728; 85025; 85651; 87631

== ENCOUNTER 2024-12-25 12:30 | Outpatient (CLI) | payer MEDICAID, SELFPAY ==
--- OUTSIDE RECORDS SUMMARY | 2024-12-25 12:33 | XMS_ITS | Encounter Summary ---
Author Organization Healthcare Address [address] [place] [address] Care Team Providers Care Freelance Court Stenographer Name Role Phone Ramila Christensen APRN Primary Care Provider +1- [phone] Encounter Details Date Type Department Care Team (Late st Contact Info) Description 10/02/2024 Results Follow-Up [facility] [address] [place] [address] Tori Davis PA [address] [place] [address] Social History Tobacco Use Types [...] drink first t chucky in the morning (EYE-ADULT CARE PROVIDER) to steady your nerves or to get [...] Care Team (Late st Contact Info) Description 03/31/2025 12:45 PM EST Office Visit [facility] [address] [facility] [place] [address] Toi Eason MD [address] [place] [address] documented as of this encounter [...] documented as of this encounter Care Teams Freelance Court Stenographer Relationship Specialty Start Date End Date Ramila Christensen APRN [address] [place] [address] PCP - General 11/18/23 documented as of this encounter
--- OUTSIDE RECORDS SUMMARY | 2024-12-25 12:33 | XMS_ITS | Encounter Summary ---
Author Organization Healthcare Address [address] [place] [address] Care Team Providers Care Systems Requirements Planner Name Role Phone Ramila Christensen APRN Primary Care Provider +1- [phone] Encounter Details Date Type Department Care Team (Late st Contact Info) Description 11/18/2023 Ophth Exam [facility] [address] [place] [address] Cherrie Alford MD [address] [place], [place] [id number] Social History Tobacco Use Types Packs/Day Years [...] drink first t chucky in the morning (EYE-RETIREMENT SALES CONSULTANT) to steady your nerves or to get [...] Description 03/31/2025 12:45 PM EST Office Visit [facility] [address] [place] [address] Toi Eason MD [address] [place] [address] documented as of this encounter Visit Diagnoses Not on filedocumented in this encounter Care Teams Systems Requirements Planner Relationship Specialty Start Date End Date Ramila Christensen APRN [address] [place] [address] PCP - General 11/18/23 documented as of this encounter
--- OUTSIDE RECORDS SUMMARY | 2024-12-25 12:33 | XMS_ITS | Clinical Summary ---
Author Organization Healthcare Address [address] [place] [address] Care Team Providers Care Quality Improvement Engineer Name Role Phone ChristensenRamila ha Amy GOULD Primary Care Provider +1- [phone] Allergies Active Allergy Reactions Criticality Noted Date Comments Meloxicam Rash High 10/01/2023 Nsaids Hives Medium 10/01/2023 Medications etonogestrel-eluti ng contraceptive device (Nexplanon) 68 MG implant 8 Active cetirizine (ZyrTEC) 10 MG tablet Take 1 tablet by mouth daily. Active Active Problems Comments Yes No known active problems Encounters Date Type Department Care Team Description 10/15/2024 11:00 AM EDT Office Visit [facility] [address] [place] [address] Aleida Manley APRN Snoring (Primary Dx); Excessive daytime sleepiness; Severe obesity (BMI >= 40) (CMS/HCC) 10/15/2024 Travel 10/02/2024 Results Follow-Up [facility] [address] [place] [address] Tori Davis PA from Last 3 Months Family History Medical [...] drink first t chucky in the morning (EYE-GROUNDS RESTORATION SPECIALIST) to steady your nerves or to get [...] Description 03/31/2025 12:45 PM EST Office Visit [facility] [address] [place] [address] Maria Guadalupe Easonrkarasi, MD [address] [place] [address] Health Maintenance Due Date Last Done Comments [facility]-HIV Screening 1990 [facility]-Hepatitis C Screening 1990 [facility]-Infant/Child/Adol SDOH Screenings 1990 [facility]-Varicella Vaccines (1 of 2 - 13+ 2-dose series) 11/21/2003 [facility]- SDOH Screenings 2008 [facility]-Adult SDOH Screenings 2008 [facility]-DTaP,Tdap,and Td Vaccines (1 - Tdap) 2009 [facility]-Hepatitis B Vaccines (1 of 3 - 19+ 3-dose series) 2009 [facility]-Pap Smear 11/21/2011 HPV Vaccines (1 - 3-dose SCDM series) 2017 [facility]-Cervical Cancer Screening 2020 [facility]-HPV/Cotest 2020 [id number] Vaccine (3 - 2024- season) 2024 04/25/2020, 03/24/2020 [facility]-Influenza Vaccine (#1) 2024 [facility]-Depression Screening 09/22/2025 09/22/2024, 0703/2024 [facility]-Zoster Vaccines (1 of 2) 2040 [facility]-RSV [...] on patient's age to complete this topic Insurance [facility] [place] [address] Care Teams Quality Improvement Engineer Relationship Specialty Start Date End Date Ramila Christensen APRN [address] [place] [address] PCP - General 11/18/23
[2024-12-25 15:19] LABS: Vitamin B12 527 pg/mL (239-931)
[2024-12-25 15:46] LABS: Folate 10.70 ng/mL
[2024-12-27 14:13] LABS: Folate, Hemolysate 399.0 ng/mL (Not Estab.); Folate, RBC 847 ng/mL (>498); Hematocrit 47.1 % (34.0-46.6)
[2024-12-28 16:32] LABS: EBV Nuclear Antigen Ab, IgG >600.0 U/mL (0.0-17.9)
== END 2024-12-25 23:59 | disposition home or self-care (01) ==
LOC: LAB 12:31
PROVIDERS: PCP Nurse Practitioner Family; Visit Provider Nurse Practitioner Family
DX: B27.90 Infectious mononucleosis, unspecified without complication (principal); Z15.89 Genetic susceptibility to other disease; H53.9 Unspecified visual disturbance
CPT/HCPCS: 82607; 82746; 82747; 83090; 84207; 84590; 85014; 86664; 86665

== ENCOUNTER 2025-02-12 10:29 | Outpatient (CLI) | payer MEDICAID, SELFPAY ==
--- NOTE | 2025-02-12 10:31 | XR_ITS ---
FINAL REPORT CLINICAL HISTORY: left flank pain COMPARISON: None FINDINGS: A single view of the abdomen was obtained. There is a nonobstructive bowel gas pattern. There are no abnormally dilated loops of small bowel. There are no abnormal calcifications. IMPRESSION: Nonobstructive bowel gas pattern. Reviewed, Interpreted and Dictated by Francisco Davey MD Transcribed by Elsa Turpin Authenticated and . [facility]
--- OUTSIDE RECORDS SUMMARY | 2025-02-12 10:31 | XMS_ITS | Clinical Summary ---
Author Organization Healthcare Address [address] [place] [address] Care Team Providers Care Plant Reliability Engineer Name Role Phone Ramila Christensen APRN Primary Care Provider +1- [phone] Allergies Active Allergy Reactions Criticality Noted Date Comments Meloxicam Rash High 10/01/2023 Nsaids Hives Medium 10/01/2023 Medications etonogestrel-eluti ng contraceptive device (Nexplanon) 68 MG implant 8 Active cetirizine (ZyrTEC) 10 MG tablet Take 1 tablet by mouth daily. Active Active Problems Comments Yes No known active problems Family History Medical History Relation Name Comments [...] drink first t chucky in the morning (EYE-FREIGHT CAR CLEANER DELTA SYSTEM) to steady your nerves or to get [...] Description 03/31/2025 12:45 PM EST Office Visit [facility] [address] [place] [address] Toi Eason MD [address] [facility] [facility] [address] [place] [address] Health Maintenance Due Date Last [...] 2017 [facility]-Cervical Cancer Screening 2020 [facility]-HPV/Cotest 2020 [id number] Vaccine (3 - 2024- season) 2024 04/25/2020, 03/24/2020 [facility]-Influenza Vaccine (#1) 2024 [facility]-Depression Screening 09/22/2025 09/22/2024, 03/2024 [facility]-Zoster Vaccines (1 of 2) 2040 [...] patient's age to complete this topic Insurance [employer] [address] Care Teams Plant Reliability Engineer Relationship Specialty Start Date End Date Ramila Christensen APRN [address] [place] [address] PCP - General 11/18/23
--- OUTSIDE RECORDS SUMMARY | 2025-02-12 10:31 | XMS_ITS | Encounter Summary ---
Author Organization Healthcare Address [address] [place] [address] Care Team Providers Care Wellness Coach Name Role Phone Ramila Christensen APRN Primary Care Provider +1- [phone] Encounter Details Date Type Department Care Team (Late st Contact Info) Description 11/18/2023 Ophth Exam [facility] [address] [place] [address] Cherrie Alford MD [address] [place], [place] [phone] Social History Tobacco Use Types Packs/Day Years [...] drink first t chucky in the morning (EYE-PERSONAL CARE ASSISTANT) to steady your nerves or to get [...] Description 03/31/2025 12:45 PM EST Office Visit [facility] [address] [place] [address] Toi Eason MD [address] [place] [address] documented as of this encounter Visit Diagnoses Not on filedocumented in this encounter Care Teams Wellness Coach Relationship Specialty Start Date End Date Ramila Christensen APRN [address] [place] [address] PCP - General 11/18/23 documented as of this encounter
== END 2025-02-12 23:59 | disposition home or self-care (01) ==
LOC: RAD 10:29
PROVIDERS: PCP Nurse Practitioner Family; Visit Provider Nurse Practitioner Family
DX: R10.A2 Flank pain, left side (principal); R31.9 Hematuria, unspecified; R30.0 Dysuria
CPT/HCPCS: 74018; 87086

== ENCOUNTER 2025-02-16 15:00 | Outpatient (CLI) | payer MEDICAID, SELFPAY ==
--- OUTSIDE RECORDS SUMMARY | 2025-02-16 15:03 | XMS_ITS | Clinical Summary ---
Author Organization Healthcare Address [address] [place] [address] Care Team Providers Care Engineering Illustrator Name Role Phone Ramila Christensen APRN Primary Care Provider +1- [phone] Allergies Active Allergy Reactions Criticality Noted Date [...] drink first t chucky in the morning (EYE-COMMUNITY ENGAGEMENT SPECIALIST) to steady your nerves or to [...] Team (Late st Contact Info) Description 03/31/2025 1:00 PM EST Office Visit [facility] [address] [place] [address] Carole Feng MD [address] [facility] [address] [place] [address] Health Maintenance Due Date Last Done Comments [...] 2017 [facility]-Cervical Cancer Screening 2020 [facility]-HPV/Cotest 2020 [id number] Vaccine (3 - 2024- season) 2024 04/25/2020, [...] patient's age to complete this topic Insurance [facility] [address] Care Teams Engineering Illustrator Relationship Specialty Start Date End Date Ramila Christensen APRN [address] [id number] PCP - General 11/18/23
--- OUTSIDE RECORDS SUMMARY | 2025-02-16 15:03 | XMS_ITS | Encounter Summary ---
Author Organization Healthcare Address [address] [place] [address] Care Team Providers Care Ict Programmer Name Role Phone Ramila Christensen APRN Primary Care Provider +1- [phone] Encounter Details Date Type Department Care Team (Late st Contact Info) Description 11/18/2023 Ophth Exam [facility] [address] [place] [address] Cherrie Alford MD [address] [place], [place] [phone] Social History Tobacco Use Types Packs/Day Years [...] drink first t chucky in the morning (EYE-WINDMILL MECHANIC) to steady your nerves or to get [...] Description 03/31/2025 1:00 PM EST Office Visit [facility] [address] [place] [address] Carole Feng MD [address] [place] [address] documented as of this encounter Visit Diagnoses Not on filedocumented in this encounter Care Teams Ict Programmer Relationship Specialty Start Date End Date Ramila Christensen APRN [address] [place] [address] PCP - General 11/18/23 documented as of this encounter
== END 2025-02-16 23:59 | disposition home or self-care (01) ==
LOC: LAB 15:00
PROVIDERS: PCP Nurse Practitioner Family; Visit Provider Nurse Practitioner Family
DX: R82.90 Unspecified abnormal findings in urine (principal)
CPT/HCPCS: 87086

== ENCOUNTER 2025-02-25 12:19 | Outpatient (CLI) | payer MEDICAID, SELFPAY ==
--- OUTSIDE RECORDS SUMMARY | 2025-02-25 12:21 | XMS_ITS | Encounter Summary ---
Author Organization Healthcare Address [address] [place] [address] Care Team Providers Care Bank Vault Attendant Name Role Phone Ramila Christensen APRN Primary Care Provider +1- [phone] Encounter Details Date Type Department Care Team (Late st Contact Info) Description 11/18/2023 Ophth Exam [facility] [address] [place] [address] Cherrie Alford MD [address] [place], [place] [phone] Social History Tobacco Use Types Packs/Day Years [...] drink first t chucky in the morning (EYE-CABLE TELEVISION LINE TECHNICIAN) to steady your nerves or to [...] Description 03/31/2025 1:00 PM EST Office Visit [facility] [address] [place] [address] Carole Feng MD [address] [place] [address] documented as of this encounter Visit Diagnoses Not on filedocumented in this encounter Care Teams Bank Vault Attendant Relationship Specialty Start Date End Date Ramila Christensen APRN [address] [place] [address] PCP - General 11/18/23 documented as of this encounter
--- OUTSIDE RECORDS SUMMARY | 2025-02-25 12:21 | XMS_ITS | Clinical Summary ---
Author Organization Healthcare Address [address] [place] [address] Care Team Providers Care Barbering Teacher Name Role Phone Ramila Christensen APRN Primary Care Provider +1- [phone] Allergies Active Allergy Reactions Criticality Noted Date [...] drink first t chucky in the morning (EYE-PURSE SEINER) to steady your nerves or to get [...] Description 03/31/2025 1:00 PM EST Office Visit [facility] [address] [place] [address] Carole Feng MD [address] [facility] [address] [place] [address] Health Maintenance Due Date Last Done Comments [...] 2017 [facility]-Cervical Cancer Screening 2020 [facility]-HPV/Cotest 2020 [id number] Vaccine (3 - 2024- season) 2024 04/25/2020, [...] patient's age to complete this topic Insurance [facility] MEDICAID [place] Care Teams Barbering Teacher Relationship Specialty Start Date End Date Ramila Christensen APRN [address] [id number] PCP - General 11/18/23
[2025-02-25 12:36] LABS: Hematocrit 44.9 % (37.0-47.0); Hemoglobin 14.4 g/dL (12.2-16.2); Immature Granulocytes % 0.5 %; Mean Corpuscular HGB Conc 32.1 g/dL (31.8-35.4); Mean Corpuscular Hemoglobin 27.3 pg (27.0-31.2); Mean Corpuscular Volume 85.2 fl (81-99); Nucleated Red Blood Cells % 0 %; Platelet Count 317 K/mm3 (142-424); Red Blood Count 5.27 M/mm3 (4.20-5.40); Red Cell Distribution Width-SD 41.8 fL; White Blood Count 11.9 K/mm3 (4.8-10.8)
== END 2025-02-25 23:59 | disposition home or self-care (01) ==
LOC: LAB 12:19
PROVIDERS: PCP Nurse Practitioner Family; Visit Provider Nurse Practitioner Family
DX: R23.3 Spontaneous ecchymoses (principal)
CPT/HCPCS: 36415; 84597; 85025

== ENCOUNTER 2025-03-12 11:50 | Outpatient (CLI) | payer MEDICAID, SELFPAY ==
--- OUTSIDE RECORDS SUMMARY | 2025-03-12 11:53 | XMS_ITS | Encounter Summary ---
Author Organization Healthcare Address [address] [place] [address] Care Team Providers Care Electrical Equipment Tester Name Role Phone Fermin Ramilaaria Reyes APRN Primary Care Provider +1- [phone] Encounter Details Date Type Department Care Team (Late st Contact Info) Description 11/18/2023 Ophth Exam [facility] [address] [place] [address] Cherrie Alford MD [address] [place], [place] [phone] Social History Tobacco Use Types Packs/Day Years [...] drink first t chucky in the morning (EYE-CULINARY INTERN) to steady your nerves or to get [...] Month) No 024 7:24 PM EDT Hemal Pires, RN 2. Non-Specific Active Suici mehnaz Thoughts (Past 1 Month) No 11/18/2023 7:24 PM EDT Neri Pires RN 6. Suicidal Behavior (Lifetime) No 7:24 PM EDT Hemal Pires, HARVEY documented as of this encounter Plan of Treatment Upcoming Encounters Date Type Department Care Team (Late st Contact Info) Description 03/31/2025 1:00 PM EST Office Visit [facility] [address] [place] [address] Carole Feng MD [address] [place] [phone] documented as of this encounter Visit Diagnoses Not on filedocumented in this encounter Care Teams Electrical Equipment Tester Relationship Specialty Start Date End Date Ramila Christensen APRN [address] [place] [address] PCP - General 11/18/23 documented as of this encounter
--- OUTSIDE RECORDS SUMMARY | 2025-03-12 11:54 | XMS_ITS | Clinical Summary ---
Author Organization Healthcare Address [address] [place] [address] Care Team Providers Care Senior Financial Consultant Name Role Phone FerminRamila Amy GOULD Primary Care Provider +1- [phone] Allergies Active Allergy Reactions Criticality Noted Date [...] drink first t chucky in the morning (EYE-MEDICAL RESEARCH SCIENTIST) to steady your nerves or to get [...] Description 03/31/2025 1:00 PM EST Office Visit [facility] [address] [place] [phone] Carole Feng MD [address] [facility] [address] [place] [address] Health Maintenance Due Date Last Done Comments [facility]-HIV Screening 1990 [facility]-Hepatitis C Screening 1990 [facility]-Infant/Child/Adol SDOH Screenings 1990 [facility]-Varicella Vaccines (1 of 2 - 13+ 2-dose series) 11/21/2003 [facility]- SDOH Screenings 2008 [facility]-Adult SDOH Screenings 2008 [facility]-DTaP,Tdap,and Td Vaccines (1 - Tdap) 2009 [facility]-Hepatitis B Vaccines (1 of 3 - 19+ 3-dose series) 2009 [facility]-Pap Smear 11/21/2011 [facility]-Cervical Cancer Screening 2020 [facility]-HPV/Cotest 2020 [id number] Vaccine (3 - 2024- season) 2024 04/25/2020, 03/24/2020 [facility]-Influenza Vaccine (#1) 2024 [facility]-Depression Screening 09/22/2025 09/22/2024, 070 03/2024 [facility]-Zoster Vaccines (1 of 2) 2040 [facility]-RSV Vaccine: 60+ Years or (1 - 1-dose 75+ series) 2065 [facility]-Obesity Intervention Completed 025, 09/22/2024, 07/06/2024, Additional history exists HPV Vaccines (No Doses Required) Completed [facility]-HIB Vaccines Aged Out No longer e [...] patient's age to complete this topic Insurance JAYLA SANDY [id number] [facility] [place] [address] Care Teams Senior Financial Consultant Relationship Specialty Start Date End Date Ramila Christensen APRN [address] [place] [address] PCP - General 11/18/23
[2025-03-12 12:29] LABS: Hematocrit 45.8 % (37.0-47.0); Hemoglobin 14.6 g/dL (12.2-16.2); Immature Granulocytes % 0.2 %; Mean Corpuscular HGB Conc 31.9 g/dL (31.8-35.4); Mean Corpuscular Hemoglobin 27.4 pg (27.0-31.2); Mean Corpuscular Volume 85.9 fl (81-99); Nucleated Red Blood Cells % 0 %; Platelet Count 322 K/mm3 (142-424); Red Blood Count 5.33 M/mm3 (4.20-5.40); Red Cell Distribution Width-SD 40.9 fL; White Blood Count 10.0 K/mm3 (4.8-10.8)
[2025-03-12 12:36] LABS: D-Dimer 0.50 ug/mL (0.0-0.5)
--- NOTE | 2025-03-12 13:00 | CA_ITS ---
FINAL REPORT TECHNIQUE: Compression najera scale and Doppler evaluation CLINICAL HISTORY: redness at chronic injury; left lower extremity edema FINDINGS: Femoral and popliteal veins show normal compressibility and flow. Visualized portion of the calf veins are patent by Doppler exam. IMPRESSION: No evidence of left lower extremity deep venous thrombosis Reviewed, Interpreted and Dictated by Adin Crow MD Transcribed by Michelle Strauss Authenticated and [facility]
[2025-03-12 14:10] LABS: Albumin Level 4.7 g/dl (3.5-5.0); Chloride 104 mmol/L (98-107); Potassium 4.0 mmoL/L (3.5-5.1); Sodium 140 mmol/L (136-145)
[2025-03-12 14:13] LABS: Alanine Aminotransferase 16 U/L (12-78); Albumin/Globulin Ratio 1.5 (1.1-1.8); Alkaline Phosphatase 86 U/L (38-126); Anion Gap 14.0 mEq/L (5-15); Aspartate Amino Transferase 22 U/L (14-36); Bilirubin,Total 0.9 mg/dl (0.2-1.3); Blood Urea Nitrogen 11 mg/dl (7-17); Calcium 9.8 mg/dl (8.4-10.2); Carbon Dioxide 26 mmol/L (22.0-30.0); Creatinine,Serum 0.80 mg/dl (0.52-1.04); Estimated Glomerular Filt Rate 82 ml/min (>60); GFR (African American) 99 ML/MIN (>60); Globulin 3.1 g/dL (1.3-3.2); Glucose 92 mg/dl (74-100); Total Protein,Serum 7.8 g/dl (6.3-8.2)
[2025-03-12 14:19] LABS: C-Reactive Protein 3.4 mg/L (0-4)
== END 2025-03-12 23:59 | disposition home or self-care (01) ==
PROVIDERS: PCP Nurse Practitioner Family; Visit Provider Nurse Practitioner Family
DX: I77.4 Celiac artery compression syndrome (principal); R23.3 Spontaneous ecchymoses; M79.89 Other specified soft tissue disorders
CPT/HCPCS: 36415; 80053; 85025; 85378; 85651; 86140; 86160; 93971